=== PATIENT | female | born 1960 | race Caucasian/White ===

== ENCOUNTER 2020-02-27 07:01 | Outpatient (CLI) | payer BC, SELFPAY ==
[2020-02-27 07:13] LABS: Appearance Urine Clear (Clear); Bilirubin Urine Negative (Negative); Color Urine Yellow (Yellow); Glucose Urine UA Negative (Negative); Ketones Urine Negative (Negative); Leukocyte Esterase Ur Negative LEU/UL (Negative); Nitrate Urine Negative (Negative); Protein Urine Negative (Negative); Specific Grav Ur 1.025 (1.010-1.020); Urobilinogen Urine 0.2 mg/dL (0.2-1.0); pH Urine 5.5 (5.0-8.0)
[2020-02-27 07:14] LABS: Hematocrit 45.4 % (35.0-49.0); Hemoglobin 15.4 g/dL (12.0-15.0); Mean Corpuscular HGB Conc 33.9 g/dL (32.0-36.0); Mean Corpuscular Hemoglobin 32.2 pg (27.0-31.0); Platelet Count Result 275 K/mm3 (150-420); Red Blood Count 4.78 M/mm3 (4.20-5.40); Red Cell Distribution Width 12.6 % (11.6-14.4)
[2020-02-27 07:33] LABS: Add Urine Microscopic? YES; Blood Urine Trace-Lysed (Negative)
[2020-02-27 07:34] LABS: Bacteria Urine 2+ /hpf; Squamous Epithelial Cell Urine Few /hpf (Few); WBC Urine 0-3 /hpf (0-3)
[2020-02-27 07:35] LABS: Creatinine Urine 84.48 mg/dL (40-278)
[2020-02-27 07:36] LABS: Microalbumin Urine Random 12.7 mg/L
[2020-02-27 07:37] LABS: Hemoglobin A1C 5.4 % (<5.7)
[2020-02-27 07:51] LABS: Band Neutrophils Percent 0 % (0-6); Basophils Percent Manual 0 % (0-1); Eosinophils Absolute Manual 0.11 K/mm3 (0.02-0.5); Eosinophils Percent Manual 1 % (1-6); Lymphocytes Absolute Manual 4.73 K/mm3 (1.1-4.5); Lymphocytes Percent Manual 43 % (18-44); Monocytes Absolute Manual 0.55 K/mm3 (0.1-0.90); Monocytes Percent Manual 5 % (3-9); Neutrophils Absolute Manual 5.61 K/mm3 (1.7-7.2); Neutrophils Percent Manual 51 % (46-73); Platelet Estimate Adequate (Adequate); Total Cells Counted 100
[2020-02-27 08:47] LABS: Alanine Aminotransferase 55 U/L (14-59); Albumin Level 3.8 g/dL (3.4-5.0); Alkaline Phosphatase 99 U/L (46-116); Anion Gap 16.6 mmol/L (7-16); Aspartate Amino Transferase 34 U/L (15-37); Bilirubin,Total 0.5 mg/dL (0.00-1.00); Blood Urea Nitrogen 18 mg/dL (7-18); Calcium 9.5 mg/dL (8.5-10.1); Carbon Dioxide 26 mmol/L (21-32); Chloride 105 mmol/L (98-108); Cholesterol 195 mg/dL (0-200); Creatine Kinase 120 U/L (26-192); Estimated Glomerular Filt Rate > 60; Glucose 85 mg/dL (70-99); HDL Direct 65 mg/dL (40-60); LDL Cholesterol Calculated 109 mg/dL (<130); Osmolality Calculated 296 mOsm/kg (285-295); Potassium 4.6 mmol/L (3.5-5.1); Sodium 143 mmol/L (136-145); Total Protein 6.5 g/dL (6.4-8.2); Triglycerides 103 mg/dL (0-150)
== END 2020-02-27 07:02 | disposition home or self-care (01) ==
LOC: CHSLAB 07:03
PROVIDERS: PCP Internal Medicine; Visit Provider Internal Medicine
DX: Z00.00 Encounter for general adult medical examination without abnormal findings (principal); R73.01 Impaired fasting glucose
CPT/HCPCS: 36415; 80053; 80061; 81001; 82043; 82550; 83036; 85025

== ENCOUNTER 2020-07-24 01:12 | Outpatient (CLI) | payer BC, SELFPAY ==
[2020-07-24 19:19] LABS: SARS-CoV-2 RNA PCR Negative
== END 2020-07-24 01:13 | disposition home or self-care (01) ==
LOC: ANHCOVIDDT 01:12
PROVIDERS: PCP Internal Medicine; Visit Provider Internal Medicine Gastroenterology
DX: Z01.812 Encounter for preprocedural laboratory examination (principal); Z11.59 Encounter for screening for other viral diseases
CPT/HCPCS: 87635; C9803; U0003

== ENCOUNTER 2020-07-26 01:02 | Day surgery (SDC) | payer BC, SELFPAY ==
[2020-07-18 15:40] VITALS: BMI 32.2
[2020-07-26] MEDS: LACTATED RINGERS 1,000 ML 150 ML IV CONT (07:51)
--- NOTE | 2020-07-26 07:54 | WPDGICN ---
Assessment and Plan Assessment and plan (1) History of colon polyps: Code(s): Z86.010 - Personal history of colonic polyps Status: Acute Assessment and Plan: Patient has a history of colon polyp removed from the colon 2013. Plan is for surveillance colonoscopy at this time. Further recommendations will be given after endoscopy. GI Consult Note Consult date/time: 07/26/20 07:54 HPI: Teresa Espinosa is a 59 year old female seen in evaluation at the request of Dr Riley. Patient presents for for follow-up colonoscopy. Patient has a history of colon polyp removed from the colon in 2013. She states her current weight appetite bowel movements are normal. She denies abdominal pain she has had no bleeding. Her weight has remained stable. Family history is noncontributory. There is no family history of colon or rectal disease. Review of Systems Review of Systems: All systems reviewed & are unremarkable except as noted in HPI and below PMFSH Social History Social History Smoking packs per day: 1 Smoking cigarettes per day: 20.0 Years smoked: 40 Smoking pack-years: 40.00 Smoking status: Heavy tobacco smoker Tobacco type: cigarettes Alcohol intake: current Drinks per week: 2 Substance use: never Substance use type: does not use Living arrangements: with family Spiritual care concerns: No Meds Home Medications and Allergies Home Medications Medication Instructions Recorded Confirmed Type atorvastatin 80 mg PO DAILY 07/18/20 07/18/20 History hydrochlorothiazide 12.5 mg PO DAILY 07/18/20 07/18/20 History losartan 50 mg PO DAILY 07/18/20 07/18/20 History meloxicam 15 mg PO DAILY 07/18/20 07/18/20 History Allergies Allergy/AdvReac Type Severity Reaction Status Date / Time Sulfa (Sulfonamide Allergy Unknown Unknown Verified 07/18/20 15:39 Antibiotics) Penicillins Allergy Itching Verified 07/18/20 15:39 Exam Narrative: Exam Narrative: Physical exam reveals patient to be alert. Vital signs stable. HEENT exam unremarkable. Lungs are clear to auscultation and percussion. Heart is without murmur or extra sounds. Abdominal exam bowel sounds are present soft nontender with no organomegaly. Digital external rectal exam normal.
[2020-07-26 07:55] VITALS: BP 125/90; PULSE 97; RESP 20; TEMP 36.3; O2SAT 97; BMI 30.7
--- NOTE | 2020-07-26 08:06 | WPDANESEPPF ---
Anes - Initial Pre Proc Eval Procedure: Operation Date: 07/26/20 08:30 Proposed Procedures p Screening Colonoscopy - Darwin Mederos MD Date/Time: 07/26/20 08:06 Surgeon: Darwin Mederos MD Pre Op Diagnosis: neoplasm screening, hx colon polyps Patient Data Age: 59 Gender: F Height: 5 ft 2 in Weight: 76.3 kg Last Vital Signs Temp 97.4 F L 07/26/20 07:55 Pulse 97 07/26/20 07:55 Resp 20 07/26/20 07:55 BP 125/90 07/26/20 07:55 Pulse Ox 97 07/26/20 07:55 Allergies Allergy/AdvReac Type Severity Reaction Status Date / Time Sulfa (Sulfonamide Allergy Unknown Unknown Verified 07/18/20 15:39 Antibiotics) Penicillins Allergy Itching Verified 07/18/20 15:39 Home Medications Medication Instructions Recorded Confirmed Type atorvastatin 80 mg PO DAILY 07/18/20 07/18/20 History hydrochlorothiazide 12.5 mg PO DAILY 07/18/20 07/18/20 History losartan 50 mg PO DAILY 07/18/20 07/18/20 History meloxicam 15 mg PO DAILY 07/18/20 07/18/20 History Patient hx anesthesia problems: none Family hx anesthesia problems: none PMFSH Past Medical History Medical History (Updated 07/26/20 @ 08:05 by Keith Chand MD) Hyperlipidemia Social History Social History Smoking packs per day: 1 Smoking cigarettes per day: 20.0 Years smoked: 40 Smoking pack-years: 40.00 Smoking status: Heavy tobacco smoker Tobacco type: cigarettes Alcohol intake: current Drinks per week: 2 Substance use: never Substance use type: does not use Living arrangements: with family Spiritual care concerns: No Anes - Eval Final PreProcedure Day of Procedure 07/26/20 08:06 Patient weight: obese Lungs: clear to auscultation Airway: Mallampati scale class II Neurological: alert and oriented Last oral intake: >/= 8 hours ASA classification: III Emergent: no Anesthetic plan: proceed Anesthesia type and monitoring: general GIVS and standard monitoring Informed Consent: The patient's anesthetic plan and its attendant risks and benefits were discussed with the patient/family/POA. Questions were solicited and answers provided to the satisfaction of the patient/family/POA.
[2020-07-26 08:51] VITALS: BP 127/66; PULSE 92; RESP 16; O2SAT 98
[2020-07-26 09:00] VITALS: BP 133/86; PULSE 81; RESP 16; O2SAT 98
[2020-07-26 09:10] VITALS: BP 134/81; PULSE 81; RESP 16; O2SAT 99
== END 2020-07-26 09:26 | disposition home or self-care (01) ==
PROVIDERS: PCP Internal Medicine; Visit Provider Internal Medicine Gastroenterology
PROC: 0DJD8ZZ Inspection of Lower Intestinal Tract, Via Natural or Artificial Opening Endoscopic (ICD-10-PCS; CPT 45378; principal; 2020-07-26 08:30)
DX: Z12.11 Encounter for screening for malignant neoplasm of colon (principal); K63.5 Polyp of colon; K64.8 Other hemorrhoids; E78.5 Hyperlipidemia, unspecified; F17.210 Nicotine dependence, cigarettes, uncomplicated; E66.9 Obesity, unspecified; Z68.30 Body mass index [BMI] 30.0-30.9, adult
CPT/HCPCS: 45385; 88305; J2001; J2704; J3370; J7120

== ENCOUNTER 2020-09-28 07:14 | Outpatient (CLI) | payer BC, SELFPAY ==
[2020-09-28 07:40] LABS: Appearance Urine Clear (Clear); Bilirubin Urine Negative (Negative); Color Urine Yellow (Yellow); Glucose Urine UA Negative (Negative); Ketones Urine Negative (Negative); Leukocyte Esterase Ur 1+ (Negative); Nitrate Urine Negative (Negative); Protein Urine Negative (Negative); Urobilinogen Urine 0.2 mg/dL (0.2-1.0); pH Urine 5.5 (5.0-8.0)
[2020-09-28 07:53] LABS: Add Urine Microscopic? YES; Blood Urine Trace (Negative); RBC Urine 0-2 /hpf (0-2)
[2020-09-28 07:54] LABS: Bacteria Urine 1+ /hpf; Squamous Epithelial Cell Urine Rare /hpf (Few)
[2020-09-28 08:42] LABS: Alanine Aminotransferase 61 U/L (14-59); Albumin Level 4.2 g/dL (3.4-5.0); Alkaline Phosphatase 96 U/L (46-116); Anion Gap 12 mmol/L (8-16); Aspartate Amino Transferase 40 U/L (15-37); Bilirubin,Total 0.5 mg/dL (0.00-1.00); Blood Urea Nitrogen 16 mg/dL (7-18); Calcium 9.9 mg/dL (8.5-10.1); Carbon Dioxide 25 mmol/L (21-32); Chloride 104 mmol/L (98-108); Cholesterol 195 mg/dL (0-200); Creatine Kinase 309 U/L (26-192); Estimated Glomerular Filt Rate > 60; Glucose 85 mg/dL (70-99); HDL Direct 78 mg/dL (40-60); LDL Cholesterol Calculated 80 mg/dL (<130); Osmolality Calculated 292 mOsm/kg (285-295); Potassium 4.4 mmol/L (3.5-5.1); Sodium 141 mmol/L (136-145); Total Protein 7.2 g/dL (6.4-8.2); Triglycerides 183 mg/dL (0-150)
== END 2020-09-28 07:15 | disposition home or self-care (01) ==
LOC: CHSLAB 07:16
PROVIDERS: PCP Internal Medicine; Visit Provider Internal Medicine
DX: E78.2 Mixed hyperlipidemia (principal); I10 Essential (primary) hypertension; R73.01 Impaired fasting glucose
CPT/HCPCS: 36415; 80053; 80061; 81001; 82550; 83036

== ENCOUNTER 2020-11-21 12:18 | Outpatient (CLI) | payer BC, SELFPAY ==
[2020-11-21 13:16] LABS: Alanine Aminotransferase 62 U/L (14-59); Albumin Level 4.1 g/dL (3.4-5.0); Alkaline Phosphatase 101 U/L (46-116); Anion Gap 10 mmol/L (8-16); Aspartate Amino Transferase 38 U/L (15-37); Bilirubin,Total 0.5 mg/dL (0.00-1.00); Blood Urea Nitrogen 18 mg/dL (7-18); Calcium 10.1 mg/dL (8.5-10.1); Carbon Dioxide 29 mmol/L (21-32); Chloride 102 mmol/L (98-108); Estimated Glomerular Filt Rate > 60; Glucose 87 mg/dL (70-99); Osmolality Calculated 292 mOsm/kg (285-295); Potassium 4.3 mmol/L (3.5-5.1); Sodium 141 mmol/L (136-145); Total Protein 6.9 g/dL (6.4-8.2)
== END 2020-11-21 12:19 | disposition home or self-care (01) ==
LOC: CHSLAB 12:20
PROVIDERS: PCP Internal Medicine; Visit Provider Internal Medicine
DX: R94.5 Abnormal results of liver function studies (principal)
CPT/HCPCS: 36415; 80053

== ENCOUNTER 2021-02-26 15:56 | Outpatient (CLI) | payer BC, SELFPAY ==
[2021-02-26 17:12] LABS: Alanine Aminotransferase 84 U/L (14-59); Alkaline Phosphatase 108 U/L (46-116); Anion Gap 8 mmol/L (8-16); Aspartate Amino Transferase 43 U/L (15-37); Bilirubin,Total 0.4 mg/dL (0.00-1.00); Blood Urea Nitrogen 20 mg/dL (7-18); Calcium 10.2 mg/dL (8.5-10.1); Carbon Dioxide 29 mmol/L (21-32); Chloride 102 mmol/L (98-108); Estimated Glomerular Filt Rate > 60; GGT 202 U/L (5-55); Glucose 88 mg/dL (70-99); Osmolality Calculated 289 mOsm/kg (285-295); Potassium 4.4 mmol/L (3.5-5.1); Sodium 139 mmol/L (136-145); Total Protein 6.9 g/dL (6.4-8.2)
== END 2021-02-26 15:57 | disposition home or self-care (01) ==
LOC: CHSLAB 15:58
PROVIDERS: PCP Internal Medicine; Visit Provider Internal Medicine
DX: R94.5 Abnormal results of liver function studies (principal)
CPT/HCPCS: 36415; 80053; 82977

== ENCOUNTER 2021-03-14 07:47 | Outpatient (CLI) | payer BC, SELFPAY ==
--- NOTE | ~2021-03-14 | US_ITS ---
EXAMINATION: US right upper quadrant DATE: 03/14/2021 08:14 INDICATION: Abnormal liver function tests. TECHNIQUE: Multiple grayscale and Doppler ultrasound images of the abdomen were obtained. COMPARISON: Abdomen ultrasound 11/16/2013 FINDINGS: The visualized portions of the head and body of the pancreas are normal. The liver is jerome l without focal lesion. No liver surface nodularity. There is normal flow in main portal vein. The ga llbladder is normal in size and contains gallstones. No gallbladder wall thickening or sonographic Mu rphy sign. The common duct is normal and measures 4 mm. IMPRESSION: 1. Cholelithiasis. No evidence of acute cholecystitis. Reviewed, dictated and finalized at location A.
[2021-03-14 08:01] LABS: Hematocrit 47.8 % (35.0-49.0); Hemoglobin 16.4 g/dL (12.0-15.0); Mean Corpuscular HGB Conc 34.3 g/dL (32.0-36.0); Mean Corpuscular Hemoglobin 32.2 pg (27.0-31.0); Mean Corpuscular Volume 93.9 fL (78.0-102.0); Mean Platelet Volume 9.2 fl (9.2-11.8); Platelet Count Result 318 K/mm3 (150-420); Red Blood Count 5.09 M/mm3 (4.20-5.40); White Blood Count 11.3 K/mm3 (4.8-10.8)
[2021-03-14 09:10] LABS: Ferritin 253 ng/mL (8-252); GGT 200 U/L (5-55); Iron 93 ug/dL (50-170); Percent Iron Saturation 25 % (12-57)
[2021-03-14 09:11] LABS: CRP < 0.2 mg/dL (0.0-0.9)
[2021-03-14 09:16] LABS: Band Neutrophils Percent 0 % (0-6); Basophils Absolute Manual 0.22 K/mm3 (0-0.1); Basophils Percent Manual 2 % (0-1); Eosinophils Absolute Manual 0.11 K/mm3 (0.02-0.5); Eosinophils Percent Manual 1 % (1-6); Erythrocyte Sedimentation Rate 10 mm/hr (0-20); Lymphocytes Absolute Manual 4.29 K/mm3 (1.1-4.5); Lymphocytes Percent Manual 38 % (18-44); Monocytes Absolute Manual 1.24 K/mm3 (0.1-0.90); Monocytes Percent Manual 11 % (3-9); Neutrophils Absolute Manual 5.42 K/mm3 (1.7-7.2); Neutrophils Percent Manual 48 % (46-73); Total Cells Counted 100
[2021-03-14 09:17] LABS: Atypical Lymphocytes Present; Platelet Estimate Adequate (Adequate)
[2021-03-14 12:16] LABS: Alanine Aminotransferase 66 U/L (14-59); Albumin Level 4.1 g/dL (3.4-5.0); Alkaline Phosphatase 119 U/L (46-116); Anion Gap 11 mmol/L (8-16); Aspartate Amino Transferase 40 U/L (15-37); Bilirubin,Total 0.6 mg/dL (0.00-1.00); Blood Urea Nitrogen 14 mg/dL (7-18); Calcium 9.7 mg/dL (8.5-10.1); Carbon Dioxide 26 mmol/L (21-32); Chloride 101 mmol/L (98-108); Estimated Glomerular Filt Rate > 60; Glucose 93 mg/dL (70-99); Osmolality Calculated 286 mOsm/kg (285-295); Potassium 4.5 mmol/L (3.5-5.1); Sodium 138 mmol/L (136-145); Total Protein 6.9 g/dL (6.4-8.2)
[2021-03-16 20:16] LABS: Mitochondrial (M2) Ab (IgG) <=20.0 U (<=20.0)
[2021-03-18 04:11] LABS: Hepatitis B Surface Antibody Nonreactive (Nonreactive); Hepatitis C Virus Antibody Nonreactive (Nonreactive)
[2021-03-20 09:49] LABS: Actin Antibody (IgG) <20 U (<20)
== END 2021-03-14 07:48 | disposition home or self-care (01) ==
LOC: CHSIMG 07:49
PROVIDERS: PCP Internal Medicine; Visit Provider Internal Medicine
DX: R94.5 Abnormal results of liver function studies (principal)
CPT/HCPCS: 36415; 76705; 80053; 82728; 82977; 83516; 83520; 83540; 83550; 85025; 85652; 86038; 86039; 86140; 86706

== ENCOUNTER 2021-08-01 11:41 | Outpatient (CLI) | payer BC, SELFPAY ==
--- NOTE | ~2021-08-01 | MM_ITS ---
EXAMINATION: MM screening [facility] BI w joanne HISTORY: Screening TECHNIQUE: Craniocaudal and mediolateral oblique 3-D tomosynthesis images were obtained and synthetic 2-D images were generated. CAD analysis was submitted and interpreted. COMPARISON: Comparison to multiple prior studies sequentially, with oldest reviewed study dated 10/2012. BREAST PARENCHYMAL COMPOSITION: There are scattered areas of fibroglandular density. FINDINGS: There is no evidence of suspicious mass, calcification, or architectural distortion to sugg est malignancy in either breast. There has been no suspicious interval change. IMPRESSION: 1. No mammographic evidence of malignancy. 2. Recommend routine screening mammography in one year. BI-RADS Category 1: Negative Reviewed, dictated and finalized at location A.
== END 2021-08-01 11:42 | disposition home or self-care (01) ==
LOC: CHSIMG 11:42
PROVIDERS: PCP Family Medicine; Visit Provider Family Medicine
DX: Z12.31 Encounter for screening mammogram for malignant neoplasm of breast (principal)
CPT/HCPCS: 77063; 77067

== ENCOUNTER 2022-01-19 16:10 | Outpatient (CLI) | payer BC, SELFPAY ==
[2022-01-19 17:32] LABS: Alanine Aminotransferase 45 U/L (14-59); Albumin Level 4.2 g/dL (3.4-5.0); Alkaline Phosphatase 92 U/L (46-116); Anion Gap 9 mmol/L (8-16); Aspartate Amino Transferase 29 U/L (15-37); Bilirubin,Total 0.6 mg/dL (0.00-1.00); Blood Urea Nitrogen 16 mg/dL (7-18); Calcium 9.9 mg/dL (8.5-10.1); Carbon Dioxide 28 mmol/L (21-32); Chloride 100 mmol/L (98-108); Cholesterol 212 mg/dL (0-200); Estimated Glomerular Filt Rate > 60; Glucose 91 mg/dL (70-99); HDL Direct 79 mg/dL (40-60); LDL Cholesterol Calculated 94 mg/dL (<130); Osmolality Calculated 285 mOsm/kg (285-295); Potassium 4.1 mmol/L (3.5-5.1); Sodium 137 mmol/L (136-145); Total Protein 6.8 g/dL (6.4-8.2); Triglycerides 193 mg/dL (0-150)
== END 2022-01-19 16:11 | disposition home or self-care (01) ==
LOC: CHSLAB 16:12
PROVIDERS: PCP Family Medicine; Visit Provider Family Medicine
DX: R74.8 Abnormal levels of other serum enzymes (principal); E78.5 Hyperlipidemia, unspecified
CPT/HCPCS: 36415; 80053; 80061

== ENCOUNTER 2022-10-19 07:25 | Outpatient (CLI) | payer BC, SELFPAY ==
[2022-10-19 07:34] LABS: Add Urine Microscopic? YES; Appearance Urine Slightly Cloudy (Clear); Bilirubin Urine Negative (Negative); Blood Urine 1+ (Negative); Glucose Urine UA Negative (Negative); Ketones Urine Negative (Negative); Leukocyte Esterase Ur 1+ LEU/UL (Negative); Nitrate Urine Positive (Negative); Protein Urine Negative (Negative); Specific Grav Ur >= 1.030 (1.010-1.020); Urobilinogen Urine 0.2 mg/dL (0.2-1.0)
[2022-10-19 07:44] LABS: Color Urine Dark Yellow (Yellow)
[2022-10-19 07:45] LABS: Bacteria Urine 4+ /hpf; Squamous Epithelial Cell Urine Moderate /hpf (Few)
== END 2022-10-19 07:26 | disposition home or self-care (01) ==
LOC: CHSLAB 07:26
PROVIDERS: PCP Family Medicine; Visit Provider Family Medicine
DX: R30.0 Dysuria (principal); R82.90 Unspecified abnormal findings in urine
CPT/HCPCS: 81001; 87077; 87086; 87088; 87186

== ENCOUNTER 2022-10-28 07:20 | Outpatient (CLI) | payer BC, SELFPAY ==
[2022-10-28 08:12] LABS: Add Urine Microscopic? YES; Appearance Urine Clear (Clear); Bilirubin Urine Negative (Negative); Blood Urine Trace-Intact (Negative); Color Urine Light Yellow (Yellow); Glucose Urine UA Negative (Negative); Ketones Urine Negative (Negative); Leukocyte Esterase Ur 1+ LEU/UL (Negative); Nitrate Urine Negative (Negative); Protein Urine Negative (Negative); Specific Grav Ur <= 1.005 (1.010-1.020); Urobilinogen Urine 0.2 mg/dL (0.2-1.0); pH Urine 6.5 (5.0-8.0)
[2022-10-28 08:24] LABS: RBC Urine None seen /hpf (0-2); WBC Urine 0-3 /hpf (0-3)
[2022-10-28 08:25] LABS: Bacteria Urine Trace /hpf; Squamous Epithelial Cell Urine Few /hpf (Few)
== END 2022-10-28 07:21 | disposition home or self-care (01) ==
LOC: CHSLAB 07:21
PROVIDERS: PCP Family Medicine; Visit Provider Nurse Practitioner Family
DX: R82.90 Unspecified abnormal findings in urine (principal); Z87.440 Personal history of urinary (tract) infections
CPT/HCPCS: 81001; 87077; 87086; 87088; 87186

== ENCOUNTER 2023-05-10 07:03 | Outpatient (CLI) | payer BC, SELFPAY ==
[2023-05-10 07:16] LABS: Basophils Absolute Auto 0.06 K/mm3 (0.00-0.10); Basophils Percent Auto 0.7 % (0.0-1.0); Eosinophils Absolute Auto 0.17 K/mm3 (0.02-0.50); Eosinophils Percent Auto 1.9 % (1.0-6.0); Hematocrit 47.9 % (35.0-49.0); Hemoglobin 16.2 g/dL (12.0-15.0); Immature Granulocyte Absolute 0.04 K/mm3 (0.00-0.00); Immature Granulocyte Percent A 0.5 % (0.0-0.0); Lymphocytes Absolute Auto 3.81 K/mm3 (1.10-4.50); Lymphocytes Percent Auto 43.2 % (18.0-42.0); Mean Corpuscular HGB Conc 33.8 g/dL (32.0-36.0); Mean Corpuscular Hemoglobin 33.1 pg (27.0-31.0); Mean Corpuscular Volume 97.8 fL (78.0-102.0); Mean Platelet Volume 9.2 fl (9.2-11.8); Monocytes Absolute Auto 0.55 K/mm3 (0.10-0.90); Monocytes Percent Auto 6.2 % (2.0-11.0); Neutrophils Absolute Auto 4.2 K/mm3 (1.7-7.2); Neutrophils Percent Auto 47.5 % (50.0-70.0); Platelet Count Result 249 K/mm3 (150-420); Red Cell Distribution Width 11.9 % (11.6-14.4); White Blood Count 8.8 K/mm3 (4.8-10.8)
[2023-05-10 08:18] LABS: Alanine Aminotransferase 37 U/L (14-59); Albumin Level 3.8 g/dL (3.4-5.0); Alkaline Phosphatase 87 U/L (46-116); Anion Gap 8 mmol/L (8-16); Aspartate Amino Transferase 22 U/L (15-37); Bilirubin,Total 0.6 mg/dL (0.00-1.00); Blood Urea Nitrogen 17 mg/dL (7-18); Calcium 9.3 mg/dL (8.5-10.1); Carbon Dioxide 31 mmol/L (21-32); Chloride 103 mmol/L (98-108); Cholesterol 216 mg/dL (0-200); Estimated Glomerular Filt Rate > 60; Folic Acid > 20.0 ng/mL (8.6->20); Glucose 89 mg/dL (70-99); HDL Direct 74 mg/dL (40-60); LDL Cholesterol Calculated 110 mg/dL (<130); Osmolality Calculated 294 mOsm/kg (285-295); Potassium 4.2 mmol/L (3.5-5.1); Sodium 142 mmol/L (136-145); Total Protein 6.4 g/dL (6.4-8.2); Triglycerides 158 mg/dL (0-150); Vitamin B12 949 pg/mL (193-986)
[2023-05-10 08:19] LABS: Thyroid Stimulating Hormone Reflex 0.75 u/IU/mL (0.36-3.74)
== END 2023-05-10 07:04 | disposition home or self-care (01) ==
LOC: CHSLAB 07:04
PROVIDERS: PCP Family Medicine; Visit Provider Family Medicine
DX: F10.10 Alcohol abuse, uncomplicated (principal); E53.8 Deficiency of other specified B group vitamins; E11.9 Type 2 diabetes mellitus without complications; I10 Essential (primary) hypertension
CPT/HCPCS: 36415; 80053; 80061; 82607; 82746; 84443; 85025

== ENCOUNTER 2024-06-26 07:01 | Outpatient (CLI) | payer BC, SELFPAY ==
[2024-06-26 07:20] LABS: Basophils Absolute Auto 0.06 K/mm3 (0.00-0.10); Basophils Percent Auto 0.6 % (0.0-1.0); Eosinophils Absolute Auto 0.25 K/mm3 (0.02-0.50); Eosinophils Percent Auto 2.5 % (1.0-6.0); Hematocrit 48.4 % (35.0-49.0); Hemoglobin 16.4 g/dL (12.0-15.0); Immature Granulocyte Absolute 0.04 K/mm3 (0.00-0.00); Immature Granulocyte Percent A 0.4 % (0.0-0.0); Lymphocytes Absolute Auto 4.12 K/mm3 (1.10-4.50); Lymphocytes Percent Auto 41.6 % (18.0-42.0); Mean Corpuscular HGB Conc 33.9 g/dL (32-36); Mean Corpuscular Hemoglobin 32.5 pg (27.0-31.0); Mean Corpuscular Volume 95.8 fL (78.0-102.0); Mean Platelet Volume 9.3 fl (9.2-11.8); Monocytes Percent Auto 7.1 % (2.0-11.0); Neutrophils Absolute Auto 4.74 K/mm3 (1.70-7.20); Neutrophils Percent Auto 47.8 % (50.0-70.0); Platelet Count Result 271 K/mm3 (150-420); Red Blood Count 5.05 M/mm3 (4.20-5.40); Red Cell Distribution Width 12.2 % (11.6-14.4); White Blood Count 9.9 K/mm3 (4.8-10.8)
[2024-06-26 16:27] LABS: Alanine Aminotransferase 40 U/L (14-59); Albumin Level 4.2 g/dL (3.4-5.0); Alkaline Phosphatase 97 U/L (46-116); Anion Gap 9 mmol/L (4-12); Aspartate Amino Transferase 28 U/L (15-37); Bilirubin,Total 0.6 mg/dL (0.00-1.00); Blood Urea Nitrogen 16 mg/dL (7-18); Calcium 9.6 mg/dL (8.5-10.1); Carbon Dioxide 29 mmol/L (21-32); Chloride 104 mmol/L (98-108); Cholesterol 232 mg/dL (0-200); Estimated Glomerular Filt Rate > 60; Glucose 84 mg/dL (70-99); HDL Direct 78 mg/dL (40-60); LDL Cholesterol Calculated 119 mg/dL (<130); Osmolality Calculated 294 mOsm/kg (285-295); Potassium 4.3 mmol/L (3.5-5.1); Sodium 142 mmol/L (136-145); Total Protein 6.9 g/dL (6.4-8.2); Triglycerides 176 mg/dL (0-150)
== END 2024-06-26 07:02 | disposition home or self-care (01) ==
LOC: CHSLAB 07:03
PROVIDERS: PCP Family Medicine; Visit Provider Family Medicine
DX: I10 Essential (primary) hypertension (principal)
CPT/HCPCS: 36415; 80053; 80061; 85025

== ENCOUNTER 2024-07-12 13:36 | Outpatient (CLI) | payer BC, SELFPAY ==
--- NOTE | ~2024-07-12 | MM_ITS ---
EXAMINATION: MM screening [facility] BI w joanne HISTORY: Screening TECHNIQUE: Craniocaudal and mediolateral oblique 3-D tomosynthesis images were obtained and synthetic 2-D images were generated. CAD analysis was submitted and interpreted. COMPARISON: Comparison to multiple prior studies sequentially, with oldest reviewed study dated 04/2015. BREAST PARENCHYMAL COMPOSITION: Not dense: There are scattered areas of fibroglandular density. FINDINGS: There is developing asymmetry of the right breast in the upper outer quadrant, anterior thi rd with possible architectural distortion. The left breast is stable without evidence for malignancy. IMPRESSION: 1. Developing left breast asymmetry with possible architectural distortion. 2. Additional mammographic views and possible breast ultrasound are recommended. BI-RADS Category 0: Incomplete: Needs additional imaging evaluation. Reviewed, dictated and finalized at location B. IMPRESSION: 1. Developing left breast asymmetry with possible architectural distortion. 2. Additional mammographic views and possible breast ultrasound are recommended . BI-RADS Category 0: Incomplete: Needs additional imaging evaluation.
== END 2024-07-12 13:37 | disposition home or self-care (01) ==
LOC: CHSIMG 13:40
PROVIDERS: PCP Family Medicine; Visit Provider Family Medicine
DX: Z12.31 Encounter for screening mammogram for malignant neoplasm of breast (principal); R92.8 Other abnormal and inconclusive findings on diagnostic imaging of breast
CPT/HCPCS: 77063; 77067

== ENCOUNTER 2024-07-27 08:42 | Outpatient (CLI) | payer BC, SELFPAY ==
--- NOTE | ~2024-07-27 | MMUS_ITS ---
EXAMINATION: MM diagnostic [facility] RT w joanne, US breast RT limited HISTORY: Right breast asymmetry TECHNIQUE: Additional 3-D tomosynthesis images of the right breast were performed and synthetic 2-D i mages were generated. CAD analysis was submitted and interpreted. High resolution limited right breas t ultrasound was performed. COMPARISON: 07/12/2024, 08/01/2021 BREAST PARENCHYMAL COMPOSITION:Not Dense. There are scattered areas of fibroglandular density. FINDINGS: MAMMOGRAPHIC FINDINGS: Spot compression views demonstrate persistent distortion at the upper, outer right breast, with possi ble associated 6 mm mass. ULTRASOUND: At the 9:00 position right breast, 5 cm from the nipple, there is a 9 x 6 x 6 mm irregular hypoechoic mass with posterior shadowing. IMPRESSION: 9 x 6 x 6 mm hypoechoic irregular posterior shadowing mass at the 9:00 position right breast, 5 cm t he nipple. This correlates with area of distortion and small mass on mammogram images. This is suspic ious for neoplasm, and ultrasound-guided biopsy is recommended to establish a histologic diagnosis. BI-RADS category 5, highly suggestive of malignancy. Reviewed, dictated and finalized at location . IMPRESSION: 9 x 6 x 6 mm hypoechoic irregular posterior shadowing mass at the 9:00 positio n right breast, 5 cm the nipple. This correlates with area of distortion and sm all mass on mammogram images. This is suspicious for neoplasm, and ultrasound-g uided biopsy is recommended to establish a histologic diagnosis. BI-RADS category 5, highly suggestive of malignancy.
== END 2024-07-27 08:43 | disposition home or self-care (01) ==
LOC: CHSIMG 08:43
PROVIDERS: PCP Family Medicine; Visit Provider Family Medicine
DX: R92.8 Other abnormal and inconclusive findings on diagnostic imaging of breast (principal)
CPT/HCPCS: 76642; 77061; 77065; G0279

== ENCOUNTER 2024-08-09 07:44 | Outpatient (CLI) | payer BC, SELFPAY ==
--- NOTE | ~2024-08-09 | MMUS_ITS ---
MM post biopsy diagnostic RT, US breast biopsy RT w image EXAMINATION: US GUIDED NEEDLE BIOPSY WITH VACUUM ASSISTANCE DATE: 08/09/2024 09:45 CDT INDICATION: Right breast mass seen on prior examination. Ultrasound-guided core biopsy is requested to evaluate for malignancy. BREAST PARENCHYMAL COMPOSITION: Not dense: There are scattered areas of fibroglandular density. TECHNIQUE AND FINDINGS: The risks and potential benefits of the procedure were discussed with the patient, and written inform ed consent was obtained. After sterile preparation of the right breast, 1% lidocaine was utilized fo r local anesthesia. 1% lidocaine with epinephrine was used for deep anesthesia. A 10G vacuum-assisted biopsy gun needle was advanced through to the outer edge of the region of inter est from a superior lateral approach utilizing sonographic guidance. A total of 4 tissue core sample s were obtained through the lesion. An Inrad tissue marker clip was then placed at the biopsy site. Hemostasis was achieved. The patient tolerated procedure well and there was no evidence of immediate complication. The patien t was given verbal instructions partly is from the department. Right breast mammograms to document t issue marker clip placement. The tissue samples were submitted to surgical pathology for histologic a nalysis. IMPRESSION: 1. Successful ultrasound-guided vacuum-assisted biopsy of right breast mass with post procedure mamm ogram for marker placement. Please refer to pathology report for histologic analysis. Reviewed, dictated and finalized at location B. IMPRESSION: 1. Successful ultrasound-guided vacuum-assisted biopsy of right breast mass wi th post procedure mammogram for marker placement. Please refer to pathology rep ort for histologic analysis.
== END 2024-08-09 07:45 | disposition home or self-care (01) ==
PROVIDERS: PCP Family Medicine; Visit Provider Family Medicine
DX: R92.8 Other abnormal and inconclusive findings on diagnostic imaging of breast (principal); N60.12 Diffuse cystic mastopathy of left breast; N62 Hypertrophy of breast; R92.0 Mammographic microcalcification found on diagnostic imaging of breast
CPT/HCPCS: 19083; 77065; 88305; 88342; A4648

== ENCOUNTER 2024-09-13 07:52 | Outpatient (CLI) | payer BC, SELFPAY ==
--- NOTE | ~2024-09-13 | US_ITS ---
Radiology consultation: Findings were discussed with the patient. Given the spiculated appearance of the mass by mammography and irregular shaped by ultrasound with posterior shadowing, this mass is con sidered highly suspicious and follow-up biopsy utilizing a surgical excision with ultrasound-guided m arker placement is recommended. Reviewed, dictated and finalized at location B. ISH DIPPER
== END 2024-09-13 07:53 | disposition home or self-care (01) ==
PROVIDERS: PCP Family Medicine; Visit Provider Family Medicine
DX: N63.10 Unspecified lump in the right breast, unspecified quadrant (principal)
CPT/HCPCS: 99199

== ENCOUNTER 2024-10-16 11:12 | Outpatient (CLI) | payer BC, SELFPAY ==
[2024-10-16 12:13] LABS: Anion Gap 2 mmol/L (4-12); Blood Urea Nitrogen 12 mg/dL (7-17); Carbon Dioxide 29 mmol/L (22-30); Chloride 105 mmol/L (98-107); Estimated Glomerular Filt Rate > 60; Glucose 95 mg/dL (65-110); Potassium 3.9 mmol/L (3.4-5.0); Sodium 136 mmol/L (137-145)
== END 2024-10-16 11:13 | disposition home or self-care (01) ==
LOC: ANHSURGERY 11:17
PROVIDERS: Anesthesiology; PCP Family Medicine; Visit Provider Surgery
DX: Z79.899 Other long term (current) drug therapy (principal)
CPT/HCPCS: 36415; 80048

== ENCOUNTER 2024-10-20 00:10 | Day surgery (SDC) | payer BC, SELFPAY ==
[2024-10-09 12:25] VITALS: BMI 29.7
--- NOTE | 2024-10-09 12:32 | PC.NURSE ---
Report to the Outpatient Waiting Room, entrance under the green pavilion located off [facility], at time _0600_ on date _[id number]_. Needle LOC at 0700 Surgery Time: _0900_.? Time changes happen often and if your time is changed the preop area will call you the afternoon before. - You and your visitor will be asked to self-screen and do not enter if you have any COVID symptoms. Please call surgeon if you need to reschedule. - A mask is optional within the hospital at this time. Patients may have clear liquids (water, carbonated beverages, clear teas, apple juice) until 3 hours prior to surgery with a maximum of 20 ounces. - No food from midnight until time of surgery and no smoking. This includes no chewing gum, candy or mints. Take only the following medications with a SIP of water on the morning of surgery: _Patient is planning to take Oxycodone. DO NOT STOP ANY OF YOUR OTHER PRESCRIPTION MEDICATIONS PRIOR TO SURGERY EXCEPT THE FOLLOWING Medications to discontinue per physician Multivitamin Date to take last xlvc___[id number] Please no make-up, nail lebanese, hairspray, perfume, deodorant, or body powder the day of surgery.? No jewelry (including any body piercings) or valuables the day of surgery, leave them at home.? Please take a shower or bath the night before, or the morning of, surgery with an antibacterial soap.? Wear comfortable, loose fitting clothing.? - Jewelry must be removed prior to entering the operating room.? Rings and piercings that are not removed may be cut off. - The hospital will not accept responsibility for valuables.? - Please leave all valuables, including medications, at home the day of surgery. If you are going home after surgery, a licensed automobile drivers must drive you home.? - NO public transportation without another adult if you receive anesthesia. - We recommend that an adult stay with you for 24 hours following discharge. - We also recommend that you do not drive, make important decision, drink alcoholic beverages, or take any drugs that were not prescribed by your health care provider for at least 24 hours after your discharge time. Follow any additional instructions given to you from your surgeon. Telephone instructions given to __Annita__and asked if any additional questions and then verbalized understanding. Patient advised to call surgeon office or pre surgery nurse liaison [phone] if any additional questions.
--- NOTE | ~2024-10-20 | MMUS_ITS ---
EXAMINATION: 1. US breast needle loc RT 2. MM surgical specimen RT 3. MM post biopsy invasive RT DATE: 10/20/2024 08:01 INDICATION: Right breast mass at 9:00, 5 cm from the nipple. TECHNIQUE: The procedure for an ultrasound-guided needle localization was discussed with the patient. Risks and benefits were detailed, including risk of bleeding and infection. The patient verbalized understanding and agreed to proceed. The time out was performed to verify the patient's name, date of , and site of procedure. The sk in overlying the right breast was prepared and draped in usual fashion. Utilizing ultrasound guidanc e, a needle was advanced into the mass at the 9:00 position, 5 cm from the nipple. Confirmation of po sition of the wire was performed with ultrasound and subsequent two-view mammogram. The patient pauline ated the procedure without immediate complication. A specimen radiograph was performed. FINDINGS: Ultrasound images demonstrate the needle and wire in a mass at the 9:00 position. Breast composition: There are scattered areas of fibroglandular density. Mammogram: The wire and a biopsy marker are in a mass in the right breast at the 9:00 position. Specimen radiograph: The mass, wire, and biopsy marker are contained within the surgical specimen. IMPRESSION: 1. Successful ultrasound-guided right breast needle localization. Reviewed, dictated and finalized at location A. ET ASSEMBLY PRESS SETTER OPERATOR IMPRESSION: 1. Successful ultrasound-guided right breast needle localization. IMPRESSION: 1. Successful ultrasound-guided right breast needle localization.
[2024-10-20 06:05] VITALS: BP 139/86; PULSE 101; RESP 20; TEMP 36.2; O2SAT 96
--- NOTE | 2024-10-20 07:40 | SUR.PREOP ---
0605-Pt states has had cough for 1 week and has progressed to chest and expectorating clear mucus. Denies fever or any other symptoms. tested negative for COVID yesterday. 0645-Radiology states they will call when ready for pt. 0720-Drs. Smallwood/Mannie aware of pt cough-will proceed. 0725-To radiology per w/c.
--- NOTE | 2024-10-20 08:11 | SUR.PREOP ---
0805-Returned from radiology.
[2024-10-20] MEDS: LACTATED RINGERS 1,000 ML 30 ML IV CONT ×2 (08:15→10:23)
--- NOTE | 2024-10-20 08:28 | WPDHPUPDATE1 ---
History and Physical Update Update Date/Time: 10/20/24 08:28 History and Physical has been reviewed, including an updated exam of the patient. There are NO changes in the patient's condition. Risks, benefits, and alternatives have been discussed and questions answered. Patient agrees to proceed with procedure.
--- NOTE | 2024-10-20 08:32 | P.PNAN_ITS ---
Anes - Initial Pre Proc Eval Procedure: Operation Date: 10/20/24 09:00 Proposed Procedures p Excisional Right Breast Biopsy with Ultrasound and/or Mammogram Guided Needle Localization - Isiah Smallwood MD Date/Time: 10/20/24 08:32 Surgeon: Isiah Smallwood MD Pre Op Diagnosis: Right Breast Mass Patient Data Age: 64 Gender: F Height: 1.56 m Weight: 69.6 kg Last Vital Signs Temp 36.2 C L 10/20/24 06:05 Pulse 101 H 10/20/24 06:05 Resp 20 10/20/24 06:05 BP 139/86 10/20/24 06:05 Pulse Ox 96 10/20/24 06:05 O2 Del Method Room Air 10/20/24 06:05 Allergies Allergy/AdvReac Type Severity Reaction Status Date / Time Penicillins Allergy Severe Itching Verified 10/20/24 06:27 Sulfa (Sulfonamide Allergy Severe Itching Verified 10/20/24 06:27 Antibiotics) Home Medications ?Medication ?Instructions ?Recorded ?Confirmed ?Type oxycodone 5 mg tablet 5 mg PO Q8H PRN pain #20 tabs 08/15/24 10/20/24 Rx atorvastatin 20 mg tablet See Rx Instructions .Route 10/09/24 10/20/24 Rx .COMPLEX #90 tabs hydrochlorothiazide 12.5 mg tablet See Rx Instructions .Route 10/09/24 10/20/24 Rx .COMPLEX #30 tabs losartan 50 mg tablet See Rx Instructions .Route 10/09/24 10/20/24 Rx .COMPLEX #90 tabs meloxicam 15 mg tablet See Rx Instructions .Route 10/09/24 10/20/24 Rx .COMPLEX #30 tabs multivitamin 1 tablet PO DAILY 10/09/24 10/20/24 History fluconazole 150 mg tablet 150 mg PO DAILY #7 tabs 10/16/24 10/20/24 Rx Patient hx anesthesia problems: none Family hx anesthesia problems: none Results Review: All pre-operative results and documents have been reviewed as part of the pre- operative evaluation. [facility] Past Medical History Medical History Hypertension Hyperlipidemia Surgical History Surgical History History of colonoscopy History of hysterectomy History of right knee joint replacement Family History Family History Father , age 66 Lung cancer Mother , age 83 Diabetes mellitus Heart disease Social History Social History (System 09/29/24 @ 09:02 by Elvi White) Smoking packs per day: 1 Smoking cigarettes per day: 20.0 Years smoked: 40 Smoking pack-years: 40.00 Smoking status: Current every day smoker Tobacco type: cigarettes Alcohol intake: current Alcohol use details: Has a few drinks daily after work. Substance use: never Substance use type: does not use Do You Feel Safe in your Home?: Yes Lack of Transportation: No Lack of Food: Never True Current Housing: I Have Housing Concerned About Future Housing: No Difficulty Paying Gas/Electric Bills: No Difficulty Paying for Meds: No Currently Unemployed: No Education: High School Diploma/GED Difficulty w/ Childcare or Family Care: No Living arrangements: with family Occupation/Education: occupation Additional occupation/education comments: Retail [employer] Spiritual care concerns: No Anes - Eval Final PreProcedure Day of Procedure 10/20/24 08:32 Patient weight: overweight Heart: regular rate and rhythm Lungs: clear to auscultation Airway: Mallampati scale class II Neurological: alert and oriented Last oral intake: >/= 8 hours ASA classification: III Emergent: no Anesthetic plan: proceed Anesthesia type and monitoring: general GIVS and standard monitoring Results Review: All pre-operative results and documents have been reviewed as part of the pre- operative evaluation. Informed Consent: The patient's anesthetic plan and its attendant risks and benefits were discussed with the patient/family/POA. Questions were solicited and answers provided to the satisfaction of the patient/family/POA.
[2024-10-20] MEDS: KETOROLAC 15 MG/ML VIAL (*BKC) IV PUSH (08:50)
[2024-10-20] MEDS: ceFAZolin 2 GM/D5W 50 ML 2 GM/50 ML BAG IVPB (08:55)
[2024-10-20] MEDS: BUPivacaine HCL 0.5% PF 30 ML VIAL INFILTRATE (09:24)
[2024-10-20] MEDS: LIDO 1%/EPINEPHRINE 1:100,000 50 ML VIAL 30 ML INFILTRATE (09:25)
--- NOTE | 2024-10-20 09:45 | SUR.OPER ---
09:45 Specimen sent with FARHANA Maza to Mammography, received by Bianka
[2024-10-20 10:23] VITALS: BP 108/71; PULSE 84; RESP 12; O2SAT 95
--- NOTE | 2024-10-20 10:28 | P.OP_ITS ---
Procedure Note - Detailed Date of Procedure 10/20/24 Pre-op Diagnosis Right Breast Mass Post-op Diagnosis Same Procedure Performed Image guided wire localized excisional right breast biopsy Surgeon Isiah Smallwood MD Small Boat Engineer TELMA Robertson Anesthesia General Indications Patient is a 64-year-old female who on screening mammography was found to have a mammographic lesion in her lateral right breast at approximately 9 to 10 o'clock position. The mammograms and subsequent ultrasound were categorized as having a classic 5 lesion. She subsequently underwent a image guided core needle biopsy by Radiology and the biopsy showed fibrocystic changes. Due to the class 5 reading she presents now for a image guided wire localized excisional biopsy of the whole area of concern to make sure there is no sampling error of the lesion. Findings The patient did have at the 9 o'clock position the lateral portion of the right breast an area of nodularity which was localized by the image guided guidewire. Medial to this area was dense breast tissue was some fibrocystic changes the breast grossly. The area containing the prior core needle biopsy clips was removed and the radiologist confirmed that the area of interest was contained within the excised tissue. Description of Procedure After informed consent was obtained patient brought to the operating room where she was placed supine position and then general LMA anesthesia was administered. Prior to coming to the operating room the patient had a image guided wire localization of the right breast lesion. The right breast and anterior chest region was then prepped and draped usual sterile fashion. Great care was taken not to disturb the length orientation of the localizing guidewire. Site marking was not needed as the localizing guidewire served as the site marking. She was given perioperative IV antibiotics. I 1st started by making a curved incision in the right lateral breast region parallel in the curvature of the nipple. Dissection was carried down through the skin with a scalpel and then once underneath the dermis into the subcapsular plane I tunneled with Metzenbaum scissors until I encountered the insertion site of the guidewire. The guidewire was then brought into the incision very carefully without disturbing the length orientation of the guidewire. I placed an Allis clamp onto the breast tissue th at the guidewire was with then and then proceeded to dissect down along the shaft of the guidewire to I reached tip. Once at the tip of the guidewire I then performed a wide excision of the breast tissue in this area with sharp dissection utilizing scissors and a #10 blade scalpel. In the medial portion the breast in the area the sub areolar breast tissue there were fibrocystic changes and dense breast tissue. A portion of this tissue was also taken with the specimen but the subareolar complex was not removed. Once the tissue had been removed from the breast and then marked it with orienting sutures. The specimen was then sent to Radiology for specimen radiographed and the radiologist confirmed that the prior breast markers placed for biopsy and biopsy clips were within the tissue that I had removed. The tissue was sent to pathology for evaluation fresh. I then irrigated out the incision sterile saline solution hemostasis was then achieved electrocautery. I then proceeded to close the breast incision by placement of multiple layers of interrupted 3-0 plain gut sutures to approximate the edges of the breast tissue and close the space. The breast capsule was then approximated utilizing interrupted 3-0 plain gut sutures. The skin edges were approximated utilizing a running subcuticular 4-0 Monocryl suture. The incision was then cleaned and then skin glue was applied. Fluff gauze and a surgical bra was then placed for final dressing. The patient tolerated the procedure well no complications. All sponges, needles, and instrument counts were correct at the end procedure. EBL was _25__cc. The patient was awakened and taken to recovery in stable and satisfactory condition. Implants None Estimated Blood Loss 25 Drains No Packing No Pathology Yes (Right breast tissue with localizing wire and orienting sutures sent to pathology fresh.) Complications No immediate complications Condition Stable Disposition PACU [facility] Billing Surgery - Charge Forward: Surgery Billing
[2024-10-20 10:53] VITALS: BP 139/93; PULSE 79
--- OUTSIDE RECORDS SUMMARY | 2024-10-27 00:36 | XMS_ITS | Clinical Summary ---
Author Organization [facility] Address [address] [place] [address] Phone Care Team Providers Care Channel Sales Manager Name Role Phone Anthony Riley MD Primary Care Provider + Allergies Active Allergy Reactions Criticality Noted Date Comments Penicillins Unknown 09/15/2019 Sulfa (Sulfonamide Antibiotics) Unknown 08/19 Medications Medication Sig Dispensed Refills Start Date End Date Status losartan-hydroCHLOROt hiazide (HYZAAR) 100-12.5 mg tablet Take 1 Tablet by mouth daily. Active atorvastatin (LIPITOR) 80 mg tablet Take 80 mg by mouth daily with supper. Active meloxicam (MOBIC) 15 mg tablet Take 15 mg by mouth daily. Active hydrOXYzine HCl (ATARAX) 25 mg tablet Take 1 Tablet by mouth every 8 hours as needed for Anxiety. 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 Family History Medical History Relation Name Comments Cancer Mother Diabetes Mother Relation Name Status Comments Mother Social History Tobacco Use Types Packs/Day Years Used Date Smoking Tobacco: Every Day Cigarettes Alcohol Use Standard Drinks/Week Comments Not Currently 0 (1 standard drink = 0.6 oz pur e alcohol) Sex and Gender Information Value Date Recorded Sex Assigned at Not on file Gender Identity Not on file Sexual Orientation Not on file Last Filed Vital Signs Vital Sign Reading Time Taken Comments Blood Pressure 125/63 09/19/2019 3:57 AM PHARMACEUTICAL ASSISTANT Pulse 88 09/19/2019 3:57 AM PHARMACEUTICAL ASSISTANT Temperature 36.8 ??C (98.3 ??F) 09/19/2019 3:57 AM CS T Respiratory Rate 16 09/19/2019 3:57 AM PHARMACEUTICAL ASSISTANT Oxygen Saturation 96% 09/19/2019 3:57 AM PHARMACEUTICAL ASSISTANT Inhaled Oxygen Concentration - - Weight 77.1 kg (170 lb) 09/17/2019 11:32 AM PHARMACEUTICAL ASSISTANT Height 157.5 cm (5' 2 ) 09/17/2019 11:32 AM PHARMACEUTICAL ASSISTANT Body Mass Index 31.09 09/17/2019 11:32 AM PHARMACEUTICAL ASSISTANT Plan of Treatment Health Maintenance Due Date Last Done Comments PNEUMOCOCCAL VACCINE 0-64 YEARS (1 of 2 - PCV) 967 DTAP/TDAP/TD VACCINES (1 - Tdap) 1980 CERVICAL CANCER SCREENING 1991 BREAST CANCER SCREENING 2001 COLORECTAL SCREENING 2006 Colorectal Cancer Screening 2006 FIT-DNA Q 3 years 2006 FIT/FOBT Q 1 year 2006 Flex Sig/CT Colonography Q 5 years 2006 ZOSTER VACCINE (1 of 2) 2011 INFLUENZA VACCINE (#1) 2024 RSV VACCINE (60+ or ) (1 - 1-dose 75+ series) 2036 Advance Directives For more information, please contact: [phone] * Full Code (Latest Code Status on File) Date Activated Date Inactivated Comments 09/17/2019 11:07 AM 09/19/2019 4:15 PM * Full Code Date Activated Date Inactivated Comments 09/15/2019 10:37 PM 09/17/2019 11:07 AM Care Teams Channel Sales Manager Relationship Specialty Start Date End Date Anthony Riley MD [address] [place] [phone] PCP - General Internal Medicine 09/15/19
--- OUTSIDE RECORDS SUMMARY | 2024-10-27 00:37 | XMS_ITS | Encounter Summary ---
Author Organization [facility] Address [address] [place] [address] Care Team Providers Care Copier Operator Name Role Phone Anthony Riley MD Primary Care Provider + Reason for Visit * Auth/Cert Specialty Diagnoses / Procedures Referred By Aristeo hussein Referred To Contact Neurology Diagnoses mandible abscess [facility] [address] [place] [address] Referral ID Status Reason Start Date Expiration Date Visits Re quested Visits Authorized [id number] 1 1 Encounter Details Date Type Department Care Team (Late st Contact Info) Description 09/17/2019 11:00 AM ELECTRICAL RESEARCH ENGINEER - 09/17/2019 12:26 PM ELECTRICAL RESEARCH ENGINEER Surgery [facility] Operating Room [address] [place] [address] Oli Arnett Jr., DMD NO ADDRESS ON FILE RT MANDIBLE INCISION AND DRAINAGE Surgery Details Date/Time Status Location OR Service Patient Class Case Class Case Type Trauma Case? 09/17/2019 11:[address] OR MAIN OR 22 Oralmaxillofacial Inpatient Urgent No Panel 1 Procedure LRB Anes Op Region Wound Class Comments RT MANDIBLE INCISION AND DRAINAGE N/A General Face Clean Contaminated-II Surgeon Surgeon Role Service Panel Oli Arnett Jr., DMD Primary Oralmaxi llofacial 1 documented in this encounter Social History Tobacco Use Types Packs/Day Years Used Date Smoking Tobacco: Every Day Cigarettes Alcohol Use Standard Drinks/Week Comments Not Currently 0 (1 standard drink = 0.6 oz pur e alcohol) Sex and Gender Information Value Date Recorded Sex Assigned at Not on file Gender Identity Not on file Sexual Orientation Not on file documented as of this encounter Last Filed Vital Signs Vital Sign Reading Time Taken Comments Blood Pressure 121/83 09/17/2019 11:32 AM ELECTRICAL RESEARCH ENGINEER Pulse 89 09/17/2019 11:32 AM ELECTRICAL RESEARCH ENGINEER Temperature 36.6 ??C (97.9 ??F) 09/17/2019 11:[address] Respiratory Rate 18 09/17/2019 11:32 AM ELECTRICAL RESEARCH ENGINEER Oxygen Saturation 96% 09/17/2019 11:32 AM ELECTRICAL RESEARCH ENGINEER Inhaled Oxygen Concentration - - Weight 77.1 kg (170 lb) 09/17/2019 11:32 AM ELECTRICAL RESEARCH ENGINEER Height 157.5 cm (5' 2 ) 09/17/2019 11:32 AM ELECTRICAL RESEARCH ENGINEER Body Mass Index 31.09 09/17/2019 11:32 AM ELECTRICAL RESEARCH ENGINEER documented in this encounter Discharge Summaries * Milagros Casey NP - 09/19/2019 10:51 AM CST [facility] Adult Hospitalist Discharge Summary Teresa Espinosa 59 y.o. female 1960 CSN: [id number] Date of Admission: 09/15/2019 Date of Discharge: 09/19/2019 Discharging Physician: Milagros Casey NP LOS: 4 days PCP: Anthony Riley MD Activity: activity as tolerated. Dispo: home Diet: DIET GENERAL Effective Now Code Status at Discharge: Full Code Wound Care: Keep wound clean and dry Admitting Dx: Mandibular abscess Discharge Diagnoses: R mandibular abscess HTN HLD Osteoarthritis Tobacco abuse Discharge medications and new prescriptions: Medication List START taking these medications clindamycin HCl 300 mg Capsule Commonly known as: CLEOCIN Take 1 Capsule (300 mg) by mouth 4 times daily for 10 days. Signed by: Milagros Casey NP Quantity: 40 Capsule Refills: 0 hydrOXYzine HCl 25 mg tablet Commonly known as: ATARAX Take 1 Tablet (25 mg) by mouth every 8 hours as needed for Anxiety. Signed by: Milagros Casey NP Quantity: 10 Tablet Refills: 0 Saccharomyces boulardii 250 mg Capsule Commonly known as: FLORASTOR Take 1 Capsule (250 mg) by mouth 2 times daily for 10 days. Signed by: Milagros Casey NP Quantity: 20 Capsule Refills: 0 CONTINUE taking these medications atorvastatin 80 mg tablet Commonly known as: LIPITOR Take 80 mg by mouth daily with supper. Refills: 0 losartan-hydroCHLOROthiazide 100-12.5 mg tablet Commonly known as: HYZAAR Take 1 Tablet by mouth daily. Refills: 0 meloxicam 15 mg tablet Commonly known as: MOBIC Take 15 mg by mouth daily. Refills: 0 Where to Get Your Medications [address], [facility] [id number] Hours: Wednesday-Wednesday: 8 a.m. - 8 p.m., Wednesday: 9 a.m. - 5 p.m., Wednesday: 10 a.m. - 4 p.m. ?? clindamycin HCl 300 mg Capsule ?? hydrOXYzine HCl 25 mg tablet ?? Saccharomyces boulardii 250 mg Capsule Consultants: IP CONSULT TO ORAL SURGERY Significant Diagnostic Studies This Admission: panorex - Since prior CT of facial bones obtained at [facility] 09/15/2019, a surgical drain has been placed at the horizontal portion of the right hemimandible. Patient is noted to be status post extractions of the right second and third mandibular molars. No fractures are seen. Mandiblecondylar heads and necks appear normal. Labs from this Hospitalization Needing Follow Up: none Discharge Lab Data: Lab Results Component Value Date/Time WBC 10.7 (H) 09/19/2019 06:58 AM HEMOGLOBIN 9.4 (L) 09/19/2019 06:58 AM HEMATOCRIT 30.2 (L) 09/19/2019 06:58 AM PLATELETS 490 (H) 09/19/2019 06:58 AM SODIUM 138 09/18/2019 06:50 AM CHLORIDE 103 09/18/2019 06:50 AM POTASSIUM 4.1 09/18/2019 06:50 AM CO2 22 09/18/2019 06:50 AM BUN 9 09/18/2019 06:50 AM CREATININE 0.53 09/18/2019 06:50 AM GLUCOSE 117 (H) 09/18/2019 06:50 AM Discharge Exam: BP 125/63 (BP Location: Right arm, Patient Position (BP): Supine) Pulse 88 Temp 98.3 ??F (36.8 ??C) (Oral) Resp 16 Ht 5' 2 (1.575 m) Wt 77.1 kg (170 lb) SpO2 96% BMI 31.09 kg/m?? Physical Exam: General appearance alert, cooperative, no distress, appears stated age R facial swelling noted to lower jaw Lungs clear to auscultation bilaterally Heart regular rate and rhythm, S1, S2 normal, no murmur, click, rub or gallop Abdomen soft, non-tender. Bowel sounds normal. No masses, No organomegaly Extremities extremities normal, atraumatic, no cyanosis or edema Skin Skin color, texture, turgor normal. No rashes or lesions Hospital Course: pt was transferred from H with R mandibular abscess, she had ongoing infection issues after prior tooth pulled. On 09/17 she underwent I&D by [facility] Dr Arnett with drain placement,she was placed on IV clinda, he WBC trended down and her swelling has improved. Dr Arnett pulled her drain today and she will dc home to complete a course of oral clinda and follow up with him in one week. She was noted to have normal BP while inpatient off her medications this will not be resumed at dc, she will monitor her BP at home, keep a log and follow up with her PCP. Discharge Condition: improving. Follow-up: Anthony Riley MD in 1 week(s). More than 30 minutes minutes were spent in this discharge activity. This patient was discussed with Dr Vikas Ozuna and she agrees with the above plan for discharge. Signed: Milagros Casey [facility] Hospitalist [phone] 09/19/2019, 10:51 AM TRICAL RESEARCH ENGINEER Associated attestation - Ekta Ozuna MD - 09/20/2019 9:36 AM ELECTRICAL RESEARCH ENGINEER [facility] I have seen and examined the patient. I have confirmed the echols elements of the history and physicalexam, and have discussed the plan in detail with the HEALTHCARE PROJECT MANAGER. I agree with the HEALTHCARE PROJECT MANAGER's documentation with the following additions and exceptions. S: Patient sitting in bed. Has mandibular swelling. States she is able to swallow and feeling better. Physical exam: Vitals: 09/19/19 0357 BP: 125/63 Pulse: 88 Resp: 16 Temp: 98.3 ??F (36.8 ??C) SpO2: 96% General: NAD CV: RRR Resp: CTAB Abd: soft, non tender, non distended HEENT: jaw swelling with drain in place. Labs reviewed and noted A/P: Right mandibular abscess: Patient underwent I&D by [facility] Dr. Arnett with drain placement on 09/17. Drain was removed prior to discharge. She was initially on IV Clinda and then discharged on p.o. clindamycin along with a probiotic. Borderline hypotension: Patient's antihypertensives were held during this admission. Blood pressurenormalized by time of discharge. Patient's antihypertensives were still held. Advised her to buy a blood pressure cuff and keep a log of her blood pressures and then follow-up with her PCP. Tobacco abuse: I have spent greater than 3 but not more than 10 minutes ([id number]) on counseling on smoking/tobacco cessation independent of the time otherwise related to this visit today HLD: resumed home meds OA: resumed home meds Remaining per HEALTHCARE PROJECT MANAGER 's note. documented in this encounter Discharge Instructions * Discharge Instructions* Milagros Casey NP - 09/19/2019 10:52 AM ELECTRICAL RESEARCH ENGINEER Your discharging physician is Milagros Casey NP and may be reached at for any questions or concerns until you see your doctor. FOLLOW-UP Follow up with Anthony Riley MD in 1 week(s). Follow up with Dr Arnett as he directed. Make sure you take all of your antibiotics as prescribed and take probiotic while take the antibiotics. Use tylenol and ibuprofen as needed for pain. Do not take your losartan HCTZ (blood pressure medication) as you blood pressure has been normal here. Take your blood pressure daily and keep a log, If your systolic blood pressure (top number) is greater than 130 for two readings you can resume your blood pressure medication. Take you blood pressure log with you in follow up to your primary care physician. Prescriptions given? Yes SIGNS AND SYMPTOMS TO REPORT Contact your health care provider if you experience any of the following symptoms: increase in redness, swelling, or warmth of incision site, temperature greater than 100.3 or unable to keep food or fluids down or any other concerning symptoms. Heart Patients: Weigh yourself everyday at the same time, with the same amount of clothing and after you have emptied your bladder. Keep a log of your daily weights and bring them with you to your physician appointments. Call your physician (*) if you have a weight gain of 3 pounds in one day (or 5pounds in 2+ days) or (*) if you have increased shortness of breath or (*) if you have swelling in your feet, belly or legs. <<<Call 911 or go to the nearest emergency room if you have increased shortness of breath or chest pain or discomfort that is not relieved by nitroglycerin. Smoking Exposure: [facility] encourages all patients to decrease risks associated with smoking and second hand smoke exposure. If you smoke you are advised to quit. Ask your health care provider for advice if you need assistance to stop smoking. Avoid second-hand smoke exposure and do not let people smoke in your home. Please call [phone], our pulmonary rehabilitation department, to learn more about options to reduce your risks. ACTIVITY Your activity level is: increase activity as tolerated and no smoking. DIET Your diet is: DIET GENERAL Effective Now WOUND CARE For your wound/incision: as directed by Dr Arnett . TRICAL RESEARCH ENGINEER documented in this encounter Medications at Time of Discharge Medication Sig Dispensed Refills Start Date End Date hydrOXYzine HCl (ATARAX) 25 mg tablet Take 1 Tablet by mouth every 8 hours as needed for Anxiety. 10 Tablet 09/19/2019 losartan-hydroCHLOROthi azide (HYZAAR) 100-12.5 mg tablet Take 1 Tablet by mouth daily. atorvastatin (LIPITOR) 80 mg tablet Take 80 mg by mouth daily with supper. meloxicam (MOBIC) 15 mg tablet Take 15 mg by mouth daily. Saccharomyces boulardii (FLORASTOR) 250 mg Capsule Take 1 Capsule by mouth 2 times daily for 10 days. 20 Capsule 09/19/2019 09/29/2019 clindamycin HCl (CLEOCIN) 300 mg Capsule Take 1 Capsule by mouth 4 times daily for 10 days. 40 Capsule 09/19/2019 09/29/2019 documented as of this encounter Progress Notes * Hope Cisneros, Oli Washington DMD - 09/19/2019 11:20 AM CST DOA: 09/15/2019 Date: 09/19/2019 Post op day: 2 Subjective: New Events/Complaints: No acute events overnight Current vital signs Blood pressure 125/63, pulse 88, temperature 98.3 ??F (36.8 ??C), temperature source Oral, resp. rate 16, height 5' 2 (1.575 m), weight 77.1 kg (170 lb), SpO2 96 %. Current Medications: Current Facility-Administered Medications Ordered in [facility] Medication Dose Route Frequency Provider Last Rate Last Dose ??? Saccharomyces boulardii (FLORASTOR) capsule 250 mg 250 mg Oral BID Wilman Alexandra MD ??? enoxaparin (LOVENOX) injection 40 mg 40 mg subCUT Daily Wilman Alexandra MD ??? nicotine (NICODERM CQ) 21 mg/24 hr transdermal patch 1 Patch 1 Patch Transdermal Daily Sherie Chanel, JACKIE 1 Patch at 09/19/19 0901 ??? acetaminophen (TYLENOL) tablet 1,000 mg 1,000 mg Oral q 8 hour Counts, Kiley Hollins MD 1,000 mg at 09/19/19 0716 ??? oxyCODONE (ROXICODONE) tablet 5 mg 5 mg Oral q 6 hour PRN Counts, Kiley Hollins MD 5 mg at 09/17/19 0527 ??? ondansetron (ZOFRAN ODT) tablet 4 mg 4 mg Oral q 8 hour PRN Counts, Kiley Hollins MD ??? clindamycin (CLEOCIN) 600 mg in dextrose 5% 50 mL IVPB 600 mg IV q 8 hour Counts, Kiley Hollins MD Stopped at 09/19/19 0450 ??? atorvastatin (LIPITOR) tablet 80 mg 80 mg Oral Daily SUPPER Counts, Kiley Hollins MD 80 mg at 09/18/19 1711 ??? naloxone (NARCAN) 0.4 mg/mL injection 0.1 mg 0.1 mg IV See Admin Notes Counts, Kiley Hollins MD ??? ketorolac (TORADOL) injection 15 mg 15 mg IV q 6 hour PRN Counts, Kiley Hollins MD 15 mg at 09/17/19 0843 ??? hydrOXYzine HCl (ATARAX) tablet 25 mg 25 mg Oral q 6 hour PRN Counts, Kiley Hollins MD 25 mg at 09/18/19 7550 Objective: Patient Vitals for the past 8 hrs: BP Temp Temp src Pulse Resp SpO2 09/19/19 0357 125/63 98.3 ??F (36.8 ??C) Oral 88 16 96 % Intake/Output Summary (Last 24 hours) at 09/19/2019 1120 Last data filed at 09/19/2019 0600 Gross per 24 hour Intake 120 ml Output -- Net 120 ml Exam: OMFS: Improved right sided facial swelling. Inferior border of mandible is palpable Jaun drain in place and secured No drainage appreciated GONZALO 15 mm, surgical site hemostatic; tongue freely mobile Notes reviewed Impression: Principal Problem: Mandibular abscess Active Problems: HTN (hypertension) HLD (hyperlipidemia) Osteoarthritis Tobacco use Plan: 1) Jaun drain removed 2) Patient can clean face and neck as tolerated 3) Patient is cleared for discharge and can follow up in 1-2 weeks Oli Arnett JR, DMD Oral Facial Surgery Marks Pager [phone] TRICAL RESEARCH ENGINEER * Wilman Alexandra MD - 09/18/2019 10:22 PM CST [facility] Adult Hospitalist Progress Note Admit Date: 09/15/2019 Date of Note: 09/18/2019, PCP: Anthony Riley MD LOS: 3 days Previous history of present illness, review of systems, medications, labs, studies, notes, orders and consults have been reviewed today. Subjective: Jaw pain much improved after I&D. Objective: BP 121/75 (BP Location: Right arm, Patient Position (BP): Sitting) Pulse 91 Temp 97.8 ??F (36.6??C) (Oral) Resp 18 Ht 5' 2 (1.575 m) Wt 77.1 kg (170 lb) SpO2 98% BMI 31.09 kg/m?? Exam: General appearance alert, cooperative, right facial/jaw swelling -somewhat improved, drain noted over lower jaw Lungs clear to auscultation bilaterally Heart regular rate and rhythm, no murmur Abdomen soft, non-tender. Bowel sounds normal Extremities No pedal edema Neuro Awake, OX3, non focal Data Base: I have reviewed all labs and pertinent ones are noted below. CBC: Recent Labs 09/16/19 0719 09/17/19 0657 09/18/19 0650 WBC 14.6* 11.9* 13.4* HGB 9.9* 9.4* 8.9* HCT 30.4* 29.1* 27.5* PLT 450* 431* 483* MCV 95.3 93.9 94.2 BMP: Recent Labs 09/16/19 0719 09/17/19 0657 09/18/19 0650 NA 134* 134* 138 K 4.5 4.1 4.1 CL 96* 101 103 CO2 25 21* 22 ANIONGAP 13 12 13 CA 9.2 8.7 9.1 GLUCOSE 97 96 117* BUN 15 10 9 CREAT 0.70 0.56 0.53 Assessment/Plan: Mandibular abscess:??Right mandibular swelling and pain, no fevers, continue IV clindamycin, pain control,??s/p I&D by OMFS on 09/17, added probiotic, follow WBC count HTN (hypertension):??Hold ACTIVITY COORDINATOR hydrochlorothiazide/losartan??for now??given infection and normal [id number] range. Continue to monitor trend. ??Restart as appropriate. HLD (hyperlipidemia):??Continue ACTIVITY COORDINATOR statin Osteoarthritis:??Status post right knee arthroplasty approximately??9 days prior to admission. ??Hold meloxicam for now. Tobacco use:??encourage cessation. ?? Nicotine patch ?? DVT Prophlaxis - start sq lovenox Current Diet DIET GENERAL Effective Now Garza catheter:none Lines:piv Current Planned Disposition -home in 1 to 2 days if clinically continues to improve, and when okay with OMFS Current Code Status -Full Code Wilman Alexandra MD [facility] Hospitalist TRICAL RESEARCH ENGINEER * Oli Arnett Jr., DMD - 09/18/2019 11:26 AM CST DOA: 09/15/2019 Date: 09/18/2019 Post op day: 1 Subjective: New Events/Complaints: no acute events overnight Current vital signs Blood pressure 106/58, pulse 83, temperature 98.4 ??F (36.9 ??C), temperature source Oral, resp. rate 16, height 5' 2 (1.575 m), weight 77.1 kg (170 lb), SpO2 100 %. Current Medications: Current Facility-Administered Medications Ordered in Epic Medication Dose Route Frequency Provider Last Rate Last Dose ??? nicotine (NICODERM CQ) 21 mg/24 hr transdermal patch 1 Patch 1 Patch Transdermal Daily Sherie Chanel, JACKIE 1 Patch at 09/18/19 0840 ??? acetaminophen (TYLENOL) tablet 1,000 mg 1,000 mg Oral q 8 hour Counts, Kiley Hollins MD 1,000 mg at 09/18/19 0609 ??? oxyCODONE (ROXICODONE) tablet 5 mg 5 mg Oral q 6 hour PRN Counts, Kiley Hollins MD 5 mg at 09/17/19 0527 ??? ondansetron (ZOFRAN ODT) tablet 4 mg 4 mg Oral q 8 hour PRN Counts, Kiley Hollins MD ??? clindamycin (CLEOCIN) 600 mg in dextrose 5% 50 mL IVPB 600 mg IV q 8 hour Counts, Kiley Hollins MD Stopped at 09/18/19 0551 ??? atorvastatin (LIPITOR) tablet 80 mg 80 mg Oral Daily SUPPER Counts, Kiley Hollins MD 80 mg at 09/17/19 1807 ??? naloxone (NARCAN) 0.4 mg/mL injection 0.1 mg 0.1 mg IV See Admin Notes Counts, Kiley Hollins MD ??? ketorolac (TORADOL) injection 15 mg 15 mg IV q 6 hour PRN Counts, Kiley Hollins MD 15 mg at 09/17/19 0843 ??? hydrOXYzine HCl (ATARAX) tablet 25 mg 25 mg Oral q 6 hour PRN Counts, Kiley Hollins MD 25 mg at 09/17/19 2133 Objective: Patient Vitals for the past 8 hrs: BP Temp Temp src Pulse Resp SpO2 09/18/19 0801 106/58 98.4 ??F (36.9 ??C) Oral 83 16 100 % 09/18/19 0559 122/67 97.6 ??F (36.4 ??C) Oral 92 16 99 % Intake/Output Summary (Last 24 hours) at 09/18/2019 1126 Last data filed at 09/17/2019 2134 Gross per 24 hour Intake 799.75 ml Output -- Net 799.75 ml Exam: OMFS: Inferior border of mandible is palpable bilaterally Right V3 hypoesthesia (unchanged from pre-op) Neck is supple. Trachea is midline. [place] drain is in place and secured. Minimal drainage GONZALO 15 mm Surgical site hemostatic Channel Man notes reviewed Impression: Principal Problem: Mandibular abscess Active Problems: HTN (hypertension) HLD (hyperlipidemia) Osteoarthritis Tobacco use Plan: Patient informed of root fragment < 3 mm in the third molar region. Patient informed we would follow monitor the site during post-op visits. Will continue to trend CBC F/U with wound cultures Will continue to follow Oli Arnett JR, DMD Pager [phone] TRICAL RESEARCH ENGINEER * Oli Arnett Jr., DMD - 09/17/2019 10:59 AM CST Patient seen and evaluated bedside. Patient is currently NPO. No acute events over night BP 127/82 RR 18 SpO2% 97% WBC 11.9 down from 14.6 Right sided facial edema has improved. Inferior border of mandible is palpable GONZALO is [address] of [address] scan results Informed patient an incision and drainage of masticatory space was needed. Risk/ benefits/ alternatives reviewed with patient. Patient agreed to treatment. Plan: Incision and Drainage of right submasseteric and pterygomandibular space abscess with possible removal of retained root Oli Arnett Jr. DMD Oral Facial Surgery Marks Pager [phone] TRICAL RESEARCH ENGINEER * Wilman Alexandra MD - 09/17/2019 10:30 AM CST [facility] Adult Hospitalist Progress Note Admit Date: 09/15/2019 Date of Note: 09/17/2019, PCP: Anthony Riley MD LOS: 2 days Previous history of present illness, review of systems, medications, labs, studies, notes, orders and consults have been reviewed today. Subjective: Complains of right jaw swelling and pain. Likely to go for I&D later today. Objective: BP 111/68 (BP Location: Right arm, Patient Position (BP): Supine) Pulse 98 Temp 98 ??F (36.7 ??C) (Oral) Resp 18 Ht 5' 2 (1.575 m) Wt 77.1 kg (170 lb) SpO2 98% BMI 31.09 kg/m?? Exam: General appearance alert, cooperative, right facial/jaw swelling noted, tender Lungs clear to auscultation bilaterally Heart regular rate and rhythm, no murmur Abdomen soft, non-tender. Bowel sounds normal Extremities No pedal edema Neuro Awake, OX3, non focal Data Base: I have reviewed all labs and pertinent ones are noted below. CBC: Recent Labs 09/16/19 0719 09/17/19 0657 WBC 14.6* 11.9* HGB 9.9* 9.4* HCT 30.4* 29.1* PLT 450* 431* MCV 95.3 93.9 BMP: Recent Labs 09/16/19 0719 09/17/19 0657 NA 134* 134* K 4.5 4.1 CL 96* 101 CO2 25 21* ANIONGAP 13 12 CA 9.2 8.7 GLUCOSE 97 96 BUN 15 10 CREAT 0.70 0.56 Assessment/Plan: Mandibular abscess:??Right mandibular swelling pain, no fevers, continue clindamycin every 8 hour. ??Continue pain control,??n.p.o. this a.m., plans noted to go for I&D by OMFS today HTN (hypertension):??Hold ACTIVITY COORDINATOR hydrochlorothiazide/losartan??for now??given infection .Continue to monitor trend. ??Restart as appropriate. HLD (hyperlipidemia):??Continue ACTIVITY COORDINATOR statin Osteoarthritis:??Status post right knee arthroplasty approximately??9 days??ago. ??Hold meloxicam for now. Tobacco use:??encourage cessation. ?? Nicotine patch ?? DVT Prophlaxis - sequential compression devices Current Diet DIET GENERAL Effective Now Garza catheter:none Lines:piv Current Planned Disposition - Current Code Status -Full Code Wilman Alexandra MD [facility] TRICAL RESEARCH ENGINEER * Wilman Alexandra MD - 09/16/2019 9:45 PM CST [facility] Adult Hospitalist Progress Note Admit Date: 09/15/2019 Date of Note: 09/16/2019, 9:45 PM PCP: Anthony Riley MD LOS: 1 day Previous history of present illness, review of systems, medications, labs, studies, notes, orders and consults have been reviewed today. Subjective: Complains of right jaw and facial swelling Objective: BP 127/74 (BP Location: Right arm, Patient Position (BP): Sitting) Pulse (!) 102 Temp 100 ??F (37.8 ??C) (Oral) Resp 16 Ht 5' 2 (1.575 m) Wt 75.8 kg (167 lb 1.6 oz) SpO2 97% BMI 30.56 kg/m?? Exam: General appearance alert, cooperative, no distress, right facial swelling noted over parotid area, tender, unable to open jaw fully. Lungs clear to auscultation bilaterally Heart regular rate and rhythm, no murmur Abdomen soft, non-tender. Bowel sounds normal Extremities No pedal edema Neuro Awake, OX3, non focal Data Base: I have reviewed all labs and pertinent ones are noted below. CBC: Recent Labs 09/16/19 0719 WBC 14.6* HGB 9.9* HCT 30.4* PLT 450* MCV 95.3 BMP: Recent Labs 09/16/19 0719 NA 134* K 4.5 CL 96* CO2 25 ANIONGAP 13 CA 9.2 GLUCOSE 97 BUN 15 CREAT 0.70 Assessment/Plan: Mandibular abscess: Recurrent infection since tooth extraction. Blood cultures obtained at outside hospital. Having some low-grade fevers. Continue clindamycin every 8 hour. Scheduled Tylenol with PRN Toradol and Roxicodone for breakthrough severe pain. Soft dental diet for now then n.p.o. at midnight. [facility] consult, Dr. Arnett appreciate assistance. HTN (hypertension): Hold ACTIVITY COORDINATOR hydrochlorothiazide/losartan for now given infection and BP normal at sBP-10 -120. Continue to monitor trend. Restart as appropriate. HLD (hyperlipidemia): Continue ACTIVITY COORDINATOR statin Osteoarthritis: Status post right knee arthroplasty approximately 9 days ago. Hold meloxicam for now. Pain management as above. Tobacco use: encourage cessation. Nicotine patch DVT Prophlaxis - sequential compression devices Current Diet DIET SOFT DENTAL DIET NPO Strict Garza catheter:none Lines:piv Current Planned Disposition -home at DC 3 days pending clinical improvement Current Code Status -Full Code . Wilman Alexandra MD [facility] Hospitalist TRICAL RESEARCH ENGINEER * Amirah Tran RN - 09/16/2019 3:44 AM CST Teresa Ariza arrived as a Direct Admit from [facility] at approximately 2130. Undress/assess completed; see below. Oriented to unit. Welcome packet/patient rights provided. Disk with CT scan done at [facility] placed in pt's paper chart. Reports feeling hungry but states it hurts and it's hard to open her mouth. Asking for a straw to eat her jell-o d/t pain when opening her mouth. Pain managed with toradol and scheduled tylenol. Manju available PRN. Ambulating in room with standby assist, using FWW from home. 1-week post R TKA. VSS. Afebrile. Fall precautions initiated. Will continue to monitor. Awaiting OMFS consult. Undress and Assess performed by the following coworker: KHALIDA Macariosenior buyer planner or upon transfer to: Neuro # [id number] ~~~~~~~~~~~~~~~~~~~~~~~~~~~~ Is the patient a paraplegic/quadriplegic? No Does the patient have new purple/nguyen/dark red over bony prominences? No Does the patient have an ostomy? No Is the length of stay >2 weeks? No ~If ANY answer 'yes'- please consult Wound Care~ Patient does have skin breakdown. Location/ Description of breakdown: Annita is 1 week post op from R TKA. Dressing in place to right knee; remains C/D/I. Arrives with nicotine patch placed to left deltoid from [facility]. All other skin appears intact at this time. Wound care consult was not initiated. Is there skin breakdown under any Continuity Manager (splint, ETT pastor, c-collar)? N/A If yes, please describe: Are there currently any skin protective dressings in place? N/A If yes, please describe skin under dressing: Protective Dressings Applied to Sacrum and Heels (Mepilex) as per Pathway? No TRICAL RESEARCH ENGINEER * Sherie Chanel NP - 09/16/2019 12:04 AM CST [facility] patient identifier: Teresa Espinosa 1960 Called for: pt current 1.5 pack/day smoker, requesting nicotine patch during admission . Pt currently has patch in place from OSH, will need order for AM. Last Recorded Vitals: BP 113/61 (BP Location: Right arm, Patient Position (BP): Sitting) Pulse (!) 102 Temp 98.4 ??F (36.9 ??C) (Axillary) Resp 16 Ht 5' 2 (1.575 m) Wt 75.8 kg (167 lb 1.6 oz) SpO2 96% BMI 30.56 kg/m?? Pain Rating: Rest: 6 (09/15/19 2315) Handoff Information (if present): Documentation/Intervention/Outcome: Chart reviewed. Pt admitted with mandibular abscess. - Nicotine 21 mg ordered to start in AM. - I have communicated this to Dr. Maria. Please call back any time if I can be of more assistance. Sherie Chanel NP TRICAL RESEARCH ENGINEER * Dede Carrera MD - 09/15/2019 11:38 PM CST [facility] patient identifier: Teresa Espinosa 1960 Called for: Pt requesting anxiety medication' Last Recorded Vitals: BP 113/61 (BP Location: Right arm, Patient Position (BP): Sitting) Pulse (!) 102 Temp 98.4 ??F (36.9 ??C) (Axillary) Resp 16 Ht 5' 2 (1.575 m) Wt 75.8 kg (167 lb 1.6 oz) SpO2 96% BMI 30.56 kg/m?? Pain Rating: Rest: 6 (09/15/19 0588) Documentation/Intervention/Outcome: Chart reviewed. Ms. Espinosa is being admitted by Dr. Maria. I communicated this request to her. Please call back any time if I can be of more assistance. Dede Carrera MD TRICAL RESEARCH ENGINEER * Merlene Mayer NP - 09/15/2019 8:22 PM CST 09/15/19 8:22 PM Transferring Physician: Lucía Pelayo NP Reason for Transfer: [facility] consultation Current Dept/location: [facility] ED Requested dept/location to be transferred: [facility] Vitals: BP 139/78 HR 76 RR WNL O2 sat 100% Temp 97.8 F Pertinent labs: WBC 17.6, H/H 11.2/34.8, platelets were 174, sodium 133, potassium 4.2, BUN/creatinine 11/0.66, BC x 2 pending Treatments: Medications: Fentanyl IVP x 1 and Clindamycin x 1 dose Studies/Scans: Enhanced CT of the maxillofacial structures, radiologist impression as follows, findings suggestive of abscess formation around the right mandiblar angle likely involving the right masseter muscle with surrounding cellulitis and inflammatory changes. There is no evidence of definitive osseous erosion at this time to do suggest osteomyelitis. Significant Events: 59-year-old female who has had complaints of right lower jaw pain since April post tooth extraction.Since that time patient has followed up with her dentist, oral surgery, ENT and her PCP. Patient has been on antibiotics off and on since this first started back in April. Patient presented to her PCP2 days prior with complaints of increasing right jaw pain and subjective fevers. At that time her PCP placed her on Cipro and Flagyl, however right jaw pain and swelling worsened and patient developed subjective fevers after 2 days of oral antibiotic therapy, prompting her to present to the ED for further evaluation. ED work-up and findings as above. When patient arrives to facility, please have admitting or nursing have patient sign authorization for care everywhere so that we may get her records from outside sources for further information on her health history. Specialists needed at accepting facility: [facility], Dr. Arnett consulted, please add to his list. Additional information: Patient is s/p right knee replacement 9 days prior to presentation to ED. Patient's with allergies to PCN and Sulfa. Transfer Center Quarterback notes: Notified Dr. Lamar at [facility] of the above accepted transfer TRICAL RESEARCH ENGINEER documented in this encounter H&P Notes * Kiley Maria MD - 09/15/2019 10:43 PM CST Images from the original note were not included. [facility] Adult Hospitalist Admission H&P Date of Admission: 09/15/2019 Date of Service: 09/15/2019 Patient Name: Teresa Espinosa Courtesy Copy PCP: No primary care provider on file. Chief Complaint: R facial swelling HPI: Patient is a 59 y.o. female with PMH of hypertension, hyperlipidemia, tobacco use, osteoarthritis who presents from [facility] ED with right facial swelling. Patient reports that started in April when she started to have tooth pain. She had a tooth pulled by her dentist and notes the site has been infected several times and she has completed several rounds of antibiotics since April. She is gottenantibiotics from her dentist, and ENT, her PCP, and ED physician in that time. Cannot remember all of the names of the antibiotics she has been on- remember Cipro, Flagyl, clindamycin. Of note, she does have a penicillin and sulfa allergy. States the swelling and pain gets better with antibiotics but about 1 to 2 weeks after completion it starts again prompting her to revisit medical providers andsubsequent rounds of antibiotics. She has had 2 CTs completed and an ultrasound of the area since that time by her PCP in [place]. She reports mostly swelling and pain but has trouble opening her jaw which is caused poor p.o. intake. She has some nausea but no vomiting. She notes subjective feversat home but no documented fevers. The symptoms started this time around on Wednesday and have gotten progressively worse so she presented to [facility] ED today. She was transferred for [facility] evaluation and a CT was significant for abscess formation on the right mandibular angle likely involving the rightmasseter muscle with surrounding cellulitis and inflammatory changes. There is no evidence of definitive osseous erosion at this time to do suggest osteomyelitis. She was given 1 dose of clindamycinand transferred here for further care. Past Medical History: Past Medical History: Diagnosis Date ??? HLD (hyperlipidemia) ??? HTN (hypertension) ??? Osteoarthritis Past Surgical History: Past Surgical History: Procedure Laterality Date ??? HX HYSTERECTOMY 2005 ??? HX KNEE REPLACEMENT Current Medications: Prior to Admission Medications Prescriptions Last Dose Informant Patient Reported? Taking? atorvastatin (LIPITOR) 80 mg tablet Yes Yes Sig: Take 80 mg by mouth daily with supper. losartan-hydroCHLOROthiazide (HYZAAR) 100-12.5 mg tablet Yes Yes Sig: Take 1 Tablet by mouth daily. meloxicam (MOBIC) 15 mg tablet Yes Yes Sig: Take 15 mg by mouth daily. Facility-Administered Medications: None Medication Allergies: Allergies Allergen Reactions ??? Penicillins Unknown ??? Sulfa (Sulfonamide Antibiotics) Unknown Family History: Family History Problem Relation Name Age of Onset ??? Diabetes Mother ??? Cancer Mother Social History: Social History Tobacco Use ??? Smoking status: Smoker, Current Status Unknown Packs/day: 1.50 Substance Use Topics ??? Alcohol use: Not Currently Review of Systems: Gen: +fever, chills. No unintentional weight loss Eyes: No visual changes Endocrine: No polyuria/polydypsia Pulm: No cough, SOB, sputum production Cardiac: No chest pain, orthopnea, palpitations GI:+ nausea. NO vomiting, abdominal pain. No constipation or diarrhea : No hematuria, urgency or frequency Musculoskeletal:+ R knee pain. Noweakness Neuro: No numbness or tingling Psych: No anxiety or depression Skin: No rashes or eruptions All other ROS reviewed and are negative Physical Exam: Patient Vitals for the past 8 hrs: BP Temp Temp src Pulse Resp SpO2 Height Weight 09/15/19 2130 113/61 98.4 ??F (36.9 ??C) Axillary (!) 102 16 96 % 5' 2 (1.575 m) 75.8 kg (167 lb 1.6 oz) General: Alert, no distress. Head: Swelling and TTP at R mandibular angle, limited ROM of mandible Neck: Supple, symmetrical, trachea midline Heart: Regular rate and rhythm, S1, S2 normal, no murmur, click, rub or gallop. Lungs: Clear to auscultation bilaterally Abdomen: Soft, non-tender. No rebound or guarding. Bowel sounds present. No masses, No organomegaly. Extremities: No clubbing, cyanosis or edema Skin: Skin color, texture, turgor normal. No rashes or lesions. Neuro: CNII-XII grossly intact. Normal strength, sensation throughout. Data Base: Lab: Labs from the outside hospital: Glucose: 103 Sodium: 133 Potassium: 4.2 Chloride: 99 CO2: 24 Calcium: 10.4 Anion gap 10 BUN 11 Creatinine 0.66 ALT: 40 AST 29 WBC 17.6 Hemoglobin 11.2 Hematocrit 34.[address] of the maxillofacial structures, radiologist impression as follows, findings suggestiveof abscess formation around the right mandiblar angle likely involving the right masseter muscle with surrounding cellulitis and inflammatory changes. There is no evidence of definitive osseous erosion at this time to do suggest osteomyelitis. Assessment and Plan: Mandibular abscess: Recurrent infection since tooth extraction. Blood cultures obtained at outside hospital. Continue clindamycin every 8 hour. Scheduled Tylenol with PRN Toradol and Roxicodone for breakthrough severe pain. Soft dental diet for now then n.p.o. at midnight. OMFS consult, Dr. Arnett,appreciate assistance. HTN (hypertension): Hold ACTIVITY COORDINATOR hydrochlorothiazide/losartan for now given infection and BP normal at 113/61. Continue to monitor trend. Restart as appropriate. HLD (hyperlipidemia): Continue ACTIVITY COORDINATOR statin Osteoarthritis: Status post right knee arthroplasty approximately 9 days ago. Hold meloxicam for now. Pain management as above. Tobacco use: encourage cessation. Has patch in place from outside hospital. DVT Prophylaxis sequential compression devices pending surgical eval Code status Full Code Disposition: home once medically stable which I anticipate will be completed in approximately 2-3 days. Plan discussed with patient, questions answered; patient agrees with current plan. I have personally reviewed the ER documentation, admission labs, and admission imaging studies today. Additionally, I have personally reviewed previous hospital documentation, office notes, laboratory data, and imaging studies relevant to this encounter. More than 70 minutes were spent in the care of this patient today; more than 50% was spent in discussion of expected course of disease, discussion of prognosis, discharge planning, coordination of care and discussion of lab and test results. This H&P has been forwarded to this patient's Primary Care Physician if a PCP has been identified. Kiley Maria MD Adult Hospitalist Physician 09/15/2019, 10:43 PM P: [phone] from 9pm to 7 am on date of admission Outside above hours, the attending has changed, locate patient on the hospitalist e-list and send page through that portal to ensure its received by appropriate attending If no answer can always contact the hospitalist salmon gillnet vessel operator pager at TRICAL RESEARCH ENGINEER documented in this encounter Consult Notes * Hope Cisneros, Oli Washington, DMD - 09/16/2019 3:56 PM CSTAssociated Order(s): IP CONSULT TO ORAL SURGERY Teresa Espinosa 1960 09/16/19 [id number] import clerk Consult Teresa Espinosa is a 59 y.o. female status post intermittent right sided facial swelling No chief complaint on file. Patient states she has experienced facial swelling such as this in the past. Patient states she's had her second molar removed, given antibiotics and improvement noticed. Patient stated she noticed swelling again in which she saw an oral surgeon who stated the swelling was on salivary/ parotid origin. NSAID's as well as sialagogue prescribed/ recommended. This resolved the issue but once the swelling recurred she sought help from ENT. Antibiotics given and swelling resolved. Patient recently had right knee replacement followed by recurrent right sided facial swelling. Past Medical History: Diagnosis Date ??? HLD (hyperlipidemia) ??? HTN (hypertension) ??? Osteoarthritis Allergies Allergen Reactions ??? Penicillins Unknown ??? Sulfa (Sulfonamide Antibiotics) Unknown Past Surgical History: Procedure Laterality Date ??? HX HYSTERECTOMY 2005 ??? HX KNEE REPLACEMENT Blood pressure 124/68, pulse 100, temperature 99.1 ??F (37.3 ??C), temperature source Oral, resp. rate 16, height 5' 2 (1.575 m), weight 75.8 kg (167 lb 1.6 oz), SpO2 98 %. Results for orders placed or performed during the hospital encounter of 09/15/19 (from the past 24 hour(s)) CBC WITH DIFFERENTIAL Result Value Ref Range WBC 14.6 (H) 4.0 - 9.8 K/uL RBC 3.19 (L) 3.90 - 4.90 M/uL HEMOGLOBIN 9.9 (L) 11.8 - 14.8 g/dL HEMATOCRIT 30.4 (L) 35.5 - 44.0 % MCV 95.3 82.0 - 99.0 fL MCH 31.0 27.2 - 32.6 pg MCHC 32.6 31.5 - 35.5 g/dL RDW 13.1 11.5 - 14.5 % RDW-STDEV 45.1 37.1 - 48.7 fL PLATELETS 450 (H) 140 - 350 K/uL MPV 9.4 9.3 - 12.4 fL NEUTROPHILS 66 % LYMPHOCYTES 23 % MONOCYTES 10 % EOSINOPHILS 1 % BASOPHILS 0 % IMMATURE GRANULOCYTES 1 % NEUTROPHIL ABSOLUTE 9.64 (H) 1.90 - 7.00 K/uL LYMPHOCYTE ABSOLUTE 3.38 0.70 - 4.50 K/uL MONOCYTE ABSOLUTE 1.39 (H) 0.10 - 1.30 K/uL EOSINOPHIL ABSOLUTE 0.09 0.00 - 0.70 K/uL BASOPHILS ABSOLUTE 0.03 0.00 - 0.20 K/uL IMMATURE GRANULOCYTES ABSOLUTE 0.08 (H) 0.00 - 0.03 K/uL BASIC METABOLIC PANEL Result Value Ref Range SODIUM 134 (L) 136 - 145 mmol/L POTASSIUM 4.5 3.5 - 5.0 mmol/L CHLORIDE 96 (L) 98 - 107 mmol/L CO2 25 22 - 29 mmol/L CALCIUM 9.2 8.6 - 10.2 mg/dL BUN 15 6 - 20 mg/dL CREATININE 0.70 0.51 - 0.95 mg/dL GLUCOSE 97 74 - 99 mg/dL GFR >60 >=60 mL/min/1.73 sq meter GFR, >60 >=60 mL/min/1.73 sq meter ANION GAP 13 8 - 16 mmol/L Exam: Right sided facial edema Soft tissue is slightly erythematous TTP along right preauricular region Inferior border of mandible is palpable bilaterally Intraoral exam limited due to GONZALO of 5-10 mm Vestibules clear in all 4 quadrants No gross caries visible, no gross carious teeth Radiographic Findings: Ring enhancement along the lateral ramus which extends posteriorly around the posterior border of the mandible into the pterygomandibular space OMFS Dx: Trismus Leukocytosis Masticatory abscess Plan and Recommendations: Full liquid/ soft diet NPO at midnight Recommend PAGAN radiograph OMFS will continue to follow patient Oli Arnett JR, DMD Oral Facial Surgery Marks Pager [phone] TRICAL RESEARCH ENGINEER documented in this encounter OR Notes * Operative Report - Oli Arnett Jr., DMD - 09/17/2019 2:30 PM ELECTRICAL RESEARCH ENGINEER Operative Report Teresa Espinosa [id number] Pre-operative Diagnosis: RIGHT SUBMASSETERIC SPACE ABSCESS RIGHT PTERYGOMANDIBULAR SPACE ABSCESS RETAINED ROOT Post-operative Diagnosis: Same Procedure(s) and Anesthesia Type: * INCISION AND DRAINAGE RIGHT MASTICATORY SPACE ABSCESS WITH REMOVAL OF RETAINED ROOT - General Surgeon(s) and Role: * Oli Arnett Jr., DMD - Primary Indications: Patient is a 59 year old female who presents with trismus and leukocytosis. Current stated has been ongoing intermittently for the past three to four months. Patients first line of oral antibiotics was unsuccessful. Procedure Start: 1200 Procedure End: 1228 Description of Procedure: Patient transported to OR by anesthesia service. General anesthesia induced and oral endotracheal tube placed and secured. Patient prepped and draped in standard fashion. Timeout performed. Oropharynx suctioned dry and throat pack placed. 5 mL local anesthetic consisting of 0.25% lidocaine with 1:200,000 epi injected at surgical site. Attention turned to the oral cavity. Self draining fistula noted along the crest distal to tooth #30. Culture taken for sensitivity, gram stain, aero-/ anaerobic, AFB, and fungal. Attention then turned to the right submandibular region. A 2 cm stab incision made through skin and subcutaneous tissue. Burlisher then used to bluntly dissect to the inferior border of the mandible. Dissection then proceeded along the lateral ramal surface, deep to the masseter. Copious amounts of purulent discharge then expressed. Blunt dissection then proceeded to the posterior border of the mandible. Blunt dissection then proceeded along the medial aspect of the mandible, purulent discharge appreciated. Attention then turned to the oral cavity. 15 blade used for crestal incision with distal buccal release. Periosteal elevator then used to reflect full thickness mucoperiosteal flap. Bony defect noted along crest of prior extraction site. Granulation tissue removed. Under copious irrigation, drill used to perform ostectomy, superficial and lingually positioned retained root identified and retained root removed. Double ended curette then used to debride site. Site copious irrigated with normal saline solution. Jaun drain then place into the submandibular incision and traversed through the submandibular and submasseteric spaces. Jaun drain secured with 4-0 Silk suture. Intraoral site tacked with one 3-0 Chromic gut suture. Posterior oropharynx suctioned dry and throat pack removed. Patient turned back over to anesthesia for emergence, extubation and transport to PACU with out complication. Sponge and needle counts correct. Findings: Intraoral drainage from right posterior alveolus/ ascending ramus. Retained root particle. Copious purulent discharge from right submasseteric and pterygomandibular spaces. Specimens: ID Type Source Tests Collected by Time 1 : Right mouth Abscess Mouth FUNGUS CULTURE, OTHER, ANAEROBIC/AEROBIC CULTURE W GRAM STAIN, AFB CULTURE WITH STAIN Oli Arnett Jr., DMD 09/17/2019 1202 Implants: * No implants in log * Estimated Blood Loss: < 50 mL Disposition: PACU Oli Arnett JR, DMD Oral Facial Surgery Marks Pager [phone] TRICAL RESEARCH ENGINEER * Brief Op Note - Oli Arnett Jr., DMD - 09/17/2019 2:02 PM ELECTRICAL RESEARCH ENGINEER Brief Postoperative Note Teresa Espinosa [id number] Pre-operative Diagnosis: RIGHT SUBMASSETERIC SPACE ABSCESS RIGHT PTERYGOMANDIBULAR SPACE ABSCESS RETAINED ROOT Post-Op Diagnosis: SAME ABOVE Procedure(s) and Anesthesia Type: * INCISION AND DRAINAGE RIGHT MASTICATORY SPACE ABSCESS WITH REMOVAL OF RETAINED ROOT PARTICLE - General Surgeon(s) and Role: * Oli Arnett Jr., DMD - Primary Procedure Start: 1200 Procedure End: 1228 Findings: Intraoral drainage from right posterior alveolus/ ascending ramus. Retained root particle. Copious purulent discharge from right submasseteric and pterygomandibular spaces. Specimens: ID Type Source Tests Collected by Time 1 : Right mouth Abscess Mouth FUNGUS CULTURE, OTHER, ANAEROBIC/AEROBIC CULTURE W GRAM STAIN, AFB CULTURE WITH STAIN Oli Arnett Jr., DMD 09/17/2019 1202 Implants: * No implants in log * Estimated Blood Loss: < 50 mL Oli Arnett JR, DMD Oral Facial Surgery Marks Pager [phone] TRICAL RESEARCH ENGINEER documented in this encounter Miscellaneous Notes * Care Plan - Juan Ramon Diez RN - 09/18/2019 4:24 PM CST Pt resting. Few complaints of jaw pain partially relieved with PRN pain meds. No acute events throughout the day. Will continue to monitor. Day 1 - Current ([place] Pathway: Adult and Obstetrics) Patient, family, or healthcare designee is participating in individual care plan process Outcome: Met Patient, family, or healthcare designee understands side effects of medications Outcome: Met Pathway Day 1 - Current (INTERDIS PW: SKIN/PRESSURE INJURY PREVENTION) Skin Integrity/Integumentary: Interventions initiated to maintain intact skin. Patient maintains intact skin with Angel Score maintained or improved. Outcome: Met Nutrition Management: Patient/health care delegate understands importance of adequate protein and fluid intake. Outcome: Met Bladder & Bowel Movement: Moisture management for incontinence initiated and maintained or patient is continent of urine/stool. Outcome: Met Activity/Rehab: Patient/health care delegate understands repositioning/offloading techniques or patient moves independently. Outcome: Met Problem: Pain, Potential/Actual Goal: Verbalizes/displays acceptable comfort level or baseline comfort level Description Outcome: Progressing Problem: Infection Risk/Actual Goal: Infection Risk/Actual: Infection prevention, control, or resolution by discharge Description Outcome: Progressing Problem: Safety/Fall Goal: Safety/Fall: Absence of fall, injury, harm during hospitalization Description Outcome: Progressing Problem: Discharge Planning Goal: Identify discharge needs upon admission and through discharge Description Outcome: Progressing Problem: Mobility Goal: Absence of/Reduce Fall Risk r/t Mobility Deficits Description Patient is a fall risk because of mobility deficits. A patient with mobility deficits is automatically at high risk for falls. Potential Interventions: 1. Schedule patient toileting to avoid emergency trips to the bathroom 2. If available, use floor mats next to bed or in front of chair when up 3. If applicable, remove floor mats when getting patient up and replace when leaving patient 4. Assistive devices as required, educate patient on correct use of device (walkers, shower chairs,lift equipment, etc.) 5. Exit bed on patient's strongest side 6. Gait belt easily accessible 7. Activate bed or chair alarm while in bed or up in chair 8. Get order for PT consult if appropriate 9. Patient requires 2 assist - bedpan and bed bath if 2 staff not available, bedside commode if 2 staff are available entire time 10. Slow progressive position changes if patient experiencing dizziness Outcome: Progressing Problem: Medications Goal: Absence of/Reduce Fall Risk r/t Medications Description Patient is a fall risk because of medications (i.e. - BP meds, CV/BOOTH SUPERVISOR meds, seizure meds, diuretics, pain meds, psych meds, current chemotherapy). Potential Interventions: 1. Orthostatic VS q day; educate to dangle before rising 2. Educate patient and family on how medications increase patient's fall risk (may make dizzy, lower BP, etc) 3. Do first dose education with all med/dosage changes. Document education 4.Reassess fall risk whenever a medication is changed/added (sleeping pill, pain med, BP med dose adjustment, etc) 5. Activate bed or chair alarm while in bed or up in chair 6. Limit combination of PRN meds whenever possible (i.e. - space out narcs and benzos) 7. Schedule frequent toileting for patients on diuretic to help prevent emergencies 8. Consult pharmacy to review meds and make recommendations (determine best timing, possible dosingadjustments, or identify other education that might be appropriate for patient) 9. Use floor mats next to bed and in front of chair when patient left unattended 10.Do not leave patient unattended while toileting or showering 11.Use appropriate assistive equipment (walker, shower chair, etc) 12. Include information on high risk medications, last doses, and patient tolerance in hand-off communication Outcome: Progressing Problem: Volume/Electrolyte Status Goal: Absence of/Reduce Fall Risk r/t Volume/Electrolyte Status Description Patient is a fall risk due to volume/electrolyte status (i.e. - electrolyte imbalances, nausea/vomiting, NPO, IV fluids). Potential Interventions: 1. Ensure blood sugar is checked at appropriate intervals and insulin dosing is given as ordered 2. Provide patient with an emesis basin or vomit bag (may need more than one at bedside) 3. Assess length of IV and/or O2 tubing if applicable 4. Ensure IV fluids are given as ordered for NPO patients to maintain hydration 5. Administer medications for nausea and vomiting as needed Outcome: Progressing Problem: Peripheral Neurovascular Goal: Achieve optimal peripheral neurovascular function by discharge or maintain baseline function Outcome: Progressing Problem: Musculoskeletal Goal: Achieve optimal musculoskeletal function by discharge or maintain baseline function Outcome: Progressing Problem: Skin Goal: Maintain skin integrity and/or promote wound healing by discharge Outcome: Progressing Problem: Communication/Sensory Goal: Absence of/Reduce Fall Risk r/t Communication/Sensory Description Patient is a fall risk due to sensory or communication issues. Potential Interventions: 1.Use alternative communication devices wherever necessary and when available (i.e. - picture board, note pad and pen, etc) 2. MANUFACTURING CLERK referral if applicable 3. Provide education in patient's primary language. Obtain whitewater rafting guide and appropriate written materials. If patient refuses whitewater rafting guide services have refusal waiver signed 4. Patients with visual deficits - place belongings and call light within field of vision, maintainsame setup in surroundings, narrate setup and activities to patient, provide necessary visual aids (i.e. Glasses) 5. Patients with hearing deficits - have patient repeat teaching back to ensure understanding 6. Patients with neuropathy - use appropriate assistive devices to aid mobility, and/or use appropriate footwear 7. Slow progressive position changes if patient experiencing dizziness Outcome: Progressing TRICAL RESEARCH ENGINEER * Care Plan - Morgan Mayes RN - 09/18/2019 1:27 PM CST Problem: Discharge Planning Goal: Identify discharge needs upon admission and through discharge Description Outcome: Progressing Clinical documentation reviewed. Comprehensive Discharge Planning Risk Assessment was completed. Readmission Risk (patient becomes high risk with a score of 8 or greater) 0 Total Score (Last filed: Sep 18, 2019 0600) Total Score of 9 or below does not identify immediate needs for discharge. Age Score: 4 Disability Score: 0 Prior Living Status Score: {0 Mobility Limitation Score: 0 TOTAL SCORE: [address] consult if needs for discharge are identified. Care Management will continue to follow for discharge planning. Morgan Mayes RN, BSN Patent Litigation Associate [id number] TRICAL RESEARCH ENGINEER * Care Plan - Magaly Katz GN - 09/18/2019 6:46 AM CST Assumed care for pt around 2300. Pt Aox4. No complaints of pain. Scheduled Tylenol given. Dressing changed over jaw this AM. Has serosanguinous drainage. Pt tolerated well. On soft dental diet. Continent x2, up by stand-by with gaitbelt and walker. VSS, no acute changes this shift. Pt resting quietly, call light in reach. TRICAL RESEARCH ENGINEER * Care Plan - Oneil Rojas GN - 09/18/2019 12:10 AM CST Pt A&Ox4 with complaints of headache pain once, Tylenol administered per DEC. Pt's jaun drain has a small amount of serosanguinous drainage, dressing changed once this shift. Pt ambulates to the bathroom well with her walker and stand by assist. Pt has been resting quietly between care with fall precautions maintained. Report given to KHALIDA Mckenzie at 0000. TRICAL RESEARCH ENGINEER * Care Plan - Racheal Obregon RN - 09/17/2019 6:53 PM CST Patient is : A&Ox4 Pain Range/Score during the shift: pt remained free of pain after surgery this afternoon, pain was managed with tylenol 1,000mg Q8 and Manju 5mg Q4 Medication that have helped or need to be changed: All meds working at this time Void or Bowel Movement: voiding per bathroom and last bowel movement was 09/15 Dressing: CDI Changed Diet Tolerated : Gen Skin Concerns : No concerns Behaviors: Calm Activity: X1 with walker/gaitbelt Discharge: No plans made at this time Pt has remained free of falls this shift. Pt is stable and resting comfortably. Will continue to monitor PT. Pathway Day 1 - Current (INTERDIS PW: SKIN/PRESSURE INJURY PREVENTION) Bladder & Bowel Movement: Moisture management for incontinence initiated and maintained or patient is continent of urine/stool. Outcome: Not Met Variance NO BOWEL MOVEMENT TODAY TRICAL RESEARCH ENGINEER * Care Plan - Teresa Vincent RN - 09/17/2019 1:08 PM CST Potential for pain related to surgical/procedural intervention Interventions: Assess level of pain/comfort utilizing verbal/nonverbal pain scales; assess culturalor zoroastrian indicators attached to pain; administer pain medications as prescribed; utilize non-pharmacologic pain control and comfort measures Expected Outcome: Patient demonstrates and reports adequate pain control Outcome Met: yes TRICAL RESEARCH ENGINEER documented in this encounter Plan of Treatment Not on file documented as of this encounter Procedures Procedure Name Priority Date/Time Associated Diagnosis Comments CBC WITH DIFFERENTIAL Routine 09/19/2019 6:58 AM ELECTRICAL RESEARCH ENGINEER CBC WITH DIFFERENTIAL Routine 09/18/2019 6:50 AM ELECTRICAL RESEARCH ENGINEER BASIC METABOLIC PANEL Routine 09/18/2019 6:50 AM ELECTRICAL RESEARCH ENGINEER XR PANOREX Routine 09/17/2019 4:13 PM ELECTRICAL RESEARCH ENGINEER AFB CULTURE WITH STAIN Routine 09/17/2019 12:02 PM ELECTRICAL RESEARCH ENGINEER ANAEROBIC/AEROBIC CULTURE W GRAM STAIN Routine 09/17/2019 12:02 PM ELECTRICAL RESEARCH ENGINEER FUNGUS CULTURE, OTHER Routine 09/17/2019 12:02 PM ELECTRICAL RESEARCH ENGINEER FACIAL INCISION AND DRAINAGE 09/17/2019 10:57 AM ELECTRICAL RESEARCH ENGINEER CBC WITH DIFFERENTIAL Routine 09/17/2019 6:57 AM ELECTRICAL RESEARCH ENGINEER BASIC METABOLIC PANEL Routine 09/17/2019 6:57 AM ELECTRICAL RESEARCH ENGINEER CBC WITH DIFFERENTIAL Routine 09/16/2019 7:19 AM ELECTRICAL RESEARCH ENGINEER BASIC METABOLIC PANEL Routine 09/16/2019 7:19 AM ELECTRICAL RESEARCH ENGINEER documented in this encounter Results * (ABNORMAL) CBC WITH DIFFERENTIAL (09/19/2019 6:58 AM ELECTRICAL RESEARCH ENGINEER) WBC 10.7(H) 4.0 - 9.8 K/uL 09/19/2019 7:39 AM ELECTRICAL RESEARCH ENGINEER [employer] [facility] RBC 3.12(L) 3.90 - 4.90 M/uL 09/19/2019 7:39 AM ELECTRICAL RESEARCH ENGINEER [facility] HEMOGLOBIN 9.4(L) 11.8 - 14.8 g/dL 09/19/2019 7:39 AM ELECTRICAL RESEARCH ENGINEER [employer] [facility] HEMATOCRIT 30.2(L) 35.5 - 44.0 % 09/19/2019 7:39 AM [employer] [facility] MCV 96.8 82.0 - 99.0 fL 09/19/2019 7:39 AM [employer] [facility] MCH 30.1 27.2 - 32.6 pg 09/19/2019 7:39 AM ELECTRICAL RESEARCH ENGINEER [employer] [facility] MCHC 31.1(L) 31.5 - 35.5 g/dL 09/19/2019 7:39 AM [employer] [facility] RDW 13.4 11.5 - 14.5 % 09/19/2019 7:39 AM [employer] [facility] RDW-STDEV 47.8 37.1 - 48.7 fL 09/19/2019 7:39 AM [employer] [facility] PLATELETS 490(H) 140 - 350 K/uL 09/19/2019 7:39 AM ELECTRICAL RESEARCH ENGINEER [employer] [facility] MPV 9.0(L) 9.3 - 12.4 fL 09/19/2019 7:39 AM ELECTRICAL RESEARCH ENGINEER [employer] [facility] NEUTROPHILS 53 % 09/19/2019 7:39 AM ELECTRICAL RESEARCH ENGINEER [employer] [facility] LYMPHOCYTES 37 % 09/19/2019 7:39 AM ELECTRICAL RESEARCH ENGINEER [facility] MONOCYTES 8 % 09/19/2019 7:39 AM ELECTRICAL RESEARCH ENGINEER [facility] EOSINOPHILS 1 % 09/19/2019 7:39 AM ELECTRICAL RESEARCH ENGINEER [facility] BASOPHILS 1 % 09/19/2019 7:39 AM [facility] [employer] [facility] IMMATURE GRANULOCYTES 1 % 09/19/2019 7:39 AM [facility] [employer] [facility] Comment:IG (Immature Granulo cyte) count includes Metamyelocytes, Myelocytes, and Promyelocytes NEUTROPHIL ABSOLUTE 5.62 1.90 - 7.00 K/uL 09/19/2019 7:39 AM [facility] [employer] [facility] LYMPHOCYTE ABSOLUTE 3.91 0.70 - 4.50 K/uL 09/19/2019 7:39 AM [facility] [employer] [facility] MONOCYTE ABSOLUTE 0.81 0.10 - 1.30 K/uL 09/19/2019 7:39 AM [facility] [employer] [facility] EOSINOPHIL ABSOLUTE 0.15 0.00 - 0.70 K/uL 09/19/2019 7:39 AM [facility] [employer] [facility] BASOPHILS ABSOLUTE 0.06 0.00 - 0.20 K/uL 09/19/2019 7:39 AM [facility] [employer] [facility] IMMATURE GRANULOCYTES ABSOLUTE 0.13(H) 0.00 - 0.03 K/uL 09/19/2019 7:39 AM [facility] [employer] [facility] Blood Venipuncture / Unknown 09/19/2019 6:58 AM ELECTRICAL RESEARCH ENGINEER 09/19/2019 7:22 AM ELECTRICAL RESEARCH ENGINEER Wilman Alexandra MD HEMATOLOGY ORDERABLE S [facility] [employer] [facility]# [id number] [address] [facility] [place] [address] * (ABNORMAL) BASIC METABOLIC PANEL (09/18/2019 6:50 AM ELECTRICAL RESEARCH ENGINEER) SODIUM 138 136 - 145 mmol/L 09/18/2019 8:27 AM [facility] [employer] [facility] POTASSIUM 4.1 3.5 - 5.0 mmol/L 09/18/2019 8:27 AM [facility] [employer] [facility] CHLORIDE 103 98 - 107 mmol/L 09/18/2019 8:27 AM [facility] [employer] [facility] CO2 22 22 - 29 mmol/L 09/18/2019 8:27 AM ELECTRICAL RESEARCH ENGINEER [facility] [employer] [facility] CALCIUM 9.1 8.6 - 10.2 mg/dL 09/18/2019 8:27 AM [facility] [employer] [facility] BUN 9 6 - 20 mg/dL 09/18/2019 8:27 AM [facility] CREATININE 0.53 0.51 - 0.95 mg/dL 09/18/2019 8:27 AM [facility] [employer] [facility] GLUCOSE 117(H) 74 - 99 mg/dL 09/18/2019 8:27 AM [facility] [employer] [facility] GFR >60 >=60 mL/min/1.7 3 sq meter 09/18/2019 8:27 AM [facility] [employer] [facility] Comment: eGFR has not been validated for use in the elderly (> 70 years of age), women, patients with serious co-morbid conditions, or persons with extremes of body size or muscle mass and should also be interpreted with caution in patients with acute kidney failure, dialysis dependent patients, patients reporting exceptional dietary intake (e.g. vegetarian diet, high protein diets, creatine supplementation), and patients with severe liver disease. Based on National Kidney Disease Education Program If patient is , please refer to the GFR result. GFR, >60 >=60 mL/min/1.7 3 sq meter 09/18/2019 8:27 AM [facility] [employer] [facility] ANION GAP 13 8 - 16 mmol/L 09/18/2019 8:27 AM [facility] [employer] [facility] Blood Venipuncture / Unknown 09/18/2019 6:50 AM ELECTRICAL RESEARCH ENGINEER 09/18/2019 7:55 AM ELECTRICAL RESEARCH ENGINEER Kiley Maria MD CHEMISTRY ORDERABLE S [facility] [employer] [facility]# [id number] [place] [address] * (ABNORMAL) CBC WITH DIFFERENTIAL (09/18/2019 6:50 AM ELECTRICAL RESEARCH ENGINEER) WBC 13.4(H) 4.0 - 9.8 K/uL 09/18/2019 8:06 AM [employer] [facility] RBC 2.92(L) 3.90 - 4.90 M/uL 09/18/2019 8:06 AM ELECTRICAL RESEARCH ENGINEER [employer] [facility] HEMOGLOBIN 8.9(L) 11.8 - 14.8 g/dL 09/18/2019 8:06 AM ELECTRICAL RESEARCH ENGINEER [employer] [facility] HEMATOCRIT 27.5(L) 35.5 - 44.0 % 09/18/2019 8:06 AM [employer] [facility] MCV 94.2 82.0 - 99.0 fL 09/18/2019 8:06 AM [employer] [facility] MCH 30.5 27.2 - 32.6 pg 09/18/2019 8:06 AM [employer] [facility] MCHC 32.4 31.5 - 35.5 g/dL 09/18/2019 8:06 AM [employer] [facility] RDW 13.2 11.5 - 14.5 % 09/18/2019 8:06 AM [employer] [facility] RDW-STDEV 45.6 37.1 - 48.7 fL 09/18/2019 8:06 AM [employer] [facility] PLATELETS 483(H) 140 - 350 K/uL 09/18/2019 8:06 AM [employer] [facility] MPV 9.4 9.3 - 12.4 fL 09/18/2019 8:06 AM [employer] [facility] NEUTROPHILS 67 % 09/18/2019 8:06 AM [employer] [facility] LYMPHOCYTES 24 % 09/18/2019 8:06 AM [employer] [facility] MONOCYTES 8 % 09/18/2019 8:06 AM [employer] [facility] EOSINOPHILS 0 % 09/18/2019 8:06 AM [employer] [facility] BASOPHILS 0 % 09/18/2019 8:06 AM [employer] [facility] IMMATURE GRANULOCYTES 1 % 09/18/2019 8:06 AM [employer] [facility] Comment:IG (Immature Granulo cyte) count includes Metamyelocytes, Myelocytes, and Promyelocytes NEUTROPHIL ABSOLUTE 8.86(H) 1.90 - 7.00 K/uL 09/18/2019 8:06 AM [facility] LYMPHOCYTE ABSOLUTE 3.23 0.70 - 4.50 K/uL 09/18/2019 8:06 AM [facility] MONOCYTE ABSOLUTE 1.10 0.10 - 1.30 K/uL 09/18/2019 8:06 AM [facility] EOSINOPHIL ABSOLUTE 0.02 0.00 - 0.70 K/uL 09/18/2019 8:06 AM [facility] BASOPHILS ABSOLUTE 0.02 0.00 - 0.20 K/uL 09/18/2019 8:06 AM [facility] IMMATURE GRANULOCYTES ABSOLUTE 0.12(H) 0.00 - 0.03 K/uL 09/18/2019 8:06 AM [facility] Blood Venipuncture / Unknown 09/18/2019 6:50 AM ELECTRICAL RESEARCH ENGINEER 09/18/2019 7:54 AM ELECTRICAL RESEARCH ENGINEER Kiley Maria MD H[facility]ATOLOGY [facility]ABL [facility] [id number] [address] [place] [address] * XR PANOREX (09/17/2019 4:13 PM ELECTRICAL RESEARCH ENGINEER) Anatomical Region Laterality Modality Head Computed Radiogr aphy 09/17/2019 4:13 PM ELECTRICAL RESEARCH ENGINEER Impressions 09/17/2019 4:33 PM ELECTRICAL RESEARCH ENGINEER IMPRESSION: Interval placement of drain at site of mandibular tooth extractions and in the vicinity of masseter muscle abscess. No fracture seen. ?? DICTATION LOCATION: Location 1 - [facility] Narrative 09/17/2019 4:33 PM ELECTRICAL RESEARCH ENGINEER PANOREX VIEW OF MANDIBLE 09/17/2019 HISTORY: ??Soft tissue swelling Since prior CT of facial bones obtained at [facility] 09/15/2019, a surgical drain has been placed at the horizontal portion of the right hemimandible. Patient is noted to be status post extractions of the right second and third mandibular molars. No fractures are seen. Mandible condylar heads and necks appear normal. Procedure Note Jaylan Renee MD - 09/17/2019 PANOREX VIEW OF MANDIBLE 09/17/2019 HISTORY: Soft tissue swelling Since prior CT of facial bones obtained at [facility] 09/15/2019, a surgical drain has been placed at the horizontal portion of the right hemimandible. Patient is noted to be status post extractions of the right second and third mandibular molars. No fractures are seen. Mandible condylar heads and necks appear normal. IMPRESSION: Interval placement of drain at site of mandibular tooth extractions and in the vicinity of masseter muscle abscess. No fracture seen. DICTATION LOCATION: Location 1 - [facility] Oli Arnett Jr., DMD DIAGNOST IC IMAGING ORDERABLES * AFB CULTURE WITH STAIN (09/17/2019 12:02 PM ELECTRICAL RESEARCH ENGINEER) CULTURE No acid fast bacilli isolated. 10/31/2019 10:04 AM [facility] [employer] [facility] AFB STAIN No acid fast bacilli observed 10/31/2019 10:04 AM [facility] [employer] [facility] Abscess ENTIRE MOUTH REGION / Unknown Collection / Unknown 09/17/2019 12:02 PM ELECTRICAL RESEARCH ENGINEER 09/17/2019 12:51 PM ELECTRICAL RESEARCH ENGINEER Narrative [facility] [employer] [facility] - 10/31/2019 10:04 AM ELECTRICAL RESEARCH ENGINEER Culture is held for a minimum of 6 weeks. Oli Arnett Jr., DMD MICROBIO LOGY - GENERAL ORDERABLES [facility] [employer] [facility]# [id number] [address] [facility] [place] [address] * ANAEROBIC/AEROBIC CULTURE W GRAM STAIN (09/17/2019 12:02 PM ELECTRICAL RESEARCH ENGINEER) CULTURE 2+ or moderate Normal oral amie 09/22/2019 11:41 AM [facility] [employer] [facility] GRAM STAIN 1+ (Rare or Occasional) Gram positive cocci 09/22/2019 11:41 AM [facility] [employer] [facility] GRAM STAIN 3+ (Moderate) WBC 09/22/2019 11:41 AM ELECTRICAL RESEARCH ENGINEER [employer] LABORATORY SERVICES [facility] Abscess ENTIRE MOUTH REGION / Unknown Collection / Unknown 09/17/2019 12:02 PM ELECTRICAL RESEARCH ENGINEER 09/17/2019 12:51 PM ELECTRICAL RESEARCH ENGINEER Oli Arnett Jr., MANOJ MICROBIO LOGY - GENERAL ORDERABLES [facility] CLIA# [id number] [address] [place] [address] * FUNGUS CULTURE, OTHER (09/17/2019 12:02 PM ELECTRICAL RESEARCH ENGINEER) CULTURE No fungus isolated. 10/16/2019 9:47 AM [facility] [employer] SERVICES [facility] Abscess ENTIRE MOUTH REGION / Unknown Collection / Unknown 09/17/2019 12:02 PM ELECTRICAL RESEARCH ENGINEER 09/17/2019 12:51 PM ELECTRICAL RESEARCH ENGINEER [facility] - 10/16/2019 9:47 AM ELECTRICAL RESEARCH ENGINEER Culture is held for a minimum of 4 weeks. Oli Arnett Jr., MANOJ MICROBIO LOGY - GENERAL ORDERABLES Performing Organization Address City/[facility] Co de Phone Number [facility] [employer] [facility] CLIA# [id number] [address] [place] [address] * (ABNORMAL) BASIC METABOLIC PANEL (09/17/2019 6:57 AM ELECTRICAL RESEARCH ENGINEER) SODIUM 134(L) 136 - 145 mmol/L 09/17/2019 7:50 AM ELECTRICAL RESEARCH ENGINEER [employer] [facility]ORY SERVICES - . [facility] POTASSIUM 4.1 3.5 - 5.0 mmol/L 09/17/2019 7:50 AM ELECTRICAL RESEARCH ENGINEER [employer] LAB[facility]ORY SERVICES - . [facility] CHLORIDE 101 98 - 107 mmol/L 09/17/2019 7:50 AM ELECTRICAL RESEARCH ENGINEER [employer] [facility] - [facility] CO2 21(L) 22 - 29 mmol/L 09/17/2019 7:50 AM ELECTRICAL RESEARCH ENGINEER [employer] [facility]ORY SERVICES - . [facility] CALCIUM 8.7 8.6 - 10.2 mg/dL 09/17/2019 7:50 AM ELECTRICAL RESEARCH ENGINEER [facility] BUN 10 6 - 20 mg/dL 09/17/2019 7:50 AM [facility] LABORATORY [facility] CREATININE 0.56 0.51 - 0.95 mg/dL 09/17/2019 7:50 AM [facility] LABOR[facility]ORY [facility] GLUCOSE 96 74 - 99 mg/dL 09/17/2019 7:50 AM [facility] LABOR[facility]ORY [facility] GFR >60 >=60 mL/min/1.7 3 sq meter 09/17/2019 7:50 AM [facility]OR[facility]ORY [facility] Comment: eGFR has not been validated for use in the elderly (> 70 years of age), women, patients with serious co-morbid conditions, or persons with extremes of body size or muscle mass and should also be interpreted with caution in patients with acute kidney failure, dialysis dependent patients, patients reporting exceptional dietary intake (e.g. vegetarian diet, high protein diets, creatine supplementation), and patients with severe liver disease. Based on National Kidney Disease Education Program If patient is , please refer to the GFR result. GFR, >60 >=60 mL/min/1.7 3 sq meter 09/17/2019 7:50 AM [facility] - [facility] ANION GAP 12 8 - 16 mmol/L 09/17/2019 7:50 AM [facility] [employer] [facility] Blood Venipuncture / Unknown 09/17/2019 6:57 AM ELECTRICAL RESEARCH ENGINEER 09/17/2019 7:11 AM ELECTRICAL RESEARCH ENGINEER Kiley Maria MD CHEMISTRY ORDERABLE S [facility] [employer] [facility] CLIA# [id number] [address] [facility] [place] [id number] * (ABNORMAL) CBC WITH DIFFERENTIAL (09/17/2019 6:57 AM ELECTRICAL RESEARCH ENGINEER) WBC 11.9(H) 4.0 - 9.8 K/uL 09/17/2019 7:38 AM [facility] LABORATORY [facility] RBC 3.10(L) 3.90 - 4.90 M/uL 09/17/2019 7:38 AM [facility] [employer] [facility] [place] HEMOGLOBIN 9.4(L) 11.8 - 14.8 g/dL 09/17/2019 7:38 AM [facility] HEMATOCRIT 29.1(L) 35.5 - 44.0 % 09/17/2019 7:38 AM [facility] MCV 93.9 82.0 - 99.0 fL 09/17/2019 7:38 AM [facility] [employer] [facility] MCH 30.3 27.2 - 32.6 pg 09/17/2019 7:38 AM [facility] [employer] LABORATORY SERVICES - . [facility] MCHC 32.3 31.5 - 35.5 g/dL 09/17/2019 7:38 AM [facility] [employer] [facility] [place] RDW 13.2 11.5 - 14.5 % 09/17/2019 7:38 AM [facility] [employer] [facility]ATORY SERVICES - [facility] RDW-STDEV 45.3 37.1 - 48.7 fL 09/17/2019 7:38 AM [facility] [employer] LABORATORY [facility] PLATELETS 431(H) 140 - 350 K/uL 09/17/2019 7:38 AM [facility] [employer] LABORATORY [facility] MPV 9.1(L) 9.3 - 12.4 fL 09/17/2019 7:38 AM [facility] [employer] [facility] NEUTROPHILS 69 % 09/17/2019 7:38 AM [facility] [employer] LABORATORY [facility] LYMPHOCYTES 22 % 09/17/2019 7:38 AM [facility] [employer] LABORATORY SERVICES - [facility] MONOCYTES 8 % 09/17/2019 7:38 AM [facility] [employer] LABORATORY SERVICES - [facility] EOSINOPHILS 1 % 09/17/2019 7:38 AM [employer] LABORATORY SERVICES [facility] BASOPHILS 0 % 09/17/2019 7:38 AM [facility] [employer] LABORATORY SERVICES [facility] IMMATURE GRANULOCYTES 1 % 09/17/2019 7:38 AM [facility] [employer] LABORATORY SERVICES [facility] Comment:IG (Immature Granulo cyte) count includes Metamyelocytes, Myelocytes, and Promyelocytes NEUTROPHIL ABSOLUTE 8.23(H) 1.90 - 7.00 K/uL 09/17/2019 7:38 AM [facility] [employer] LABORATORY SERVICES [facility] LYMPHOCYTE ABSOLUTE 2.56 0.70 - 4.50 K/uL 09/17/2019 7:38 AM [facility] LABORATORY SERVICES - [facility] MONOCYTE ABSOLUTE 0.95 0.10 - 1.30 K/uL 09/17/2019 7:38 AM [facility] EOSINOPHIL ABSOLUTE 0.06 0.00 - 0.70 K/uL 09/17/2019 7:38 AM [facility] BASOPHILS ABSOLUTE 0.03 0.00 - 0.20 K/uL 09/17/2019 7:38 AM [facility] [employer] LABORATORY SERVICES - [facility] IMMATURE GRANULOCYTES ABSOLUTE 0.06(H) 0.00 - 0.03 K/uL 09/17/2019 7:38 AM [facility] [employer] LABORATORY SERVICES - [facility] Blood Venipuncture / Unknown 09/17/2019 6:57 AM [employer] 09/17/2019 7:11 AM [employer] Kiley Maria MD HEMATOLOGY ORDERABL ES [facility] LABORATORY SERVICES [facility] CLIA# [id number] [address] [facility] [place] [address] * (ABNORMAL) BASIC METABOLIC PANEL (09/16/2019 7:19 AM [employer]) SODIUM 134(L) 136 - 145 mmol/L 09/16/2019 9:33 AM [facility] [employer] LABORATORY SERVICES - [facility] [place] POTASSIUM 4.5 3.5 - 5.0 mmol/L 09/16/2019 9:33 AM [facility] [employer] LABORATORY SERVICES - [facility] [place] CHLORIDE 96(L) 98 - 107 mmol/L 09/16/2019 9:33 AM [facility] [employer] LABORATORY SERVICES - [facility] CO2 25 22 - 29 mmol/L 09/16/2019 9:33 AM [facility] [employer] LABORATORY SERVICES - [facility] CALCIUM 9.2 8.6 - 10.2 mg/dL 09/16/2019 9:33 AM [facility] [employer] LABORATORY [facility] BUN 15 6 - 20 mg/dL 09/16/2019 9:33 AM [facility] [employer] LABORATORY SERVICES - [facility] [place] CREATININE 0.70 0.51 - 0.95 mg/dL 09/16/2019 9:33 AM [facility] GLUCOSE 97 74 - 99 mg/dL 09/16/2019 9:33 AM [facility] GFR >60 >=60 mL/min/1.7 3 sq meter 09/16/2019 9:33 AM [facility] [employer] [facility] Comment: eGFR has not been validated for use in the elderly (> 70 years of age), women, patients with serious co-morbid conditions, or persons with extremes of body size or muscle mass and should also be interpreted with caution in patients with acute kidney failure, dialysis dependent patients, patients reporting exceptional dietary intake (e.g. vegetarian diet, high protein diets, creatine supplementation), and patients with severe liver disease. Based on National Kidney Disease Education Program If patient is , please refer to the GFR result. GFR, >60 >=60 mL/min/1.7 3 sq meter 09/16/2019 9:33 AM [facility] ANION GAP 13 8 - 16 mmol/L 09/16/2019 9:33 AM [facility] [employer] [facility] Blood Venipuncture / Unknown 09/16/2019 7:19 AM [employer] 09/16/2019 8:36 AM [employer] Kiley Maria MD CHEMISTRY ORDERABLE S [facility]# [id number] [address] [place] [id number] * (ABNORMAL) CBC WITH DIFFERENTIAL (09/16/2019 7:19 AM [employer]EARCH ENGINE[employer]) WBC 14.6(H) 4.0 - 9.8 K/uL 09/16/2019 8:58 AM [facility] [employer] [facility] RBC 3.19(L) 3.90 - 4.90 M/uL 09/16/2019 8:58 AM [facility] [employer] [facility] HEMOGLOBIN 9.9(L) 11.8 - 14.8 g/dL 09/16/2019 8:58 AM [facility] [employer] [facility] HEMATOCRIT 30.4(L) 35.5 - 44.0 % 09/16/2019 8:58 AM [facility] [employer] LABORATORY SERVICES - [facility] MCV 95.3 82.0 - 99.0 fL 09/16/2019 8:58 AM [facility] [employer] LABORATORY SERVICES - [facility] MCH 31.0 27.2 - 32.6 pg 09/16/2019 8:58 AM [facility] [employer] LABORATORY SERVICES - [facility] MCHC 32.6 31.5 - 35.5 g/dL 09/16/2019 8:58 AM [facility] [employer] LABORATORY SERVICES - [facility] RDW 13.1 11.5 - 14.5 % 09/16/2019 8:58 AM [facility] [employer] LABORATORY SERVICES - [facility] RDW-STDEV 45.1 37.1 - 48.7 fL 09/16/2019 8:58 AM [facility] [employer] LABORATORY SERVICES - [facility] PLATELETS 450(H) 140 - 350 K/uL 09/16/2019 8:58 AM [facility] [employer] LABORATORY SERVICES - [facility] MPV 9.4 9.3 - 12.4 fL 09/16/2019 8:58 AM [facility] [employer] LABORATORY SERVICES - [facility] NEUTROPHILS 66 % 09/16/2019 8:58 AM [facility] [employer] LABORATORY SERVICES - [facility] LYMPHOCYTES 23 % 09/16/2019 8:58 AM [facility] [employer] LABORATORY SERVICES - [facility] MONOCYTES 10 % 09/16/2019 8:58 AM [facility] [employer] LABORATORY SERVICES - [facility] EOSINOPHILS 1 % 09/16/2019 8:58 AM [facility] [employer] LABORATORY SERVICES - [facility] BASOPHILS 0 % 09/16/2019 8:58 AM [facility] [employer] LABORATORY SERVICES - [facility] IMMATURE GRANULOCYTES 1 % 09/16/2019 8:58 AM [facility] [employer] LABORATORY SERVICES - [facility] Comment:IG (Immature Granulo cyte) count includes Metamyelocytes, Myelocytes, and Promyelocytes NEUTROPHIL ABSOLUTE 9.64(H) 1.90 - 7.00 K/uL 09/16/2019 8:58 AM [facility] [employer] LABORATORY SERVICES - [facility] LYMPHOCYTE ABSOLUTE 3.38 0.70 - 4.50 K/uL 09/16/2019 8:58 AM [facility] [employer] LABORATORY SERVICES - [facility] MONOCYTE ABSOLUTE 1.39(H) 0.10 - 1.30 K/uL 09/16/2019 8:58 AM [facility] [employer] LABORATORY SERVICES - [facility] EOSINOPHIL ABSOLUTE 0.09 0.00 - 0.70 K/uL 09/16/2019 8:58 AM [employer]EARCH [employer] [facility] LABORATORY [facility] BASOPHILS ABSOLUTE 0.03 0.00 - 0.20 K/uL 09/16/2019 8:58 AM [employer] [facility] LABORATORY [facility] IMMATURE GRANULOCYTES ABSOLUTE 0.08(H) 0.00 - 0.03 K/uL 09/16/2019 8:58 AM [employer] [facility] LABORATORY [facility] Blood Venipuncture / Unknown 09/16/2019 7:19 AM [employer]EARCH ENGINEER 09/16/2019 8:37 AM [employer] ENG[employer] Kiley Maria [id number] [address] [place] [address] documented in this encounter Visit Diagnoses Not on filedocumented in this encounter Administered Medications Inactive Administered Medications - up to 3 most recent administrations Medication Order MAR Action Action Date Dose Rate Site acetaminophen (TYLENOL) tablet 1,000 mg 1,000 mg, Oral, EVERY 8 HOURS, First dose on Wed09/15/19 at 2300, Until Discontinued, Routine Given 09/19/2019 7:16 AM [employer] ENG[employer] 1,000 mg Given 09/18/2019 11:13 PM [employer] 1,000 mg Given 09/18/2019 2:29 PM [employer]EARCH ENGINE[employer] 1,000 mg atorvastatin (LIPITOR) tablet 80 mg 80 mg, Oral, DAILY WITH SUPPER, First dose on Wed09/15/19 at 2245, Until Discontinued, Routine Given 09/18/2019 5:11 PM [employer]EARCH ENGINE[employer] 80 mg Given 09/17/2019 6:07 PM [employer]EARCH ENGINE[employer] 80 mg Given 09/16/2019 6:35 PM [employer]EARCH ENGINE[employer] 80 mg bupivacaine-EPINEPHrine (SENSORCAINE-EPINEPHRINE) 0.25 %-1:200,000 injection INTRA-PROCEDURE PRN, Starting on 09/17/19 at 1227, Until 09/17/19 at 1236, Routine, Intra-op Given 09/17/2019 12:27 PM [employer] 5 mL Operative Site clindamycin (CLEOCIN) 600 mg in dextrose 5% 50 mL IVPB 600 mg, IV, EVERY 8 HOURS, First dose on 09/16/19 at 0500, Until Discontinued, Routine, Antibiotic Indication: Upper Respiratory Tract / ENT Infection New Bag 09/19/2019 4:20 AM [employer] 600 mg 100 mL/hr New Bag 09/18/2019 8:15 PM [employer] ENG[employer] 600 mg 100 mL/hr New Bag 09/18/2019 2:12 PM [employer] ENG[employer] 600 mg 100 mL/hr enoxaparin (LOVENOX) injection 40 mg 40 mg, subCUT, DAILY, First dose on Wed09/18/19 at 2230, Until Discontinued, Routine, Indication: Prophylaxis of VTE hydrOXYzine HCl (ATARAX) tablet 25 mg 25 mg, Oral, EVERY 6 HOURS PRN, Starting on Wed09/15/19 at 2339, Until Wed09/19/19 at 1609, Anxiety, Routine Given 09/18/2019 11:13 PM [employer] 25 mg Given 09/17/2019 9:33 PM [employer] 25 mg Given 09/16/2019 8:37 PM [employer] ENG[employer] 25 mg ketorolac (TORADOL) injection 15 mg 15 mg, IV, EVERY 6 HOURS PRN, Starting on Wed09/15/19 at 2238, Until Wed09/19/19 at 1609, Pain, Routine Given 09/17/2019 8:43 AM [employer] 15 mg Given 09/16/2019 8:37 PM [employer] 15 mg Given 09/16/2019 12:57 PM [employer]EARCH ENG[employer] 15 mg naloxone (NARCAN) 0.4 mg/mL injection 0.1 mg 0.1 mg, IV, SEE ADMIN INSTRUCTIONS, Starting on Wed09/15/19 at 2237, Until Wed09/19/19 at 1609, Routine nicotine (NICODERM CQ) 21 mg/24 hr transdermal patch 1 Patch 1 Patch, Transdermal, DAILY, First dose on Wed09/16/19 at 0900, Until Discontinued, Routine Applied 09/19/2019 9:01 AM [employer] 1 Patch Back, Right Applied 09/18/2019 8:40 AM [employer]EARCH ENGINEER 1 Patch Ba ck, Right Applied 09/17/2019 8:44 AM [employer]EARCH ENGINEER 1 Patch Sh oulder, Right ondansetron (ZOFRAN ODT) tablet 4 mg 4 mg, Oral, EVERY 8 HOURS PRN, Starting on Wed09/15/19 at 2222, Until Wed09/19/19 at 1609, Nausea/Emesis, Routine oxyCODONE (ROXICODONE) tablet 5 mg 5 mg, Oral, EVERY 6 HOURS PRN, Starting on Wed09/15/19 at 2221, Until Wed09/19/19 at 1609, Pain (See admin instructions), Routine Given 09/17/2019 5:27 AM [employer] 5 mg Saccharomyces boulardii (FLORASTOR) capsule 250 mg 250 mg, Oral, TWO TIMES DAILY, First dose (after last modification) on Wed09/19/19 at 0900, Until Discontinued, Routine documented in this encounter Active and Recently Administered Medications Times are shown in [employer]. Scheduled Medication Order 09/17/2019 09/18/2019 09/19/2019 acetaminophen (TYLENOL) tablet 1,000 mg 1,000 mg, Oral, EVERY 8 HOURS, First dose on Wed09/15/19 at 2300, Until Discontinued, Routine 0843 (Given - Provider: Racheal Obregon RN)1500 (Refused - Provider: Racheal Obregon RN)2354 (Given - Provider: SARA Pedersen) 0609 (Given - Provider: SARA Lora)1429 (Given - Provider: Juan Ramon Diez RN)2313 (Given - Provider: SARA Lora) 0716 (Given - Provider: SARA Lora) atorvastatin (LIPITOR) tablet 80 mg 80 mg, Oral, DAILY WITH SUPPER, First dose on Wed09/15/19 at 2245, Until Discontinued, Routine 1807 (Given - Provider: Racheal Obregon RN) 1711 (Given - Provider: Juan Ramon Diez RN) clindamycin (CLEOCIN) 600 mg in dextrose 5% 50 mL IVPB 600 mg, IV, EVERY 8 HOURS, First dose on Wed09/16/19 at 0500, Until Discontinued, Routine, Antibiotic Indication: Upper Respiratory Tract / ENT Infection 0525 (New Bag - Provider: Osei Gu RN)0555 (Stopped - Provider: Osei Gu RN)1358 (New Bag - Provider: Racheal Obregon RN)1428 (Stopped - Provider: Racheal Obregon RN)2043 (New Bag - Provider: SARA Pedersen)2113 (Stopped - Provider: SARA Pedersen) 0521 (New Bag - Provider: SARA Lora)0551 (Stopped - Provider: SARA Lora)1412 (New Bag - Provider: Juan Ramon Diez RN)1442 (Stopped - Provider: Juan Ramon Diez RN)2014 (New Bag - Provider: SARA Lora)204 (Stopped - Provider: SARA Lora) 0420 (New Bag - Provider: SARA Lora)0450 (Stopped - Provider: SARA Lora)1300 (Due) enoxaparin (LOVENOX) injection 40 mg 40 mg, subCUT, DAILY, First dose on Wed09/18/19 at 2230, Until Discontinued, Routine, Indication: Prophylaxis of VTE 2313 (Refused - Provider: SARA Lora) 0900 (Refused - Provider: Juan Ramon Diez RN) naloxone (NARCAN) 0.4 mg/mL injection 0.1 mg 0.1 mg, IV, SEE ADMIN INSTRUCTIONS, Starting on Wed09/15/19 at 2237, Until Wed09/19/19 at 1609, Routine nicotine (NICODERM CQ) 21 mg/24 hr transdermal patch 1 Patch 1 Patch, Transdermal, DAILY, First dose on Wed09/16/19 at 0900, Until Discontinued, Routine 0844 (Applied - Provider: Racheal Obregon RN)0859 (Removed - Provider: Racheal Obregon RN) 0838 (Removed - Provider: Juan Ramon Diez RN)0840 (Applied - Provider: Juan Ramon Diez RN) 0840 (Removed - Provider: Juan Ramon Diez RN)0901 (Applied - Provider: Juan Ramon Diez RN)1408 (Due: Removed - Provider: PROVIDER, DISCHARGE PATIENT - Comment: Time automatically adjusted from order being discontinued) Saccharomyces boulardii (FLORASTOR) capsule 250 mg 250 mg, Oral, TWO TIMES DAILY, First dose (after last modification) on Wed09/19/19 at 0900, Until Discontinued, Routine 0900 (Refused - Provider: Juan Ramon Diez RN) PRN Medication Order 09/17/2019 09/18/2019 09/19/2019 bupivacaine-EPINEPHrine (SENSORCAINE-EPINEPHRINE) 0.25 %-1:200,000 injection (CANCELED) INTRA-PROCEDURE PRN, Starting on Wed09/17/19 at 1227, Until Wed09/17/19 at 1236, Routine, Intra-op 1227 (Given - Provider: Oli Arnett Jr., DMD) HYDROmorphone (DILAUDID) 2 mg/mL injection 0.2 mg (CANCELED) 0.2 mg, IV, POST-PROCEDURE Q 5 MINUTES PRN, 5 doses, Starting on Wed09/17/19 at 1258, Until Wed09/17/19 at 1339, Pain, Routine, PACU 1310 (Given - Provider: Teresa Vincent, KHALIDA)1317 (Given - Provider: Teresa Vincent, KHALIDA) hydrOXYzine HCl (ATARAX) tablet 25 mg 25 mg, Oral, EVERY 6 HOURS PRN, Starting on Wed09/15/19 at 2339, Until Wed09/19/19 at 1609, Anxiety, Routine 2133 (Given - Provider: SARA Pedersen) 2313 (Given - Provider: SARA Lora) ketorolac (TORADOL) injection 15 mg 15 mg, IV, EVERY 6 HOURS PRN, Starting on Wed09/15/19 at 2238, Until Wed09/19/19 at 1609, Pain, Routine 0843 (Given - Provider: Racheal Obregon RN) ondansetron (ZOFRAN ODT) tablet 4 mg 4 mg, Oral, EVERY 8 HOURS PRN, Starting on Wed09/15/19 at 2222, Until Wed09/19/19 at 1609, Nausea/Emesis, Routine oxyCODONE (ROXICODONE) tablet 5 mg 5 mg, Oral, EVERY 6 HOURS PRN, Starting on Wed09/15/19 at 2221, Until Wed09/19/19 at 1609, Pain (See admin instructions), Routine 0527 (Given - Provider: Osei Gu RN) documented in this encounter Care Teams Copier Operator Relationship Specialty Start Date End Date Anthony Riley MD [address] [place] [id number] PCP - General Internal Medicine 09/15/19 documented as of this encounter
--- OUTSIDE RECORDS SUMMARY | 2024-10-27 00:37 | XMS_ITS | Encounter Summary ---
Author Organization [facility] Address [address] [place] [address] Care Team Providers Care Tool Mechanic Name Role Phone Anthony Riley MD Primary Care Provider + Reason for Visit * Auth/Cert Specialty Diagnoses / Procedures Referred By Aristeo hussein Referred To Contact Neurology Diagnoses mandible abscess [facility] [address] [place] [address] Referral ID Status Reason Start Date Expiration Date Visits Re quested Visits Authorized [id number] 1 1 Encounter Details Date Type Department Care Team (Late st Contact Info) Description 09/17/2019 11:38 AM RISK MODELER Anesthesia Event [facility] [address] [place] [address] Jerome Meza MD [address] [place] [id number] Fernanda Flores, AA-C [address] [place] [address] Anesthesia Record Procedure Summary Procedure Name Responsible Anesthesiologist Anesthesia Start Time Anesthesia Stop Time RT MANDIBLE INCISION AND DRAINAGE (Face) Jerome Meza MD 09/17/19 1138 09/17/19 1242 Events Date Time Event Comment 09/17/2019 1126 1134 AN Equip Check Anesthesia eq uipment and materials checked in accordance with local policy. 1137 In Room This event disp lays the In Room time documented in the Surgical Log. Deleting this event will not remove it from the log but will remove it from the Grid and Graph timeline. 1138 An Start 1138 An Start Data 1143 Pre-Induction Immediate pre- induction anesthetic assessment performed. Vital signs as noted on graphic. 1145 An Induction 1148 An Intubation 1153 Anesthesia Ready 1200 Procedure Start This event d isplays the Procedure Start time documented in the Surgical Log. Deleting this event will not remove it from the log but will remove it from the Grid and Graph timeline. 1228 Procedure Stop This event di splays the Procedure Stop time documented in the Surgical Log. Deleting this event will not remove it from the log but will remove it from the Grid and Graph timeline. 1234 An Extubation Emergence unev entful Awake, spontaneous respirations. Adequate muscle strength demonstrated Adequate tidal volume. Orapharynx suctioned. Extubated with positive pressure ventilation. 1235 an stop data 1236 Out of Room This event disp lays the Out of Room time documented in the Surgical Log. Deleting this event will not remove it from the log but will remove it from the Grid and Graph timeline. 1242 An Stop 1242 Hand-off to Receiving Clinic leo Post-Anesthetic transfer of care report elements to appropriate post-anesthesia recovery environment completed in accordance with procedure. 09/18/2019 0757 Follow-up Complete Meds Name Total midazolam PF (VERSED) 1 mg/mL injection 2 mg fentaNYL (SUBLIMAZE) PF 50??mcg/mL injec tion 100 mcg lidocaine PF (XYLOCAINE MPF) 20 mg/mL sy ringe 60 mg propofol (DIPRIVAN) 10??mg/mL injection 120 mg succinycholine (ANECTINE) 140 mg/7 mL iv syringe 100 mg rocuronium (ZEMURON) 10 mg/mL 5 mL injec tion 25 mg dexamethasone (DECADRON) 4 mg/mL injecti on 10 mg ondansetron (ZOFRAN) 4??mg/2 mL injectio n 4 mg famotidine PF (PEPCID) 20mg/2 mL injecti on 20 mg ketorolac (TORADOL) 30??mg/mL injection 15 mg glycopyrrolate (ROBINUL) 0.4 mg/2 mL (0. 2 mg/mL) syringe 0.4 mg neostigmine (PROSTIGMINE) 1 mg/mL inject ion 3 mg lactated ringers infusion 600 mL * Agents Name Air Sevoflurane % Sevoflurane O2 N2O Inspired N2O O2 * Blood No blood administrations on file. Lines, Drains, and Airways Type Details Placement Removal OB Wound 09/15/19; 2330; 1; Right, anterior; knee; surgical 09/15/19 2330 by Amirah Tran RN Peripheral IV Pre-Hospital Start: No; Orientation: Left; Location: Arm; Device: Angiocath; Gauge: 20 gauge; Insertion Attempts: 1; Patient Tolerance: tolerated well 09/17/19 1125 by Fernanda Flores AA-C Drain Present on Admission : No; Tube Number: #1; Orientation: Right:; Location: jaw; Type: [place]; Size (Fr): 0.25 Fr 09/17/19 1226 by Mary Castillo RN Endotracheal Airway Type: ETT, Oral (Eas y mask vent); Cuff Pressure: minimal leak technique, minimal occluding volume, cuff inflated; Size: 6; Site: mouth; Attempts: 1; FOV: (Minimal mouth opening which did not improve with anesthesia. Just barely able to pass GS); cm: 21; Device: Video Laryngoscope; Blade: 3; Secured: secured with tape; Verification: Auscultated bilateral breath sounds, Equal chest movement, Continuous waveform capnography 09/17/19 1148 by Fernanda Flores AA-C 09/17/19 1235 by Fernanda Flores AA-C Incision 09/17/19; 1204; surgical incision; Right; gum; 09/20/19; 0209 09/17/19 1204 by Mary Castillo RN 09/20/19 0209 by PROVIDER, DISCHARGE PATIENT documented in this encounter Social History Tobacco Use Types Packs/Day Years Used Date Smoking Tobacco: Every Day Cigarettes Alcohol Use Standard Drinks/Week Comments Not Currently 0 (1 standard drink = 0.6 oz pur e alcohol) Sex and Gender Information Value Date Recorded Sex Assigned at Not on file Gender Identity Not on file Sexual Orientation Not on file documented as of this encounter OR Notes * Anesthesia Post-Op Follow-up Note - Cheri Kaur NP - 09/18/2019 7:57 AM CST 09/18/2019 7:57 AM Teresa Espinosa No apparent Anesthesia related complications Cheri M Kaur, TECHNICAL AID MODELER * Anesthesia Postprocedure Evaluation - Jerome Meza MD - 09/17/2019 1:04 PM CST Phase I Postanesthesia Evaluation Including Modified Anamaria Score Patient seen and evaluated: Modified Anamaria Score: Score: 10 (09/17/19 124) COMMENTS: No apparent Anesthesia related complications RESPIRATORY FUNCTION: Respiration: able to breath and cough freely (09/17/19 124) [2=able to breathe and cough freely, 1=dyspnea, limited breathing or tachypnea, 0=apnea or mechanicventilator] O2 Saturation: able to maintain O2 saturation greater than 92% on room air (09/17/19 124) [2=able to maintain O2 saturation greater than 92% on room air, 1=needs O2 inhalation to maintain O2 saturation greater than 90%, 0=O2 saturation less than 90% even with O2 supplement] Resp: 20 (09/17/19 1300)SpO2: 95 % (09/17/19 1300) CARDIOVASCULAR FUNCTION: Heart Rate: 90 bpm (09/17/19 1300) BP: 120/67 (09/17/19 1245) Circulation: BP within 20% of preanesthetic level (09/17/19 124) [2=BP within 20% of preanesthetic level, 1=BP within 20-49% of preanesthetic level, 0=BP within 50%of preanesthetic level] MENTAL STATUS, NEURO, ACTIVITY: PATIENT PARTICIPATION IN EVALUATION:yes Consciousness: fully awake (09/17/19 124) [2=fully awake, 1=arousable on calling, 0=not responding] Activity: able to move 4 extremities voluntarily or on command (09/17/19 124) [2=able to move 4 extremities voluntarily or on command, 1=able to move 2 extremities voluntarily or on command, 0=unable to move extremities voluntarily or on command] TEMPERATURE: Temp: 36.9 ??C (09/17/19 123) PAIN: Pain Rating: Rest: 2 (09/17/19 124) Presence of Pain: complains of pain/discomfort (09/17/19 124) NAUSEA AND VOMITING: no nausea and no vomiting POSTOPERATIVE HYDRATION: well hydrated Intake/Output Summary (Last 24 hours) at 09/17/2019 1304 Last data filed at 09/17/2019 1230 Gross per 24 hour Intake 600 ml Output -- Net 600 ml Jerome Meza MD 09/17/2019 1:04 PM Post Anesthesia Evaluation Vitals: Vitals Value Taken Time BP 120/78 09/17/2019 1:00 PM Temp 36.9 ??C 09/17/2019 12:36 PM Resp 20 09/17/2019 1:01 PM SpO2 95 % 09/17/2019 1:01 PM Pulse 88 09/17/2019 1:01 PM Heart Rate 88 bpm 09/17/2019 1:01 PM Vitals shown include unvalidated device data. Pain Rating: Pain Rating: Rest: 2 (09/17/19 1240) Pain Rating: Activity: 6 (09/17/19 1132) Anesthesia Post Evaluation Patient location during evaluation: PACU Patient participation: patient was able to participate in the post op evaluation Level of consciousness: 0 = alert, responsive, answers simple questions appropriately, able to perform simple tasks Pain management: adequate Airway patency: patent Nausea or Vomiting: none Anesthetic complications: no Cardiovascular status: regular rate and rhythm Respiratory status: no respiratory symptoms Hydration status: well hydrated Jerome Meza MD MODELER * Anesthesia Handoff - Fernanda Flores AA-[place] - 09/17/2019 12:42 PM RISK MODELER Post-Anesthetic transfer of care report elements to appropriate post-anesthesia recovery environment completed in accordance with procedure. I completed my handoff to the receiving nurse during which we: 1. Identified the patient 2. Identified the responsible provider 3. Reviewed the pertinent medical history 4. Discussed the surgical course 5. Reviewed intra-op anesthesia management and issues during anesthesia 6. Set expectations for post-procedure period 7. Orders as necessary and appropriate for continuation of care are present in Epic. 8. Allowed opportunity for questions and acknowledgement of understanding. Vital Signs: BP: 132/71 (09/17/2019 12:35 PM) Pulse: 96 (09/17/2019 12:40 PM) Heart Rate: 96 bpm (09/17/2019 12:40 PM) Temp: 36.9 ??C (09/17/2019 12:35 PM) Resp: 16 (09/17/2019 12:40 PM) SpO2: 97 % (09/17/2019 12:40 PM) 12:42 PM VALARIE Aldridge MODELER * Anesthesia Preprocedure Evaluation - Jerome Meza MD - 09/17/2019 11:05 AM CST Relevant Problems No relevant active problems Anesthesia Evaluation Airway Mallampati: IV TM distance: <3 FB Neck ROM: full Comment: <1FB MO - Trismus Handles secretion without difficulty Voice normal Dental - normal exam Pulmonary - normal exam breath sounds clear to auscultation Cardiovascular - normal exam (+) hypertension, Rhythm: regular Rate: normal Neuro/Psych GI/Hepatic/Renal Endo/Other Abdominal (+) obese, Anesthesia History Anesthesia Plan ASA Final: 3 - emergent General Intravenous induction Oral ETT airway maintenance NPO status waived due to emergency Anesthetic plan and risks discussed with Patient and Spouse. Plan discussed with Surgeon, Other and Anesthesiologist School Attendance Secretary. Post-op Pain Control Plan to use IV or IM medication for post-op pain control. Smoking Compliance Patient did not smoke on day of surgery MODELER documented in this encounter Miscellaneous Notes * Addendum Note - Cheri Kaur NP - 09/18/2019 7:57 AM CST Addendum created 09/18/19 0757 by Cheri Kaur NP Clinical Note Signed, Intraprocedure Event edited MODELER documented in this encounter Plan of Treatment Not on file documented as of this encounter Visit Diagnoses Not on filedocumented in this encounter Administered Medications Inactive Administered Medications - up to 3 most recent administrations Medication Order MAR Action Action Date Dose Rate Site dexamethasone (DECADRON) injection INTRA-PROCEDURE PRN, Starting on 09/17/19 at 1202, Until 09/17/19 at 1242, Routine, Anesthesia Intra-op Given 09/17/2019 12:02 PM RISK MODELER 10 mg famotidine PF (PEPCID) 20 mg/2 mL injection INTRA-PROCEDURE PRN, Starting on 09/17/19 at 1202, Until 09/17/19 at 1242, Routine, Anesthesia Intra-op Given 09/17/2019 12:02 PM RISK MODELER 20 mg fentaNYL PF (SUBLIMAZE) 50 mcg/mL injection INTRA-PROCEDURE PRN, Starting on 09/17/19 at 1143, Until 09/17/19 at 1242, Routine, Anesthesia Intra-op Given 09/17/2019 12:37 PM RISK MODELER 25 mcg Given 09/17/2019 12:30 PM RISK MODELER 25 mcg Given 09/17/2019 11:43 AM RISK MODELER 50 mcg glycopyrrolate (ROBINUL) injection INTRA-PROCEDURE PRN, Starting on 09/17/19 at 1231, Until 09/17/19 at 1242, Routine, Anesthesia Intra-op Given 09/17/2019 12:31 PM RISK MODELER 0.4 mg ketorolac (TORADOL) injection INTRA-PROCEDURE PRN, Starting on 09/17/19 at 1228, Until 09/17/19 at 1242, Routine, Anesthesia Intra-op Given 09/17/2019 12:28 PM RISK MODELER 15 mg lactated ringers infusion INTRA-PROCEDURE CONTINUOUS PRN, Starting on 09/17/19 at 1130, Until 09/17/19 at 1242, Routine, Anesthesia Intra-op New Bag 09/17/2019 11:30 AM RISK MODELER lidocaine (PF) (XYLOCAINE MPF) 60 mg/3 mL (2 %) injection syringe INTRA-PROCEDURE PRN, Starting on 09/17/19 at 1145, Until 09/17/19 at 1242, Routine, Anesthesia Intra-op Given 09/17/2019 11:45 AM RISK MODELER 60 mg midazolam (PF) (VERSED) injection INTRA-PROCEDURE PRN, Starting on 09/17/19 at 1138, Until 09/17/19 at 1242, Routine, Anesthesia Intra-op Given 09/17/2019 11:38 AM RISK MODELER 2 mg neostigmine (PROSTIGIMINE) 5 mg/5 mL (1 mg/mL) injection INTRA-PROCEDURE PRN, Starting on 09/17/19 at 1231, Until 09/17/19 at 1242, Routine, Anesthesia Intra-op Given 09/17/2019 12:31 PM RISK MODELER 3 mg ondansetron (ZOFRAN) 4 mg/2 mL injection INTRA-PROCEDURE PRN, Starting on 09/17/19 at 1228, Until 09/17/19 at 1242, Routine, Anesthesia Intra-op Given 09/17/2019 12:28 PM RISK MODELER 4 mg propofol (DIPRIVAN) injection INTRA-PROCEDURE PRN, Starting on 09/17/19 at 1145, Until 09/17/19 at 1242, Anesthesia Intra-op Given 09/17/2019 11:45 AM RISK MODELER 120 mg rocuronium injection INTRA-PROCEDURE PRN, Starting on 09/17/19 at 1145, Until 09/17/19 at 1242, Routine, Anesthesia Intra-op Given 09/17/2019 11:46 AM RISK MODELER 20 mg Given 09/17/2019 11:45 AM RISK MODELER 5 mg succinylcholine Chloride (ANECTINE) 140 mg/7 mL (20 mg/mL) injection INTRA-PROCEDURE PRN, Starting on 09/17/19 at 1145, Until 09/17/19 at 1242, Routine, Anesthesia Intra-op Given 09/17/2019 11:45 AM RISK MODELER 100 mg documented in this encounter Care Teams Tool Mechanic Relationship Specialty Start Date End Date Anthony Riley MD [address] [place] [id number] PCP - General Internal Medicine 09/15/19 documented as of this encounter
--- OUTSIDE RECORDS SUMMARY | 2024-10-27 00:37 | XMS_ITS | Encounter Summary ---
Author Organization [facility] Address [address] [place] [address] Care Team Providers Care Marketing Research Analyst Name Role Phone Anthony Riley MD Primary Care Provider + Reason for Visit * Auth/Cert Specialty Diagnoses / Procedures Referred By Aristeo t Referred To Contact Neurology Diagnoses mandible abscess [facility] [address] [place] [address] Referral ID Status Reason Start Date Expiration Date Visits Re quested Visits Authorized [id number] 1 1 Encounter Details Date Type Department Care Team (Latest Contact Info) Description 09/15/2019 9:30 PM CLIENT TECHNICAL SPECIALIST - 09/19/2019 2:08 PM [facility] Hospital Encounter [facility] [address] [place] [address] Kush Lamar MD [address] [facility] [address] [place] [address] Kiley Maria MD [address] [place] [address] Wilman Alexandra MD 6[address] [facility] [address] [address] Ekta Ozuna MD NO ADDRESS ON FILE Mandibular abscess Discharge Disposition: Home or Self Care Social History Tobacco Use Types Packs/Day Years [...] Comments Blood Pressure 125/63 09/19/2019 3:57 AM CLIENT TECHNICAL SPECIALIST Pulse 88 09/19/2019 3:57 AM CLIENT TECHNICAL SPECIALIST Temperature 36.8 ??C (98.3 ??F) 09/19/2019 3:57 AM CS T Respiratory Rate 16 09/19/2019 3:57 AM CLIENT TECHNICAL SPECIALIST Oxygen Saturation 96% 09/19/2019 3:57 AM CLIENT TECHNICAL SPECIALIST Inhaled Oxygen Concentration - - Weight 77.1 kg (170 lb) 09/17/2019 11:32 AM CLIENT TECHNICAL SPECIALIST Height 157.5 cm (5' 2 ) 09/17/2019 11:32 AM CLIENT TECHNICAL SPECIALIST Body Mass Index 31.09 09/17/2019 11:32 AM CLIENT TECHNICAL SPECIALIST documented in this encounter Discharge Summaries * Milagros Casey NP - 09/19/2019 10:51 AM CST [facility] Adult Hospitalist Discharge Summary Teresa Espinosa 59 y.o. female 1960 CSN: [id number] Date of Admission: 09/15/2019 Date of Discharge: [...] Your Medications These medications were sent to [address] [facility] [address] Hours: Wednesday-Wednesday: 8 a.m. - 8 p.m., Wednesday: 9 a.m. - 5 p.m., Wednesday: 10 a.m. - 4 p.m. ?? clindamycin HCl 300 mg Capsule ?? hydrOXYzine HCl 25 mg tablet ?? Saccharomyces boulardii 250 mg Capsule Consultants: IP CONSULT TO ORAL SURGERY Significant Diagnostic Studies This Admission: panorex - Since prior CT of facial bones obtained at [facility] 09/15/2019, a surgical drain has been placed [...] above plan for discharge. Signed: Milagros Casey [facility] Hospitalist [phone] 09/19/2019, 10:51 AM NT TECHNICAL SPECIALIST Associated attestation - Ekta Ozuna MD - 09/20/2019 9:36 AM CLIENT TECHNICAL SPECIALIST [facility] I have seen and examined the patient. I have confirmed the echols elements of the history and physicalexam, and have discussed the plan in detail with the STEAMER TENDER. I agree with the STEAMER TENDER's documentation with the following additions and exceptions. [...] Right mandibular abscess: Patient underwent I&D by [facility] Dr. Arnett with drain placement on 09/17. [...] 3 but not more than 10 minutes ([id number]) on counseling on smoking/tobacco cessation independent of the time otherwise related to this visit today HLD: resumed home meds OA: resumed home meds Remaining per STEAMER TENDER 's note. documented in this encounter Discharge Instructions * Discharge Instructions* Milagros Casey NP - 09/19/2019 10:52 AM CLIENT TECHNICAL SPECIALIST Your discharging physician is Milagros Casey NP [...] is not relieved by nitroglycerin. Smoking Exposure: [facility] encourages all patients to decrease risks associated with smoking and second hand smoke exposure. If you smoke you are advised to quit. Ask your health care provider for advice if you need assistance to stop smoking. Avoid second-hand smoke exposure and do not let people smoke in your home. Please call [phone], our pulmonary rehabilitation department, to learn more about options to reduce your risks. ACTIVITY Your activity level is: increase activity as tolerated and no smoking. DIET Your diet is: DIET GENERAL Effective Now WOUND CARE For your wound/incision: as directed by Dr Arnett . NT TECHNICAL SPECIALIST documented in this encounter Medications at Time [...] encounter Progress Notes * Hope Cisneros, Oli Washington, DMD - 09/19/2019 11:20 AM CST DOA: [...] Kiley Hollins MD 25 mg at 09/18/19 0813 Objective: Patient Vitals for the past 8 [...] swelling. Inferior border of mandible is palpable [place] drain in place and secured No drainage [...] Oli Arnett JR, DMD [facility] [place] Pager [phone] NT TECHNICAL SPECIALIST * Wilman Alexandra MD - 09/18/2019 10:22 PM CST [facility] Adult Hospitalist Progress Note Admit Date: 09/15/2019 [...] added probiotic, follow WBC count HTN (hypertension):??Hold SQL PROGRAMMER ANALYST hydrochlorothiazide/losartan??for now??given infection and normal [id number] range. Continue to monitor trend. ??Restart as appropriate. HLD (hyperlipidemia):??Continue SQL PROGRAMMER ANALYST statin Osteoarthritis:??Status post right knee arthroplasty approximately??9 [...] Code Status -Full Code Wilman Alexandra MD [facility] Hospitalist NT TECHNICAL SPECIALIST * Oli Arnett Jr., MANOJ - 09/18/2019 11:26 AM CST DOA: 09/15/2019 Date: 09/18/2019 Post op day: 1 Subjective: New Events/Complaints: no acute events overnight Current vital signs Blood pressure 106/58, pulse 83, temperature 98.4 ??F (36.9 ??C), temperature source Oral, resp. rate 16, height 5' 2 (1.575 m), weight 77.1 kg (170 lb), SpO2 100 %. Current Medications: Current Facility-Administered Medications Ordered in [facility] Medication Dose Route Frequency Provider Last Rate Last Dose ??? nicotine (NICODERM CQ) 21 mg/24 hr transdermal patch 1 Patch 1 Patch Transdermal Daily Sherie Chanel NP 1 Patch at 09/18/19 0840 ??? acetaminophen [...] pre-op) Neck is supple. Trachea is midline. [place] drain is in place and secured. Minimal drainage GONZALO 15 mm Surgical site hemostatic Tack Welder notes reviewed Impression: Principal Problem: Mandibular abscess Active Problems: HTN (hypertension) HLD (hyperlipidemia) Osteoarthritis Tobacco use Plan: Patient informed of root fragment < 3 mm in the third molar region. Patient informed we would follow monitor the site during post-op visits. Will continue to trend CBC F/U with wound cultures Will continue to follow Oli Arnett JR, DMD Pager [phone] NT TECHNICAL SPECIALIST * Oli Arnett Jr., DMD - 09/17/2019 [...] Oli Arnett Jr. DMD Oral [facility] [place] Pager [phone] NT TECHNICAL SPECIALIST * Wilman Alexandra MD - 09/17/2019 10:30 AM CST [facility] Adult Hospitalist Progress Note Admit Date: 09/15/2019 [...] for I&D by OMFS today HTN (hypertension):??Hold SQL PROGRAMMER ANALYST hydrochlorothiazide/losartan??for now??given infection .Continue to monitor trend. ??Restart as appropriate. HLD (hyperlipidemia):??Continue SQL PROGRAMMER ANALYST statin Osteoarthritis:??Status post right knee arthroplasty approximately??9 days??ago. ??Hold meloxicam for now. Tobacco use:??encourage cessation. ?? Nicotine patch ?? DVT Prophlaxis - sequential compression devices Current Diet DIET GENERAL Effective Now Garza catheter:none Lines:piv Current Planned Disposition - Current Code Status -Full Code Wilman Alexandra MD [facility] Hospitalist NT TECHNICAL SPECIALIST * Wilman Alexandra MD - 09/16/2019 9:45 PM CST [facility] Adult Hospitalist Progress Note Admit Date: 09/15/2019 [...] then n.p.o. at midnight. OMFS consult, Dr. Arnett appreciate assistance. HTN (hypertension): Hold SQL PROGRAMMER ANALYST hydrochlorothiazide/losartan for now given infection and BP normal at sBP-10 -120. Continue to monitor trend. Restart as appropriate. HLD (hyperlipidemia): Continue SQL PROGRAMMER ANALYST statin Osteoarthritis: Status post right knee arthroplasty approximately 9 days ago. Hold meloxicam for now. Pain management as above. Tobacco use: encourage cessation. Nicotine patch DVT Prophlaxis - sequential compression devices Current Diet DIET SOFT DENTAL DIET NPO Strict Garza catheter:none Lines:piv Current Planned Disposition -home at DC 3 days pending clinical improvement Current Code Status -Full Code . Wilman Alexandra MD [facility] Hospitalist NT TECHNICAL SPECIALIST * Amirah Tran RN - 09/16/2019 3:44 AM CST Teresa Ariza arrived as a Direct Admit from [facility] at approximately 2130. Undress/assess completed; see below. Oriented to unit. Welcome packet/patient rights provided. Disk with CT scan done at [facility] placed in pt's paper chart. Reports feeling [...] Assess performed by the following coworker: KHALIDA Macariochainstitch tunnel elastic operator or upon transfer to: Neuro RM# [id number] ~~~~~~~~~~~~~~~~~~~~~~~~~~~~ Is the patient a paraplegic/quadriplegic? No [...] nicotine patch placed to left deltoid from [facility]. All other skin appears intact at this time. Wound care consult was not initiated. Is there skin breakdown under any Financial Institution Vice President (splint, ETT pastor, c-collar)? N/A If yes, please describe: Are there currently any skin protective dressings in place? N/A If yes, please describe skin under dressing: Protective Dressings Applied to Sacrum and Heels (Mepilex) as per Pathway? No NT TECHNICAL SPECIALIST * Sherie Chanel NP - 09/16/2019 12:04 AM CST [facility] Two patient identifier: Teresa [...] be of more assistance. Sherie Chanel NP NT TECHNICAL SPECIALIST * Dede Carrera MD - 09/15/2019 11:38 PM CST [facility] Retention Science ospitalist Cross Cover Call Two patient identifier: Teresa Espinosa 1960 Called for: Pt requesting anxiety medication' Last Recorded Vitals: BP 113/61 (BP Location: Right arm, Patient Position (BP): Sitting) Pulse (!) 102 Temp 98.4 ??F (36.9 ??C) (Axillary) Resp 16 Ht 5' 2 (1.575 m) Wt 75.8 kg (167 lb 1.6 oz) SpO2 96% BMI 30.56 kg/m?? Pain Rating: Rest: 6 (09/15/19 2315) Documentation/Intervention/Outcome: Chart reviewed. Ms. Espinosa is being admitted by Dr. Maria. I communicated this request to her. Please call back any time if I can be of more assistance. Dede Carrera MD NT TECHNICAL SPECIALIST * Merlene Mayer NP - 09/15/2019 8:22 PM CST 09/15/19 8:22 PM Transferring Physician: Lucía Pelayo NP Reason for Transfer: OMF consultation Current Dept/location: [facility] ED Requested dept/location to be transferred: [facility] Vitals: BP 139/78 HR 76 RR WNL [...] health history. Specialists needed at accepting facility: [facility], Dr. Arnett consulted, please add to his list. Additional information: Patient is s/p right knee replacement 9 days prior to presentation to ED. Patient's with allergies to PCN and Sulfa. Transfer Center Quarterback notes: Notified Dr. Lamar at [facility] of the above accepted transfer NT TECHNICAL SPECIALIST documented in this encounter H&P Notes * Kiley Maria MD - 09/15/2019 10:43 PM CST Images from the original note were not included. [facility] Adult Hospitalist Admission H&P Date of Admission: 09/15/2019 Date of Service: 09/15/2019 Patient Name: Teresa Espinosa Courtesy Copy PCP: No primary care provider on file. Chief Complaint: R facial swelling HPI: Patient is a 59 y.o. female with PMH of hypertension, hyperlipidemia, tobacco use, osteoarthritis who presents from [facility] ED with right facial swelling. Patient reports [...] since that time by her PCP in [place]. She reports mostly swelling and pain but has trouble opening her jaw which is caused poor p.o. intake. She has some nausea but no vomiting. She notes subjective feversat home but no documented fevers. The symptoms started this time around on Wednesday and have gotten progressively worse so she presented to [facility] ED today. She was transferred for OMFS evaluation and a CT was significant for [...] History: Procedure Laterality Date ??? HX HYSTERECTOMY 2004 ??? HX KNEE REPLACEMENT Current Medications: Prior [...] consult, Dr. Arnett,appreciate assistance. HTN (hypertension): Hold SQL PROGRAMMER ANALYST hydrochlorothiazide/losartan for now given infection and BP normal at 113/61. Continue to monitor trend. Restart as appropriate. HLD (hyperlipidemia): Continue SQL PROGRAMMER ANALYST statin Osteoarthritis: Status post right knee arthroplasty [...] Adult Hospitalist Physician 09/15/2019, 10:43 PM P: [phone] from 9pm to 7 am on date of admission Outside above hours, the attending has changed, locate patient on the hospitalist e-list and send page through that portal to ensure its received by appropriate attending If no answer can always contact the hospitalist air cargo ground operations supervisor pager at NT TECHNICAL SPECIALIST documented in this encounter Consult Notes * Hope Jr. Oli Washington, DMD - 09/16/2019 3:56 PM CSTAssociated Order(s): IP CONSULT TO ORAL SURGERY Teresa Espinosa 1960 09/16/19 [id number] market reporter Consult Teresa Espinosa is a 59 y.o. [...] History: Procedure Laterality Date ??? HX HYSTERECTOMY 2004 ??? HX KNEE REPLACEMENT Blood pressure 124/68, [...] Oli Arnett JR, DMD [facility] [place] Pager [phone] NT TECHNICAL SPECIALIST documented in this encounter OR Notes * Operative Report - Oli Arnett Jr., DMD - 09/17/2019 2:30 PM CLIENT TECHNICAL SPECIALIST Operative Report Teresa Espinosa [id number] Pre-operative Diagnosis: RIGHT SUBMASSETERIC SPACE ABSCESS RIGHT [...] traversed through the submandibular and submasseteric spaces. [place] drain secured with 4-0 Silk suture. Intraoral [...] Oli Arnett JR, DMD [facility] [place] Pager [phone] NT TECHNICAL SPECIALIST * Brief Op Note - Oli Arnett Jr., DMD - 09/17/2019 2:02 PM CLIENT TECHNICAL SPECIALIST Brief Postoperative Note Teresa Espinosa [id number] Pre-operative Diagnosis: RIGHT SUBMASSETERIC SPACE ABSCESS RIGHT [...] Oli Arnett JR, DMD [facility] [place] Pager [phone] NT TECHNICAL SPECIALIST documented in this encounter Miscellaneous Notes * Care Plan - Juan Ramon Diez RN - 09/18/2019 4:24 PM CST Pt resting. Few complaints of jaw pain partially relieved with PRN pain meds. No acute events throughout the day. Will continue to monitor. Day 1 - Current ([place] [facility]: Adult and Obstetrics) Patient, family, or [...] because of medications (i.e. - BP meds, CV/MAILROOM ASSISTANT meds, seizure meds, diuretics, pain meds, psych [...] board, note pad and pen, etc) 2. LICENSED AIRCRAFT MAINTENANCE ENGINEER referral if applicable 3. Provide education in patient's primary language. Obtain diplomatic interpreter/translator and appropriate written materials. If patient refuses diplomatic interpreter/translator services have refusal waiver signed 4. Patients [...] changes if patient experiencing dizziness Outcome: Progressing NT TECHNICAL SPECIALIST * Care Plan - Morgan Mayes RN [...] for discharge planning. Morgan Mayes RN, BSN Pantry Chef [id number] NT TECHNICAL SPECIALIST * Care Plan - Magaly Katz GN [...] Pt resting quietly, call light in reach. NT TECHNICAL SPECIALIST * Care Plan - Oneil Rojas GN [...] Report given to KHALIDA Mckenzie at 0000. NT TECHNICAL SPECIALIST * Care Plan - Racheal Obregon RN [...] Not Met Variance NO BOWEL MOVEMENT TODAY NT TECHNICAL SPECIALIST * Care Plan - Teresa Vincent RN - 09/17/2019 1:08 PM CST Potential for pain related to surgical/procedural intervention Interventions: Assess level of pain/comfort utilizing verbal/nonverbal pain scales; assess culturalor mu-ism indicators attached to pain; administer pain medications as prescribed; utilize non-pharmacologic pain control and comfort measures Expected Outcome: Patient demonstrates and reports adequate pain control Outcome Met: yes NT TECHNICAL SPECIALIST documented in this encounter Plan of Treatment Not on file documented as of this encounter Procedures Procedure Name Priority Date/Time Associated Diagnosis Comments CBC WITH DIFFERENTIAL Routine 09/19/2019 6:58 AM CLIENT TECHNICAL SPECIALIST CBC WITH DIFFERENTIAL Routine 09/18/2019 6:50 AM CLIENT TECHNICAL SPECIALIST BASIC METABOLIC PANEL Routine 09/18/2019 6:50 AM CLIENT TECHNICAL SPECIALIST XR PANOREX Routine 09/17/2019 4:13 PM CLIENT TECHNICAL SPECIALIST AFB CULTURE WITH STAIN Routine 09/17/2019 12:02 PM CLIENT TECHNICAL SPECIALIST ANAEROBIC/AEROBIC CULTURE W GRAM STAIN Routine 09/17/2019 12:02 PM CLIENT TECHNICAL SPECIALIST FUNGUS CULTURE, OTHER Routine 09/17/2019 12:02 PM CLIENT TECHNICAL SPECIALIST FACIAL INCISION AND DRAINAGE 09/17/2019 10:57 AM CLIENT TECHNICAL SPECIALIST CBC WITH DIFFERENTIAL Routine 09/17/2019 6:57 AM CLIENT TECHNICAL SPECIALIST BASIC METABOLIC PANEL Routine 09/17/2019 6:57 AM CLIENT TECHNICAL SPECIALIST CBC WITH DIFFERENTIAL Routine 09/16/2019 7:19 AM CLIENT TECHNICAL SPECIALIST BASIC METABOLIC PANEL Routine 09/16/2019 7:19 AM CLIENT TECHNICAL SPECIALIST documented in this encounter Results * (ABNORMAL) CBC WITH DIFFERENTIAL (09/19/2019 6:58 AM CLIENT TECHNICAL SPECIALIST) WBC 10.7(H) 4.0 - 9.8 K/uL 09/19/2019 7:39 AM CLIENT TECHNICAL SPECIALIST [facility] RBC 3.12(L) 3.90 - 4.90 M/uL 09/19/2019 7:39 AM CLIENT TECHNICAL SPECIALIST [facility] HEMOGLOBIN 9.4(L) 11.8 - 14.8 g/dL 09/19/2019 7:39 AM CLIENT TECHNICAL SPECIALIST [facility] HEMATOCRIT 30.2(L) 35.5 - 44.0 % 09/19/2019 7:39 AM CLIENT TECHNICAL SPECIALIST [facility] MCV 96.8 82.0 - 99.0 fL 09/19/2019 7:39 AM CLIENT TECHNICAL SPECIALIST [facility] MCH 30.1 27.2 - 32.6 pg 09/19/2019 7:39 AM CLIENT TECHNICAL SPECIALIST [facility] MCHC 31.1(L) 31.5 - 35.5 g/dL 09/19/2019 7:39 AM CLIENT TECHNICAL SPECIALIST [facility] RDW 13.4 11.5 - 14.5 % 09/19/2019 7:39 AM CLIENT TECHNICAL SPECIALIST [facility] RDW-STDEV 47.8 37.1 - 48.7 fL 09/19/2019 7:39 AM CLIENT TECHNICAL SPECIALIST [facility] PLATELETS 490(H) 140 - 350 K/uL 09/19/2019 7:39 AM CLIENT TECHNICAL SPECIALIST [facility] MPV 9.0(L) 9.3 - 12.4 fL 09/19/2019 7:39 AM CLIENT TECHNICAL SPECIALIST [facility] NEUTROPHILS 53 % 09/19/2019 7:39 AM CLIENT TECHNICAL SPECIALIST [facility] LYMPHOCYTES 37 % 09/19/2019 7:39 AM CLIENT TECHNICAL SPECIALIST [facility] MONOCYTES 8 % 09/19/2019 7:39 AM [facility] [employer] [facility] EOSINOPHILS 1 % 09/19/2019 7:39 AM [facility] [employer] [facility] BASOPHILS 1 % 09/19/2019 7:39 AM [facility] [employer] [facility] IMMATURE GRANULOCYTES 1 % 09/19/2019 7:39 AM [facility] Comment:IG (Immature Granulo cyte) count includes Metamyelocytes, Myelocytes, and Promyelocytes NEUTROPHIL ABSOLUTE 5.62 1.90 - 7.00 K/uL 09/19/2019 7:39 AM [facility] [employer] [facility] LYMPHOCYTE ABSOLUTE 3.91 0.70 - 4.50 K/uL 09/19/2019 7:39 AM [facility] [employer] [facility] MONOCYTE ABSOLUTE 0.81 0.10 - 1.30 K/uL 09/19/2019 7:39 AM [facility] [employer] [facility] EOSINOPHIL ABSOLUTE 0.15 0.00 - 0.70 K/uL 09/19/2019 7:39 AM [facility] [employer] [facility] BASOPHILS ABSOLUTE 0.06 0.00 - 0.20 K/uL 09/19/2019 7:39 AM [facility] [employer] [facility] IMMATURE GRANULOCYTES ABSOLUTE 0.13(H) 0.00 - 0.03 K/uL 09/19/2019 7:39 AM [facility] [employer] [facility] Blood Venipuncture / Unknown 09/19/2019 6:58 AM CLIENT TECHNICAL SPECIALIST 09/19/2019 7:22 AM CLIENT TECHNICAL SPECIALIST Wilman Alexandra MD HEMATOLOGY ORDERABLE S [facility] CLIA# [id number] [address] [facility] [place] [address] * (ABNORMAL) BASIC METABOLIC PANEL (09/18/2019 6:50 AM CLIENT TECHNICAL SPECIALIST) SODIUM 138 136 - 145 mmol/L 09/18/2019 8:27 AM [facility] [employer] [facility] POTASSIUM 4.1 3.5 - 5.0 mmol/L 09/18/2019 8:27 AM [facility] [employer] [facility] CHLORIDE 103 98 - 107 mmol/L 09/18/2019 8:27 AM [facility] [employer] [facility] CO2 22 22 - 29 mmol/L 09/18/2019 8:27 AM [facility] [facility] CALCIUM 9.1 8.6 - 10.2 mg/dL 09/18/2019 8:27 AM [facility] [email or web address] [facility] BUN 9 6 - 20 mg/dL 09/18/2019 8:27 AM [facility] CREATININE 0.53 0.51 - 0.95 mg/dL 09/18/2019 8:27 AM [facility] [email or web address] [facility] GLUCOSE 117(H) 74 - 99 mg/dL 09/18/2019 8:27 AM [facility] [email or web address] [facility] GFR >60 >=60 mL/min/1.7 3 sq meter 09/18/2019 8:27 AM [facility] [email or web address] [facility] Comment: eGFR has not been validated [...] mL/min/1.7 3 sq meter 09/18/2019 8:27 AM [facility] [email or web address] [facility] ANION GAP 13 8 - 16 mmol/L 09/18/2019 8:27 AM [facility] [email or web address] [facility] Blood Venipuncture / Unknown 09/18/2019 6:50 AM CLIENT TECHNICAL SPECIALIST 09/18/2019 7:55 AM CLIENT TECHNICAL SPECIALIST Kiley Maria MD CHEMISTRY ORDERABLE S [facility] [employer] [facility] CLIA# [id number] [address] [facility] [place] [address] * (ABNORMAL) CBC WITH DIFFERENTIAL (09/18/2019 6:50 AM CLIENT TECHNICAL SPECIALIST) WBC 13.4(H) 4.0 - 9.8 K/uL 09/18/2019 8:06 AM [facility] RBC 2.92(L) 3.90 - 4.90 M/uL 09/18/2019 8:06 AM [facility] HEMOGLOBIN 8.9(L) 11.8 - 14.8 g/dL 09/18/2019 8:06 AM [facility] HEMATOCRIT 27.5(L) 35.5 - 44.0 % 09/18/2019 8:06 AM CLIENT TECHNICAL SPECIALIST [facility] MCV 94.2 82.0 - 99.0 fL 09/18/2019 8:06 AM [facility] MCH 30.5 27.2 - 32.6 pg 09/18/2019 8:06 AM [facility] MCHC 32.4 31.5 - 35.5 g/dL 09/18/2019 8:06 AM [facility] RDW 13.2 11.5 - 14.5 % 09/18/2019 8:06 AM [facility] RDW-STDEV 45.6 37.1 - 48.7 fL 09/18/2019 8:06 AM [facility] PLATELETS 483(H) 140 - 350 K/uL 09/18/2019 8:06 AM [facility] MPV 9.4 9.3 - 12.4 fL 09/18/2019 8:06 AM [facility] NEUTROPHILS 67 % 09/18/2019 8:06 AM CLIENT TECHNICAL SPECIALIST [facility] LYMPHOCYTES 24 % 09/18/2019 8:06 AM CLIENT TECHNICAL SPECIALIST [facility] MONOCYTES 8 % 09/18/2019 8:06 AM CLIENT TECHNICAL SPECIALIST [facility] EOSINOPHILS 0 % 09/18/2019 8:06 AM [employer] [facility] BASOPHILS 0 % 09/18/2019 8:06 AM [employer] [facility] IMMATURE GRANULOCYTES 1 % 09/18/2019 8:06 AM [facility] Comment:IG (Immature Granulo cyte) count includes Metamyelocytes, Myelocytes, and Promyelocytes NEUTROPHIL ABSOLUTE 8.86(H) 1.90 - 7.00 K/uL 09/18/2019 8:06 AM [facility] LYMPHOCYTE ABSOLUTE 3.23 0.70 - 4.50 K/uL 09/18/2019 8:06 AM [facility] MONOCYTE ABSOLUTE 1.10 0.10 - 1.30 K/uL 09/18/2019 8:06 AM [facility] EOSINOPHIL ABSOLUTE 0.02 0.00 - 0.70 K/uL 09/18/2019 8:06 AM [facility] BASOPHILS ABSOLUTE 0.02 0.00 - 0.20 K/uL 09/18/2019 8:06 AM [facility] IMMATURE GRANULOCYTES ABSOLUTE 0.12(H) 0.00 - 0.03 K/uL 09/18/2019 8:06 AM [facility] Blood Venipuncture / Unknown 09/18/2019 6:50 AM CLIENT TECHNICAL SPECIALIST 09/18/2019 7:54 AM CLIENT TECHNICAL SPECIALIST Kiley Maria MD HEMATOLOGY ORDERABL ES [facility]# [id number] [address] [facility] [place] [address] * XR PANOREX (09/17/2019 4:13 PM CLIENT TECHNICAL SPECIALIST) Anatomical Region Laterality Modality Head Computed Radiogr aphy 09/17/2019 4:13 PM CLIENT TECHNICAL SPECIALIST Impressions 09/17/2019 4:33 PM CLIENT TECHNICAL SPECIALIST IMPRESSION: Interval placement of drain at site of mandibular tooth extractions and in the vicinity of masseter muscle abscess. No fracture seen. ?? DICTATION LOCATION: Location 1 - [facility] Narrative 09/17/2019 4:33 PM CLIENT TECHNICAL SPECIALIST PANOREX VIEW OF MANDIBLE 09/17/2019 HISTORY: ??Soft tissue swelling Since prior CT of facial bones obtained at [facility] 09/15/2019, a surgical drain has been placed [...] prior CT of facial bones obtained at [facility] 09/15/2019, a surgical drain has been placed [...] fracture seen. DICTATION LOCATION: Location 1 - [facility] Oli Arnett Jr., DMD DIAGNOST IC IMAGING ORDERABLES * AFB CULTURE WITH STAIN (09/17/2019 12:02 PM CLIENT TECHNICAL SPECIALIST) CULTURE No acid fast bacilli isolated. 10/31/2019 10:04 AM [facility] [employer] [facility] AFB STAIN No acid fast bacilli observed 10/31/2019 10:04 AM [facility] [employer] [facility] Abscess ENTIRE MOUTH REGION / Unknown Collection / Unknown 09/17/2019 12:02 PM CLIENT TECHNICAL SPECIALIST 09/17/2019 12:51 PM CLIENT TECHNICAL SPECIALIST Narrative [facility] [employer] [facility] - 10/31/2019 10:04 AM CLIENT TECHNICAL SPECIALIST Culture is held for a minimum of 6 weeks. Oli Arnett Jr., DMD MICROBIO LOGY - GENERAL ORDERABLES [facility]# [id number] [address] [place] [address] * ANAEROBIC/AEROBIC CULTURE W GRAM STAIN (09/17/2019 12:02 PM CLIENT TECHNICAL SPECIALIST) CULTURE 2+ or moderate Normal oral amie 09/22/2019 11:41 AM [facility] LABORATORY [facility] GRAM STAIN 1+ (Rare or Occasional) Gram positive cocci 09/22/2019 11:41 AM [facility] LABORATORY [facility] GRAM STAIN 3+ (Moderate) WBC 09/22/2019 11:41 AM [facility] LABORATORY [facility] Abscess ENTIRE MOUTH REGION / Unknown Collection / Unknown 09/17/2019 12:02 PM CLIENT TECHNICAL SPECIALIST 09/17/2019 12:51 PM CLIENT TECHNICAL SPECIALIST Oli Arnett Jr., DMD MICROBIO LOGY - GENERAL ORDERABLES [facility] CLIA# [id number] [address] [place] [address] * FUNGUS CULTURE, OTHER (09/17/2019 12:02 PM CLIENT TECHNICAL SPECIALIST) CULTURE No fungus isolated. 10/16/2019 9:47 AM [facility] LABORATORY [facility] Abscess ENTIRE MOUTH REGION / Unknown Collection / Unknown 09/17/2019 12:02 PM CLIENT TECHNICAL SPECIALIST 09/17/2019 12:51 PM CLIENT TECHNICAL SPECIALIST Narrative [facility] LABORATORY [facility] - 10/16/2019 9:47 AM CLIENT TECHNICAL SPECIALIST Culture is held for a minimum of 4 weeks. Oli Arnett Jr., DMD [employer] - GENERAL ORDERABLES Performing Organization Address [facility]/ZIP Co de Phone Number [facility] CLIA# [id number] [address] [place] [address] * (ABNORMAL) BASIC METABOLIC PANEL (09/17/2019 6:57 AM CLIENT TECHNICAL SPECIALIST) SODIUM 134(L) 136 - 145 mmol/L 09/17/2019 7:50 AM [facility] LABORATORY [facility] POTASSIUM 4.1 3.5 - 5.0 mmol/L 09/17/2019 7:50 AM [facility] LABORATORY SERVICES [facility] CHLORIDE 101 98 - 107 mmol/L 09/17/2019 7:50 AM [facility] CO2 21(L) 22 - 29 mmol/L 09/17/2019 7:50 AM [facility] LABORATORY [facility] CALCIUM 8.7 8.6 - 10.2 mg/dL 09/17/2019 7:50 AM [facility] LABORATORY [facility] - . [facility] BUN 10 6 - 20 mg/dL 09/17/2019 7:50 AM [facility] LABORATORY [facility] CREATININE 0.56 0.51 - 0.95 mg/dL 09/17/2019 7:50 AM [facility] [employer] [facility] GLUCOSE 96 74 - 99 mg/dL 09/17/2019 7:50 AM [facility] LABORATORY [facility] GFR >60 >=60 mL/min/1.7 3 sq meter 09/17/2019 7:50 AM [facility] LABORATORY [facility] Comment: eGFR has not been validated [...] mL/min/1.7 3 sq meter 09/17/2019 7:50 AM [facility] LABORATORY [facility] ANION GAP 12 8 - 16 mmol/L 09/17/2019 7:50 AM [facility] LABORATORY [facility] Blood Venipuncture / Unknown 09/17/2019 6:57 AM CLIENT TECHNICAL SPECIALIST 09/17/2019 7:11 AM CLIENT TECHNICAL SPECIALIST Kiley Maria MD CHEMISTRY ORDERABLE S [facility] [employer] SERVICES [facility]# [id number] 5 S[address] ABI MARIA D [address] [place] [address] * (ABNORMAL) CBC WITH DIFFERENTIAL (09/17/2019 6:57 AM CLIENT TECHNICAL SPECIALIST) WBC 11.9(H) 4.0 - 9.8 K/uL 09/17/2019 7:38 AM [facility] RBC 3.10(L) 3.90 - 4.90 M/uL 09/17/2019 7:38 AM [facility] HEMOGLOBIN 9.4(L) 11.8 - 14.8 g/dL 09/17/2019 7:38 AM [facility] HEMATOCRIT 29.1(L) 35.5 - 44.0 % 09/17/2019 7:38 AM [facility] MCV 93.9 82.0 - 99.0 fL 09/17/2019 7:38 AM [facility] MCH 30.3 27.2 - 32.6 pg 09/17/2019 7:38 AM [facility] MCHC 32.3 31.5 - 35.5 g/dL 09/17/2019 7:38 AM [facility] [place] RDW 13.2 11.5 - 14.5 % 09/17/2019 7:38 AM CLIENT TECHNICAL SPECIALIST [facility] RDW-STDEV 45.3 37.1 - 48.7 fL 09/17/2019 7:38 AM [facility] [place] PLATELETS 431(H) 140 - 350 K/uL 09/17/2019 7:38 AM [facility] [place] MPV 9.1(L) 9.3 - 12.4 fL 09/17/2019 7:38 AM [facility] NEUTROPHILS 69 % 09/17/2019 7:38 AM CLIENT TECHNICAL SPECIALIST [facility] LYMPHOCYTES 22 % 09/17/2019 7:38 AM CLIENT TECHNICAL SPECIALIST [facility] MONOCYTES 8 % 09/17/2019 7:38 AM CLIENT TECHNICAL SPECIALIST [facility] EOSINOPHILS 1 % 09/17/2019 7:38 AM CLIENT TECHNICAL SPECIALIST [facility] BASOPHILS 0 % 09/17/2019 7:38 AM [facility] IMMATURE GRANULOCYTES 1 % 09/17/2019 7:38 AM [facility] Comment:IG (Immature Granulo cyte) count includes Metamyelocytes, Myelocytes, and Promyelocytes NEUTROPHIL ABSOLUTE 8.23(H) 1.90 - 7.00 K/uL 09/17/2019 7:38 AM [facility] LABORATORY SERVICES [facility] LYMPHOCYTE ABSOLUTE 2.56 0.70 - 4.50 K/uL 09/17/2019 7:38 AM [facility] LABORATORY SERVICES - [facility] MONOCYTE ABSOLUTE 0.95 0.10 - 1.30 K/uL 09/17/2019 7:38 AM [facility] LAB[facility]ATORY SERVICES [facility] EOSINOPHIL ABSOLUTE 0.06 0.00 - 0.70 K/uL 09/17/2019 7:38 AM [facility] LABORATORY SERVICES - [facility] BASOPHILS ABSOLUTE 0.03 0.00 - 0.20 K/uL 09/17/2019 7:38 AM [facility] [employer] [facility] - [facility] IMMATURE GRANULOCYTES ABSOLUTE 0.06(H) 0.00 - 0.03 K/uL 09/17/2019 7:38 AM [facility] [employer] [facility] Blood Venipuncture / Unknown 09/17/2019 6:57 AM CLIENT TECHNICAL SPECIALIST 09/17/2019 7:11 AM CLIENT TECHNICAL SPECIALIST Kiley Maria MD HEMATOLOGY ORDERABL ES [facility] [employer] SERVICES [facility]# [id number] 5 [facility] [place] [address] * (ABNORMAL) BASIC METABOLIC PANEL (09/16/2019 7:19 AM CLIENT TECHNICAL SPECIALIST) SODIUM 134(L) 136 - 145 mmol/L 09/16/2019 9:33 AM [facility] [employer] [facility]ATORY SERVICES [facility] POTASSIUM 4.5 3.5 - 5.0 mmol/L 09/16/2019 9:33 AM [facility] CHLORIDE 96(L) 98 - 107 mmol/L 09/16/2019 9:33 AM [facility] CO2 25 22 - 29 mmol/L 09/16/2019 9:33 AM [facility] [employer] SERVICES [facility]. [place] CALCIUM 9.2 8.6 - 10.2 mg/dL 09/16/2019 9:33 AM [facility] BUN 15 6 - 20 mg/dL 09/16/2019 9:33 AM [facility] [employer] [facility] CREATININE 0.70 0.51 - 0.95 mg/dL 09/16/2019 9:33 AM [facility] [employer] [facility]. [facility] GLUCOSE 97 74 - 99 mg/dL 09/16/2019 9:33 AM [facility] LABORATORY [facility] GFR >60 >=60 mL/min/1.7 3 sq meter 09/16/2019 9:33 AM [facility] - [facility] Comment: eGFR has not been validated [...] mL/min/1.7 3 sq meter 09/16/2019 9:33 AM [facility] [employer] LABORATORY SERVICES [facility] ANION GAP 13 8 - 16 mmol/L 09/16/2019 9:33 AM [facility] [employer] [facility] Blood Venipuncture / Unknown 09/16/2019 7:19 AM CLIENT TECHNICAL SPECIALIST 09/16/2019 8:36 AM CLIENT TECHNICAL SPECIALIST Kiley Maria MD CHEMISTRY ORDERABLE S [facility] [id number] 5 [facility] [place] [address] * (ABNORMAL) CBC WITH DIFFERENTIAL (09/16/2019 7:19 AM CLIENT TECHNICAL SPECIALIST) WBC 14.6(H) 4.0 - 9.8 K/uL 09/16/2019 8:58 AM [facility] [email or web address] [facility] RBC 3.19(L) 3.90 - 4.90 M/uL 09/16/2019 8:58 AM [facility] [email or web address] [facility] HEMOGLOBIN 9.9(L) 11.8 - 14.8 g/dL 09/16/2019 8:58 AM [facility] [employer] [facility]ORATORY SERVICES - [facility] HEMATOCRIT 30.4(L) 35.5 - 44.0 % 09/16/2019 8:58 AM [facility] [employer] - [facility] [place] MCV 95.3 82.0 - 99.0 fL 09/16/2019 8:58 AM [facility] [employer] [facility]ORATORY SERVICES - [facility] MCH 31.0 27.2 - 32.6 pg 09/16/2019 8:58 AM [facility] [employer] [facility]ORY SERVICES - [facility] MCHC 32.6 31.5 - 35.5 g/dL 09/16/2019 8:58 AM [facility] [employer] [facility] - [facility] [place] RDW 13.1 11.5 - 14.5 % 09/16/2019 8:58 AM [facility] [employer] [facility]ORATORY SERVICES - [facility] RDW-STDEV 45.1 37.1 - 48.7 fL 09/16/2019 8:58 AM [facility] [employer] LABORATORY [facility] PLATELETS 450(H) 140 - 350 K/uL 09/16/2019 8:58 AM [facility] [employer] LABORATORY [facility]. [place] MPV 9.4 9.3 - 12.4 fL 09/16/2019 8:58 AM [facility] [employer] LABORATORY [facility] - . [place] NEUTROPHILS 66 % 09/16/2019 8:58 AM [facility] [employer] LABORATORY [facility] - . [place] LYMPHOCYTES 23 % 09/16/2019 8:58 AM [facility] [employer] LABORATORY [facility]. [place] MONOCYTES 10 % 09/16/2019 8:58 AM [facility] [employer] LABORATORY [facility] - . [place] EOSINOPHILS 1 % 09/16/2019 8:58 AM [facility] [employer] LABORATORY [facility] BASOPHILS 0 % 09/16/2019 8:58 AM [facility] [employer] LABORATORY [facility] - [facility] [place] IMMATURE GRANULOCYTES 1 % 09/16/2019 8:58 AM [facility] Comment:IG (Immature Granulo cyte) count includes Metamyelocytes, Myelocytes, and Promyelocytes NEUTROPHIL ABSOLUTE 9.64(H) 1.90 - 7.00 K/uL 09/16/2019 8:58 AM [facility] LABORATORY [facility] LYMPHOCYTE ABSOLUTE 3.38 0.70 - 4.50 K/uL 09/16/2019 8:58 AM [facility] [employer] LABORATORY [facility]. [place] MONOCYTE ABSOLUTE 1.39(H) 0.10 - 1.30 K/uL 09/16/2019 8:58 AM CLIENT TECHNICAL SPECIALIST [facility] LABORATORY SERVICES - [facility] EOSINOPHIL ABSOLUTE 0.09 0.00 - 0.70 K/uL 09/16/2019 8:58 AM CLIENT TECHNICAL SPECIALIST [facility] LABORATORY [facility] BASOPHILS ABSOLUTE 0.03 0.00 - 0.20 K/uL 09/16/2019 8:58 AM CLIENT TECHNICAL SPECIALIST [facility] LABORATORY SERVICES - . [facility] IMMATURE GRANULOCYTES ABSOLUTE 0.08(H) 0.00 - 0.03 K/uL 09/16/2019 8:58 AM CLIENT TECHNICAL SPECIALIST [facility] LABORATORY [facility]. 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 HTN (hypertension) Unspecified essential hypertension HLD (hyperlipidemia) Other and unspecified hyperlipidemia Osteoarthritis Osteoarthrosis, unspecified whether generalized or localized, unspecified site Tobacco use Tobacco use disorder documented in this encounter Administered Medications Inactive Administered Medications - up to 3 most recent administrations Medication Order MAR Action Action Date Dose Rate Site acetaminophen (TYLENOL) tablet 1,000 mg 1,000 mg, Oral, EVERY 8 HOURS, First dose on Wed09/15/19 at 2300, Until Discontinued, Routine Given 09/19/2019 7:16 AM CLIENT TECHNICAL SPECIALIST 1,000 mg Given 09/18/2019 11:13 PM CLIENT TECHNICAL SPECIALIST 1,000 mg Given 09/18/2019 2:29 PM CLIENT TECHNICAL SPECIALIST 1,000 mg atorvastatin (LIPITOR) tablet 80 mg 80 mg, Oral, DAILY WITH SUPPER, First dose on Wed09/15/19 at 2245, Until Discontinued, Routine Given 09/18/2019 5:11 PM CLIENT TECHNICAL SPECIALIST 80 mg Given 09/17/2019 6:07 PM CLIENT TECHNICAL SPECIALIST 80 mg Given 09/16/2019 6:35 PM CLIENT TECHNICAL SPECIALIST 80 mg clindamycin (CLEOCIN) 600 mg in dextrose 5% 50 mL IVPB 600 mg, IV, EVERY 8 HOURS, First dose on 09/16/19 at 0500, Until Discontinued, Routine, Antibiotic Indication: Upper Respiratory Tract / ENT Infection New Bag 09/19/2019 4:20 AM CLIENT TECHNICAL SPECIALIST 600 mg 100 mL/hr New Bag 09/18/2019 8:15 PM CLIENT TECHNICAL SPECIALIST 600 mg 100 mL/hr New Bag 09/18/2019 2:12 PM CLIENT TECHNICAL SPECIALIST 600 mg 100 mL/hr enoxaparin (LOVENOX) injection 40 mg 40 mg, subCUT, DAILY, First dose on Wed09/18/19 at 2230, Until Discontinued, Routine, Indication: Prophylaxis of VTE HYDROmorphone (DILAUDID) 2 mg/mL injection 0.2 mg 0.2 mg, IV, POST-PROCEDURE Q 5 MINUTES PRN, 5 doses, Starting on Wed09/17/19 at 1258, Until Wed09/17/19 at 1339, Pain, Routine, PACU Given 09/17/2019 1:17 PM CLIENT TECHNICAL SPECIALIST 0.2 mg Given 09/17/2019 1:10 PM CLIENT TECHNICAL SPECIALIST 0.2 mg hydrOXYzine HCl (ATARAX) tablet 25 mg 25 mg, Oral, EVERY 6 HOURS PRN, Starting on Wed09/15/19 at 2339, Until Wed09/19/19 at 1609, Anxiety, Routine Given 09/18/2019 11:13 PM CLIENT TECHNICAL SPECIALIST 25 mg Given 09/17/2019 9:33 PM CLIENT TECHNICAL SPECIALIST 25 mg Given 09/16/2019 8:37 PM CLIENT TECHNICAL SPECIALIST 25 mg ketorolac (TORADOL) injection 15 mg 15 mg, IV, EVERY 6 HOURS PRN, Starting on Wed09/15/19 at 2238, Until Wed09/19/19 at 1609, Pain, Routine Given 09/17/2019 8:43 AM CLIENT TECHNICAL SPECIALIST 15 mg Given 09/16/2019 8:37 PM CLIENT TECHNICAL SPECIALIST 15 mg Given 09/16/2019 12:57 PM CLIENT TECHNICAL SPECIALIST 15 mg naloxone (NARCAN) 0.4 mg/mL injection 0.1 mg 0.1 mg, IV, SEE ADMIN INSTRUCTIONS, Starting on Wed09/15/19 at 2237, Until Wed09/19/19 at 1609, Routine nicotine (NICODERM CQ) 21 mg/24 hr transdermal patch 1 Patch 1 Patch, Transdermal, DAILY, First dose on 09/16/19 at 0900, Until Discontinued, Routine Applied 09/19/2019 9:01 AM CLIENT TECHNICAL SPECIALIST 1 Patch Back, Right Applied 09/18/2019 8:40 AM CLIENT TECHNICAL SPECIALIST 1 Patch Ba ck, Right Applied 09/17/2019 8:44 AM CLIENT TECHNICAL SPECIALIST 1 Patch Sh oulder, Right ondansetron (ZOFRAN ODT) tablet 4 mg 4 mg, Oral, EVERY 8 HOURS PRN, Starting on Wed09/15/19 at 2222, Until Wed09/19/19 at 1609, Nausea/Emesis, Routine oxyCODONE (ROXICODONE) tablet 5 mg 5 mg, Oral, EVERY 6 HOURS PRN, Starting on Wed09/15/19 at 2221, Until Wed09/19/19 at 1609, Pain (See admin instructions), Routine Given 09/17/2019 5:27 AM CLIENT TECHNICAL SPECIALIST 5 mg Saccharomyces boulardii (FLORASTOR) capsule 250 mg 250 mg, Oral, TWO TIMES DAILY, First dose (after last modification) on Wed09/19/19 at 0900, Until Discontinued, Routine sodium chloride 0.9% infusion IV, at 100 mL/hr, CONTINUOUS, Starting on Wed09/15/19 at 2230, Until Wed09/17/19 at 1716, Routine Rate Verify 09/16/2019 6:26 AM CLIENT TECHNICAL SPECIALIST 100 mL/hr New Bag 09/15/2019 11:35 PM CLIENT TECHNICAL SPECIALIST 100 mL/hr documented in this encounter Active and Recently Administered Medications Times are shown in CLIENT TECHNICAL SPECIALIST. Scheduled Medication Order 09/17/2019 09/18/2019 09/19/2019 acetaminophen [...] Juan Ramon Diez RN)1442 (Stopped - Provider: Jua nRamon Diez RN)2015 (New Bag - Provider: SARA Lora)2045 (Stopped - Provider: SARA Lora) 0420 (New [...] 1 Patch, Transdermal, DAILY, First dose on 09/16/19 at 0900, Until Discontinued, Routine 0844 (Applied [...] Routine, PACU 1310 (Given - Provider: Teresa Vincent RN)1317 (Given - Provider: Teresa Vincent RN) hydrOXYzine HCl (ATARAX) tablet 25 mg 25 [...] RN) documented in this encounter Care Teams Marketing Research Analyst Relationship Specialty Start Date End Date Anthony Riley MD [address] [place] [phone] PCP - General Internal Medicine 09/15/19 documented as of this encounter
--- OUTSIDE RECORDS SUMMARY | 2024-10-27 00:38 | XMS_ITS | Encounter Summary ---
Author Organization [facility] Address [address] [facility] [place] [address] Care Team Providers Care Fruit Or Nut Farmworker Name Role Phone Unavailable Primary Care Provider Unavailabl e Reason for Visit * Reason Onset Date Comments Question 09/22/2019 Encounter Details Date Type Department Care Team (Late st Contact Info) Description 09/22/2019 Telephone [facility] Orthopedics [id number] [phone] [place] [address] [address] Question Social History Tobacco Use Types Packs/Day Years Used Date Smoking Tobacco: Every Day Cigarettes Smokeless Tobacco: Never Alcohol Use Standard Drinks/Week Comments Yes 0 (1 standard drink = 0.6 oz pur e alcohol) AUDIT-C Answer Date Recorded Frequency of Alcohol Consumption 2-3 times a wee k 07/07/2019 Average Number of Drinks Not on file 019 Frequency of Binge Drinking Not on file 06/19 Sex and Gender Information Value Date Recorded Sex Assigned at Not on file Gender Identity Not on file Sexual Orientation Not on file documented as of this encounter Functional Status Functional Status Response Date of Assess ment Is person deaf or have serious hearing difficult y? No 09/06/2019 Is person blind or have serious difficulty seein g? No 09/06/2019 Does person have serious dif ficulty walking/climbing stairs? Yes 09/06/2019 Does person have difficulty dressing/bathing? No 09/06/2019 Does person have difficulty doing errands alone? No 09/06/2019 Cognitive Status Response Date of Assessm ent Does person have difficulty concentrating/remembering/making decisions? No 09/06/2019 documented as of this encounter Miscellaneous Notes * Telephone Encounter - Светлана Real MA - 09/25/2019 10:26 AM CST Noted TS BETTING MANAGER * Telephone Encounter - Kari Raygoza I - 09/22/2019 9:26 AM CST Who is calling? Jennifer- [facility] home health What is the reason for call? 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 Seamus have been removed andwound looks good. Please call to further discuss. Expected Response from the Clinic? Call Back Jennifer @ [phone] TS BETTING MANAGER documented in this encounter Plan of Treatment Not on file documented as of this encounter Visit Diagnoses Not on filedocumented in this encounter
--- OUTSIDE RECORDS SUMMARY | 2024-10-27 00:38 | XMS_ITS | Encounter Summary ---
Author Organization [facility] Address [address] [place] [address] Care Team Providers Care Jumpbasting Collar Baster Name Role Phone Unavailable Primary Care Provider Unavailabl e Reason for Visit * Reason Onset Date Comments Surgery Rescheduled 08/30/2019 Encounter Details Date Type Department Care Team (Late st Contact Info) Description 08/30/2019 Telephone [facility] Orthopedics [id number] [place] [phone] [place] [id number] [address] Surgery Rescheduled Social History Tobacco Use Types Packs/Day Years [...] on file documented as of this encounter Miscellaneous Notes * Telephone Encounter - Светлана Real MA - 09/01/2019 2:53 PM CST Finished antibiotics, symptoms gone. ENT told her he would send over a note, but I spoke to Dr. Haines and he said she should be fine as long as she has finished her antibiotics and is symptom free. RLY SITTER * Telephone Encounter - Светлана Real MA - 08/30/2019 4:10 PM CST Emani spoke to Teresa and reached out to her ENT. We are leaving her scheduled for next week until we hear back from her and/or her doctor. Her symptoms have improved. RLY SITTER * Telephone Encounter - Nelli Patel - 08/30/2019 11:26 AM CST Who is calling? Kiley What is the reason for call? Pt has a really bad infection in her tooth, will need to reschedule her surgery Expected Response from the Clinic? Please call RLY SITTER documented in this encounter Plan of Treatment Not on file documented as of this encounter Visit Diagnoses Not on filedocumented in this encounter
--- OUTSIDE RECORDS SUMMARY | 2024-10-27 00:38 | XMS_ITS | Encounter Summary ---
Author Organization [facility] Address [address] [place] [address] Care Team Providers Care Diesel Trailer Mechanic Name Role Phone Unavailable Primary Care Provider Unavailabl e Reason for Visit * Reason Onset Date Comments Question 07/24/2019 Encounter Details Date Type Department Care Team (Late st Contact Info) Description 07/24/2019 Telephone [facility] Orthopedics [address] [phone] [place] [phone] [address] Question Social History Tobacco Use [...] encounter Miscellaneous Notes * Telephone Encounter - Abigail Coats - 07/24/2019 4:15 PM CDT Called patient back and left voicemail stating her packet will be mailed out by the end of this week. * Telephone Encounter - Nelli Patel - 07/24/2019 11:55 AM CDT Who is calling? self What is the reason for call? Pt wants to know when she soul receive her surgery packet Expected Response from the Clinic? Please call documented in this encounter Plan of Treatment Not on file documented as of this encounter Visit Diagnoses Not on filedocumented in this encounter
--- OUTSIDE RECORDS SUMMARY | 2024-10-27 00:38 | XMS_ITS | Encounter Summary ---
Author Organization [facility] Address [address] [place] [address] Care Team Providers Care Wall Scraper Name Role Phone Unavailable Primary Care Provider Unavailabl e Reason for Visit * Reason Onset Date Comments Question 09/11/2019 Encounter Details Date Type Department Care Team (Late st Contact Info) Description 09/11/2019 Telephone [facility] Orthopedics [address] [phone] [place] [phone] [address] Question Social History Tobacco Use [...] Telephone Encounter - Светлана Real MA - 09/11/2019 6:17 PM CST Called back to see if Teresa was looking to reschedule the appointment on 09/26, but she had called back and wanted to keep that appointment after all. No rescheduling was necessary. FLIGHT REFUELING SYSTEM REPAIRER * Telephone Encounter - Camden Rashid - 09/11/2019 10:23 AM CST Who is calling? Self What is the reason for call? Pt requesting pov appt on 09/28/19 Expected Response from the Clinic? Call back FLIGHT REFUELING SYSTEM REPAIRER documented in this encounter Plan of Treatment Not on file documented as of this encounter Visit Diagnoses Not on filedocumented in this encounter
--- OUTSIDE RECORDS SUMMARY | 2024-10-27 00:38 | XMS_ITS | Clinical Summary ---
Author Organization [facility] Address [address] [place] [address] Care Team Providers Care Employment Services Director Name Role Phone Unavailable Primary Care Provider Unavailabl e Source Comments [facility],non-owned Affiliates and Associated Physician Practices is amultiple site organization consisting of ambulatory clinics and hospital sitesin [place], [place], [place] and [place]. This disclosure is being madepursuant to the Care Everywhere program and may not contain all information available regarding this patient. Last updated 18.[facility] [employer] Allergies Active Allergy Reactions Criticality Noted Date Comments Penicillins Itching Low 07/07/2019 Sulfa Drugs Itching Low 07/07/2019 Medications * Be aware that medications may not be up to date on this document. Alwaysverify current medications with the patient. Medication Sig Dispensed Refills Start Date End Date Status atorvastatin (LIPITOR) 80 MG tablet Take 80 mg by mouth once daily 06/22/2019 Active losartan - hydroCHLOROthiazide (HYZAAR) 50-12.5 MG tablet Take 1 tablet by mouth once daily 06/22/2019 Active meloxicam (MOBIC) 15 MG tablet Take 15 mg by mouth once daily 06/22/2019 Active Multiple Vitamins-Minerals (ONE-A-DAY WOMENS 50+ ADVANTAGE PO) Take by mouth once daily Active hydrOXYzine hcl (ATARAX) 25 MG tablet Take 25 mg by mouth every 8 hours as needed 09/19/2019 Active metroNIDAZOLE (FLAGYL) 500 MG tablet 09/13/2019 Active Active Problems Problem Noted Date Diagnosed Date HTN (hypertension) 09/15/2019 HLD (hyperlipidemia) 09/15/2019 Mandibular abscess 09/15/2019 Tobacco use 09/15/2019 Osteoarthritis of right knee 07/07/2019 Family History Medical History Relation Name Comments CAD (Coronary Artery Disease) Mother Diabetes - Type 2 Mother Relation Name Status Comments Mother Social [...] Sign Reading Time Taken Comments Blood Pressure 139/78 09/15/2019 12:00 PM RENAL TECHNICIAN Pulse 76 09/15/2019 12:00 PM RENAL TECHNICIAN Temperature 36.6 ??C (97.8 ??F) 09/15/2019 12:[address] Respiratory Rate 16 09/15/2019 12:00 PM RENAL TECHNICIAN Oxygen Saturation 100% 09/15/2019 12:00 PM RENAL TECHNICIAN Inhaled Oxygen Concentration - - Weight 74.8 kg (165 lb) 09/15/2019 12:00 PM RENAL TECHNICIAN Height 157.5 cm (5' 2 ) 09/15/2019 12:00 PM RENAL TECHNICIAN Body Mass Index 30.18 09/15/2019 12:00 PM RENAL TECHNICIAN Plan of Treatment Health Maintenance Due Date Last Done Comments COLOGUARD (AGES 45-75) - COL ON CA SCREENING 1961 COLON MONITORING 1961 COLONOSCOPY - COLON CA SCREENING 1961 CT COLONOGRAPHY - COLON CA SCREENING 1961 Colorectal Cancer Screening 1961 FIT - COLON CA SCREENING 1961 FLEX SIG - COLON CA SCREENING 1961 MAMMOGRAM 1961 PAP SMEAR 1961 PNEUMOCOCCAL VACCINE (1 of 2 - PCV) 1967 HIV SCREENING 1976 HEPATITIS C SCREENING 09/03/1979 DTAP/TDAP/TD VACCINES (1 - Tdap) 1980 ZOSTER VACCINE (1 of 2) 2011 SCREENING FOR DIABETES 09/15/2022 9, 08/16/2019 COVID-19 VACCINE (1 - 2023-2 5 season) 2024 INFLUENZA VACCINE (#1) 2024 DEPRESSION SCREENING 10/18/2024 Respiratory Syncytial Virus (RSV) Vaccine Pt: or over 60 yrs (1 - 1-dose 75+ series) 2036 HEPATITIS B VACCINE Aged Out No longe r eligible based on patient's age to complete this topic HIB VACCINE Aged Out No longer eligi ble based on patient's age to complete this topic HPV VACCINE Aged Out No longer eligi ble based on patient's age to complete this topic MENINGOCOCCAL VACCINE Aged Out No markell nitin eligible based on patient's age to complete this topic Medical Devices Implanted Type Area Parts Department Manager Device Identifier Shelf Expiration Date Model / Serial / Lot Cmnt Bone Djo Srg Cblt 40gm Hvisc Strl Implanted:Qty: 1 on 09/06/2019 by Edward Haines MD at [facility] Right: Knee [employer] 12/08/2020 600-15-000 / / [id number] Cmpnt Fem Kn Rt Cr Cmnt Prm Vngrd Intlk Implanted:Qty: 1 on 09/06/2019 by Edward Haines MD at [facility] Right: Knee [employer] 06/22/2029 [id number] / / [id number] Tray Tib 63mm Kn Cocr I Beam Implanted:Qty: 1 on 09/06/2019 by Edward Haines MD at [facility] Right: Knee [employer] 12/16/2028 [id number] / / [id number] Cmpnt Ptlr 28mm 1 Pg Wire Ascnt Arcm Kn Implanted:Qty: 1 on 09/06/2019 by Edward Haines MD at [facility] Right: Knee [employer] 07/24/2024 [id number] / / [id number] Brng [id number] Vngrd Arcm Kn Ant Stab Implanted:Qty: 1 on 09/06/2019 by Edward Haines MD at [facility] Right: Knee [employer] 04/19/2023 [id number] / / [id number] Procedures Procedure Name Priority Date/Time Associated Diagnosis Comments COMPREHENSIVE METABOLIC PANEL STAT 09/15/2019 12:45 PM RENAL TECHNICIAN from Last 3 Months or Most Recently Relevant to Health Maintenance Results * (ABNORMAL) COMPREHENSIVE METABOLIC PANEL (09/15/2019 12:45 PM RENAL TECHNICIAN) Glucose 103 70 - 105 mg/dL 09/15/2019 1:07 PM [facility] Sodium 133(L) 136 - 145 mmol/L 09/15/2019 1:07 PM [facility] Potassium 4.2 3.5 - 4.7 mmol/L 09/15/2019 1:07 PM [facility] Chloride 99 98 - 107 mmol/L 09/15/2019 1:07 PM [facility] CO2 24 23 - 31 mmol/L 09/15/2019 1:07 PM [facility] Calcium 10.4 8.4 - 10.4 mg/dL 09/15/2019 1:07 PM [facility] Anion Gap 10 8 - 16 mmol/L 09/15/2019 1:07 PM [facility] BUN 11 9.8 - 20.1 mg/dL 09/15/2019 1:07 PM [facility] Creatinine 0.66 0.57 - 1.11 mg/dL 09/15/2019 1:07 PM [facility] Alkaline Phosphatase 134 40 - 150 U/L 09/15/2019 1:07 PM [facility] ALT 40 0 - 61 U/L 09/15/2019 1:07 PM [facility] AST 29 5 - 34 U/L 09/15/2019 1:07 PM [facility] Protein Total 7.3 6.4 - 8.3 gm/dL 09/15/2019 1:07 PM [facility] Albumin 3.9 3.5 - 5.2 gm/dL 09/15/2019 1:07 PM [facility] Bilirubin Total 0.7 0.2 - 1.0 mg/dL 09/15/2019 1:07 PM [facility] eGFR by MDRD >60 >60 mL/min/1.7 3m2 09/15/2019 1:07 PM RENAL TECHNICIAN [facility] eGFR by MDRD >60 >60 mL/min/1.7 3m2 09/15/2019 1:07 PM RENAL TECHNICIAN [facility] Blood BLOOD SPECIMEN / Unknown Venipuncture / Unknown 09/15/2019 12:45 PM RENAL TECHNICIAN 09/15/2019 12:49 PM RENAL TECHNICIAN Hunter Lopez COLD WORK OPERATOR-THEATRICAL SCENIC DESIGNER LAB - CHEMISTRY O RDERABLES [facility] [address] [place] [address] from Last 3 Months or Most Recently Relevant to Health Maintenance Advance Directives * Full Code (Latest Code Status on File) Date Activated Date Inactivated Comments 09/06/2019 10:42 AM 09/08/2019 1:31 PM
--- OUTSIDE RECORDS SUMMARY | 2024-10-27 00:38 | XMS_ITS | Encounter Summary ---
Author Organization [facility] Address [address] [place] [address] Care Team Providers Care Crowning Hammer Operator Name Role Phone Unavailable Primary Care Provider Unavailabl e Reason for Visit * Auth/Cert (Routine) Specialty Diagnoses / Procedures Referred By Aristeo hussein Referred To Contact Diagnoses Unilateral primary osteoarthritis, right knee Procedures KS TOTAL KNEE REPLACEMENT Referral ID Status Reason Start Date Expiration Date Visits Re quested Visits Authorized [id number] 09/01/2019 02/28/2020 1 1 Encounter Details Date Type Department Care Team (Late st Contact Info) Description 09/06/2019 7:04 AM ASPHALT TAMPING MACHINE OPERATOR Anesthesia Event [facility] - Perioperative Surgery [address] [place] [address] Merlene Salguero MD [address] [place] [phone] Dominic Chin DO [address] [place] [phone] Anesthesia Record Procedure Summary Procedure Name Responsible Anesthesiologist Anesthesia Start Time Anesthesia Stop Time RIGHT TOTAL KNEE ARTHROPLASTY (Right: Knee) Merlene Salguero MD 09/06/19 0704 09/06/19 0840 Events Date Time Event Comment 09/06/2019 0640 0704 An Start 0704 An Start Data 0712 Spinal In 0729 PT Reassessment 0729 Electnc Sig 0731 Timeout Anesthesia part icipated in timeout at the time documented in the record by nursing. 0732 An Tourn Inflated Pressure: 350mmHg 0800 An Tourn Deflated Total Tour niquet Time ( in minutes): 0801 An Tourn Inflated Pressure: mmHg 0827 An Tourn Deflated Total Tour niquet Time ( in minutes): 0829 an stop data 0829 ANPTO2 0840 An Stop Meds Name Total midazolam 2 mg/2mL injection 4 mg fentaNYL 100 mcg/2mL injection 100 mcg propofol 200 mg/20mL injection 641.35 mg dexamethasone 4 mg/mL injection 4 mg ondansetron 4 mg/2mL injection 4 mg bupivacaine in dextrose 0.75-8.25 % (spi nal tray NO CHARGE) 2 mL lidocaine 1% (epidural/spinal tray NO CH ARGE) 1 mL tranexamic acid 1000 mg/10mL injection 1 ,000 mg phenylephrine 10 mg/100mL infusion (ANES makes in OR) 5 mL ceFAZolin (ANCEF) syringe 2,000 mg 2 g phenylephrine 100 mcg/mL solution 300 mc g lactated ringers infusion 1,100 mL * Agents Name Exp. N2O O2 * Blood No blood administrations on file. Lines, Drains, and Airways Type Details Placement Removal Procedural Site (Incision) 09/06/19; Right; Knee; 09/08/19; 182509/06/19 0000 by Brenda Buckley RN 09/08/191825 by Generic, Auto Release Peripheral IV Date: 09/06/19; Time: 619; Orientation: Left; Placed By: graciela akers; Tolerance: Well 09/06/19 0620 by Evita Medrano RN 09/08/191825 by Generic, Auto Release documented in this encounter Social History Tobacco Use Types Packs/Day Years Used Date Smoking Tobacco: Every Day Cigarettes Smokeless Tobacco: Never Alcohol Use Standard Drinks/Week Comments Yes 0 (1 standard drink = 0.6 oz pur e alcohol) AUDIT-C Answer Date Recorded Frequency of Alcohol Consumption 2-3 times a lydia gregorio 07/07/2019 Average Number of Drinks Not on file 019 Frequency of Binge Drinking Not on file 06/19 Sex and Gender Information Value Date Recorded Sex Assigned at Not on file Gender Identity Not on file Sexual Orientation Not on file documented as of this encounter Progress Notes * Jason Ward, LEAD NEURODIAGNOSTIC TECHNOLOGIST-PATIENT ACCESS COORDINATOR - 09/06/2019 8:41 AM CST ANESTHESIA POSTOP EVALUATION NOTE Procedure: RIGHT TOTAL KNEE ARTHROPLASTY (Right Knee) Teresa Espinosa is a 58 year old female Patient Vitals for the past 6 hrs: BP Temp Pulse Resp SpO2 09/06/19 0618 115/81 97.7 ??F (36.5 ??C) 98 19 94 % Anesthesia Type: spinal * No Diagnosis Codes entered * Mental Status: awake, alert, oriented, sufficiently recovered from acute administration of anesthesia to participate in the evaluation, neurologic status has returned to preoperative level and neurologic status has returned to expected level of consciousness Neuro Status: No numbness, tingling or visual disturbances Respiratory Function: natural and requires O2 Cardiac Function: stable Postop Pain: acceptable to the patient Postop Hydration: adequate Postop Nausea: none Assessment: no apparent anesthetic complications, patient tolerated procedure well and no evidence of recall Patient Disposition: Release from Anesthesia Care Non Reportable Improvement Section (otherwise blank): ALT TAMPING MACHINE OPERATOR * Ivette Pinedo DO - 09/06/2019 6:40 AM CST ANESTHESIA PREOPERATIVE EVALUATION NOTE Procedure: RIGHT TOTAL KNEE ARTHROPLASTY (Right Knee) NPO status: Since Midnight;*Except Oral meds with H2O (09/06/2019 6:21 AM) Vitals: Patient Vitals for the past 6 hrs: BP Temp Pulse Resp SpO2 09/06/19 0618 115/81 97.7 ??F (36.5 ??C) 98 19 94 % ANESTHESIA PRE-EVALUATION NOTE Physical Exam: Orientation X3 Airway/Mallampati Score: II Mouth Opening Distance: 3.5 fingerwidths Neck ROM: full Teeth: normal Heart: regular rate rhythm Lungs: normal ANESTHESIA PLAN ASA Score: 3 NPO Status: No solids since midnight and No liquids within 2 hours Anesthesia Plan: spinal Planned Induction: intravenous Planned Postop Destination: PACU Anesthetic plan was discussed with: patient Anesthetic Plan discussion was: Consented BMI, Height, Weight Tobacco History Estimated body mass index is 30.29 kg/m?? as calculated from the following: Height as of this encounter: 1.575 m (5' 2 ). Weight as of this encounter: 75.1 kg (165 lb 9.6 oz). Social History Tobacco Use Smoking Status Current Every Day Smoker ??? Packs/day: 1.00 ??? Types: Cigarettes Smokeless Tobacco Never Used Alcohol History Drug History Social History Substance and Sexual Activity Alcohol Use Yes ??? Frequency: 2-3 times a week Social History Substance and Sexual Activity Drug Use Never Outpatient Medications: Inpatient Medications: Outpatient Medications Marked as Taking for the 09/06/19 encounter (Hospital Encounter) Medication Sig Last Dose ??? atorvastatin Take 80 mg by mouth once daily 09/05/2019 at Unknown time ??? losartan - hydroCHLOROthiazide Take 1 tablet by mouth once daily 09/05/2019 at Unknown time ??? Multiple Vitamins-Minerals (ONE-A-DAY WOMENS 50+ ADVANTAGE PO) Take by mouth once daily 09/05/2019 at Unknown time Current Facility-Administered Medications Medication Dose Last Dose ??? ceFAZolin 2 g ??? lactated ringers ??? scopolamine 1 patch 1 patch at 09/06/19 0604 And ??? scopolamine patch placement confirmation Allergies: Allergies Allergen Reactions ??? Pcn [Penicillins] Itching ??? Sulfa Drugs Itching Relevant Problems No relevant active problems Problem List: Patient Active Problem List Diagnosis Date Noted ??? Osteoarthritis of right knee 07/07/2019 Priority: Not Prioritized Medical History: Past Medical History: Diagnosis Date ??? Essential hypertension ??? Pure hypercholesterolemia Surgical History: Past Surgical History: Procedure Laterality Date ??? COLONOSCOPY ??? Hysterectomy ??? Knee Arthroscopy Right Lab Results: Recent Labs Component Name 08/16/19 1047 SODIUM 139 POTASSIUM 4.0 CHLORIDE 104 CO2 27 BUN 12 CREATININE 0.68 Recent Labs Component Name 08/16/19 1047 GLUCOSE 97 CALCIUM 9.9 ALT 58 AST 38* ALT TAMPING MACHINE OPERATOR documented in this encounter Miscellaneous Notes * Anesthesia Transfer of Care - Jason Ward, LEAD NEURODIAGNOSTIC TECHNOLOGIST-PATIENT ACCESS COORDINATOR - 09/06/2019 8:40 AM CST ANESTHESIA TRANSFER OF CARE NOTE Today's Date: 09/06/2019 Date of : 1960 Patient: Teresa Espinosa Procedure(s): RIGHT TOTAL KNEE ARTHROPLASTY Surgeon(s): Primary: Edward Haines MD Preop Diagnosis: * No Diagnosis Codes entered * Pre-op Meds (From admission, onward) Start Stop Status Route Frequency Ordered 09/06/19 0600 acetaminophen (TYLENOL) tablet 1,000 mg 09/06 0604 Completed PO PRE-OP ONCE 09/06/19 0556 09/06/19 0556 ceFAZolin (ANCEF) syringe 2,000 mg 09/06 0704 Completed IV PRE-OP MULTIPLE 09/06/19 0556 09/06/19 0600 celecoxib (CeleBREX) capsule 400 mg 09/06 0604 Completed PO PRE-OP ONCE 09/06/19 0556 09/06/19 06 lactated ringers infusion 09/05 0559 Dispensed IV PRE-OP CONTINUOUS 09/06/19 0556 09/06/19 0600 lidocaine buffered 1 % injection 0.5 mL 09/06 06 Completed INFILTRATION PRE-OP ONCE 09/06/19 0556 09/06/19 0600 oxyCODONE CR 12hr (OxyCONTIN) tablet 20 mg 09/06 0604 Completed PO PRE-OP ONCE 09/06/19 0556 09/06/19 0615 povidone-iodine (BETADINE) 5 % solution 09/06 0624 Completed NA PRE-OP ONCE 09/06/19 0607 09/06/19 0600 scopolamine (TRANSDERM-SCOP) 1 patch 09/09 0604 Verified TD PRE-OP ONCE 09/06/19 0556 09/06/19 09 scopolamine patch placement confirmation -- Dispensed TD 2 TIMES DAILY 09/06/19 0556 09/06/19 0820 tranexamic acid (CYKLOKAPRON) 1,000 mg in 0.9% NaCl 110 mL bolus -- Sent IV DIRECTED 09/06/19 08 * No Diagnosis Codes entered * . Allergies Allergen Reactions ??? Pcn [Penicillins] Itching ??? Sulfa Drugs Itching Vitals: Patient Vitals for the past 3 hrs: BP Temp Pulse Resp SpO2 09/06/19 0618 115/81 97.7 ??F (36.5 ??C) 98 19 94 % Lines, Drains, and Airways Type Details Placement Removal Peripheral IV Date: 09/06/19; Time: 619; Orientation: Left; Location: Wrist; Placed By: graciela akers; Gauge: 18 Gauge; Locals: Injectable; Tolerance: Well 09/06/19619 by Evita Medrano RN Intraprocedure I/O Totals Anesthesia Other Output Estimated Blood Loss 30 mL lactated ringers infusion Volume infused 1100 ml Patient Transfer Location: PACU Transport Airway: spontaneous respirations and supplemental O2 Complications: None Handoff Given? Yes Checklist or Protocol - The echols handoff elements that must be included in the transfer of care checklist include: 1. Identification of patient. 2. Identification of responsible practitioner (PACU nurse or advanced practitioner). 3. Discussion of pertinent medical history. 4. Discussion of the surgical/procedure course (procedure, reason for surgery, procedure performed). 5. Intraoperative anesthetic management and issue/concerns. 6. Expectations/Plans for the early post-procedure period. 7. Opportunity for questions and acknowledgement of understanding of report from the receiving PACUteam. SHELIA Gallegos ALT TAMPING MACHINE OPERATOR documented in this encounter Plan of Treatment Not on file documented as of this encounter Visit Diagnoses Not on filedocumented in this encounter Administered Medications Inactive Administered Medications - up to 3 most recent administrations Medication Order MAR Action Action Date Dose Rate Site bupivacaine in dextrose (spinal) (SENSORCAINE) injection PRN, Starting on Wed09/06/19 at 0712, Until Wed09/06/19 at 0840, Anesthesia Intra-op $ Given 09/06/2019 7:12 AM ASPHALT TAMPING MACHINE OPERATOR 2 mL ceFAZolin (ANCEF) syringe 2,000 mg 2,000 mg (2 g), Intravenous, PRE-OP MULTIPLE, 1 dose, Starting on Wed09/06/19 at 0556, Until Wed09/06/19 at 0704, Administer 30 minutes prior to surgical incision. May repeat dose in 3 hours if surgical incision is not yet closed. Administer over 3-5 minutes., Indication for anti-infective therapy: Surgical prophylaxis, Pre-op $ Given 09/06/2019 7:04 AM ASPHALT TAMPING MACHINE OPERATOR 2 g dexamethasone (DECADRON) injection PRN, Starting on Wed09/06/19 at 0726, Until Wed09/06/19 at 0840, Anesthesia Intra-op $ Given 09/06/2019 7:26 AM ASPHALT TAMPING MACHINE OPERATOR 4 mg fentaNYL (PF) (SUBLIMAZE) injection PRN, Starting on Wed09/06/19 at 0704, Until Wed09/06/19 at 0840, Anesthesia Intra-op $ Given 09/06/2019 7:04 AM ASPHALT TAMPING MACHINE OPERATOR 100 mcg lactated ringers infusion at 20 mL/hr, Intravenous, PRE-OP CONTINUOUS, Starting on Wed09/06/19 at 0600, Until Wed09/06/19 at 1037, Pre-op $ New Bag/Syringe 09/06/2019 8:11 AM ASPHALT TAMPING MACHINE OPERATOR $ New Bag/Syringe 09/06/2019 6:05 AM ASPHALT TAMPING MACHINE OPERATOR 20 mL/ hr lidocaine (XYLOCAINE MPF) 1 % injection PRN, Starting on Wed09/06/19 at 0711, Until Wed09/06/19 at 0840, Anesthesia Intra-op $ Given 09/06/2019 7:11 AM ASPHALT TAMPING MACHINE OPERATOR 1 mL midazolam (VERSED) injection PRN, Starting on Wed09/06/19 at 0704, Until Wed09/06/19 at 0840, Anesthesia Intra-op $ Given 09/06/2019 7:26 AM ASPHALT TAMPING MACHINE OPERATOR 2 mg $ Given 09/06/2019 7:04 AM ASPHALT TAMPING MACHINE OPERATOR 2 mg Ondansetron HCl (ZOFRAN) injection PRN, Starting on Wed09/06/19 at 0726, Until Wed09/06/19 at 0840, Anesthesia Intra-op $ Given 09/06/2019 7:26 AM ASPHALT TAMPING MACHINE OPERATOR 4 mg phenylephrine (MEME-SYNEPHRINE) infusion PRN, Starting on Wed09/06/19 at 0741, Until Wed09/06/19 at 0840, Anesthesia Intra-op $ Given 09/06/2019 7:41 AM ASPHALT TAMPING MACHINE OPERATOR 5 mL phenylephrine 100 mcg/mL injection PRN, Starting on Wed09/06/19 at 0734, Until Wed09/06/19 at 0840, Anesthesia Intra-op $ Given 09/06/2019 7:34 AM ASPHALT TAMPING MACHINE OPERATOR 100 mcg $ Given 09/06/2019 7:30 AM ASPHALT TAMPING MACHINE OPERATOR 100 mcg $ Given 09/06/2019 7:20 AM ASPHALT TAMPING MACHINE OPERATOR 100 mcg propofol (DIPRIVAN) injection Intravenous, CONTINUOUS PRN, Starting on Wed09/06/19 at 0714, Until Wed09/06/19 at 0840, Anesthesia Intra-op Rate Change 09/06/2019 8:03 AM ASPHALT TAMPING MACHINE OPERATOR 125 mcg/kg/min 56.33 mL/hr Rate Change 09/06/2019 7:27 AM ASPHALT TAMPING MACHINE OPERATOR 140 mcg/kg/min 63.08 mL /hr Rate Change 09/06/2019 7:21 AM ASPHALT TAMPING MACHINE OPERATOR 100 mcg/kg/min 45.06 mL /hr tranexamic acid (CYKLOKAPRON) injection PRN, Starting on Wed09/06/19 at 0726, Until Wed09/06/19 at 0840, Anesthesia Intra-op $ Given 09/06/2019 7:26 AM ASPHALT TAMPING MACHINE OPERATOR 1,000 mg documented in this encounter
--- OUTSIDE RECORDS SUMMARY | 2024-10-27 00:38 | XMS_ITS | Encounter Summary ---
Author Organization [facility] Address [facility] [place] [address] Care Team Providers Care Sausage Stringer Name Role Phone Unavailable Primary Care Provider Unavailabl e Reason for Visit * Reason Comments Establish Care Right Knee Pain Encounter Details Date Type Department Care Team (Latest Contact Info) Description 07/07/2019 10:10 AM CDT Office Visit [facility] [id number] [place] [phone] [place] [id number] [address] Primary osteoarthritis of right knee (Primary Dx) Social History Tobacco Use Types Packs/Day Years [...] Sign Reading Time Taken Comments Blood Pressure - - Pulse - - Temperature - - Respiratory Rate - - Oxygen Saturation - - Inhaled Oxygen Concentration - - Weight 72.6 kg (160 lb) 07/07/2019 10:27 AM CDT Height 157.5 cm (5' 2 ) 07/07/2019 10:27 AM CDT Body Mass Index 29.26 07/07/2019 10:27 AM CDT documented in this encounter Progress Notes * Edward Haines MD - 07/07/2019 11:08 AM CDT Right knee varus Bone on bone Grossly unstable Failed conservative mgmt Line up TKA * Светлана Real MA - 07/07/2019 10:30 AM CDT New patient here for evaluation of right knee pain. She brought x-ray discs with her. She underwenta knee scope earlier this year. documented in this encounter H&P Notes * Edward Haines MD - 07/08/2019 5:52 AM CDT DATE OF SERVICE: 07/07/2019 HISTORY: Ms. Espinosa presents to the office today. 58-year-old woman with worsening right knee pain. She had previous injections in this knee. She has worsening pain with all activities. She is taking meloxicam with minimal improvement. She has a history of hypertension, for which she is on hydrochlorothiazide as well as a statin agent. PHYSICAL EXAMINATION: She is 5 feet 2 inches, 160 pounds. She has pain- free range of motion of both hips. She has significant varus instability of her right knee. PLAN: We discussed ongoing management. She is failing conservative care. She would like to proceed with a right total knee arthroplasty. We discussed the nature of surgery, the most likely postoperative rehab, the perioperative risks and benefits. We encouraged her to decrease her tobacco use. She is going to attend our total joint orientation class. Surgery will be scheduled for the not too distant future. Edward Haines M.D. DELORES/Teresita #: [id number] cc: Anthony Riley documented in this encounter Plan of Treatment Not on file documented as of this encounter Visit Diagnoses Diagnosis Primary osteoarthritis of right knee- Primary Primary localized osteoarthrosis, lower leg documented in this encounter
--- OUTSIDE RECORDS SUMMARY | 2024-10-27 00:38 | XMS_ITS | Patient Health Summary ---
Author Organization [facility] Address [address] [place] [address] Care Team Providers Care Head Greenskeeper Name Role Phone Unavailable Primary Care Provider Unavailabl e Note from [facility],non-owned Affiliates and Associated Physician Practices is amultiple site organization consisting of ambulatory clinics and hospital sitesin [place], [place], [place] and [place]. This disclosure is being madepursuant to the Care Everywhere program and may not contain all information available regarding this patient. Last updated 18.[facility] Allergies * Penicillins(Itching) -Low Criticality * Sulfa Drugs(Itching) -Low Criticality Medications * Be aware that medications may not be up to date on this document. Alwaysverify current medications with the patient. * atorvastatin (LIPITOR) 80 MG tablet(Started 06/22/2019) Take 80 mg by mouth once daily * losartan - hydroCHLOROthiazide (HYZAAR) 50-12.5 MG tablet(Started 06/22/2019) Take 1 tablet by mouth once daily * meloxicam (MOBIC) 15 MG tablet(Started 06/22/2019) Take 15 mg by mouth once daily * Multiple Vitamins-Minerals (ONE-A-DAY WOMENS 50+ ADVANTAGE PO) Take by mouth once daily * hydrOXYzine hcl (ATARAX) 25 MG tablet(Started 09/19/2019) Take 25 mg by mouth every 8 hours as needed * metroNIDAZOLE (FLAGYL) 500 MG tablet(Started 09/13/2019) Active Problems Problem Noted Date Diagnosed Date HTN (hypertension) 09/15/2019 HLD (hyperlipidemia) 09/15/2019 Mandibular abscess 09/15/2019 Tobacco use 09/15/2019 Osteoarthritis of right knee 07/07/2019 Social History Tobacco Use Types Packs/Day Years [...] Comments Blood Pressure 139/78 09/15/2019 12:00 PM ANY COMMODITY SALES DELIVERER Pulse 76 09/15/2019 12:00 PM ANY COMMODITY SALES DELIVERER Temperature 36.6 ??C (97.8 ??F) 09/15/2019 12:[address] Respiratory Rate 16 09/15/2019 12:00 PM ANY COMMODITY SALES DELIVERER Oxygen Saturation 100% 09/15/2019 12:00 PM ANY COMMODITY SALES DELIVERER Inhaled Oxygen Concentration - - Weight 74.8 kg (165 lb) 09/15/2019 12:00 PM ANY COMMODITY SALES DELIVERER Height 157.5 cm (5' 2 ) 09/15/2019 12:00 PM ANY COMMODITY SALES DELIVERER Body Mass Index 30.18 09/15/2019 12:00 PM ANY COMMODITY SALES DELIVERER Medical Devices Implanted Type Area Screener And Blender Operator Device Identifier Shelf Expiration Date Model / Serial / Lot Cmnt Bone Djo Srg Cblt 40gm Hvisc Strl Implanted:Qty: 1 on 09/06/2019 by Edward Haines MD at [facility] Right: Knee [employer] 12/08/2020 600-15-000 / / [id number] Cmpnt Fem Kn Rt Cr Cmnt Prm Vngrd Intlk Implanted:Qty: 1 on 09/06/2019 by Edward Haines MD at [facility] Right: Knee [employer] 06/22/2029 [id number] / / [id number] Tray Tib 63mm Kn Cocr I Beam Implanted:Qty: 1 on 09/06/2019 by Edward Haines MD at [facility] Right: Knee [employer] 12/16/2028 [id number] / / [id number] Cmpnt Ptlr 28mm 1 Pg Wire Ascnt Arcm Kn Implanted:Qty: 1 on 09/06/2019 by Edward Haines MD at [facility] Right: Knee [employer] 07/24/2024 [id number] / / [id number] Vngrd Arcm Kn Ant Stab Implanted:Qty: 1 on 09/06/2019 by Edward Haines MD at [facility] Right: Knee [employer] 04/19/2023 [id number] / / [id number] Procedures * XR KNEE RIGHT 3VW(Performed 10/26/2019) Performed for Aftercare following right knee joint replacement surgery * CULTURE BLOOD(Performed 09/15/2019) * CULTURE BLOOD(Performed 09/15/2019) * CT FACIAL BONES W CONTRAST(Performed 09/15/2019) Performed for Right facial swelling * COMPREHENSIVE METABOLIC PANEL(Performed 09/15/2019) * CBC W AUTO DIFFERENTIAL(Performed 09/15/2019) * HGB HCT PANEL(Performed 09/08/2019) * HGB HCT PANEL(Performed 2019) * ARTHROPLASTY TOTAL KNEE(Performed 09/06/2019) * EKG 12-LEAD(Performed 08/16/2019) Performed for Preop examination * COMPREHENSIVE METABOLIC PANEL(Performed 08/16/2019) Performed for Preop examination * CULTURE MSSA/MRSA(Performed 08/16/2019) Performed for Preop examination Results * XR KNEE RIGHT 3VW (10/26/2019 11:42 AM ANY COMMODITY SALES DELIVERER) Anatomical Region Laterality Modality Lower Extremity Computed Radiogr aphy Narrative 10/26/2019 11:46 AM ANY COMMODITY SALES DELIVERER Armida Franco ? 11/03/2019 ??4:07 PM Please see progress notes for result. Dank Block PA-C DIAGNOSTIC IMAGING ORDERABLES * CULTURE BLOOD (09/15/2019 7:46 PM ANY COMMODITY SALES DELIVERER) Only the most recent of2 resultswithin the time period is included. Culture No growth day 5 AL 09/21/2019 1:42 AM ANY COMMODITY SALES DELIVERER [facility] Blood BLOOD SPECIMEN / Unknown Venipuncture / Unknown 09/15/2019 7:46 PM ANY COMMODITY SALES DELIVERER 09/15/2019 8:10 PM ANY COMMODITY SALES DELIVERER Edward Jean DO LAB - MICROBIOLOGY O RDERABLES [facility] [address] [place], [place] [address] [phone] * CT FACIAL BONES W CONTRAST (09/15/2019 5:41 PM ANY COMMODITY SALES DELIVERER) Anatomical Region Laterality Modality Head Computed Tomogra phy 09/15/2019 6:04 PM ANY COMMODITY SALES DELIVERER Impressions 09/15/2019 6:11 PM ANY COMMODITY SALES DELIVERER Findings suggestive of abscess formation around the right mandibular angle likely involving the right masseter muscle with surrounding cellulitis and inflammatory changes. There is no evidence of definite osseous erosion at this time to suggest osteomyelitis. Reading Radiologist: Damon Gonzalez MD on 09/15/2019 at 6:11 PM Narrative 09/15/2019 6:11 PM ANY COMMODITY SALES DELIVERER STUDY: CONTRAST-ENHANCED CT OF THE MAXILLOFACIAL STRUCTURES CLINICAL HISTORY: Right-sided facial swelling. History of dental extractions and dental problems. The patient is on antibiotics without improvement. TECHNIQUE: Noncontrast CT of the maxillofacial structures was performed following the uneventful intravenous administration of 80 mL of Isovue-370 contrast material.. Sagittal and coronal images as well as axial reconstructions were provided. Dose reduction techniques were utilized. COMPARISON: None available. FINDINGS: An area of fluid collection is seen surrounding the right mandibular angle with components both superficial and deep to the mandibular angle which appears to abut or involve the right masseter. There is mild surrounding contrast rim enhancement with diffuse inflammatory changes of the right facial soft tissues. There are scattered enlarged cervical lymph nodes which are likely reactive. No evidence of cavitary changes of lymph nodes is seen. These findings are consistent with abscess formation around the right mandibular angle. There is no evidence of definite osseous erosion at this time to suggest osteomyelitis. There is no evidence of facial bone fractures or malalignment. The orbital contents are unremarkable. The paranasal sinuses are clear. The nasal bones and nasal cavity are within normal limits. Maxilla, mandible, zygomas and pterygoid plates are intact. Procedure Note Damon Gonzalez MD - 09/15/2019 STUDY: CONTRAST-ENHANCED CT OF THE MAXILLOFACIAL STRUCTURES CLINICAL HISTORY: Right-sided facial swelling. History of dental extractions and dental problems. The patient is on antibiotics without improvement. TECHNIQUE: Noncontrast CT of the maxillofacial structures was performed following the uneventful intravenous administration of 80 mL of Isovue-370 contrast material.. Sagittal and coronal images as well as axial reconstructions were provided. Dose reduction techniques were utilized. COMPARISON: None available. FINDINGS: An area of fluid collection is seen surrounding the right mandibular angle with components both superficial and deep to the mandibular angle which appears to abut or involve the right masseter. There is mild surrounding contrast rim enhancement with diffuse inflammatory changes of the right facial soft tissues. There are scattered enlarged cervical lymph nodes which are likely reactive. No evidence of cavitary changes of lymph nodes is seen. These findings are consistent with abscess formation around the right mandibular angle. There is no evidence of definite osseous erosion at this time to suggest osteomyelitis. There is no evidence of facial bone fractures or malalignment. The orbital contents are unremarkable. The paranasal sinuses are clear. The nasal bones and nasal cavity are within normal limits. Maxilla, mandible, zygomas and pterygoid plates are intact. IMPRESSION Findings suggestive of abscess formation around the right mandibular angle likely involving the right masseter muscle with surrounding cellulitis and inflammatory changes. There is no evidence of definite osseous erosion at this time to suggest osteomyelitis. Reading Radiologist: Damon Gonzalez MD on 09/15/2019 at 6:11 PM Lucía Granados TITLE EXAMINER-BAD WORK GATHERER CT ORDERABLE S * (ABNORMAL) CBC W AUTO DIFFERENTIAL (09/15/2019 12:45 PM ANY COMMODITY SALES DELIVERER) WBC 17.6(H) 4.4 - 10.7 x10E9/L 09/15/2019 12:52 PM ANY COMMODITY SALES DELIVERER [facility] WBC Corrected 09/15/2019 12:52 PM ANY COMMODITY SALES DELIVERER [facility] RBC 3.63(L) 3.80 - 5.20 x10E12/L 09/15/2019 12:52 PM ANY COMMODITY SALES DELIVERER [facility] Hemoglobin 11.2(L) 12.0 - 15.6 gm/dL 09/15/2019 12:52 PM [facility] Hematocrit 34.8(L) 35.9 - 45.5 % 09/15/2019 12:52 PM [facility] MCV 95.9 80.7 - 98.3 fl 09/15/2019 12:52 PM [facility] MCH 30.9 26.7 - 34.0 pg 09/15/2019 12:52 PM [facility] MCHC 32.2 30.8 - 35.9 gm/dL 09/15/2019 12:52 PM [facility] Platelet Count 487(H) 153 - 416 x10E9/L 09/15/2019 12:52 PM [facility] RDW-CV 12.9 12.1 - 14.9 % 09/15/2019 12:52 PM [facility] MPV 8.6(L) 9.4 - 12.9 fl 09/15/2019 12:52 PM [facility] Neutrophils % 70.5 44.0 - 73.0 % 09/15/2019 12:52 PM [facility] Lymphocytes % 18.9(L) 20.0 - 43.0 % 09/15/2019 12:52 PM [facility] Monocytes % 9.2 5.0 - 13.0 % 09/15/2019 12:52 PM [facility] Eosinophils % 0.3 0.0 - 6.0 % 09/15/2019 12:52 PM [facility] Basophils % 0.3 0.0 - 2.0 % 09/15/2019 12:52 PM [facility] Immature Granulocytes 0.8 0 - 1 % 09/15/2019 12:52 PM [facility] Neutrophil Absolute 12.42(H) 2.01 - 7.14 x10E9/L 09/15/2019 12:52 PM [facility] Lymphocytes Absolute 3.33 1.07 - 3.94 x10E9/L 09/15/2019 12:52 PM [facility] Monocytes Absolute 1.62(H) 0.26 - 1.07 x10E9/L 09/15/2019 12:52 PM [facility] Eosinophils Absolute 0.06 0 - 0.47 x10E9/L 09/15/2019 12:52 PM [facility] Basophils Absolute 0.06 0 - 0.08 x10E9/L 09/15/2019 12:52 PM [facility] Immature Granulocytes Absolute 0.14(H) 0.00 - 0.06 x10E9/L 09/15/2019 12:52 PM [facility] nRBC Auto 0 /100 WBC 09/15/2019 12:52 PM [facility] Blood BLOOD SPECIMEN / Unknown Venipuncture / Unknown 09/15/2019 12:45 PM ANY COMMODITY SALES DELIVERER 09/15/2019 12:49 PM ANY COMMODITY SALES DELIVERER Hunter Lopez TITLE EXAMINER-BAD WORK GATHERER LAB - HEMATOLOGY ORDERABLES [facility] [address] [place] [address] * (ABNORMAL) COMPREHENSIVE METABOLIC PANEL (09/15/2019 12:45 PM ANY COMMODITY SALES DELIVERER) Only the most recent of2 resultswithin the time period is included. Glucose 103 70 - 105 mg/dL 09/15/2019 1:07 PM [facility] Sodium 133(L) 136 - 145 mmol/L 09/15/2019 1:07 PM [facility] Potassium 4.2 3.5 - 4.7 mmol/L 09/15/2019 1:07 PM [facility] Chloride 99 98 - 107 mmol/L 09/15/2019 1:07 PM [facility] CO2 24 23 - 31 mmol/L 09/15/2019 1:07 PM [facility] Calcium 10.4 8.4 - 10.4 mg/dL 09/15/2019 1:07 PM [facility] Anion Gap 10 8 - 16 mmol/L 09/15/2019 1:07 PM [facility] BUN 11 9.8 - 20.1 mg/dL 09/15/2019 1:07 PM [facility] Creatinine 0.66 0.57 - 1.11 mg/dL 09/15/2019 1:07 PM [facility] Alkaline Phosphatase 134 40 - 150 U/L 09/15/2019 1:07 PM [facility] ALT 40 0 - 61 U/L 09/15/2019 1:07 PM [facility] AST 29 5 - 34 U/L 09/15/2019 1:07 PM [facility] Protein Total 7.3 6.4 - 8.3 gm/dL 09/15/2019 1:07 PM ANY COMMODITY SALES DELIVERER [facility] Albumin 3.9 3.5 - 5.2 gm/dL 09/15/2019 1:07 PM [facility] Bilirubin Total 0.7 0.2 - 1.0 mg/dL 09/15/2019 1:07 PM [facility] eGFR by MDRD >60 >60 mL/min/1.7 3m2 09/15/2019 1:07 PM ANY COMMODITY SALES DELIVERER [facility] eGFR by MDRD >60 >60 mL/min/1.7 3m2 09/15/2019 1:07 PM ANY COMMODITY SALES DELIVERER [facility] Blood BLOOD SPECIMEN / Unknown Venipuncture / Unknown 09/15/2019 12:45 PM ANY COMMODITY SALES DELIVERER 09/15/2019 12:49 PM ANY COMMODITY SALES DELIVERER Hunter JOSE LAB - CHEMISTRY O RDERABLES Performing Organization Address [facility] de Phone Number [facility] [address] [place], [place] [id number] * (ABNORMAL) HGB HCT PANEL (09/08/2019 2:41 AM ANY COMMODITY SALES DELIVERER) Only the most recent of2 resultswithin the time period is included. Hemoglobin 10.5(L) 12.0 - 15.6 gm/dL 09/08/2019 3:12 AM ANY COMMODITY SALES DELIVERER [facility] Hematocrit 32.6(L) 35.9 - 45.5 % 09/08/2019 3:12 AM [facility] Blood BLOOD SPECIMEN / Unknown Venipuncture / Unknown 09/08/2019 2:41 AM ANY COMMODITY SALES DELIVERER 09/08/2019 3:02 AM ANY COMMODITY SALES DELIVERER Edward Haines MD LAB - HEMATOLOGY ORD ERABLES Performing Organization Address [facility] Co de Phone Number [facility] [address] [place] [address] * EKG 12-LEAD (08/16/2019 10:58 AM CDT) Ventricular Rate 88 BPM [facility] Atrial Rate 88 BPM [facility] P-R Interval 140 ms [facility] QRS Duration ms 76 ms [facility] Q-T Interval ms 362 ms [facility] QTC Calculation (Bezet) 438 ms [facility] Calculated P [place] 69 degrees [facility] Calculated R [place] 30 degrees [facility] Calculated T [place] 61 degrees [facility] Interpretation EKG Normal sinus rhythm Cannot rule out Anterior infarct , age undetermined Abnormal ECG No previous ECGs available Confirmed by GUZMAN INFANTE MD ([id number]) on 08/16/2019 3:51:29 PM [facility] 08/16/2019 10:5 8 AM CDT 08/16/2019 3:51 PM CDT Ivette Pinedo DO ECG ORDERABLES [facility] * CULTURE MSSA/MRSA (08/16/2019 10:47 AM CDT) Culture Negative for Staphylococcus aureus (MRSA/MSSA) AL 08/17/2019 2:[address] [facility] Microbiology SPECIMEN FROM NASAL FOSSAE / Unknown Collection / Unknown 08/16/2019 10:47 AM CDT 08/16/2019 11:04 AM CDT Emily Nieto APRN-BAD WORK GATHERER LAB - MICROBI OLOGY ORDERABLES [facility] [address] [place], [place] [address], [facility] [phone]
--- OUTSIDE RECORDS SUMMARY | 2024-10-27 00:38 | XMS_ITS | Referral Summary ---
Author Organization [facility] Address [address] [place] [address] Care Team Providers Care Social Worker Palliative Care Name Role Phone Unavailable Primary Care Provider Unavailabl e Source Comments [facility],non-owned Affiliates and Associated Physician Practices is amultiple site organization consisting of ambulatory clinics and hospital sitesin [place], [place], [place] and [place]. This disclosure is being madepursuant to the Care Everywhere program and may not contain all information available regarding this patient. Last updated 18.[facility] Allergies Active Allergy Reactions Criticality Noted Date [...] Comments Blood Pressure 139/78 09/15/2019 12:00 PM RETAIL DEPARTMENT RESET Pulse 76 09/15/2019 12:00 PM RETAIL DEPARTMENT RESET Temperature 36.6 ??C (97.8 ??F) 09/15/2019 12:[address] Respiratory Rate 16 09/15/2019 12:00 PM RETAIL DEPARTMENT RESET Oxygen Saturation 100% 09/15/2019 12:00 PM RETAIL DEPARTMENT RESET Inhaled Oxygen Concentration - - Weight 74.8 kg (165 lb) 09/15/2019 12:00 PM RETAIL DEPARTMENT RESET Height 157.5 cm (5' 2 ) 09/15/2019 12:00 PM RETAIL DEPARTMENT RESET Body Mass Index 30.18 09/15/2019 12:00 PM RETAIL DEPARTMENT RESET Functional Status Functional Status Response Date of [...] person have difficulty concentrating/remembering/making decisions? No 09/06/2019 Plan of Treatment Not on file Medical Devices Implanted Type Area Beamster Device Identifier Shelf Expiration Date Model / Serial / Lot Cmnt Bone Djo Srg Cblt 40gm Hvisc Strl Implanted:Qty: 1 on 09/06/2019 by Edward Haines MD at [facility] Right: Knee [employer] 12/08/2020 600-15-000 / / [id number] Cmpnt Fem Kn Rt Cr Cmnt Prm Vngrd Intlk Implanted:Qty: 1 on 09/06/2019 by Edward Haines MD at [facility] Right: Knee [employer] 06/22/2029 [id number] / / [id number] Tray Tib 63mm Kn Cocr I Beam Implanted:Qty: 1 on 09/06/2019 by Edward Haines MD at [facility] Right: Knee [employer] 12/16/2028 [id number] / / [id number] Cmpnt Ptlr 28mm 1 Pg Wire Ascnt Arcm Kn Implanted:Qty: 1 on 09/06/2019 by Edward Haines MD at [facility] Right: Knee [employer] 07/24/2024 [id number] / / [id number] [id number] 50dod53td Vngrd Arcm Kn Ant Stab Implanted:Qty: 1 on 09/06/2019 by Edward Haines MD at [facility] Right: Knee [employer] 04/19/2023 [id number] / / [id number] Procedures Procedure Name Priority Date/Time Associated Diagnosis Comments COMPREHENSIVE METABOLIC PANEL STAT 09/15/2019 12:45 PM RETAIL DEPARTMENT RESET from Last 3 Months or Most Recently Relevant to Health Maintenance Results * (ABNORMAL) COMPREHENSIVE METABOLIC PANEL (09/15/2019 12:45 PM RETAIL DEPARTMENT RESET) [facility] Glucose 103 70 - 105 mg/dL 09/15/2019 1:07 PM RETAIL DEPARTMENT RESET [facility] Sodium 133(L) 136 - 145 mmol/L 09/15/2019 1:07 PM RETAIL DEPARTMENT RESET [facility] Potassium 4.2 3.5 - 4.7 mmol/L 09/15/2019 1:07 PM RETAIL DEPARTMENT RESET [facility] Chloride 99 98 - 107 mmol/L 09/15/2019 1:07 PM RETAIL DEPARTMENT RESET [facility] CO2 24 23 - 31 mmol/L 09/15/2019 1:07 PM RETAIL DEPARTMENT RESET [facility] Calcium 10.4 8.4 - 10.4 mg/dL 09/15/2019 1:07 PM [facility] Anion Gap 10 8 - 16 mmol/L 09/15/2019 1:07 PM [facility] BUN 11 9.8 - 20.1 mg/dL 09/15/2019 1:07 PM [facility] Creatinine 0.66 0.57 - 1.11 mg/dL 09/15/2019 1:07 PM [facility] Alkaline Phosphatase 134 40 - 150 U/L 09/15/2019 1:07 PM [facility] ALT 40 0 - 61 U/L 09/15/2019 1:07 PM [facility] AST 29 5 - 34 U/L 09/15/2019 1:07 PM [facility] Protein Total 7.3 6.4 - 8.3 gm/dL 09/15/2019 1:07 PM [facility] Albumin 3.9 3.5 - 5.2 gm/dL 09/15/2019 1:07 PM [facility] Bilirubin Total 0.7 0.2 - 1.0 mg/dL 09/15/2019 1:07 PM [facility] eGFR by MDRD >60 >60 mL/min/1.7 3m2 09/15/2019 1:07 PM [facility] eGFR by MDRD >60 >60 mL/min/1.7 3m2 09/15/2019 1:07 PM [facility] Blood BLOOD SPECIMEN / Unknown Venipuncture / Unknown 09/15/2019 12:45 PM RETAIL DEPARTMENT RESET 09/15/2019 12:49 PM RETAIL DEPARTMENT RESET Hunter Lopez CASH APPLICATIONS CLERK-TELESALES REPRESENTATIVE LAB - CHEMISTRY O RDERABLES [facility] [address] [place] [address] from Last 3 Months or Most Recently Relevant to Health Maintenance Advance Directives * Full Code (Latest Code Status on File) Date Activated Date Inactivated Comments 09/06/2019 10:42 AM 09/08/2019 1:31 PM
--- OUTSIDE RECORDS SUMMARY | 2024-10-27 00:38 | XMS_ITS | Encounter Summary ---
Author Organization [facility] Address [address] [place] [address] Care Team Providers Care Grove Superintendent Name Role Phone Unavailable Primary Care Provider Unavailabl e Reason for Visit * Reason Comments Surgical Follow-up Post-op Rt TKA 09/06. 6 weeks out Encounter Details Date Type Department Care Team (Late st Contact Info) Description 10/26/2019 11:20 AM GOLF COURSE MANAGER Office Visit [facility] [address] [facility], [address] [address] Dank Block PA-C [id number] [address] Aftercare following right knee joint replacement surgery (Primary Dx) Social History Tobacco Use Types [...] No 09/06/2019 documented as of this encounter Patient Instructions * Patient Instructions* Abigail Coats - 10/26/2019 11:38 AM GOLF COURSE MANAGER Please call the office with any questions or concerns. COURSE MANAGER documented in this encounter Progress Notes * Dank Block PA-C - 10/26/2019 12:12 PM CST Right tka 6 weeks astka 2-114 F/u in 4-6 weeks work on motion COURSE MANAGER * Abigail Coats - 10/26/2019 11:38 AM CST Post-op Rt TKA 09/06/19. 6 weeks out COURSE MANAGER documented in this encounter H&P Notes * Dank Block PA-C - 10/31/2019 8:00 AM CST DATE OF SERVICE: 10/26/2019 SUBJECTIVE: Teresa is here at the office for the right knee, 6 weeks out, right knee is progressing well. CLINICAL EXAMINATION: Well-healed incision. No evidence of any infection. Motion 2-114. Good strength, good stability. RADIOGRAPHS: Show well implanted and cemented anterior stabilized knee, well fixated, very good alignment. IMPRESSION: Progressing well. TREATMENT: See her back in the office in 6 weeks, still continue with the exercises. TAHMINA Campos/MedWhit #: [id number] cc: Anthony Riley COURSE MANAGER documented in this encounter Procedure Notes * Armida Franco - 10/26/2019 11:46 AM CSTAssociated Order(s): XR KNEE RIGHT 3VW Please see progress notes for result. COURSE MANAGER documented in this encounter Plan of Treatment Not on file documented as of this encounter Procedures Procedure Name Priority Date/Time Associated Diagnosis Comments XR KNEE RIGHT 3VW Routine 10/26/2019 11: 42 AM GOLF COURSE MANAGER Aftercare following right knee joint replacement surgery documented in this encounter Results * XR KNEE RIGHT 3VW (10/26/2019 11:42 AM GOLF COURSE MANAGER) Anatomical Region Laterality Modality Lower Extremity Computed Radiogr aphy Narrative 10/26/2019 11:46 AM GOLF COURSE MANAGER Armida Franco ? 11/03/2019 ??4:07 PM Please see progress notes for result. Dank Block PA-C DIAGNOSTIC IMAGING ORDERABLES documented in this encounter Visit Diagnoses Diagnosis Aftercare following right knee joint replacement surgery- Primary Aftercare following right knee joint replacement surgery documented in this encounter
--- OUTSIDE RECORDS SUMMARY | 2024-10-27 00:38 | XMS_ITS | Encounter Summary ---
Author Organization [facility] Address [address] [place] [address] Care Team Providers Care Account Executive Metalworking Name Role Phone Unavailable Primary Care Provider Unavailabl e Reason for Visit * Auth/Cert (Routine) Specialty Diagnoses / Procedures Referred By Aristeo hussein Referred To Contact Diagnoses Unilateral primary osteoarthritis, right knee Procedures MD TOTAL KNEE REPLACEMENT Referral ID Status Reason Start Date Expiration Date Visits Re quested Visits Authorized [id number] 09/01/2019 02/28/2020 1 1 Encounter Details Date Type Department Care Team (Late st Contact Info) Description 09/06/2019 7:00 AM ENVIRONMENTAL CONSTRUCTION ENGINEER - 09/06/2019 9:07 AM ENVIRONMENTAL CONSTRUCTION ENGINEER Surgery [facility] - Perioperative Surgery [address] [place] [address] [place] [id number] [facility] [address] [place] [address] RIGHT TOTAL KNEE ARTHROPLASTY Surgery Details Date/Time Status Location OR Service Patient Class Case Class Case Type Trauma Case? 09/06/2019 7:00 AM Posted [facility] MAIN OR OR 14 Orthopedics Customer Records Division Supervisor Admit Surgical Elective > 5 days Panel 1 Procedure LRB Anes Op Region Wound Class Comments RIGHT TOTAL KNEE ARTHROPLASTY Right Spinal w/MAC Knee Clean Surgeon Surgeon Role Service Panel Lucy Haines MD Primary Orthopedics 1 Special Needs BIOMET (HUGO) NOTIFIED-NB documented in this encounter Social History Tobacco [...] Sign Reading Time Taken Comments Blood Pressure 94/68 09/06/2019 9:00 AM ENVIRONMENTAL CONSTRUCTION ENGINEER Pulse 81 09/06/2019 9:00 AM ENVIRONMENTAL CONSTRUCTION ENGINEER Temperature 36.2 ??C (97.1 ??F) 09/06/2019 8:35 AM CS T Respiratory Rate 17 09/06/2019 9:00 AM ENVIRONMENTAL CONSTRUCTION ENGINEER Oxygen Saturation 100% 09/06/2019 9:00 AM ENVIRONMENTAL CONSTRUCTION ENGINEER Inhaled Oxygen Concentration - - Weight 75.1 kg (165 lb 9.6 oz) 09/06/2019 6:18 A M ENVIRONMENTAL CONSTRUCTION ENGINEER Height 157.5 cm (5' 2 ) 09/06/2019 6:18 AM ENVIRONMENTAL CONSTRUCTION ENGINEER s tated Body Mass Index 30.29 09/06/2019 6:18 AM ENVIRONMENTAL CONSTRUCTION ENGINEER documented in this encounter Functional Status Functional Status Response [...] No 09/06/2019 documented as of this encounter Discharge Summaries * Xuan Conley RN - 09/08/2019 11:38 AM CST Physician Discharge Summary Patient Name: Teresa Espinosa Date of : 1960 Admit date: 09/06/2019 Discharge date:09/08/2019 Admitting Physician: Lucy Haines MD Attending Physician: Lucy Haines MD Discharge Physician: Lucy Haines MD Admission Diagnosis: Degenerative joint disease, right knee. Past Medical History Past Medical History: Diagnosis Date ??? Essential hypertension ??? Pure hypercholesterolemia Discharge Diagnoses Active Problems: Osteoarthritis of right knee Resolved Problems: * No resolved hospital problems. * Diagnostic Studies See hospital course Treatments See hospital course Procedures See hospital course Consults Dr. Oliveira Hospital Course Good Progress with PT. Pain Controlled w/ oral medications. Incisional area c/d/i Condition at discharge: good Disposition: Home, Home health Code Status At Discharge Full Code Patient Instructions Discharge Procedure Orders Why you were hospitalized Order Specific Question Answer Comments Your discharge diagnosis is: DJD (degenerative joint disease) [] No special diet needed Resume your normal home diet as tolerated. Continue the anti-inflammatory diet, as instructed pre-operative, for 4 weeks after surgery. Assistive device(s) Please use a walker. Weight bearing as tolerated Slowly increase the amount of weight you put on your legs as tolerated. Light activity Avoid any heavy activity until your follow up visit. Do not drive Until your follow up visit. Activity per Physical Therapy Continue to follow the activity instructions given to you by the Physical Therapist. Special activity instructions Important to follow fall precautions at home Dressing changes Leave dressing in place. The dressing can be pulled back to inspect the incision if needed, but this is not necessary unless concerns exist. You may shower with the dressing on, as it is waterproof. Home Health will change the dressing one week from the date of surgery and apply a gauze dressing. The dressing will be discontinued when the les are removed. Showering and bathing -- No tub baths until cleared by Dr. Haines. Staple care Your les will be taken out 12-15 days post op by home health. Special incision care Elevate operative leg above heart level at least 30 min twice daily. Do not leave foot in dependent position (on the floor) for more than 45 min at a time. Prop foot upon stool or chair to allow for some elevation. Apply cold packs at least 20 min every hour when awake When to call your provider Call Dr. Haines if you have questions or concerns, or for any of the following issues: -- temperature higher than 101.5 F -- pain that gets worse or does not get better after taking your pain medication(s) as directed -- bleeding from your incision -- if your incision or IV site looks infected (red, swollen, warm to the touch, or non-clear, foul-smelling drainage) Follow up with provider Order Specific Question Answer Comments Follow Up Instructions: follow up in 3 weeks Follow up with provider Stool softeners Take over the counter stool softener for relief of difficult bowel movements. For relief of constipation Take over the counter laxative for relief of constipation. Contact Information for Follow-Up Providers Lucy Haines MD Specialty: Orthopedic Surgery [id number] [place] [address] [address] [facility] [id number] follow up in 3 weeks Follow Up Instructions: follow up in 3 weeks [facility] Specialty: Home Health Services [address] [facility] [id number] Discharge time: less than 30 minutes. Current Discharge Medication List START taking these medications Instructions Authorizing Provider aspirin 325 MG tablet Commonly known as: ASPIRIN Take 1 tablet by mouth 2 times daily with morning and evening meal for 42 days Take for blood clot prevention. Lucy Haines MD CONTINUE taking these medications which have CHANGED Instructions Authorizing Provider HYDROcodone-acetaminophen 5-325 MG tablet What changed: ?? how much to take ?? how to take this ?? when to take this ?? reasons to take this Commonly known as: NORCO Quantity Dispensed: 28 tablet Take 1 tablet by mouth every 6 hours as needed Lucy Haines MD CONTINUE taking these medications which have NOT CHANGED Instructions Authorizing Provider atorvastatin 80 MG tablet Commonly known as: LIPITOR Take 80 mg by mouth once daily losartan - hydroCHLOROthiazide 50-12.5 MG tablet Commonly known as: HYZAAR Take 1 tablet by mouth once daily meloxicam 15 MG tablet Commonly known as: MOBIC Take 15 mg by mouth once daily ONE-A-DAY WOMENS 50+ ADVANTAGE PO Take by mouth once daily STOP taking these medications clindamycin 300 MG capsule Commonly known as: CLEOCIN CC: none RONMENTAL CONSTRUCTION ENGINEER documented in this encounter Medications at Time of Discharge Medication Sig Dispensed Refills Start Date End Date atorvastatin (LIPITOR) 80 MG tablet Take 80 mg by mouth once daily 06/22/2019 losartan - hydroCHLOROthiazide (HYZAAR) 50-12.5 MG tablet Take 1 tablet by mouth once daily 06/22/2019 meloxicam (MOBIC) 15 MG tablet Take 15 mg by mouth once daily 06/22/2019 Multiple Vitamins-Minerals (ONE-A-DAY WOMENS 50+ ADVANTAGE PO) Take by mouth once daily aspirin (ASPIRIN) 325 MG tablet Take 1 tablet by mouth 2 times daily with morning and evening meal for 42 days Take for blood clot prevention. 0 09/08/2019 10/20/2019 HYDROcodone-acetaminophen (NORCO) 5-325 MG tablet Take 1 tablet by mouth every 6 hours as needed 28 tablet 2019 09/26/2019 documented as of this encounter Progress Notes * Kiersten Espinal, PharmD - 09/08/2019 12:07 PM CST [facility] Pharmacy Services Pharmacy Discharge Review I have reviewed the discharge medication orders in [facility]. Thank you for involving me in the care of Teresa Espinosa Kiersten Espinal, PharmD 09/08/2019 RONMENTAL CONSTRUCTION ENGINEER * Gregory Penny MD - 09/08/2019 11:28 AM CST HOSPITALIST PROGRESS NOTE Admit Date: 09/06/2019 5:24 AM Hospital Day: 2 09/08/2019 Anthony Riley MD Teresa Espinosa is a 59 year old female Admitted for elective right total knee arthroplasty SUBJECTIVE: Anxious to go home Pain controlled Doing well with PT Data Vitals: 09/07/19 1635 09/07/19 1955 09/08/19 0220 09/08/19 0612 BP: 114/65 110/88 113/76 130/76 Pulse: 86 97 96 104 Resp: 18 18 18 Temp: 98.4 ??F (36.9 ??C) 98.1 ??F (36.7 ??C) 98.1 ??F (36.7 ??C) SpO2: 97% 99% 96% Weight: Height: Temp (30hrs) Max:98.4 ??F (36.9 ??C) Recent Labs Component Name 09/08/19 0241 09/07/19 0239 HGB 10.5* 10.9* HCT 32.6* 34.9* No results for input(s): TROPONIN in the last 67228 hours. Recent Labs Component Name 08/16/19 1047 SODIUM 139 POTASSIUM 4.0 CHLORIDE 104 CO2 27 BUN 12 CREATININE 0.68 GLUCOSE 97 CALCIUM 9.9 Recent Labs Component Name 08/16/19 1047 ALBUMIN 4.3 ALKPHOS 110 ALT 58 AST 38* TBIL 0.4 TPROT 6.7 No results for input(s): BNP in the last 02452 hours. No data found. MEDICATIONS FOR CURRENT ENCOUNTER: SCHEDULED MEDICATIONS: 0.9% NaCl injection 3 mL, Intracatheter, q8h aspirin tablet 325 mg, Oral, BID WC atorvastatin (LIPITOR) tablet 80 mg, Oral, QDAY celecoxib (CeleBREX) capsule 400 mg, Oral, QDAY loratadine (CLARITIN) tablet 10 mg, Oral, QDAY losartan - hydroCHLOROthiazide (HYZAAR) 50-12.5 MG tablet 1 tablet, Oral, QDAY nicotine (NICODERM CQ) patch 21 mg, Transdermal, QDAY senna-docusate (SENOKOT-S) tablet 1 tablet, Oral, BID ?? [] oxyCODONE CR 12hr (OxyCONTIN) tablet 10 mg, Oral, q12h ?? CONTINUOUS MEDICATIONS: PRN MEDICATIONS: Or Or Or Or acetaminophen (TYLENOL) tablet 650 mg, Oral, q4h PRN bisacodyl (DULCOLAX) suppository 10 mg, Rectal, QDAY PRN bisacodyl EC (DULCOLAX) tablet 5 mg, Oral, QDAY PRN diphenhydrAMINE (BENADRYL) capsule 25 mg, Oral, q8h PRN diphenhydrAMINE (BENADRYL) capsule 50 mg, Oral, q8h PRN famotidine (PEPCID) tablet 20 mg, Oral, BID PRN HYDROcodone-acetaminophen (NORCO) 10-325 MG tablet 1 tablet, Oral, q4h PRN HYDROcodone-acetaminophen (NORCO) 5-325 MG tablet 1 tablet, Oral, q4h PRN hydrOXYzine hcl (ATARAX) tablet 10 mg, Oral, q6h PRN magnesium hydroxide (MILK OF MAGNESIA) suspension 30 mL, Oral, PRN naloxone (NARCAN) injection 0.2 mg, Intravenous, PRN ondansetron (ZOFRAN) injection 4 mg, Intravenous, q6h PRN pseudoephedrine CR 12hr (SUDAFED) tablet 120 mg, Oral, q12h PRN sodium phosphate rectal (FLEET SALINE) enema 133 mL, Rectal, PRN ?? zolpidem (AMBIEN) tablet 5 mg, Oral, AT BEDTIME PRN ?? Exam General appearance: alert, cooperative, no distress, obese white female EYES: PERRLA ENT/NECK : NAD, no obvious facial puffiness Breasts/lymph nodes NAD Lungs: breath sounds normal and symmetric; no rales or wheezes, no rhonchi Heart: regular rhythm, normal S1 and S2, without murmurs, gallops or rubs Abdomen: soft without mass, non-tender, with normal bowel sounds, no organ enlargement Extremities: no clubbing, cyanosis or edema, no calf tenderness, peripheral pulses palpable Musculoskeletal : no joint swelling or LOM, no redness of joints, no warmth, right knee expected postsurgical swelling Skin: no rashes or other abnormalities are noted Neurologic: mental status normal; alert and oriented X 3; cranial nerves II - XII are grossly intact,no focal neurological deficits. Psychologic: calm and cooperative Labs,meds and notes personally reviewed. Assessment and Plan --essential hypertension -stable. -continue hyzaar -hold for low bp ?? Hypercholesterolemia - continue statin. ?? Tobacco dependence -nicotine patch -counseled to quit ?? S/p right total knee arthroplasty - physical therapy - pain management - Monitor h/h. -Dvt prophylaxis per orthopedic surgery recommendations. - Encourage incentive spirometry. --Acute blood loss anemia expected post op. Patient asymptomatic monitor H&H--stable on repeat check No indication for blood transfusion at this time Possible Home today if ok with ortho. f/u with PMD and orthopedics. Discharge meds reviewed and reconciled. This note was transcribed using a voice recognition system without human family law attorney. This report has not been adjusted for typographical, grammatical, and syntax mistakes by a trained medical office assistant. RONMENTAL CONSTRUCTION ENGINEER * Xuan Conley RN - 09/08/2019 10:55 AM CST Ortho POD # 2 Awake, Alert Afebrile Hgb: 10.5 VTE Prophylaxis: aspirin 325mg BID Nausea/ Vomiting: none Incisional Area- silver dressing intact No calf pain, wiggles toes Pain controlled Con't PT- WBAT OK to D/C home with HHC, F/U in office in 3 weeks RONMENTAL CONSTRUCTION ENGINEER * Mary Coello, CONTROL ROOM AGENT - 09/08/2019 9:01 AM CST Physical Therapy Treatment Summary Chart review completed. Nursing consented for PT. Explained purpose of PT and patient consented to participate in therapy. SUBJECTIVE: It's just so stiff . Patient Arthroplasty Liaison (PAL): SO. Patient's Goal for the Day: PT, go home. Pain Assessment: More pnful/stiff today. Had meds, using ice. OBJECTIVE: Bed Mobility: Supine to Sit: Modified [place](with strap as needed.) Sit to Supine: Modified [place](with strap as needed.) Transfers: Sit to Stand: Modified [place] Stand to Sit: Modified [place] Car Transfer: Modified [place](with strap.) Mobility: Distance Ambulated: 160 FEET(ft x 2.) Ambulation: Assistive Device: Gait Belt;Walker-2 Wheeled Ambulation: Level of Assistance: Modified [place] Ambulation: Gait Deviations: Kimberlny - Decreased;Heel Strike - Decreased;Push Off - Decreased;Step Length - Decreased(very rigid R knee.) Weight Bearing Status-RLE: Weight Bearing as Tolerated Stairs: Number: 4 Stairs: Assistive Device: Gait Belt Stairs: Use of Rails: Left(B MAILER APPRENTICE L rail, practiced 1 step with L rail and MAILER APPRENTICE also.) Stairs: Level of Assistance: Stand-By Assist Curb: Assistive Device: Gait Belt;Walker-2 Wheeled Curb: Level of Assistance: Stand By Assist;Requires Verbal Cues for Safety;Requires Verbal Cues [facility] Balance: Standing - Static: Good;With Both Upper Extremity's Support Standing - Dynamic: Good;With Both Upper Extremity's Support ROM: ROM Terminal Knee Extension: 3 ROM Knee Flexion: 65 Exercise: 12 reps. Activity Tolerance: Activity Tolerance: Requires rest breaks ASSESSMENT: Pt more sore and stiff. Slow but steady when amb. Fair ROM. Progressing towards goals. Ed in rest breaks as needed, ice/elevation, cont AP/QS/hydration at home, HEP x 1 more time today. Pt feels ready to go home. Pt up in chair after RX with tray table, phone and call light in reach.Pt Ok to be up ad-adri with ww and proper footwear. Ed not to amb with cryo on. Nsg notified. Sign posted on door. Ice therapy applied after treatment. Call light and phone in reach. All lines, monitors, IV's, equipment in place and intact pre and post visit. RNShawna, notified of patient's performance/location end of session. Pt was educated in PT plan of care, fall precautions, and benefits of OOB activity/PT. Please refer to the Filed Flowsheet PT Treatment for further details. RECOMMENDATIONS/PLAN: Rec cont'd PT for gt, strength, AD and ROM progression.Anticipate discharge home today, team to be updated. Pt will benefit from PT to maximize independent, functional mobility post TKA surgery. PT Discharge Recommendations: Home;Home Health PT Recommended Transportation Method: Private Car Mary Coello PTA x [phone] RONMENTAL CONSTRUCTION ENGINEER * Rose Gil RN - 09/08/2019 4:08 AM CST Pt alert and oriented x 4. Denies chest pain and SOB. Silver dressing c/d/i. SBA with walker. Voiding fine. MOM given last night. [place] 5 for pain. Continue to monitor. RONMENTAL CONSTRUCTION ENGINEER * Rose Gil RN - 2019 10:59 PM CST Problem: Incision Care Goal: Incision remains intact with edges well approximated Outcome: Ongoing Note: Pt's incision will be clean, dry, and intact. Goal: Incision is free of infection. Outcome: Ongoing Note: Pt's incision will remain free of infection. Problem: Pain/Discomfort Goal: Patient's functional goal is met Outcome: Ongoing Note: Pt's pain will be minimized with ice, rest, elevation, and medications. Problem: Moderate Fall Risk (Score 11-14) Goal: Patient will remain safe from falls and injury. 2019 2257 by Rose Gil RN Outcome: Ongoing Note: Pt will follow fall risk precautions and remain free of falls and injury. 09/07/[id number] by Rose Gil RN Reactivated Problem: Medication Assessment Greater than/Equal 2 Goal: Patient/family will verbalize understanding of medication regimen and its effects on risk forfalling. Outcome: Ongoing Note: Pt will verbalize understanding the side effects of medications and follow precautions. Problem: Toileting Score Greater than/Equal to 2 Goal: Patient/family will verbalize understanding of toileting program. 09/07/[id number] by Rose Gil RN Outcome: Ongoing Note: Pt will call out for help before using the bathroom. 09/07/20192257 by Rose Gil RN Reactivated Problem: Mobility Score Greater than/Equal to 2 Goal: Patient/family will verbalize understanding of activity schedule. Outcome: Ongoing Note: Pt will call out for help before getting out of bed. RONMENTAL CONSTRUCTION ENGINEER * Briana Franco RN - 2019 6:23 PM CST Sitting up on edge of bed Alert, oriented Pain controlled with norco. Up with standby assist. Silver dressing intact to right knee, no drainage. RONMENTAL CONSTRUCTION ENGINEER * Kristy Randall RN - 2019 1:36 PM CST Case Management Initial Assessment Case Management screen completed & Welcome Letter given. Anticipated level of care at discharge: Home Health Care Discharge Plans: Home with [facility] Basic Needs Assessment (BNA) Score: 5 Complex Needs Assessment (STAINED GLASS ARTIST) Score: 5 Social Support Domain Score: 0 Medical Status and Health Trajectory Domain Score: 5 Medical Home and Access to Services Domain Score: 0 Recommended Interventions for Patient:: Home Health, Physical Therapy and Occupational Therapy Comment: Met with patient and spouse Lives with: Spouse Family Support (name and phone): Extended Emergency Contact Information Primary Emergency Contact: lucy espinosa Mobile Relation: Spouse Potato Picker needed? No Anticipated Discharge Date: 09/08/19 Prior Level of Functioning: Independent Anticipated level of care at discharge: Home Health Care Transportation at Discharge: Family Transportation to MD appointments:Family Equipment at Home: Equipment At Home: Cane-Straight Additional equipment needed at home but does not have: If no PCP, action taken: Pharmacy benefit: Yes Belt Measurer Referral: No If patient requires HHC at discharge, he/she requests: S/P Right Total Knee arthroplasty. Plan is to discharge home with hh. Patient lives with spouse in a 1 story home with 5 steps to enter. Spouse will provide transportation at discharge. Pt needs a 2WW for home use. [facility]able to [facility] Will continue to follow. For any questions or needs please contact: Data Clerk Name/Phone number: Kristy Randall RN RONMENTAL CONSTRUCTION ENGINEER * Mary Coello, CONTROL ROOM AGENT - 2019 1:30 PM CST Physical Therapy Treatment Summary Patient was seen BID this date for physical therapy. Pt consented to treatment. Pt recently had pn meds. Subjective: It's more sore . Noted pt took Narco recently vs Tylenol. Pain: a little worse than this morning. Objective: Transfers: Supine to/from sit with no assistance Sit to/from stand with SB assistance Car transfer with SB and vc. Ambulation: Patient ambulated 80 feet and 70 ft with ww and SB assistance and cues, emphasis to promote fluid gt with step-through pattern. Pt still a bit antalgic. Steps/Curb: Instructed patient to ascend/descend 4 steps with B MAILER APPRENTICE L rail with min assistance and cues. Exercise: Patient performed 10 reps of TKA HEP. Patient educated in use of call light for assist, AP/QS/IS every hr, up to chair a couple more times yet today, car transfer and stairs. Pt sup after RX with tray table, phone and call light in reach. Bed alarm and SCD's on. Patient remained in reach of call light. Applied ice pack post-treatment. Assessment/Plan: Good progress to car transfer and stairs. A little more pnful this p.m., took a Narco. Pt had knee booklet brought in. Pt was reviewed and ed in knee booklet pg. 4 fall prevention, therapy section for all its contents, and discharge section for edema control. Cont. Mary Coello PTA Ext [phone] RONMENTAL CONSTRUCTION ENGINEER * Gregory Penny MD - 2019 1:10 PM CST HOSPITALIST PROGRESS NOTE Admit Date: 09/06/2019 5:24 AM Hospital Day: 1 2019 Anthony Riley MD Teresa Espinosa is a 59 year old female Admitted for elective right total knee arthroplasty SUBJECTIVE: Awake and alert Had feeling of right facial puffiness without any numbness or weakness earlier today Feels better now No chest pain or shortness of breath No dental pain, no rash or itching Data Vitals: 09/07/19 0227 09/07/19 0425 09/07/19 0719 09/07/19 1122 BP: 119/75 121/77 130/74 125/53 Pulse: 93 86 82 88 Resp: 18 17 17 Temp: 98.2 ??F (36.8 ??C) 97.9 ??F (36.6 ??C) 97.3 ??F (36.3 ??C) SpO2: 97% 100% 100% Weight: Height: Temp (30hrs) Max:98.9 ??F (37.2 ??C) Recent Labs Component Name 09/07/19 0239 HGB 10.9* HCT 34.9* No results for input(s): TROPONIN in the last 89546 hours. Recent Labs Component Name 08/16/19 1047 SODIUM 139 POTASSIUM 4.0 CHLORIDE 104 CO2 27 BUN 12 CREATININE 0.68 GLUCOSE 97 CALCIUM 9.9 Recent Labs Component Name 08/16/19 1047 ALBUMIN 4.3 ALKPHOS 110 ALT 58 AST 38* TBIL 0.4 TPROT 6.7 No results for input(s): BNP in the last 10661 hours. No data found. MEDICATIONS FOR CURRENT ENCOUNTER: ?? SCHEDULED MEDICATIONS: ?? 0.9% NaCl injection 3 mL, Intracatheter, q8h ?? aspirin tablet 325 mg, Oral, BID WC ?? atorvastatin (LIPITOR) tablet 80 mg, Oral, QDAY ?? celecoxib (CeleBREX) capsule 400 mg, Oral, QDAY ?? loratadine (CLARITIN) tablet 10 mg, Oral, QDAY ?? losartan - hydroCHLOROthiazide (HYZAAR) 50-12.5 MG tablet 1 tablet, Oral, QDAY ?? nicotine (NICODERM CQ) patch 21 mg, Transdermal, QDAY ?? oxyCODONE CR 12hr (OxyCONTIN) tablet 10 mg, Oral, q12h ?? senna-docusate (SENOKOT-S) tablet 1 tablet, Oral, BID ?? [COMPLETED] ceFAZolin (ANCEF) 1,000 mg in 50 ml IVPB, Intravenous, q8h ?? [COMPLETED] ondansetron (ZOFRAN) injection 4 mg, Intravenous, q6h ?? CONTINUOUS MEDICATIONS: ?? PRN MEDICATIONS: ?? Or ?? Or ?? Or ?? Or ?? acetaminophen (TYLENOL) tablet 650 mg, Oral, q4h PRN ?? bisacodyl (DULCOLAX) suppository 10 mg, Rectal, QDAY PRN ?? bisacodyl EC (DULCOLAX) tablet 5 mg, Oral, QDAY PRN ?? diphenhydrAMINE (BENADRYL) capsule 25 mg, Oral, q8h PRN ?? diphenhydrAMINE (BENADRYL) capsule 50 mg, Oral, q8h PRN ?? famotidine (PEPCID) tablet 20 mg, Oral, BID PRN ?? HYDROcodone-acetaminophen (NORCO) 10-325 MG tablet 1 tablet, Oral, q4h PRN ?? HYDROcodone-acetaminophen (NORCO) 5-325 MG tablet 1 tablet, Oral, q4h PRN ?? hydrOXYzine hcl (ATARAX) tablet 10 mg, Oral, q6h PRN ?? magnesium hydroxide (MILK OF MAGNESIA) suspension 30 mL, Oral, PRN ?? naloxone (NARCAN) injection 0.2 mg, Intravenous, PRN ?? ondansetron (ZOFRAN) injection 4 mg, Intravenous, q6h PRN ?? pseudoephedrine CR 12hr (SUDAFED) tablet 120 mg, Oral, q12h PRN ?? sodium phosphate rectal (FLEET SALINE) enema 133 mL, Rectal, PRN ?? zolpidem (AMBIEN) tablet 5 mg, Oral, AT BEDTIME PRN ?? Exam General appearance: alert, cooperative, no distress, obese white female EYES: PERRLA ENT/NECK : NAD, no obvious facial puffiness Breasts/lymph nodes NAD Lungs: breath sounds normal and symmetric; no rales or wheezes, no rhonchi Heart: regular rhythm, normal S1 and S2, without murmurs, gallops or rubs Abdomen: soft without mass, non-tender, with normal bowel sounds, no organ enlargement Extremities: no clubbing, cyanosis or edema, no calf tenderness, peripheral pulses palpable Musculoskeletal : no joint swelling or LOM, no redness of joints, no warmth, right knee expected postsurgical swelling Skin: no rashes or other abnormalities are noted Neurologic: mental status normal; alert and oriented X 3; cranial nerves II - XII are grossly intact,no focal neurological deficits. Psychologic: calm and cooperative Labs,meds and notes personally reviewed. Assessment and Plan --essential hypertension -stable. -continue hyzaar -hold for low bp Monitor closely ?? Hypercholesterolemia - continue statin. ?? Tobacco dependence -nicotine patch -counseled to quit ?? S/p right total knee arthroplasty - physical therapy - pain management - Monitor h/h. -Dvt prophylaxis per orthopedic surgery recommendations. - Encourage incentive spirometry. --Acute blood loss anemia expected post op. Patient asymptomatic monitor H&H No indication for blood transfusion at this time Continue physical therapy This note was transcribed using a voice recognition system without human family law attorney. This report has not been adjusted for typographical, grammatical, and syntax mistakes by a trained medical office assistant. RONMENTAL CONSTRUCTION ENGINEER * Xuan Conley RN - 2019 11:51 AM CST Ortho POD # 1 Awake, Alert Up in chair Afebrile Hgb: 10.9 VTE Prophylaxis: aspirin 325mg BID Nausea/ Vomiting: none Incisional Area- silver dressing intact No calf pain, wiggles toes Pain controlled Con't PT- WBAT Plan D/C home in AM RONMENTAL CONSTRUCTION ENGINEER * Mary Coello, CONTROL ROOM AGENT - 2019 10:50 AM CST Physical Therapy Treatment Summary Chart review completed. Nursing consented for PT. Explained purpose of PT and patient consented to participate in therapy. Pt was issued discharge ticket and ortho strap and ed. She left her knee booklet at home but should be here later. Pt ed not to amb with cryo-cuff on.Pt ed in use of call light and not to get up without staff assist.Pt was reviewed and ed in knee bookletl for therapy section for all its contents, and discharge section for edema control.Pt ed in performing frequent AP, QS, IS frequently and drinking plenty of fluids.Pt ed in WBAT, safe gt and transfers with ww, HEP, ice/elevation, sit up 3-60 min intervals. SUBJECTIVE: I'm just scared of it, it feels different when I walk . Patient Arthroplasty Liaison (PAL): not stated. Patient's Goal for the Day: Do PT. Pain Assessment: Managed. Had meds, using ice. OBJECTIVE: Precautions: Fall. Bed Mobility: Supine to Sit: Stand By Assist Transfers: Sit to Stand: Stand By Assist;Requires Verbal Cues for Safety;Requires Verbal Cues for Technique Stand to Sit: Stand By Assist;Requires Verbal Cues for Safety;Requires Verbal Cues for Technique Mobility: Distance Ambulated: 100 FEET Ambulation: Assistive Device: Gait Belt;Walker-2 Wheeled Ambulation: Level of Assistance: Minimum Assistance;Requires Verbal Cues for Safety;Requires VerbalCues for Technique Ambulation: Gait Deviations: Kimberlyn - Decreased;Heel Strike - Decreased;Push Off - Decreased;Step Length - Decreased Weight Bearing Status-RLE: Weight Bearing as Tolerated Balance: Standing - Static: Good;With Both Upper Extremity's Support Standing - Dynamic: Good;With Both Upper Extremity's Support ROM: ROM Terminal Knee Extension: 3 ROM Knee Flexion: 82 Exercise: 10 reps. Activity Tolerance: Activity Tolerance: Tolerates ADLs without rest breaks ASSESSMENT: Pt is a little anxious but motivated. Demo fairly good strength and ROM. Good gt endurance and min deviations. Pt up in chair after RX with tray table, phone and call light in reach. Ice therapy applied after treatment. Call light and phone in reach. All lines, monitors, IV's, equipment in place and intact pre and post visit. Briana GAXIOLA, notified of patient's performance/location end of session. Pt was educated in PT plan of care, fall precautions, and benefits of OOB activity//PT. Please refer to the Filed Flowsheet PT Treatment for further details. RECOMMENDATIONS/PLAN: Cont PT. Anticipate discharge home tomorrow, team to be updated at rounds this afternoon. Pt will benefit from HH PT to maximize independent, functional mobility post TKA surgery. PT Discharge Recommendations: Home;Home Health PT Recommended Transportation Method: Private Car Mary Coello, [employer] x [phone] RONMENTAL CONSTRUCTION ENGINEER * Briana Franco RN - 2019 8:42 AM CST Problem: Incision Care Goal: Incision remains intact with edges well approximated 09/07/2019835 by Briana Franco RN Outcome: Ongoing Note: Unable to view incision Silver dressing intact without drainage Continue monitoring 09/06/20192101 by Briana Franco RN Outcome: Ongoing Note: monitoring Goal: Incision is free of infection. 09/07/2019835 by Briana Franco RN Outcome: Ongoing Note: Monitoring surrounding skin and vital signs 09/06/20192101 by Briana Franco RN Outcome: Ongoing Note: monitoring Problem: Activity Intolerance/Impaired Mobility Goal: Mobility/activity is maintained at optimum level for patient 09/07/2019835 by Briana Franco RN Outcome: Ongoing Note: Currently resting in bed. Standby assist using wheeled walker 09/06/20192101 by Briana Franco RN Outcome: Ongoing Note: Pt able to ambulate and transfer using wheeled walker and gait belt with minimal assist Problem: Pain/Discomfort Goal: Patient's functional goal is met 09/07/2019835 by Briana Franco RN Outcome: Ongoing Note: Pain controlled with norco When asked pain level with morning assessment pt stated its pretty low level 3 Stated pain score 3 tolerable 09/06/20192101 by Briana Franco RN Outcome: Ongoing Note: Continue to work with pt on pain controll pt wants to be able to go without using morphine cub reporter Problem: Moderate Fall Risk (Score 11-14) Goal: Patient will remain as independent as possible. Outcome: Ongoing Note: Worked with PT today Goal: Patient will have lower fall risk. Outcome: Ongoing Note: Fall precautions in place Goal: Patient will remain safe from falls and injury. Outcome: Ongoing Goal: Patient will have lower injury risk. Outcome: Ongoing Goal: Patient/family will understand fall prevention measures. Outcome: Ongoing Note: Instructed pt on calling for assist for getting out of bed Pt verbalized understanding Goal: Patient/family will understand injury reduction measures. Outcome: Ongoing Goal: Patient/family will comply with fall program. Outcome: Ongoing Note: Has called for assist Goal: Patient/family verbalize fall prevention strategies to implement after discharge. Outcome: Ongoing Problem: Medication Assessment Greater than/Equal 2 Goal: Patient/family will verbalize understanding of medication regimen and its effects on risk forfalling. Outcome: Ongoing Note: Spoke with pt concerning diuretics and pain medication leading to possible falls Problem: Low Fall Risk (Score 7-10) Goal: Patient will remain safe from falls and injury. Outcome: Ongoing Note: Idalmis samuels score [address] RONMENTAL CONSTRUCTION ENGINEER * Rose Gil RN - 2019 5:45 AM CST Pt alert and oriented x 4. Denies chest pain and SOB. Silver dressing on right knee c/d/i. SBA withwalker. Voiding fine. Toradol/norco 5 for pain so far. Had some anxiety. Atarax ordered and given. Continue to monitor. RONMENTAL CONSTRUCTION ENGINEER * Rose Gil RN - 2019 5:31 AM CST Problem: Incision Care Goal: Incision remains intact with edges well approximated 09/07/2019529 by Rose Gil, RN Outcome: Ongoing 2019 020 by Rose Gil, RN Outcome: Ongoing Note: Pt's incision will be clean, dry, and intact. Goal: Incision is free of infection. 09/07/2019529 by Rose Gil RN Outcome: Ongoing 09/07/2019200 by Rose Gil RN Outcome: Ongoing Note: Pt's incision will remain free of infection. Problem: Pain/Discomfort Goal: Patient's functional goal is met 09/07/2019529 by Rose Gil RN Outcome: Ongoing 09/07/2019200 by Rose Gil RN Outcome: Ongoing Note: Pt's pain will be minimized with ice, rest, elevation, and medications. Problem: Mobility Score Greater than/Equal to 2 Goal: Patient/family will verbalize understanding of activity schedule. 09/07/2019529 by Rose Gil RN Outcome: Ongoing 09/07/2019200 by Rose Gil RN Outcome: Ongoing Note: Pt will call out for help before getting out of bed. Problem: Medication Assessment Greater than/Equal 2 Goal: Patient/family will verbalize understanding of medication regimen and its effects on risk forfalling. 09/07/2019529 by Rose Gil RN Outcome: Ongoing 09/07/2019200 by Rose Gil RN Outcome: Ongoing Note: Pt will verbalize understanding the side effects of medications and follow precautions. Problem: Toileting Score Greater than/Equal to 2 Goal: Patient/family will verbalize understanding of toileting program. 09/07/2019529 by Rose Gil RN Outcome: Ongoing 09/07/2019200 by Rose Gil RN Outcome: Ongoing Note: Pt will call out for help before using the bathroom. Problem: Low Fall Risk (Score 7-10) Goal: Patient will remain safe from falls and injury. Outcome: Ongoing RONMENTAL CONSTRUCTION ENGINEER * Rose Gil RN - 2019 2:03 AM CST Problem: Incision Care Goal: Incision remains intact with edges well approximated Outcome: Ongoing Note: Pt's incision will be clean, dry, and intact. Goal: Incision is free of infection. Outcome: Ongoing Note: Pt's incision will remain free of infection. Problem: Pain/Discomfort Goal: Patient's functional goal is met Outcome: Ongoing Note: Pt's pain will be minimized with ice, rest, elevation, and medications. Problem: Moderate Fall Risk (Score 11-14) Goal: Patient will remain safe from falls and injury. Outcome: Ongoing Note: Pt will follow fall risk precautions and remain free of falls and injury. Problem: Mobility Score Greater than/Equal to 2 Goal: Patient/family will verbalize understanding of activity schedule. Outcome: Ongoing Note: Pt will call out for help before getting out of bed. Problem: Medication Assessment Greater than/Equal 2 Goal: Patient/family will verbalize understanding of medication regimen and its effects on risk forfalling. Outcome: Ongoing Note: Pt will verbalize understanding the side effects of medications and follow precautions. Problem: Toileting Score Greater than/Equal to 2 Goal: Patient/family will verbalize understanding of toileting program. Outcome: Ongoing Note: Pt will call out for help before using the bathroom. Problem: Volume/Electrolyte Status Score Greater than/Equal to 2 Goal: Patient/family will verbalize understanding of maintaining proper hydration. Outcome: Ongoing Note: Pt will ambulate safely with IV pole. RONMENTAL CONSTRUCTION ENGINEER * Briana Franco RN - 09/06/2019 9:05 PM CST Problem: Incision Care Goal: Incision remains intact with edges well approximated Outcome: Ongoing Note: monitoring Goal: Incision is free of infection. Outcome: Ongoing Note: monitoring Problem: Activity Intolerance/Impaired Mobility Goal: Mobility/activity is maintained at optimum level for patient Outcome: Ongoing Note: Pt able to ambulate and transfer using wheeled walker and gait belt with minimal assist Problem: Pain/Discomfort Goal: Patient's functional goal is met Outcome: Ongoing Note: Continue to work with pt on pain controll pt wants to be able to go without using morphine cub reporter Problem: Moderate Fall Risk (Score 11-14) Goal: Patient will remain as independent as possible. Outcome: Ongoing Note: Worked with PT today Goal: Patient will have lower fall risk. Outcome: Ongoing Note: Fall precautions in place Goal: Patient will remain safe from falls and injury. Outcome: Ongoing Goal: Patient will have lower injury risk. Outcome: Ongoing Goal: Patient/family will understand fall prevention measures. Outcome: Ongoing Note: Instructed pt on calling for assist for getting out of bed Pt verbalized understanding Goal: Patient/family will understand injury reduction measures. Outcome: Ongoing Goal: Patient/family will comply with fall program. Outcome: Ongoing Note: Has called for assist Goal: Patient/family verbalize fall prevention strategies to implement after discharge. Outcome: Ongoing RONMENTAL CONSTRUCTION ENGINEER * Briana Franco RN - 09/06/2019 6:55 PM CST Arrived to room at 1030. Currently resting in bed Daniel wrap and ice intact to right knee, no drainage. Morphine cub reporter, norco and toradol for pain control. No nausea. Fair appetite. Has urinated and sat up in chair. Worked with PT RONMENTAL CONSTRUCTION ENGINEER * Vanessa Cee, PT - 09/06/2019 3:11 PM CST Physical Therapy Evaluation R TKA 09/06/19, WBAT, Spinal with MAC Anesthesia PT orders received. Chart reviewed for diagnosis and medical systems review. Nursing consented for PT. Triston Warren Explained purpose of PT and patient consented to participate in therapy. SUBJECTIVE: I was in so much pain earlier. The nurse has helped me manage it. Feeling better now . CONTROL ROOM AGENT independent with gait(intermittent cane use), independent ADLS, driving, working. Patient Arthroplasty Liaison (PAL): Spouse Home Situation: Type of Residence: Private Residence Lives with:: Spouse Steps to Enter: 4 Handrails: Outdoor Home Structure: One Story Equipment At Home: Cane-Straight Prior Level of Functioning: Mobility: Ambulate-In Community;Ambulate-In Home ;With Assistive Device;Driving Fallen Within 6 Mos: 1 Have Help at Home?: Yes, there is help at home now Activity at Home: Active;Driving Pain Assessment: Pain Rating Score #: 6 Pain Location : Knee Pain Orientation: Right Pain Quality: Aching;Sharp;Tight Patient/family stated goal: Just want to do my daily activities without pain. OBJECTIVE: Cognition: Orientation Level: Oriented X4 Cognition: Follows Commands-Consistent Level of Consciousness-Adult: Alert ROM and Strength: AROM - Right Lower Extremity: Exceptions AROM - Left Lower Extremity: Within Functional Limits Sensation: Denies numbness, tingling. Balance: Sitting - Static: Good;With Both Upper Extremity's Support Sitting - Dynamic: Good -;With Both Upper Extremity's Support Standing - Static: Fair +;With Both Upper Extremity's Support Standing - Dynamic: Fair +;With Both Upper Extremity's Support Bed Mobility: Supine to Sit: Minimal Assistance;Requires Verbal Cues for Technique;Requires Physical Cues for Technique Sit to Supine: Stand By Assist;Requires Verbal Cues for Technique;Requires Physical Cues for Technique Transfers: Sit to Stand: Stand By Assist;Requires Verbal Cues for Technique;Requires Physical Cues for Technique Stand to Sit: Stand By Assist;Requires Verbal Cues for Technique;Requires Physical Cues for Technique Mobility: Distance Ambulated: 22 FEET Ambulation: Assistive Device: Gait Belt;Walker-2 Wheeled Ambulation: Level of Assistance: Stand By Assist Ambulation: Gait Deviations: Antalgic;Kimberlyn - Decreased;Heel Strike - Decreased Weight Bearing Status-RLE: Weight Bearing as Tolerated Exercise: Educated significance of ankle pumps, QS, use of IS every hour. Educated ice/elevation guidelines, proper leg positioning supine, seated. Activity Tolerance: See flow sheet for vitals ASSESSMENT: Good tolerance functional activity. Patient just returning to bed with assist of nursing (had been up to chair) when therapist arrived. Agreeable to proceed with therapy eval. See gait, transfers, ex, education above. Patient returned to bed with SBA. Ice and sequentials applied. Resting comfortably at end of visit. Call light and phone in reach with bed alarm activated. All lines, monitors, IV's, equipment in place and intact pre and post visit. RN Briana notified of patient's performance/location end of session. Pt educated in PT plan of care, fall precautions, and benefits of OOB activity. Problem list: decreased strength, decreased balance, decreased endurance, decreased ROM, decreased coordination Functional limitations: Decreased independence with ambulation/transfers, decreased safety with functional mobility. Rationale for therapy: Patient will benefit from PT to address the above issues. Please refer to Filed Flowsheet PT Evaluation for further details. Refer to Plan of Care for PT goals. RECOMMENDATIONS/PLAN: AM-PAC Basic mobility score for this patient is CMS 0-100% Score (Calculated): 46.58 % degree of impairment with higher scores indicating patient may benefit from further inpatient services. Patient will benefit from Home Health at discharge to maximize independence and functional mobility. Vanessa Cee, MICHAEL [phone] RONMENTAL CONSTRUCTION ENGINEER documented in this encounter H&P Notes * Erma Hernandez PA-C - 08/29/2019 2:45 PM CST [facility] PRE-OPERATIVE HISTORY AND PHYSICAL PATIENT NAME: Teresa Espinosa : 1960 CSN: [id number] HISTORY OF PRESENT ILLNESS: This is a 58 year old year-old female seen at the office regarding her right knee. The right knee has been symptomatic for over 3 years. Her pain is shooting and constant along medial joint line. The pain is relieved with rest for a short period of time. Patient is failing conservative treatment for over the last 3 years of rest, ice, anti-inflammatories, corticosteroid injections, and home exercise program. Formal physical therapy is contraindicatedto the patients significant arthritis. Radiograph of the right knee reveals grade 3 DJD along the medial joint line and grade 3 DJD along the patella-femoral joint. The right knee shows a varus angle of 2 degrees. Osteophytes are noticed on the medial/lateral femoral condyles and tibial plateau; with osteophytes off the superior and inferior pole of patella. Due to her pain and end stage arthritis has led to a decline in the patients home exercise program and daily activities (cleaning house, getting in and out of a chair, going up and down steps). The patients instability has put them at greater risk of falling, going up and down steps and walking on uneven surfaces. We are going to proceed ahead with a right knee replacement. We have discussed surgical procedure, risks, complications, and postoperative expectations associated with this procedure. PAST MEDICAL HISTORY: Past Medical History: Diagnosis Date ??? Essential hypertension ??? Pure hypercholesterolemia PAST SURGICAL HISTORY: Past Surgical History: Procedure Laterality Date ??? Hysterectomy HOME MEDICATIONS: Prior to Admission medications Medication Sig Start Date End Date Taking? Authorizing Provider atorvastatin (LIPITOR) 80 MG tablet Take 80 mg by mouth once daily 06/22/19 Provider, MD Francisco losartan - hydroCHLOROthiazide (HYZAAR) 50-12.5 MG tablet Take 1 tablet by mouth once daily 06/22/19Francisco Millan MD meloxicam (MOBIC) 15 MG tablet Take 15 mg by mouth once daily 06/22/19 ProviderFrancisco MD Multiple Vitamins-Minerals (ONE-A-DAY WOMENS 50+ ADVANTAGE PO) Take by mouth once daily ProviderFrancisco MD No current facility-administered medications for this encounter. Current Outpatient Medications Medication Sig Dispense Refill ??? atorvastatin (LIPITOR) 80 MG tablet Take 80 mg by mouth once daily ??? losartan - hydroCHLOROthiazide (HYZAAR) 50-12.5 MG tablet Take 1 tablet by mouth once daily ??? meloxicam (MOBIC) 15 MG tablet Take 15 mg by mouth once daily ??? Multiple Vitamins-Minerals (ONE-A-DAY WOMENS 50+ ADVANTAGE PO) Take by mouth once daily ALLERGIES: Allergies Allergen Reactions ??? Pcn [Penicillins] Unknown ??? Sulfa Drugs Unknown PHYSICAL EXAMINATION: HEENT: Head normocephalic and atraumatic. Eyes, PERRLA. EOMs normal. NECK: Supple. Negative adenopathy. No bruits. LUNGS: Clear. HEART: Normal S1 and S2. ABDOMEN: Soft and nondistended. Positive bowel sounds in all quadrants. EXTREMITIES: Neurovascularly intact distally. Equal bilaterally in upper and lower extremities. MUSCULOSKELETAL: Good range of motion of the hips. Right knee, shows varus knee mild effusion, no evidence of infection with point tenderness and crepitation along the medial-lateral joint line. Passive range of motion 5 to 108, with mid flexion instability. NEUROLOGICAL: Within normal limits. MENTAL: Within normal limits. DIAGNOSTIC DATA: Please refer to HPI. IMPRESSION: End stage degenerative joint disease of the right knee, failing conservative treatment of corticosteroid injections, anti-inflammatories, decline in overall activity as well as failing home exercise program. PLAN: We are going to proceed ahead with a right total knee replacement. We have discussed with thepatient surgical procedure, risks, complications, and postoperative expectations associated with this. Erma Hernandez PA-C RONMENTAL CONSTRUCTION ENGINEER documented in this encounter Consult Notes * Radha Gross, CONTROL ROOM AGENT - 09/08/2019 12:26 PM CSTAssociated Order(s): IP CONSULT TO HOME HEALTH CARE Home Care Consult noted. [facility] to follow at discharge. Thank you for this referral Nereida Gross PTA [facility] Ortho Knotting Machine Operator [facility] [phone] office [phone] (option 1) after hours and weekends RONMENTAL CONSTRUCTION ENGINEER * Tee Joshua Mahamed, DO - 09/06/2019 1:54 PM CST Initial Hospitalist Consult Note Date of Consult: 09/06/2019 Patient's Primary Care Physician: Anthony Riley MD Physician Requesting Consult: Lucy Haines MD Reason for Consultation: Evaluation of patient's medical problems, which include hypertension Name: Teresa Espinosa Age: [age] year old Race: Sex: female Chief Complaint/History of Present Illness This is a 58 year old female admitted to the hosptial to undergo right tka. The procedure was done under Spinal w/MAC anesthetic and there was minimal blood loss noted. The patient tolerated the procedure well and is seen on the floor for further evaluation. Patient denies complaints of: Headache ,Chest Pain, Cough, Dyspnea, Abdominal Pain, nausea, Vomiting, Diarrhea, Constipation, Dysuria, or dizziness. The patients right knee is symptomatic for over several years, aggravated with activity. Radiographs show severe DJD of the right knee. Patient is failing conservative management. Past Medical History: Diagnosis Date ??? Essential hypertension ??? Pure hypercholesterolemia Past Surgical History: Procedure Laterality Date ??? COLONOSCOPY ??? Hysterectomy ??? Knee Arthroscopy Right ??? Knee Replacement 09/06/2019 RT Medications Prior to Admission Medication Sig Dispense Refill ??? atorvastatin (LIPITOR) 80 MG tablet Take 80 mg by mouth once daily ??? clindamycin (CLEOCIN) 300 MG capsule ??? HYDROcodone-acetaminophen (NORCO) 5-325 MG tablet ??? losartan - hydroCHLOROthiazide (HYZAAR) 50-12.5 MG tablet Take 1 tablet by mouth once daily ??? meloxicam (MOBIC) 15 MG tablet Take 15 mg by mouth once daily ??? Multiple Vitamins-Minerals (ONE-A-DAY WOMENS 50+ ADVANTAGE PO) Take by mouth once daily Allergies Allergen Reactions ??? Pcn [Penicillins] Itching ??? Sulfa Drugs Itching Social History Socioeconomic History ??? Marital status: Spouse name: Not on file ??? Number of children: Not on file ??? Years of education: Not on file ??? Highest education level: Not on file Occupational History ??? Not on file Social Needs ??? Financial resource strain: Not on file ??? Food insecurity: Worry: Not on file Inability: Not on file ??? Transportation needs: Medical: Not on file Non-medical: Not on file Tobacco Use ??? Smoking status: Current Every Day Smoker Packs/day: 1.00 Types: Cigarettes ??? Smokeless tobacco: Never Used Substance and Sexual Activity ??? Alcohol use: Yes Frequency: 2-3 times a week ??? Drug use: Never ??? Sexual activity: Not on file Lifestyle ??? Physical activity: Days per week: Not on file Minutes per session: Not on file ??? Stress: Not on file Relationships ??? Social connections: Talks on phone: Not on file Gets together: Not on file Attends episcopalian service: Not on file Active member of club or organization: Not on file Attends meetings of clubs or organizations: Not on file Relationship status: Not on file ??? Intimate partner violence: Fear of current or ex partner: Not on file Emotionally abused: Not on file Physically abused: Not on file Forced sexual activity: Not on file Other Topics Concern ??? Not on file Social History Narrative ??? Not on file Family History Problem Relation Age of Onset ??? Diabetes - Type 2 Mother ??? Coronary Artery Disease Mother Review of Systems Constitutional: No unexplained fever, sweats. Eyes: Vision stable, no discomfort. Ears, nose, mouth, and throat: No mouth dryness, sores, hearing stable , no nasal discharge. Respiratory: No dyspnea, wheezing, pleuritic pain. +cough Cardiovascular: No exertional chest pain, palpitations, edema, claudication. Gastrointestinal: No bleeding, frequent reflux, dysphagia, change in bowels, pain. Genitourinary: No dysuria,frequency, bleeding. Skin: No recent rashes, or pruritus Hematologic/lymphatic: No history of anemia. No abnormal bleeding or bruising. Musculoskeletal: Knee pain Neurological: Stable gait, no numbness, tingling, syncope, dizziness. Behavioral/Psych: No sleep disturbance, memory changes, depression. Endocrine: No fatigue or weight change. Exam Vitals: 09/06/19 1010 09/06/19 1015 09/06/19 1035 09/06/19 1117 BP: 101/76 114/72 106/68 Pulse: 95 100 98 81 Resp: Temp: 97.7 ??F (36.5 ??C) 97.5 ??F (36.4 ??C) SpO2: 98% 96% Weight: Height: General appearance: alert, cooperative, no distress Head: Normocephalic, without trauma Eyes: sclera and conjunctiva clear, EOMI and PERRLA, lids normal Throat: no mucous membrane abnormalities Neck: range of motion is intact, no masses, thyroid not enlarged, no adenopathy. No bruit. Lungs: breath sounds normal and symmetric; no rales or wheezes Heart: regular rhythm, normal S1 and S2, without murmurs, gallops or rubs Abdomen: soft without mass, non-tender, with normal bowel sounds Extremities: no clubbing, cyanosis or edema. Right knee bandaged Skin: no rashes or other abnormalities are noted Neurologic: mental status normal; alert and oriented X 3; cranial nerves II - XII are grossly intact Data No results for input(s): WBC, HGB, HCT, PLTCOUNT in the last 93476 hours. Recent Labs Component Name 08/16/19 1047 SODIUM 139 POTASSIUM 4.0 CHLORIDE 104 CO2 27 BUN 12 CREATININE 0.68 GLUCOSE 97 CALCIUM 9.9 ALBUMIN 4.3 ALKPHOS 110 ALT 58 AST 38* TBIL 0.4 TPROT 6.7 EGFR >60 No results for input(s): TROPONIN in the last 87253 hours. No results for input(s): TSH in the last 93913 hours. Assessment and Plan htn -stable. -continue hyzaar -hold for low bp Hypercholesterolemia - continue statin. Tobacco dependence -nicotine patch -counseled to quit S/p right total knee arthroplasty - physical therapy - pain management - Monitor h/h. -Dvt prophylaxis per orthopedic surgery recommendations. - Encourage incentive spirometry. CC: Lucy Haines MD , Anthony Riley MD RONMENTAL CONSTRUCTION ENGINEER documented in this encounter OR Notes * Operative - Lucy Haines MD - 09/06/2019 7:32 AM CST Operative Report Right Total Knee [facility]: [facility] 1960 [id number] ADMIT DATE: 09/06/2019 DATE OF SURGERY: 09/06/2019 PHYSICIAN: Lucy Haines MD SURGEON: Lucy Haines MD WATER POLLUTION SPECIALIST: Donte Hernandez PREOPERATIVE DIAGNOSIS: Degenerative joint disease, right knee. POSTOPERATIVE DIAGNOSIS: Degenerative joint disease, right knee. PROCEDURE: Right Total Knee Arthroplasty with the Mini-Subvastus Approach. TYPE OF ANESTHESIA: Spinal DESCRIPTION OF PROCEDURE: The patient was brought into the operating room and placed under spinal anesthetic. The right lower extremity was placed under tourniquet control, prepped and draped in a standard fashion. An anterior incision was created from the superior pole of the patella down to the tibial tubercle.This was taken down to the extensor mechanism. A mini- subvastus approach was used. The patella was slid laterally and a 9 mm drill was used to obtain access into the distal femur and proximal tibia. A 5 degree valgus cut was created off the distal femur and this was sized to 62.5. The anterior, posterior chamfer cuts were created. The intercondylar box cut was created. Attention was placed on the proximal tibia. An intermedullary alignment elinor was used to make a 90-90 cut off the superior aspect of the tibia. This was sized to a 67 component. A trial reduction showed excellent stability with a 12 poly trial. The patella reamed down for a XS patellar component. The tibia was finished off for an I-beam component. The bony cut surfaces were pulsatile evacuated. The cement was mixed and digitally pressurizedinto the tibia, femur and patella. As each component was placed, excess bone cement was removed. The knee was brought into full extension with a 12 poly trial to allow the cement to cure under compression. The knee was copiously irrigated. Electrocautery was used for hemostasis. A combination of Marcaine, epinephrine and morphine was injected outside the capsule. The final 12 poly was selected, placed and locked into position. The knee was taken through a stable range of motion. The extensor mec hanism was closed over a reinfusion drain with #1 Vicryl. The skin was reapproximated with 2-0 Vicryl and closed with les. A bulky dressing and Cryo-Cuff were applied. The patient was awakened and taken to recovery in stable condition. Drains: none EBL: Minimal Specimens Removed: None Disposition: PACU Complications: None Lucy Haines MD RONMENTAL CONSTRUCTION ENGINEER documented in this encounter Plan of Treatment Not on file documented as of this encounter Procedures Procedure Name Priority Date/Time Associated Diagnosis Comments HGB HCT PANEL AM Draw 09/08/2019 2:41 AM ENVIRONMENTAL CONSTRUCTION ENGINEER HGB HCT PANEL AM Draw 2019 2:39 AM ENVIRONMENTAL CONSTRUCTION ENGINEER ARTHROPLASTY TOTAL KNEE 09/06/2019 6:39 AM ENVIRONMENTAL CONSTRUCTION ENGINEER Special Needs BIOMET (HUGO) NOTIFIED-NB documented in this encounter Results * (ABNORMAL) HGB HCT PANEL (09/08/2019 2:41 AM ENVIRONMENTAL CONSTRUCTION ENGINEER) Hemoglobin 10.5(L) 12.0 - 15.6 gm/dL 09/08/2019 3:12 AM ENVIRONMENTAL CONSTRUCTION ENGINEER [facility] Hematocrit 32.6(L) 35.9 - 45.5 % 09/08/2019 3:12 AM ENVIRONMENTAL CONSTRUCTION ENGINEER [facility] Blood BLOOD SPECIMEN / Unknown Venipuncture / Unknown 09/08/2019 2:41 AM ENVIRONMENTAL CONSTRUCTION ENGINEER 09/08/2019 3:02 AM ENVIRONMENTAL CONSTRUCTION ENGINEER Lucy Haines MD LAB - HEMATOLOGY ORD ERABLES [facility] [address] [place] [address] * (ABNORMAL) HGB HCT PANEL (2019 2:39 AM ENVIRONMENTAL CONSTRUCTION ENGINEER) Hemoglobin 10.9(L) 12.0 - 15.6 gm/dL 2019 3:28 AM ENVIRONMENTAL CONSTRUCTION ENGINEER [facility] Hematocrit 34.9(L) 35.9 - 45.5 % 2019 3:28 AM ENVIRONMENTAL CONSTRUCTION ENGINEER [facility] Blood BLOOD SPECIMEN / Unknown Venipuncture / Unknown 2019 2:39 AM ENVIRONMENTAL CONSTRUCTION ENGINEER 2019 3:11 AM ENVIRONMENTAL CONSTRUCTION ENGINEER Lucy Haines MD LAB - HEMATOLOGY ORD ERABLES [facility] [address] [place] [address] documented in this encounter Visit Diagnoses Not on filedocumented in this encounter Administered Medications Inactive Administered Medications - up to 3 most recent administrations Medication Order MAR Action Action Date Dose Rate Site 0.9% NaCl injection 3 mL 3 mL, Intracatheter, EVERY 8 HOURS, First dose on Wed09/07/19 at 0600, Until Discontinued, Post-op $ Given 09/08/2019 6:11 AM ENVIRONMENTAL CONSTRUCTION ENGINEER 3 mL $ Given 2019 9:40 PM ENVIRONMENTAL CONSTRUCTION ENGINEER 3 mL $ Given 2019 3:54 PM ENVIRONMENTAL CONSTRUCTION ENGINEER 3 mL acetaminophen (TYLENOL) tablet 650 mg 650 mg, Oral, EVERY 4 HOURS PRN, Fever, Mild Pain, Starting on Wed09/06/19 at 1041, Until Wed09/08/19 at 1326, For temperature greater [id number] degress F or for mild pain., Post-op $ Given 2019 10:34 AM ENVIRONMENTAL CONSTRUCTION ENGINEER 650 mg $ Given 2019 6:56 AM ENVIRONMENTAL CONSTRUCTION ENGINEER 650 mg aspirin tablet 325 mg 325 mg, Oral, 2 TIMES DAILY WITH MEALS, 730 doses, First dose on Wed09/07/19 at 0800, Last dose on Wed09/05/20 at 1800, VTE prophlyaixs, post-op Knee, Post-op $ Given 09/08/2019 8:07 AM ENVIRONMENTAL CONSTRUCTION ENGINEER 325 mg $ Given 2019 6:22 PM ENVIRONMENTAL CONSTRUCTION ENGINEER 325 mg $ Given 2019 8:11 AM ENVIRONMENTAL CONSTRUCTION ENGINEER 325 mg atorvastatin (LIPITOR) tablet 80 mg 80 mg, Oral, DAILY, First dose on Wed09/06/19 at 2100, Until Discontinued $ Given 2019 9:37 PM ENVIRONMENTAL CONSTRUCTION ENGINEER 80 mg $ Given 09/06/2019 9:01 PM ENVIRONMENTAL CONSTRUCTION ENGINEER 80 mg bisacodyl (DULCOLAX) suppository 10 mg 10 mg, Rectal, DAILY PRN, Constipation, Starting on Wed09/07/19 at 0600, Until Wed09/08/19 at 1326, Not to be given night of surgery. Use MOM first. If MOM ineffective then use bisacodyl. If bisacodyl ineffective use Fleets enema. Use rectal if oral is ineffective, or patient is unable to take oral medications., Post-op bisacodyl EC (DULCOLAX) tablet 5 mg 5 mg, Oral, DAILY PRN, Constipation, Starting on Jolynn 09/07/19 at 0600, Until Wed09/08/19 at 1326, Not to be given night of surgery. Use MOM first. If MOM ineffective then use bisacodyl. If bisacodyl ineffective use Fleets enema., Post-op bupivacaine PF (MARCAINE PF) 0.25 % injection PRN, Starting on Wed09/06/19 at 0743, Until Wed09/06/19 at 0836, Intra-op $ Given 09/06/2019 7:43 AM ENVIRONMENTAL CONSTRUCTION ENGINEER 30 mL Ope rative Site celecoxib (CeleBREX) capsule 400 mg 400 mg, Oral, DAILY, First dose on Jolynn 09/07/19 at 0900, Until Discontinued, Post-op $ Given 09/08/2019 8:06 AM ENVIRONMENTAL CONSTRUCTION ENGINEER 400 mg $ Given 2019 8:11 AM ENVIRONMENTAL CONSTRUCTION ENGINEER 400 mg diphenhydrAMINE (BENADRYL) capsule 25 mg 25 mg, Oral, EVERY 8 HOURS PRN, Itching, Starting on Wed09/06/19 at 1041, Until Wed09/08/19 at 1326, Post-op diphenhydrAMINE (BENADRYL) capsule 50 mg 50 mg, Oral, EVERY 8 HOURS PRN, Itching, Starting on Wed09/06/19 at 1041, Until Wed09/08/19 at 1326, May give 50 mg if 25 mg is ineffective., Post-op famotidine (PEPCID) tablet 20 mg 20 mg, Oral, 2 TIMES DAILY PRN, Heartburn, Starting on Wed09/06/19 at 1041, Until Wed09/08/19 at 1326, Post-op HYDROcodone-acetaminophen (NORCO) 10-325 MG tablet 1 tablet 1 tablet, Oral, EVERY 4 HOURS PRN, Severe Pain, Starting on Wed09/06/19 at 1041, Until Wed09/08/19 at 1326, Post-op $ Given 09/08/2019 10:20 AM ENVIRONMENTAL CONSTRUCTION ENGINEER 1 tablet $ Given 09/06/2019 6:30 PM ENVIRONMENTAL CONSTRUCTION ENGINEER 1 tablet HYDROcodone-acetaminophen (NORCO) 5-325 MG tablet 1 tablet 1 tablet, Oral, EVERY 4 HOURS PRN, Moderate Pain, or for pain prior to painful procedures/therapy, Starting on Wed09/06/19 at 1041, Until Wed09/08/19 at 1326, Post-op $ Given 09/08/2019 6:11 AM ENVIRONMENTAL CONSTRUCTION ENGINEER 1 tablet $ Given 09/08/2019 2:20 AM ENVIRONMENTAL CONSTRUCTION ENGINEER 1 tablet $ Given 2019 10:29 PM ENVIRONMENTAL CONSTRUCTION ENGINEER 1 tablet hydrOXYzine hcl (ATARAX) tablet 10 mg 10 mg, Oral, EVERY 6 HOURS PRN, Anxiety, Starting on Wed09/07/19 at 0344, Until Wed09/08/19 at 1326 $ Given 2019 4:25 AM ENVIRONMENTAL CONSTRUCTION ENGINEER 10 mg loratadine (CLARITIN) tablet 10 mg 10 mg, Oral, DAILY, First dose on Wed09/06/19 at 1445, Until Discontinued $ Given 09/08/2019 8:07 AM ENVIRONMENTAL CONSTRUCTION ENGINEER 10 mg $ Given 2019 8:11 AM ENVIRONMENTAL CONSTRUCTION ENGINEER 10 mg losartan - hydroCHLOROthiazide (HYZAAR) 50-12.5 MG tablet 1 tablet 1 tablet, Oral, DAILY, First dose on Wed09/06/19 at 1345, Until Discontinued, Hold for sbp < 120 $ Given 09/08/2019 8:07 AM ENVIRONMENTAL CONSTRUCTION ENGINEER 1 tablet $ Given 2019 8:11 AM ENVIRONMENTAL CONSTRUCTION ENGINEER 1 tablet magnesium hydroxide (MILK OF MAGNESIA) suspension 30 mL 30 mL, Oral, PRN, Constipation, Starting on Wed09/07/19 at 0600, Until Wed09/08/19 at 1326, Use MOM first. If MOM ineffective then use bisacodyl. If bisacodyl ineffective use Fleets enema. Shake well before using., Post-op $ Given 2019 9:39 PM ENVIRONMENTAL CONSTRUCTION ENGINEER 30 mL morphine (PF) injection PRN, Starting on Wed09/06/19 at 0744, Until Wed09/06/19 at 0836, Intra-op $ Given 09/06/2019 7:44 AM ENVIRONMENTAL CONSTRUCTION ENGINEER 10 mg Ope rative Site naloxone (NARCAN) injection 0.2 mg 0.2 mg, Intravenous, PRN, Other, If unable to arouse patient or if respiratory depression is present., 4 doses, Starting on Wed09/06/19 at 0914, Until Wed09/08/19 at 1326, Mix 0.4 mg Naloxone in 9 mL Normal Saline for slow IV push. Administer dilute Naloxone solution IV very slowly (5 mL over 2 minutes) while observing the patient response and titrating to effect. If no response, call Rapid Response, continue IV Naloxone at the same rate up to a total of 0.8 mg or 20 mL of diluted Naloxone, and notify physician immediately. nicotine (NICODERM CQ) patch 21 mg 21 mg, Administer over 24 Hours, DAILY, First dose on Wed09/06/19 at 1345, Until Discontinued, Remove old patch before applying new patch. This patch may contain metal and is not compatible with MRI. Notify radiology of patch location upon arrival to MRI. . WASTE DISPOSAL INSTRUCTIONS: P-Listed item. Special Disposal Required. . $ Applied 09/08/2019 8:08 AM ENVIRONMENTAL CONSTRUCTION ENGINEER 21 mg Left Arm $ Applied 2019 8:13 AM ENVIRONMENTAL CONSTRUCTION ENGINEER 21 mg Ri ght Arm $ Applied 09/06/2019 1:29 PM ENVIRONMENTAL CONSTRUCTION ENGINEER 21 mg Le ft Arm ondansetron (ZOFRAN) injection 4 mg 4 mg, Intravenous, EVERY 6 HOURS PRN, Nausea/Vomiting, Starting on Jolynn 09/07/19 at 0830, Until Wed09/08/19 at 1326, May repeat x1 if no relief for total of 8 mg., Post-op polymyxin B 500,000 Units, bacitracin 50,000 Units in NaCl 0.9 % 1,000 mL irrigation PRN, Starting on Wed09/06/19 at 0744, Until Wed09/06/19 at 0836, Intra-op $ Given 09/06/2019 7:44 AM ENVIRONMENTAL CONSTRUCTION ENGINEER Operative Site pseudoephedrine CR 12hr (SUDAFED) tablet 120 mg 120 mg, Oral, EVERY 12 HOURS PRN, Nasal Congestion, Starting on Wed09/06/19 at 1402, Until Wed09/08/19 at 1326, Do not crush, chew, or cut in half. senna-docusate (SENOKOT-S) tablet 1 tablet 1 tablet, Oral, 2 TIMES DAILY, First dose on Wed09/06/19 at 2100, Until Discontinued, Post-op $ Given 09/08/2019 8:07 AM ENVIRONMENTAL CONSTRUCTION ENGINEER 1 tablet $ Given 2019 9:38 PM ENVIRONMENTAL CONSTRUCTION ENGINEER 1 tablet $ Given 2019 8:11 AM ENVIRONMENTAL CONSTRUCTION ENGINEER 1 tablet sodium phosphate rectal (FLEET SALINE) enema 133 mL 133 mL (1 enema), Rectal, PRN, Constipation, Starting on Wed09/07/19 at 0600, Until Wed09/08/19 at 1326, Use MOM first. If MOM ineffective then use bisacodyl. If bisacodyl ineffective use Fleets enema., Post-op vancomycin (VANCOCIN) injection PRN, Starting on Wed09/06/19 at 0744, Until Wed09/06/19 at 0836, Intra-op $ Given 09/06/2019 7:44 AM ENVIRONMENTAL CONSTRUCTION ENGINEER 500 mg Right Knee zolpidem (AMBIEN) tablet 5 mg 5 mg, Oral, AT BEDTIME PRN, Insomnia, Starting on Wed09/07/19 at 2000, Until Wed09/08/19 at 1326, Not to be given the night of surgery, Post-op documented in this encounter Active and Recently Administered Medications Times are shown in ENVIRONMENTAL CONSTRUCTION ENGINEER. Scheduled Medication Order 09/06/2019 2019 09/08/2019 0.9% NaCl injection 3 mL 3 mL, Intracatheter, EVERY 8 HOURS, First dose on Wed09/07/19 at 0600, Until Discontinued, Post-op 0436 ($ Given - Provider: Rose Gil RN)1554 ($ Given - Provider: Briana Franco RN)2140 ($ Given - Provider: Rose Gil RN) 0611 ($ Given - Provider: Rose Gil RN) acetaminophen (TYLENOL) tablet 1,000 mg (COMPLETED) 1,000 mg, Oral, PRE-OP ONCE, 1 dose, On Wed09/06/19 at 0600, For patients >50 Kg. Not for bariatric or cardiac patients., Pre-op 0604 ($ Given - Provider: Evita Medrano RN) aspirin tablet 325 mg 325 mg, Oral, 2 TIMES DAILY WITH MEALS, 730 doses, First dose on Wed09/07/19 at 0800, Last dose on Wed09/05/20 at 1800, VTE prophlyaixs, post-op Knee, Post-op 0811 ($ Given - Provider: Briana Franco RN)1822 ($ Given - Provider: Briana Franco RN) 0807 ($ Given - Provider: Shawna Mcmahon, KHALIDA) atorvastatin (LIPITOR) tablet 80 mg 80 mg, Oral, DAILY, First dose on Wed09/06/19 at 2100, Until Discontinued 2100 ($ Given - Provider: Rose Gil RN) 2136 ($ Given - Provider: Rose Gil RN) ceFAZolin (ANCEF) 1,000 mg in 50 ml IVPB (COMPLETED) 1,000 mg (1 g), at 100 mL/hr, Intravenous, EVERY 8 HOURS, 2 doses, First dose on Wed09/06/19 at 1300, Last dose on Wed09/06/19 at 2100, Give first dose 6 hours after last dose in surgery. Last dose to be completed within 24 hours of close of incision., Indication for anti-infective therapy: Surgical prophylaxis, Post-op 1229 ($ New Bag/Syringe - Provider: Briana Franco RN)1322 (Stopped - Provider: Briana Franco RN)2111 ($ New Bag/Syringe - Provider: Rose Gil RN)2210 (Stopped - Provider: Rose Gil RN) ceFAZolin (ANCEF) syringe 2,000 mg (COMPLETED) 2,000 mg (2 g), Intravenous, PRE-OP MULTIPLE, 1 dose, Starting on Wed09/06/19 at 0556, Until Wed09/06/19 at 0704, Administer 30 minutes prior to surgical incision. May repeat dose in 3 hours if surgical incision is not yet closed. Administer over 3-5 minutes., Indication for anti-infective therapy: Surgical prophylaxis, Pre-op 0704 ($ Given - Provider: Jason Ward APRN-ROPEMAN) celecoxib (CeleBREX) capsule 400 mg (COMPLETED) 400 mg, Oral, PRE-OP ONCE, 1 dose, On Wed09/06/19 at 0600, Pre-op 0604 ($ Given - Provider: Evita Medrano RN) celecoxib (CeleBREX) capsule 400 mg 400 mg, Oral, DAILY, First dose on Wed09/07/19 at 0900, Until Discontinued, Post-op 0811 ($ Given - Provider: Briana Franco RN) 0806 ($ Given - Provider: Shawna Mcmahon RN) ePHEDrine injection 50 mg (COMPLETED) 50 mg, Intramuscular, ONCE, 1 dose, On Wed09/06/19 at 1000 0936 ($ Given - Provider: Viri Holland RN) lidocaine buffered 1 % injection 0.5 mL (COMPLETED) 0.5 mL, Infiltration, PRE-OP ONCE, 1 dose, On Wed09/06/19 at 0600, May be used (0.5 ml locally to anesthetize prior to insertion). For patients not allergic to local anesthetics., Pre-op 0605 ($ Given - Provider: Evita Medrano RN) loratadine (CLARITIN) tablet 10 mg 10 mg, Oral, DAILY, First dose on Wed09/06/19 at 1445, Until Discontinued 1431 (Not Administered - Provider: Briana Franco RN - Reason: Refused-Patient) 0811 ($ Given - Provider: Briana Franco RN) 0807 ($ Given - Provider: Shawna Mcmahon RN) losartan - hydroCHLOROthiazide (HYZAAR) 50-12.5 MG tablet 1 tablet 1 tablet, Oral, DAILY, First dose on Wed09/06/19 at 1345, Until Discontinued, Hold for sbp < 120 2101 (Not Administered - Provider: Briana Franco RN - Reason: Refused-Patient) 0811 ($ Given - Provider: Briana Franco RN) 0807 ($ Given - Provider: Shawna Mcmahon RN) nicotine (NICODERM CQ) patch 21 mg 21 mg, Administer over 24 Hours, DAILY, First dose on Wed09/06/19 at 1345, Until Discontinued, Remove old patch before applying new patch. This patch may contain metal and is not compatible with MRI. Notify radiology of patch location upon arrival to MRI. . WASTE DISPOSAL INSTRUCTIONS: P-Listed item. Special Disposal Required. . 1329 ($ Applied - Provider: Briana Franco RN) 0812 (Removed - Provider: Briana Franco RN)0813 ($ Applied - Provider: Briana Franco RN) 0807 (Removed - Provider: Shawna Mcmahon RN)0808 ($ Applied - Provider: Shawna Mcmahon RN) ondansetron (ZOFRAN) injection 4 mg (COMPLETED)(Linked Group 1) 4 mg, Intravenous, EVERY 6 HOURS, 3 doses, First dose on Wed09/06/19 at 1430, Last dose on Wed09/07/19 at 0230, Administer over 2 to 5 minutes., Post-op 1431 ($ Given - Provider: Briana Franco RN)2102 ($ Given - Provider: Rose Gil RN) 0334 ($ Given - Provider: Rose Gil RN) oxyCODONE CR 12hr (OxyCONTIN) tablet 10 mg () 10 mg, Oral, EVERY 12 HOURS, 2 doses, First dose on Wed09/06/19 at 2100, Last dose on Wed09/07/19 at 0900, Administer 10 hours post-op and morning of POD# Do not crush, chew, or cut in half., Post-op 033 (Not Administered - Provider: Rose Gil RN - Reason: Refused-Patient)0811 ($ Given - Provider: Briana Franco RN) oxyCODONE CR 12hr (OxyCONTIN) tablet 20 mg (COMPLETED) 20 mg, Oral, PRE-OP ONCE, 1 dose, On Wed09/06/19 at 0600, Do not crush, chew, or cut in half., Pre-op 0604 ($ Given - Provider: Evita Medrano RN) povidone-iodine (BETADINE) 5 % solution (COMPLETED) Nasal, PRE-OP ONCE, 1 dose, On Wed09/06/19 at 0615, Pre-op 0624 ($ Given - Provider: Evita Medrano RN) scopolamine (TRANSDERM-SCOP) 1 patch(Linked Group 2) 1 patch, Administer over 72 Hours, PRE-OP ONCE, 1 dose, On Wed09/06/19 at 0600, Apply patch behind the ear, do not cut patch, only 1 patch should be worn at a time and remove old patch before applying new patch.This patch may contain metal and is not compatible with MRI. Notify radiology of patch location upon arrival to MRI. Each patch contains 1.5 mg scopolamine base and is formulated to deliver 1 mg of scopolamine over 72 hours. 0604 ($ Applied - Provider: Evita Medrano RN) senna-docusate (SENOKOT-S) tablet 1 tablet 1 tablet, Oral, 2 TIMES DAILY, First dose on Wed09/06/19 at 2100, Until Discontinued, Post-op 2101 ($ Given - Provider: Rose Gil RN) 0811 ($ Given - Provider: Briana Franco RN)2138 ($ Given - Provider: Rose Gil RN) 0807 ($ Given - Provider: Shawna Mcmahon RN) Continuous Medication Order 09/06/2019 2019 09/08/2019 lactated ringers infusion (CANCELED) at 20 mL/hr, Intravenous, PRE-OP CONTINUOUS, Starting on Wed09/06/19 at 0600, Until Wed09/06/19 at 1037, Pre-op 0605 ($ New Bag/Syringe - Provider: Evita Medrano RN)0811 ($ New Bag/Syringe - Provider: Jason Ward APRN-ROPEMAN)0827 (Anesthesia Volume Adjustment - Provider: Jason Ward APRN-ROPEMAN) lactated ringers infusion (CANCELED) at 100 mL/hr, Intravenous, CONTINUOUS, Starting on Wed09/06/19 at 1045, Until Jolynn 09/07/19 at 1036, Post-op 1116 ($ New Bag/Syringe - Provider: Briana Franco RN)2354 ($ New Bag/Syringe - Provider: Rose Gil RN) morphine 1 mg/ml FINISHER WALLBOARD AND PLASTERBOARD (CANCELED) FINISHER WALLBOARD AND PLASTERBOARD Dose: 1 mg, FINISHER WALLBOARD AND PLASTERBOARD Lockout Interval: 12 Minutes, One Hour Limit\Max Limit: 5 mg, Clinician Bolus (Load): Not Ordered, Intravenous, FINISHER WALLBOARD AND PLASTERBOARD, Starting on Wed09/06/19 at 0945, Until Jolynn 09/07/19 at 1036, FINISHER WALLBOARD AND PLASTERBOARD Pump Therapy: Normal Risk (FINISHER WALLBOARD AND PLASTERBOARD only) 0925 ($ New Bag/Syringe - Provider: Viri Holland, KHALIDA) PRN Medication Order 09/06/2019 2019 09/08/2019 acetaminophen (TYLENOL) tablet 650 mg 650 mg, Oral, EVERY 4 HOURS PRN, Fever, Mild Pain, Starting on Wed09/06/19 at 1041, Until Wed09/08/19 at 1326, For temperature greater [id number] degress F or for mild pain., Post-op 0656 ($ Given - Provider: Rose Gil RN)1034 ($ Given - Provider: Briana Franco RN) bisacodyl (DULCOLAX) suppository 10 mg(Linked Group 3) 10 mg, Rectal, DAILY PRN, Constipation, Starting on Jolynn 09/07/19 at 0600, Until Wed09/08/19 at 1326, Not to be given night of surgery. Use MOM first. If MOM ineffective then use bisacodyl. If bisacodyl ineffective use Fleets enema. Use rectal if oral is ineffective, or patient is unable to take oral medications., Post-op 2138 (See Alternative - Provider: Rose Gil RN) bisacodyl EC (DULCOLAX) tablet 5 mg(Linked Group 3) 5 mg, Oral, DAILY PRN, Constipation, Starting on Jolynn 09/07/19 at 0600, Until Wed09/08/19 at 1326, Not to be given night of surgery. Use MOM first. If MOM ineffective then use bisacodyl. If bisacodyl ineffective use Fleets enema., Post-op 2138 (See Alternative - Provider: Rose Gil RN) bupivacaine PF (MARCAINE PF) 0.25 % injection (CANCELED) PRN, Starting on Wed09/06/19 at 0743, Until Wed09/06/19 at 0836, Intra-op 0743 ($ Given - Provider: Lucy Haines MD - Comment: mixed with 10 mg of Morphine Sulfate) diphenhydrAMINE (BENADRYL) capsule 25 mg(Linked Group 4) 25 mg, Oral, EVERY 8 HOURS PRN, Itching, Starting on Wed09/06/19 at 1041, Until Wed09/08/19 at 1326, Post-op diphenhydrAMINE (BENADRYL) capsule 50 mg(Linked Group 4) 50 mg, Oral, EVERY 8 HOURS PRN, Itching, Starting on Wed09/06/19 at 1041, Until Wed09/08/19 at 1326, May give 50 mg if 25 mg is ineffective., Post-op famotidine (PEPCID) tablet 20 mg 20 mg, Oral, 2 TIMES DAILY PRN, Heartburn, Starting on Wed09/06/19 at 1041, Until Wed09/08/19 at 1326, Post-op HYDROcodone-acetaminop hen (NORCO) 10-325 MG tablet 1 tablet 1 tablet, Oral, EVERY 4 HOURS PRN, Severe Pain, Starting on Wed09/06/19 at 1041, Until Wed09/08/19 at 1326, Post-op 1830 ($ Given - Provider: Briana Franco RN) 1020 ($ Given - Provider: Shawna Mcmahon RN) HYDROcodone-acetaminop hen (NORCO) 5-325 MG tablet 1 tablet 1 tablet, Oral, EVERY 4 HOURS PRN, Moderate Pain, or for pain prior to painful procedures/therapy, Starting on Wed09/06/19 at 1041, Until Wed09/08/19 at 1326, Post-op 1238 (Not Administered - Provider: Briana Franco RN - Reason: See Comments - Comment: gave toradol)1326 ($ Given - Provider: Briana Franco RN)2351 ($ Given - Provider: Rose Gil RN) 1244 ($ Given - Provider: Briana Franco RN)1822 ($ Given - Provider: Briana Franco RN)2229 ($ Given - Provider: Rose Gil RN) 0220 ($ Given - Provider: Rose Gil RN)0611 ($ Given - Provider: Rose Gil RN) hydrOXYzine hcl (ATARAX) tablet 10 mg 10 mg, Oral, EVERY 6 HOURS PRN, Anxiety, Starting on Wed09/07/19 at 0344, Until Wed09/08/19 at 1326 0425 ($ Given - Provider: Rose Gil RN) ketorolac (TORADOL) injection 15 mg () 15 mg, Intravenous, EVERY 6 HOURS PRN, Moderate Pain, Starting on Wed09/06/19 at 1041, Until Wed09/07/19 at 1040, For breakthrough pain in between narcotic doses, , Post-op 1237 ($ Given - Provider: Briana Franco RN)2103 ($ Given - Provider: Rose Gil RN) 0334 ($ Given - Provider: Rose Gil RN) magnesium hydroxide (MILK OF MAGNESIA) suspension 30 mL(Linked Group 3) 30 mL, Oral, PRN, Constipation, Starting on Wed09/07/19 at 0600, Until Wed09/08/19 at 1326, Use MOM first. If MOM ineffective then use bisacodyl. If bisacodyl ineffective use Fleets enema. Shake well before using., Post-op 2138 ($ Given - Provider: Rose Gil RN) morphine (PF) injection (CANCELED) PRN, Starting on Wed09/06/19 at 0744, Until Wed09/06/19 at 0836, Intra-op 0744 ($ Given - Provider: Lucy Haines MD) naloxone (NARCAN) injection 0.2 mg 0.2 mg, Intravenous, PRN, Other, If unable to arouse patient or if respiratory depression is present., 4 doses, Starting on Wed09/06/19 at 0914, Until Wed09/08/19 at 1326, Mix 0.4 mg Naloxone in 9 mL Normal Saline for slow IV push. Administer dilute Naloxone solution IV very slowly (5 mL over 2 minutes) while observing the patient response and titrating to effect. If no response, call Rapid Response, continue IV Naloxone at the same rate up to a total of 0.8 mg or 20 mL of diluted Naloxone, and notify physician immediately. ondansetron (ZOFRAN) injection 4 mg(Linked Group 1) 4 mg, Intravenous, EVERY 6 HOURS PRN, Nausea/Vomiting, Starting on Jolynn 09/07/19 at 0830, Until Wed09/08/19 at 1326, May repeat x1 if no relief for total of 8 mg., Post-op polymyxin B 500,000 Units, bacitracin 50,000 Units in NaCl 0.9 % 1,000 mL irrigation (CANCELED) PRN, Starting on Wed09/06/19 at 0744, Until Wed09/06/19 at 0836, Intra-op 0744 ($ Given - Provider: Lucy Haines MD) pseudoephedrine CR 12hr (SUDAFED) tablet 120 mg 120 mg, Oral, EVERY 12 HOURS PRN, Nasal Congestion, Starting on Wed09/06/19 at 1402, Until Wed09/08/19 at 1326, Do not crush, chew, or cut in half. sodium phosphate rectal (FLEET SALINE) enema 133 mL(Linked Group 3) 133 mL (1 enema), Rectal, PRN, Constipation, Starting on Jolynn 19 at 0600, Until Wed09/08/19 at 1326, Use MOM first. If MOM ineffective then use bisacodyl. If bisacodyl ineffective use Fleets enema., Post-op 2138 (See Alternative - Provider: Rose Gil RN) vancomycin (VANCOCIN) injection (CANCELED) PRN, Starting on Wed09/06/19 at 0744, Until Wed09/06/19 at 0836, Intra-op 0744 ($ Given - Provider: Lucy Haines MD - Comment: sprinkled into wound prior to closure) zolpidem (AMBIEN) tablet 5 mg 5 mg, Oral, AT BEDTIME PRN, Insomnia, Starting on Wed09/07/19 at 2000, Until Wed09/08/19 at 1326, Not to be given the night of surgery, Post-op Linked Groups Order Group 1: ondansetron (ZOFRAN) injection 4 mg (COMPLETED)Jump to med 4 mg, Intravenous, EVERY 6 HOURS, 3 doses, First dose on Wed09/06/19 at 1430, Last dose on Wed09/07/19 at 0230, Administer over 2 to 5 minutes., Post-op Followed by ondansetron (ZOFRAN) injection 4 mgJump to med 4 mg, Intravenous, EVERY 6 HOURS PRN, Nausea/Vomiting, Starting on Wed09/07/19 at 0830, Until Wed09/08/19 at 1326, May repeat x1 if no relief for total of 8 mg., Post-op Group 2: scopolamine (TRANSDERM-SCOP) 1 patchJump to med 1 patch, Administer over 72 Hours, PRE-OP ONCE, 1 dose, On Wed09/06/19 at 0600, Apply patch behind the ear, do not cut patch, only 1 patch should be worn at a time and remove old patch before applying new patch.This patch may contain metal and is not compatible with MRI. Notify radiology of patch location upon arrival to MRI. Each patch contains 1.5 mg scopolamine base and is formulated to deliver 1 mg of scopolamine over 72 hours. And scopolamine patch placement confirmation (CANCELED) Transdermal, 2 TIMES DAILY, First dose on Wed09/06/19 at 0900, Until Discontinued, Patient has a patch to be confirmed on transition to inpatient and 2 times daily., Pre-op Group 3: magnesium hydroxide (MILK OF MAGNESIA) suspension 30 mLJump to med 30 mL, Oral, PRN, Constipation, Starting on Jolynn 09/07/19 at 0600, Until Wed09/08/19 at 1326, Use MOM first. If MOM ineffective then use bisacodyl. If bisacodyl ineffective use Fleets enema. Shake well before using., Post-op Or bisacodyl EC (DULCOLAX) tablet 5 mgJump to med 5 mg, Oral, DAILY PRN, Constipation, Starting on Jolynn 09/07/19 at 0600, Until Wed09/08/19 at 1326, Not to be given night of surgery. Use MOM first. If MOM ineffective then use bisacodyl. If bisacodyl ineffective use Fleets enema., Post-op Or bisacodyl (DULCOLAX) suppository 10 mgJump to med 10 mg, Rectal, DAILY PRN, Constipation, Starting on Jolynn 09/07/19 at 0600, Until Wed09/08/19 at 1326, Not to be given night of surgery. Use MOM first. If MOM ineffective then use bisacodyl. If bisacodyl ineffective use Fleets enema. Use rectal if oral is ineffective, or patient is unable to take oral medications., Post-op Or sodium phosphate rectal (FLEET SALINE) enema 133 mLJump to med 133 mL (1 enema), Rectal, PRN, Constipation, Starting on Jolynn 09/07/19 at 0600, Until Wed09/08/19 at 1326, Use MOM first. If MOM ineffective then use bisacodyl. If bisacodyl ineffective use Fleets enema., Post-op Group 4: diphenhydrAMINE (BENADRYL) capsule 25 mgJump to med 25 mg, Oral, EVERY 8 HOURS PRN, Itching, Starting on Wed09/06/19 at 1041, Until Wed09/08/19 at 1326, Post-op Or diphenhydrAMINE (BENADRYL) capsule 50 mgJump to med 50 mg, Oral, EVERY 8 HOURS PRN, Itching, Starting on Wed09/06/19 at 1041, Until Wed09/08/19 at 1326, May give 50 mg if 25 mg is ineffective., Post-op documented in this encounter
--- OUTSIDE RECORDS SUMMARY | 2024-10-27 00:38 | XMS_ITS | Encounter Summary ---
Author Organization [facility] Address [address] [place] [address] Care Team Providers Care Orchid Worker Name Role Phone Unavailable Primary Care Provider Unavailabl e Reason for Visit * Reason Comments Post-Op 3 week follow up / R ight TKA 09/06/19 Encounter Details Date Type Department Care Team (Late st Contact Info) Description 09/26/2019 2:30 PM CAREER DEVELOPMENT ASSOCIATE Office Visit [facility] [id number] [id number] [place] [id number] [address] Aftercare following right knee joint replacement surgery [...] this encounter Patient Instructions * Patient Instructions* Xuan Valerio - 09/26/2019 2:22 PM CAREER DEVELOPMENT ASSOCIATE Please call the office with any questions or concerns. ER DEVELOPMENT ASSOCIATE documented in this encounter Progress Notes * Erma Hernandez PA-C - 09/27/2019 12:28 PM CST Total Knee Post -op Followup Three Weeks History: Teresa Espinosa is three weeks status post right total knee arthroplasty. She is doing well. She was hospitalized for 4 days due to an oral abscess. She is on clindamycin currently for this. Patient is currently taking 1-325 mg aspirin twice per day for DVT prophylaxis. Pain is being managed by tylenol. Home physical therapy is complete. Current Outpatient Medications Medication Sig Dispense Refill ??? aspirin (ASPIRIN) 325 MG tablet Take 1 tablet by mouth 2 times daily with morning and evening meal for 42 days Take for blood clot prevention. 0 ??? atorvastatin (LIPITOR) 80 MG tablet Take 80 mg by mouth once daily ??? clindamycin (CLEOCIN) 300 MG capsule Take 300 mg by mouth ??? hydrOXYzine hcl (ATARAX) 25 MG tablet Take 25 mg by mouth every 8 hours as needed ??? losartan - hydroCHLOROthiazide (HYZAAR) 50-12.5 MG tablet Take 1 tablet by mouth once daily ??? meloxicam (MOBIC) 15 MG tablet Take 15 mg by mouth once daily ??? metroNIDAZOLE (FLAGYL) 500 MG tablet ??? Multiple Vitamins-Minerals (ONE-A-DAY WOMENS 50+ ADVANTAGE PO) Take by mouth once daily ??? saccharomyces (FLORASTOR) 250 MG capsule Take 250 mg by mouth 2 times daily No current facility-administered medications for this visit. Physical Examination: On examination today, she is able to ambulate using a cane. Her right knee incision is well healed, with no erythema, drainage, or evidence of infection with a small effusion. Active range of motion today is 0 degrees to 105. No varus or valgus instability is present. Impression: S/P right total knee arthroplasty. Plan: We will see her back in the office in three weeks for routine follow up x- rays. Patient should continue with home physical therapy exercises. Patient will continue to take 1-325 mg aspirin twice per day until 6 weeks from the date of surgery. Patient is to call with any concerns or issues prior to the next visit. Patient educated and given handout on additional exercises to obtain better fle xion/extension and demonstrated understanding of the current plan. No orders of the defined types were placed in this encounter. Erma Hernandez PA-C ER DEVELOPMENT ASSOCIATE * Xuan Valerio - 09/26/2019 2:21 PM CST 3 week follow up / Right TKA 09/06/19 ER DEVELOPMENT ASSOCIATE documented in this encounter Plan of Treatment Not on file documented as of this encounter Visit Diagnoses Diagnosis Aftercare following right knee joint replacement surgery- Primary documented in this encounter
--- OUTSIDE RECORDS SUMMARY | 2024-10-27 00:38 | XMS_ITS | Encounter Summary ---
Author Organization [facility] Address [address] [place] [address] Care Team Providers Care Television Newscast Director Name Role Phone Unavailable Primary Care Provider Unavailabl e Encounter Details Date Type Department Care Team (Latest Contact Info) Description 10/26/2019 11:45 AM ANNOUNCER Ancillary Procedure [facility] Orthopedics - Radiology [address] [place] [address] Dank Block PA-C [id number] [facility] [address] [place] [address] Aftercare following right knee joint replacement surgery Social History Tobacco Use Types Packs/Day Years [...] No 09/06/2019 documented as of this encounter Plan of Treatment Not on file documented as of this encounter Procedures Procedure Name Priority Date/Time Associated Diagnosis Comments XR KNEE RIGHT 3VW Routine 10/26/2019 11: 42 AM ANNOUNCER Aftercare following right knee joint replacement surgery documented in this encounter Results * XR KNEE RIGHT 3VW (10/26/2019 11:42 AM ANNOUNCER) Anatomical Region Laterality Modality Lower Extremity Computed Radiogr aphy Narrative 10/26/2019 11:46 AM ANNOUNCER Armida Frnaco ? 11/03/2019 ??4:07 PM Please see progress notes for result. Dank Block PA-C DIAGNOSTIC IMAGING ORDERABLES documented in this encounter Visit Diagnoses Diagnosis Aftercare following right knee joint replacement surgery documented in this encounter
--- OUTSIDE RECORDS SUMMARY | 2024-10-27 00:38 | XMS_ITS | Encounter Summary ---
Author Organization [facility] Health Address [facility] [place] [address] Care Team Providers Care Crinkling Machine Operator Name Role Phone Unavailable Primary Care Provider Unavailabl e Encounter Details Date Type Department Care Team (Latest Contact Info) Description 08/16/2019 9:40 AM CDT - 08/16/2019 11:59 PM CDT Hospital Encounter [facility] Pret[facility] Center [address] [place] [address] [place] [address] [place] [address] Discharge Disposition: Home or Self Care Social [...] Sign Reading Time Taken Comments Blood Pressure 122/85 08/16/2019 10:51 AM CDT Pulse 92 08/16/2019 11:13 AM CDT Temperature - - Respiratory Rate - - Oxygen Saturation 94% 08/16/2019 10:51 AM CDT Inhaled Oxygen Concentration - - Weight 73.7 kg (162 lb 6.4 oz) 08/16/2019 10:43 AM CDT Height 158.1 cm (5' 2.25 ) 08/16/2019 10:43 AM C DT Body Mass Index 29.47 08/16/2019 10:43 AM CDT documented in this encounter Discharge Instructions * Patient Instructions* Emily Pop, AQUATIC CENTRE MANAGER-LEAD PRESS OPERATOR - 08/16/2019 10:38 AM CDT Quitting smoking is the single best thing that you can do to improve your health. If you would like to schedule an appointment in our Smoking Cessation Clinic with our Tobacco Machine Riveter RN, please give us a call anytime at [phone]. As we discussed, please follow-up with your dentist tomorrow to evaluate for a dental infection. Ifyou have any signs of dental infection as your surgery approaches and/or are put on antibiotics by your dental provider, please be sure to notify Dr. Haines's office. It was nice meeting you today! Pre-Surgery Nasal Screening [facility] is dedicated to providing you with excellent care. Patient safety is our top priority and we are committed to delivering best practices to ensure your protection during the pre and post-surgical timeframe. Bacteria both inside and outside the hospital can cause infection. Two germs of particular concern are Multidrug-Resistant Staphylococcus Aureus (MRSA) and Methicillin-Sensitive Staphylococcus Aureus(MSSA). These germs can cause infection, but it also can live in or on the body without causing anysymptoms. MSSA also is very common, and is found on the skin or in the nose. To identify and properly manage MRSA or MSSA, we obtain a nasal swab for culture from all patients before surgery. The culture will identify if any MRSA or MSSA is present in your nose so that it can be treated before yoursurgery. If MRSA or MSSA is identified, you will be notified by our office. You will be called ONLY if the test is positive, and instructed to do the following treatment: 1. A topical antibiotic nasal ointment will be prescribed for you. This ointment is commonly referred to as Mupirocin or Bactroban. Apply this ointment to the inside of both your nares (nostrils) with a cotton swab (Q-tip) TWICE daily for 5 days. The office staff will go over the specific instructions with you. 2. You were provided a bottle of Chlorhexidine (Hibiclens) at the time of your preadmission testingvisit. To effectively treat the MRSA/MSSA you need to shower daily for 5 days using the Chlorhexidine from the neck down. The bottle provided will last 5 days, so you will want to pick one up from your local pharmacy. If you are allergic to, you may use liquid antibacterial soap such as Dial. These measures can reduce the potential for infection in your incision following your surgery. If you have any questions, you may call us or your surgeons office. Thank you for trusting [facility] with your care as we strive to achieve exceptional patient outcomes. [facility] Incentive Spirometer OVERIVEW The following provides an overview of how you will use the spirometer after your surgery. Our goal is for you to become familiar with usage prior to your surgery date, as this improves the ability touse properly. Please attempt to use 2-3 times daily in the week leading up to your surgery date. DO NOT bring this spirometer with you the day of surgery, as you will be provided a new one after your surgery. Using your incentive spirometer after surgery will help your lungs clear and will help keep your lungs active throughout the recovery process, as if you were performing your daily activities. How to use the incentive spirometer: 1. Sit on the edge of your bed if possible, or sit up as far as you can in bed. 2. Hold the incentive spirometer in an upright position. 3. Place the mouthpiece in your mouth and seal your lips tightly around it. 4. Breathe in slowly and as deeply as possible. Notice the yellow piston rising toward the top of the column. The yellow indicator should reach the blue outlined area. 5. Hold your breath as long as possible. Then exhale slowly and allow the piston to fall to fall tothe bottom of the column. 6. Rest for a few seconds and repeat steps one to 5 at least 10 times every hour. 7. Position the yellow indicatior on the left side of the spirometer to show your best effort. Use the indicator as a goal to work toward during each slow deep breath. 8. After each set of 10 deep breaths. Cough to be sure your lungs are clear. If you have an incision, support your incision when coughing by placing a pillow firmly against it. 9. Once you are able to get out of bed safely, take frequent walks and practice the cough. documented in this encounter Medications at Time [...] for blood clot prevention. 0 09/08/2019 10/20/2019 clindamycin (CLEOCIN) 300 MG capsule 08/24/2019 09/08/2019 HYDROcodone-acetaminophen (NORCO) 5-325 MG tablet Take 1 tablet by mouth every 6 hours as needed 28 tablet 2019 09/26/2019 HYDROcodone-acetaminophen (NORCO) 5-325 MG tablet 02/07/201908/19 documented as of this encounter Progress Notes * Nereida Nieto RN - 08/16/2019 12:25 PM CDT Pre-operative labs faxed to PCP office via [facility] for presurgical review and continuity/coordination of care. * Emily Pop APRN-CNP - 08/16/2019 10:38 AM CDT PRESURGICAL OPTIMIZATION EVALUATION Patient Name: Teresa Espinosa : 1960 SUBJECTIVE: Teresa Espinosa is a 58 year old y.o. female presenting to the Presurgical Optimization Clinic. She is scheduled for the followin09/06/19 RIGHT TOTAL KNEE ARTHROPLASTY Edward Haines MD Denies any problems with anesthesia in the past. Denies any family history of anesthetic complications. HTN/HLD -compliant with losartan-hctz and atorvastatin daily -BP 122/85 here today -managed by PCP Current Smoker 1 ppd (40 pack years) -patient endorses daily cough, sometimes productive of clear sputum. Denies change in color or amount of sputum currently Patient completes the following Willingness to Quit smoking tool as outlined below: Question Strongly Disagree Disagree Neutral Agree Strongly Agree If I could quit smoking, I would. X I want to quit smoking because I worry about how smoking affects my health. X I would be willing to make a plan to quit smoking. X I would be willing to cut down my number of cigarettes before quitting. X -ADVISED TO QUIT SMOKING -Offered/encouraged patient to make an appointment in our Smoking Cessation Clinic with our TobaccoTreatment Specialist RN; patient declines. -Contact information, including telephone number, for the Smoking Cessation Clinic was provided to patient. Discussed with patient that he/she may call at anytime in order to schedule an appointment either pre- and/or post- surgery as desired. Patient endorses recent URI approximately 4 weeks ago. Had symptoms of nasal congestion, worsening cough with sputum, and felt feverish one day. She states these symptoms are 100% resolved at presentand she denies current fever/chills. Patient also endorses recent dental infection. She reports having a tooth pulled in April 2019 and has had issues with recurrent infection since that time. She was treated with 7 days of clindamycin approximately 2 weeks ago. She states symptoms resolved but she awoke this morning with a toothache. She sees her dentist tomorrow for follow-up and routine cleaning. I advised patient to have dentist evaluate and treat dental infection if present and advised her to notify Dr. Haines of any persistent symptoms of dental infection prior to upcoming surgery. Patient denies history of asthma, COPD, PE, AURA, CAD, CHF, heart murmur, heart arrhythmia, cardiac devices, stroke, seizure, neuromuscular disease, bleeding/clotting disorder, diabetes, thyroid disease, kidney disease, liver disease. PCP is Dr.Rajneesh Riley Review of Systems: Denies chest pain, palpitations, irregular heart beat, syncope, BECKETT, orthopnea, PND, or swelling ofthe feet or ankles. No cough, wheezing or shortness of breath Denies rash, open or unhealed sores and lesions Infrequent reflux, uses Tums prn Functional Status Assessment: METS (Metabolic Equivalents of Task) Score: > or equal to 4 METs Patient does her own shopping with no chest pain or shortness of breath limiting her activity. PMH: Past Medical History: Diagnosis Date ??? Essential hypertension ??? Pure hypercholesterolemia PSH: Past Surgical History: Procedure Laterality Date ??? Hysterectomy Allergies: Allergies Allergen Reactions ??? Pcn [Penicillins] Unknown ??? Sulfa Drugs Unknown Current Medications: Outpatient Medications Marked as Taking for the 08/16/19 encounter (Hospital Encounter) with [facility] OPTIMIZATION Medication Sig ??? atorvastatin (LIPITOR) 80 MG tablet Take 80 mg by mouth once daily ??? losartan - hydroCHLOROthiazide (HYZAAR) 50-12.5 MG tablet Take 1 tablet by mouth once daily ??? meloxicam (MOBIC) 15 MG tablet Take 15 mg by mouth once daily ??? Multiple Vitamins-Minerals (ONE-A-DAY WOMENS 50+ ADVANTAGE PO) Take by mouth once daily OBJECTIVE: BP 122/85 Pulse 92 Ht 1.581 m (5' 2.25 ) Wt 73.7 kg (162 lb 6.4 oz) SpO2 94% BMI 29.47 kg/m2 Physical Exam: Airway/Mallamapati Score: Grade 2: Soft palate, base of uvula, tonsillar pillars, and portion of posterior pharyngeal wall visible Mouth Opening Distance: 3 fingerwidths Neck ROM: normal range of motion and supple TM Distance: > 3 FB Teeth: poor dentition General appearance - alert, well appearing, and in no distress Mental status - alert, oriented to person, place, and time Chest - clear to auscultation, no wheezes, rales or rhonchi, symmetric air entry Heart - normal rate, regular rhythm, normal S1, S2, no murmurs, rubs, clicks or gallops Pertinent Diagnostic Tests: Recent Labs Component Name 08/16/19 1047 SODIUM 139 POTASSIUM 4.0 CHLORIDE 104 CO2 27 BUN 12 CREATININE 0.68 GLUCOSE 97 CALCIUM 9.9 ALT 58 ALKPHOS 110 AST 38* TBIL 0.4 TPROT 6.7 EGFR >60 Labs 06/19/19 (outside facility, in paper chart) WBC 10.2 Hgb 14.8 Hct 43.8 Plt 387 Glucose 93 Sodium 138 Potassium 4.4 Chloride 102 CO2 25 BUN 14 Creatinine 0.68 eGFR 95 Albumin 3.7 A/P 1. Encounter for other pre-procedural examination All labs completed today were discussed with patient during clinic visit. Thoroughly discussed withpatient that all labs done today were obtained for preoperative screening purposes, and further management/recommendations and additional work-up (if necessary) will be deferred to the patient's primary care provider. All labwork done today will be sent to patient's primary care provider for continuity/coordination of care. Advised patient to continue to monitor symptoms of recurrent dental infection. As noted above, she endorses recent dental infection 2 weeks ago which was treated with clindamycin. Her symptoms resolved but she awoke this morning with a toothache. She sees her dentist tomorrow for follow-up and routine cleaning. I advised patient to have dentist evaluate and treat dental infection if present. I also recommended that she notify Dr. Haines of any persistent symptoms of dental infection or any treatment prescribed by DDS prior to upcoming surgery. Preoperative Domain Results Recommendations BMI BMI (Calculated): 29.47 Initiate anti-inflammatory ( Mediterranean ) style diet in the perioperative period, unless otherwise contraindicated. Nutrition Recent Labs Component Name 08/16/19 1047 ALBUMIN 4.3 Anti-inflammatory ( Mediterranean ) style diet discussed/encouraged perioperatively. Educational resource provided. Diabetes No results for input(s): HGBA1C, A1C, [id number], EAG in the last 72503 hours. N/A Non-diabetic Cardiac Records reviewed EKG obtained today 08/16/2019 per anesthesia team. Cardiology to complete final confirmatory read of EKG. Will defer to both PCP and anesthesia team to determine if any additional cardiac testing/work-up is necessary prior to upcoming scheduled surgery. Pulmonary /AURA STOPBANG Score - Sleep Apnea Total: Total AURA Risk Score: 3-- intermediate risk STOPBANG screening tool results discussed with patient. Advised/recommended that patient f/u with PCP for Intermediate Risk & High Risk AURA screening tool results, as may consider sleep study testing in future; will defer further recommendations and/or referral to PCP. Incentive Spirometer (IS) provided and patient was instructed regarding use. Encouraged daily use of IS prior to surgery. Smoking Social History Tobacco Use Smoking Status Current Every Day Smoker ??? Packs/day: 1.00 ??? Types: Cigarettes Smokeless Tobacco Never Used Advised to quit smoking preoperatively. Education provided regarding the risks of smoking and related postoperative complications. See notes in HPI section for additional details. Infection Prevention Nasal Culture MRSA/MSSA: Obtained and pending Final culture result expected inapproximately 72 hr. If positive, will initiate treatment per guidelines. Encouraged good hygiene and handwashing preoperatively. Chronic narcotic use No chronic narcotic use. N/A VTE prophylaxis N/A Education provided re: Post-op VTE prevention. Follow specific recommendations from surgeon's office re: VTE prophylaxis. Preoperative testing CBC CMP results reviewed See notes above NPO instructions given to patient by RN per protocol. Preoperative/Day of Surgery medication instructions given to patient by RN per surgeon/anesthesia standing orders. AVS printed and given to patient. REBECA Kellogg documented in this encounter Plan of Treatment Not on file documented as of this encounter Procedures Procedure Name Priority Date/Time Associated Diagnosis Comments EKG 12-LEAD Routine 08/16/2019 10:58 AM CDT Preop examination CULTURE MSSA/MRSA Routine 08/16/2019 10: 47 AM CDT Preop examination COMPREHENSIVE METABOLIC PANEL Routine 08/16/2019 10:47 AM CDT Preop examination documented in this encounter Results * EKG 12-LEAD (08/16/2019 10:58 AM CDT) Ventricular Rate 88 BPM [facility] Atrial Rate 88 BPM [facility] P-R Interval 140 ms [facility] QRS Duration ms 76 ms [facility] Q-T Interval ms 362 ms [facility] QTC Calculation (Bezet) 438 ms [facility] Calculated P [place] 69 degrees [facility]USE Calculated R [place] 30 degrees [facility]USE Calculated T [place] 61 degrees [facility] Interpretation EKG Normal sinus rhythm Cannot rule out Anterior infarct , age undetermined Abnormal ECG No previous ECGs available Confirmed by GUZMAN INFANTE MD ([id number]) on 08/16/2019 3:51:29 PM [facility] MUSE 08/16/2019 10:5 8 AM CDT 08/16/2019 3:51 PM CDT Ivette Pinedo DO ECG ORDERABLES [facility] MUSE * CULTURE MSSA/MRSA (08/16/2019 10:47 AM CDT) Culture Negative for Staphylococcus aureus (MRSA/MSSA) AL 08/17/2019 2:27 PM CDT [facility] MICROBIOLOGY Microbiology SPECIMEN FROM NASAL FOSSAE / Unknown Collection / Unknown 08/16/2019 10:47 AM CDT 08/16/2019 11:04 AM CDT Emily Nieto APRN-LEAD PRESS OPERATOR LAB - MICROBI OLOGY ORDERABLES Performing Organization Address City/[facility]/ZIP Co de Phone Number [facility] MICROBIOLOGY [address] [place], [place] [address], [facility] [phone] * (ABNORMAL) COMPREHENSIVE METABOLIC PANEL (08/16/2019 10:47 AM CDT) Glucose 97 70 - 105 mg/dL 08/16/2019 11:24 AM CDT [facility] Sodium 139 136 - 145 mmol/L 08/16/2019 11:24 AM CDT [facility] Potassium 4.0 3.5 - 4.7 mmol/L 08/16/2019 11:24 AM CDT [facility] Chloride 104 98 - 107 mmol/L 08/16/2019 11:24 AM CDT [facility] CO2 27 23 - 31 mmol/L 08/16/2019 11:24 AM CDT [facility] Calcium 9.9 8.4 - 10.4 mg/dL 08/16/2019 11:24 AM CDT [facility] Anion Gap 8 8 - 16 mmol/L 08/16/2019 11:24 AM CDT [facility] BUN 12 9.8 - 20.1 mg/dL 08/16/2019 11:24 AM CDT [facility] Creatinine 0.68 0.57 - 1.11 mg/dL 08/16/2019 11:24 AM CDT [facility] Alkaline Phosphatase 110 40 - 150 U/L 08/16/2019 11:24 AM CDT [facility] ALT 58 0 - 61 U/L 08/16/2019 11:24 AM CDT [facility] AST 38(H) 5 - 34 U/L 08/16/2019 11:24 AM CDT [facility] Protein Total 6.7 6.4 - 8.3 gm/dL 08/16/2019 11:24 AM CDT [facility] Albumin 4.3 3.5 - 5.2 gm/dL 08/16/2019 11:24 AM CDT [facility] Bilirubin Total 0.4 0.2 - 1.0 mg/dL 08/16/2019 11:24 AM CDT [facility] eGFR by MDRD >60 >60 mL/min/1.7 3m2 08/16/2019 11:24 AM CDT [facility] eGFR by MDRD >60 >60 mL/min/1.7 3m2 08/16/2019 11:24 AM CDT [facility] Blood BLOOD SPECIMEN / Unknown Venipuncture / Unknown 08/16/2019 10:47 AM CDT 08/16/2019 10:57 AM CDT Emily Nieto APRN-GAMALIEL LAB - BI CONSULTANT RY ORDERABLES Performing Organization Address City/State/[facility] Co de Phone Number [facility] [address] [place] [address] documented in this encounter Visit Diagnoses Diagnosis Preop examination- Primary Preoperative examination, unspecified Primary osteoarthritis of right knee Primary localized osteoarthrosis, lower leg Essential hypertension Pure hypercholesterolemia documented in this encounter
--- OUTSIDE RECORDS SUMMARY | 2024-10-27 00:38 | XMS_ITS | Encounter Summary ---
Author Organization [facility] Health Address [address] [facility] [place] [address] Care Team Providers Care Line Haul Driver Name Role Phone Unavailable Primary Care Provider Unavailabl e Encounter Details Date Type Department Care Team (Late st Contact Info) Description 09/12/2019 Orders Only [facility] HOME CARE ADMISSIONS [address] [place] [address] [place] [address] [address] Social History Tobacco Use Types Packs/Day Years [...]
--- OUTSIDE RECORDS SUMMARY | 2024-10-27 00:38 | XMS_ITS | Encounter Summary ---
Author Organization [facility] Address [address] [place] [address] Care Team Providers Care Placement Interviewer Name Role Phone Unavailable Primary Care Provider Unavailabl e Reason for Visit * Reason Onset Date Comments General 09/15/2019 Encounter Details Date Type Department Care Team (Late st Contact Info) Description 09/15/2019 Telephone [facility] Orthopedics [address] [phone] [place] [address] [address] General Social History Tobacco Use Types Packs/Day Years [...] encounter Miscellaneous Notes * Telephone Encounter - Kristen Howard, RN - 09/18/2019 4:55 PM CST Sherie, from [facility] home care, updated today stating pt was transferred to [facility] for further care of abscess in jaw. ER GRINDER * Telephone Encounter - Nelli Patel - 09/15/2019 10:23 AM CST Who is calling? self What is the reason for call? Pt wanted Dr. Haines to be aware of the fact that she has an infection in her Parotid and is going to ER for it. Expected Response from the Clinic? None ER GRINDER documented in this encounter Plan of Treatment Not on file documented as of this encounter Visit Diagnoses Not on filedocumented in this encounter
--- OUTSIDE RECORDS SUMMARY | 2024-10-27 00:38 | XMS_ITS | Encounter Summary ---
Author Organization [facility] Health Address [address] [facility] [place] [address] Care Team Providers Care Vice Admiral Name Role Phone Unavailable Primary Care Provider Unavailabl e Encounter Details Date Type Department Care Team (Late st Contact Info) Description 09/22/2019 Orders Only [facility] HOME CARE ADMISSIONS [address] [place] [address] [place] [address] [address] [address] Social History Tobacco Use Types [...]
--- OUTSIDE RECORDS SUMMARY | 2024-10-27 00:38 | XMS_ITS | Encounter Summary ---
Author Organization [facility] Address [address] [place] [address] Care Team Providers Care Label Folder Name Role Phone Unavailable Primary Care Provider Unavailabl e Reason for Visit * Reason Onset Date Comments Update 09/13/2019 Encounter Details Date Type Department Care Team (Late st Contact Info) Description 09/13/2019 Telephone [facility] Orthopedics [address] [phone] [place] [address] [address] Update Social History Tobacco Use Types Packs/Day Years [...] encounter Miscellaneous Notes * Telephone Encounter - Xuan Conley RN - 09/14/2019 10:[address] Haines made aware [employer] * Telephone Encounter - Margaret Galindo - 09/13/2019 2:55 PM CST Who is calling? Self What is the reason for call? Patient called to let you know that her jaw infection is back. Her PCPput her on antibiotics Metronidazole & ciprofloxacin. She just wanted the Dr to know Expected Response from the Clinic? DELANO [employer] documented in this encounter Plan of Treatment Not on file documented as of this encounter Visit Diagnoses Not on filedocumented in this encounter
--- OUTSIDE RECORDS SUMMARY | 2024-10-27 00:38 | XMS_ITS | Encounter Summary ---
Author Organization [facility] Address [address] [place] [address] Care Team Providers Care Formstone Fitter Name Role Phone Unavailable Primary Care Provider Unavailabl e Reason for Visit * Reason Onset Date Comments Question 08/30/2019 Encounter Details Date Type Department Care Team (Late st Contact Info) Description 08/30/2019 Telephone [facility] Orthopedics [address] [phone] [place] [address] [address] Question Social History Tobacco Use [...] encounter Miscellaneous Notes * Telephone Encounter - Emani Hong MA - 08/30/2019 1:53 PM CST Returned call, discussed an infection she is being treated for in parotid gland, told her she does not need Dr. Riley's clearance, but may need ENT doc to clear her after viewing her CT scan from today ARD PRUNER * Telephone Encounter - Margaret Galindo - 08/30/2019 12:50 PM CST Who is calling? Self What is the reason for call? Patient called and was told that she didn't need a primary care clearance for her surgery on 09/06/2019. She said she received a phone call today from her PCP Kassie Riley that she will need the primary clearance form filled out. The patient said the form was not in her packet. Can she get one to give to them? Expected Response from the Clinic? Call back @ [phone]. She said to leave voice mail if no answer ARD PRUNER documented in this encounter Plan of Treatment Not on file documented as of this encounter Visit Diagnoses Not on filedocumented in this encounter
--- OUTSIDE RECORDS SUMMARY | 2024-10-27 00:38 | XMS_ITS | Encounter Summary ---
Author Organization [facility] Address [address] [place] [address] Care Team Providers Care Human Service Specialist Name Role Phone Unavailable Primary Care Provider Unavailabl e Reason for Visit * Reason Comments Swelling Facial co rt side jaw swell ing started on antibiotics states the oral antibiotics aren't working Encounter Details Date Type Department Care Team (Late st Contact Info) Description 09/15/2019 4:23 PM CLUB WAITER/WAITRESS - 09/15/2019 8:48 PM CLUB WAITER/WAITRESS Emergency ER at [address] [address] Edward Jean, DO [address] [place] [id number] Facial abscess (Primary Dx); Right facial swelling; Trismus Discharge Disposition: Inpatient Hospital Social History Tobacco Use Types Packs/Day Years [...] Comments Blood Pressure 139/78 09/15/2019 12:00 PM CLUB WAITER/WAITRESS Pulse 76 09/15/2019 12:00 PM CLUB WAITER/WAITRESS Temperature 36.6 ??C (97.8 ??F) 09/15/2019 12:[address] Respiratory Rate 16 09/15/2019 12:00 PM CLUB WAITER/WAITRESS Oxygen Saturation 100% 09/15/2019 12:00 PM CLUB WAITER/WAITRESS Inhaled Oxygen Concentration - - Weight 74.8 kg (165 lb) 09/15/2019 12:00 PM CLUB WAITER/WAITRESS Height 157.5 cm (5' 2 ) 09/15/2019 12:00 PM CLUB WAITER/WAITRESS Body Mass Index 30.18 09/15/2019 12:00 PM CLUB WAITER/WAITRESS documented in this encounter Functional Status Functional [...] No 09/06/2019 documented as of this encounter Medications at Time of Discharge Medication Sig Dispensed Refills Start Date End Date atorvastatin (LIPITOR) 80 MG tablet Take 80 mg by mouth once daily 06/22/2019 losartan - hydroCHLOROthiazide (HYZAAR) 50-12.5 MG tablet Take 1 tablet by mouth once daily 06/22/2019 meloxicam (MOBIC) 15 MG tablet Take 15 mg by mouth once daily 06/22/2019 metroNIDAZOLE (FLAGYL) 500 MG tablet 09/13/2019 Multiple Vitamins-Minerals (ONE-A-DAY WOMENS 50+ ADVANTAGE PO) [...] 2019 09/26/2019 documented as of this encounter ED Notes * Edward Jean DO - 09/15/2019 6:52 PM CST 09/15/2019 6:52 PM For this patient encounter, I reviewed the [employer] / PA documentation, treatment plan, and medical decision making; and I had [id number] time with this patient. I have conducted an independent evaluation of this patient including a focused history and a physical exam- which are in concordance with the [employer]/PA documentation except as otherwise noted. HPI: Teresa Espinosa is a 59 year old female with a history of--HTN and Pure Hypercholesterolemia--presents to the ER c/o a worsening Right sided jaw pain and swelling for the past 4 days. The pt's last molar was pulled on April 2019 and has had intermittent pain and swelling since. The pt was given oral abx by her PCP 2 days ago which has been minimally effective. The pt has seen her dentist, oral surgeon, PCP and ENT for these issues. She is barely unable to open her mouth Experience chills, nausea, jaw pain and swelling. Denies fever, cough, LOC, SOB, CP, CASTANO, V/D, abdominal pain, back pain, falls and other modifying factors. Tx symptoms with Clindamycin, Flagyl and Cipro, minimally effective. The pt is a smoker. Vital Signs: BP 139/78 Pulse 76 Temp 97.8 ??F (36.6 ??C) Resp 16 Ht 1.575 m (5' 2 ) Wt 74.8 kg (165 lb) SpO2 100% BMI 30.18 kg/m?? Physical exam: Performed a physical exam revealing: Constitutional: Well developed, well nourished. No acute distress. HENT: R mandibular swelling and tenderness. Neck: ROM nl, supple. Heart: RRR, no murmur. Pulmonary/Chest: Effort normal, no respiratory distress. Abdomen: soft, non tender. Musculoskeletal: SHARMA, no edema or tenderness. Neurological: A&O x 3, no focal neuro deficits. Skin: warm, dry. Psych: mood and affect normal. CT FACIAL BONES W CONTRAST Final Result STUDY: CONTRAST-ENHANCED CT OF THE MAXILLOFACIAL STRUCTURES [...] Gonzalez MD on 09/15/2019 at 6:11 PM Hospital Encounter on 09/15/19 CBC W AUTO DIFFERENTIAL Result Value Ref Range WBC 17.6 (H) 4.4 - 10.7 x10E9/L WBC Corrected RBC 3.63 (L) 3.80 - 5.20 x10E12/L Hemoglobin 11.2 (L) 12.0 - 15.6 gm/dL Hematocrit 34.8 (L) 35.9 - 45.5 % MCV 95.9 80.7 - 98.3 fl MCH 30.9 26.7 - 34.0 pg MCHC 32.2 30.8 - 35.9 gm/dL Platelet Count 487 (H) 153 - 416 x10E9/L RDW-CV 12.9 12.1 - 14.9 % MPV 8.6 (L) 9.4 - 12.9 fl Neutrophils % 70.5 44.0 - 73.0 % Lymphocytes % 18.9 (L) 20.0 - 43.0 % Monocytes % 9.2 5.0 - 13.0 % Eosinophils % 0.3 0.0 - 6.0 % Basophils % 0.3 0.0 - 2.0 % Immature Granulocytes 0.8 0 - 1 % Neutrophil Absolute 12.42 (H) 2.01 - 7.14 x10E9/L Lymphocytes Absolute 3.33 1.07 - 3.94 x10E9/L Monocytes Absolute 1.62 (H) 0.26 - 1.07 x10E9/L Eosinophils Absolute 0.06 0 - 0.47 x10E9/L Basophils Absolute 0.06 0 - 0.08 x10E9/L Immature Granulocytes Absolute 0.14 (H) 0.00 - 0.06 x10E9/L nRBC Auto 0 /100 WBC COMPREHENSIVE METABOLIC PANEL Result Value Ref Range Glucose 103 70 - 105 mg/dL Sodium 133 (L) 136 - 145 mmol/L Potassium 4.2 3.5 - 4.7 mmol/L Chloride 99 98 - 107 mmol/L CO2 24 23 - 31 mmol/L Calcium 10.4 8.4 - 10.4 mg/dL Anion Gap 10 8 - 16 mmol/L BUN 11 9.8 - 20.1 mg/dL Creatinine 0.66 0.57 - 1.11 mg/dL Alkaline Phosphatase 134 40 - 150 U/L ALT 40 0 - 61 U/L AST 29 5 - 34 U/L Protein Total 7.3 6.4 - 8.3 gm/dL Albumin 3.9 3.5 - 5.2 gm/dL Bilirubin Total 0.7 0.2 - 1.0 mg/dL eGFR by MDRD >60 >60 mL/min/1.73m2 eGFR by MDRD >60 >60 mL/min/1.73m2 Progress Notes: Encounter Diagnoses Name Primary? Right facial swelling ??? Facial abscess Yes ??? Trismus Disposition: Transfer Scribe Signature and Attestation By signing my name below, I, Jasmyn Destiny, attest that this documentation has been preparedunder the direction and in the presence of Dr. Jean. Provider Signature and Attestation I, Dr. Jean, personally performed the services described in this documentation. All medical record entries made by the scribe were at my direction and in my presence. I have reviewed the chart and agree that the record reflects my personal performance and is accurate and complete. 09/15/2019 10:25 PM WAITER/WAITRESS * Felisha Broussard RN - 09/15/2019 5:[address] WAITER/WAITRESS * Lucía Granados, HELP DESK REPRESENTATIVE-CMS EXPERT - 09/15/2019 4:35 PM CST Teresa Espinosa [id number] [facility] History Chief Complaint Patient presents with ??? Swelling Facial co rt side jaw swelling started on antibiotics states the oral antibiotics aren't working HPI Patient is a pleasant 51-year-old female With a past medical history significant for hypertension and hypercholesterolemia who arrives ambulatory to the ER with complaints of right-sided jaw pain andswelling for the past 4 days. Course is worsening Despite to oral antibiotics given by her primary care physician 2 days ago. She has taken 2-1/2 doses of each medication. Her current antibiotics are Flagyl and Cipro. Patient reports chills, nausea, and trismus. Patient denies emesis, documented fever, rash, difficulty swallowing. Patient states she had her last lower molar pulled in April, and has had issues with intermittent dental pain and facial swelling In this area since. She has seen her regular dentist, an oral surgeon, her primary care doctor, and ENT for these issues. She has been on several rounds of clindamycin Note patient had a total right knee arthroplasty completed 9 days ago. Denies complications with this procedure. Past Medical History: Diagnosis Date ??? Essential hypertension ??? Pure hypercholesterolemia Past Surgical History: Procedure Laterality Date ??? COLONOSCOPY ??? Hysterectomy ??? KNEE ARTHROPLASTY Right 09/06/2019 Right; RIGHT TOTAL KNEE ARTHROPLASTY ??? Knee Arthroscopy Right ??? Knee Replacement 09/06/2019 RT Family History Problem Relation Age of Onset ??? Diabetes - Type 2 Mother ??? Coronary Artery Disease Mother Social History Socioeconomic History ??? Marital status: [...] file Gets together: Not on file Attends jew service: Not on file Active member of [...] Social History Narrative ??? Not on file Review of Systems Review of Systems Constitutional: Positive for chills. Negative for diaphoresis, fever and malaise/fatigue. HENT: Negative for congestion, ear discharge, ear pain, nosebleeds, sinus pain and sore throat. +Trismus +R side facial swelling +R side jaw pain +Dental problem Eyes: Negative for pain, discharge and redness. Respiratory: Negative for cough, sputum production, shortness of breath and stridor. Cardiovascular: Negative for chest pain, palpitations and leg swelling. Gastrointestinal: Positive for nausea. Negative for abdominal pain and vomiting. Musculoskeletal: Negative for myalgias. Skin: Negative for rash. Neurological: Negative for dizziness, sensory change, speech change, focal weakness and headaches. Psychiatric/Behavioral: The patient is not nervous/anxious and does not have insomnia. Physical Exam BP 139/78 Pulse 76 Temp 97.8 ??F (36.6 ??C) Resp 16 Ht 1.575 m (5' 2 ) Wt 74.8 kg (165 lb) SpO2 100% BMI 30.18 kg/m?? Physical Exam Constitutional: She appears well-developed and well-nourished. Non-toxic appearance. She does not appear ill. No distress. HENT: Head: Normocephalic and atraumatic. Right Ear: Tympanic membrane and ear canal normal. No drainage. Left Ear: Tympanic membrane and ear canal normal. No drainage. Nose: Nose normal. Mouth/Throat: Uvula is midline, oropharynx is clear and moist and mucous membranes are normal. There is trismus in the jaw. No dental abscesses or uvula swelling. Tenderness and swelling at the temporal/manibular junction. No erythema or warmth No gingiva or dental tenderness Eyes: Pupils are equal, round, and reactive to light. EOM are normal. Neck: Normal range of motion. Neck supple. Cardiovascular: Normal rate, regular rhythm and normal heart sounds. Pulmonary/Chest: Effort normal and breath sounds normal. Abdominal: Soft. Bowel sounds are normal. She exhibits no distension. There is no tenderness. Lymphadenopathy: She has no cervical adenopathy. Neurological: She has normal strength. No sensory deficit. GCS eye subscore is 4. GCS verbal subscore is 5. GCS motor subscore is 6. Skin: Skin is warm and dry. Capillary refill takes less than 2 seconds. No rash noted. She is not diaphoretic. No erythema. Psychiatric: She has a normal mood and affect. Her behavior is normal. Nursing note and vitals reviewed. Medications Current Outpatient Medications Medication Sig Dispense Refill ??? aspirin (ASPIRIN) 325 MG tablet Take 1 tablet by mouth 2 times daily with morning and evening meal for 42 days Take for blood clot prevention. 0 ??? atorvastatin (LIPITOR) 80 MG tablet Take 80 mg by mouth once daily ??? HYDROcodone-acetaminophen (NORCO) 5-325 MG tablet Take 1 tablet by mouth every 6 hours as needed 28 tablet 0 ??? losartan - hydroCHLOROthiazide (HYZAAR) 50-12.5 MG tablet Take 1 tablet by mouth once daily ??? meloxicam (MOBIC) 15 MG tablet Take 15 mg by mouth once daily ??? Multiple Vitamins-Minerals (ONE-A-DAY WOMENS 50+ ADVANTAGE PO) Take by mouth once daily Procedures Procedures Lab Interpretation Oxygen Saturation Interpretation The oxygen saturation level is: 100%. The patient was on Room Air for the saturation measurement. Measurement frequency: Spot Check. Oxygen saturation interpretation is Normal. Intervention(s) used: None. Hospital Encounter on 09/15/19 CBC W AUTO DIFFERENTIAL Result Value Ref Range WBC 17.6 (H) 4.4 - 10.7 x10E9/L WBC Corrected RBC 3.63 (L) 3.80 - 5.20 x10E12/L Hemoglobin 11.2 (L) 12.0 - 15.6 gm/dL Hematocrit 34.8 (L) 35.9 - 45.5 % MCV 95.9 80.7 - 98.3 fl MCH 30.9 26.7 - 34.0 pg MCHC 32.2 30.8 - 35.9 gm/dL Platelet Count 487 (H) 153 - 416 x10E9/L RDW-CV 12.9 12.1 - 14.9 % MPV 8.6 (L) 9.4 - 12.9 fl Neutrophils % 70.5 44.0 - 73.0 % Lymphocytes % 18.9 (L) 20.0 - 43.0 % Monocytes % 9.2 5.0 - 13.0 % Eosinophils % 0.3 0.0 - 6.0 % Basophils % 0.3 0.0 - 2.0 % Immature Granulocytes 0.8 0 - 1 % Neutrophil Absolute 12.42 (H) 2.01 - 7.14 x10E9/L Lymphocytes Absolute 3.33 1.07 - 3.94 x10E9/L Monocytes Absolute 1.62 (H) 0.26 - 1.07 x10E9/L Eosinophils Absolute 0.06 0 - 0.47 x10E9/L Basophils Absolute 0.06 0 - 0.08 x10E9/L Immature Granulocytes Absolute 0.14 (H) 0.00 - 0.06 x10E9/L nRBC Auto 0 /100 WBC COMPREHENSIVE METABOLIC PANEL Result Value Ref Range Glucose 103 70 - 105 mg/dL Sodium 133 (L) 136 - 145 mmol/L Potassium 4.2 3.5 - 4.7 mmol/L Chloride 99 98 - 107 mmol/L CO2 24 23 - 31 mmol/L Calcium 10.4 8.4 - 10.4 mg/dL Anion Gap 10 8 - 16 mmol/L BUN 11 9.8 - 20.1 mg/dL Creatinine 0.66 0.57 - 1.11 mg/dL Alkaline Phosphatase 134 40 - 150 U/L ALT 40 0 - 61 U/L AST 29 5 - 34 U/L Protein Total 7.3 6.4 - 8.3 gm/dL Albumin 3.9 3.5 - 5.2 gm/dL Bilirubin Total 0.7 0.2 - 1.0 mg/dL eGFR by MDRD >60 >60 mL/min/1.73m2 eGFR by MDRD >60 >60 mL/min/1.73m2 CT FACIAL BONES W CONTRAST Final Result STUDY: CONTRAST-ENHANCED CT OF THE MAXILLOFACIAL STRUCTURES [...] Gonzalez MD on 09/15/2019 at 6:11 PM Progress Notes 4:37 PM Patient to [facility], my initial assessment complete. [facility] plans were labs. Patient updated on all pertinent results at this time. My additional plans include: CT facial w/ contrast and pain control. 6:00PM I have rechecked the patient at this time. The patient is resting and in no apparent distress. I have updated the patientt on all available testing results. I have re-evaluated the patient???s medical condition, comfort level, and have provided a care update. She declines pain medication at this time. 6:30PM Care discussed with Dr. Jean, he will attest. Patient to be transferred out to [facility] for higher level of care with [facility] specialty. I have also updated the patient/caregiver with all pertinentinformation and results regarding the plan of care and admission. The patient is agreeable with said plan at this time and verbalizes understanding. All questions and concerns were addressed at this time. 7:00PM Consult placed to [facility] Access line. Fentanyl/zofran ordered for pain control. 7:09PM Omero with [facility] Access line phoned back, consult placed to [facility] Hospitalist 7:18 PM I discussed with Merlene ([facility]) for Dr. Lamar ([facility] Hospitalist Group) all pertinent aspects of the case including HPI details, the patient's current condition, physical exam findings, diagnostic studies completed, the my clinical impression, and the need for transfer for further evaluation and treatment. Merlene ([facility]) for Dr. Lamar ([facility]ist [facility])agrees to accept the patient at this time. We have agreed on an initial plan. Interim orders written by undersigned. Consult placed to [facility] specialty. 8:00PM I have rechecked the patient at this time. The patient is resting and in no apparent distress. I have updated the patientt on all available testing results. I have re-evaluated the patient???smedical condition, comfort level, and have provided a care update. Feeling much better with Fentanyl. Clindamycin complete. Disposition: Transfer to [facility] 09/15/2019 7:18 PM BP 139/78 Pulse 76 Temp 97.8 ??F (36.6 ??C) Resp 16 Ht 1.575 m (5' 2 ) Wt 74.8 kg (165 lb) SpO2 100% BMI 30.18 kg/m2 Patient transferred from [facility] ER to [facility] direct admit via EMS at 8:48PM. The patient has remained hemodynamically stable throughout entire ED course, and is medically stablefor transfer at this time. Diagnosis: Final diagnoses: Right facial swelling Facial abscess (Primary) Trismus ED Course Clinical Impressions as of Sep 15 2020 Right facial swelling Facial abscess Trismus Medical Decision Making I have reviewed the: Previous Chart, Nursing Notes, Vitals. I have interpreted the following results: Labs, CT Scans and Oxygen Saturation. Orders Placed This Encounter ??? CULTURE BLOOD ??? CT FACIAL BONES W CONTRAST ??? CBC W AUTO DIFFERENTIAL ??? COMPREHENSIVE METABOLIC PANEL ??? AND Linked Order Group ??? 0.9% NaCl injection 3 mL ??? 0.9% NaCl injection 1-10 mL ??? iopamidol (ISOVUE 370) 76 % contrast ??? 0.9% NaCl injection 0-10 mL ??? 0.9% NaCl IV Flush Bag ??? fentaNYL (PF) (SUBLIMAZE) injection 50 mcg ??? ondansetron (ZOFRAN) injection 4 mg ??? clindamycin (CLEOCIN) 600 mg in 50 mL D5W IVPB WAITER/WAITRESS Associated attestation - Edward Jean DO - 09/19/2019 9:33 PM CLUB WAITER/WAITRESS 09/19/2019 21:33 For this patient encounter, I reviewed the [employer] /PA documentation, treatment plan, and medical decision making; and I had [id number] time with this patient. * Hunter Lopez APRN-CMS EXPERT - 09/15/2019 12:39 PM CST Provider contact with the patient 12:39 PM 09/15/2019 Patient presents with a chief complaint of right-sided facial swelling Chief Complaint Patient presents with ??? Swelling Facial co rt side jaw swelling started on antibiotics states the oral antibiotics aren't working . History of present illness: Teresa Espinosa is a 59-year-old female patient with past medical history of hypertension and hyperlipidemia presents to emergency department with complaint of right facial swelling. patient states she is currently on antibiotics without any improvement. She denies anyother symptoms or complaints. Denies blood thinners/clot hx, cough, urinary s/s, FC, CP, abdominal pain, SOB, N/V/D, rash, headache, dizziness. Tx symptoms with oral antibiotics, minimally effective Physical Exam: skin warm and dry, right facial swelling noted, LCTA, Abdomen soft, non tender, no extremity swelling/pain Complete vital signs reviewed. Blood pressure 139/78, pulse 76, temperature 97.8 ??F (36.6 ??C), resp. rate 16, height 1.575 m (5' 2 ), weight 74.8 kg (165 lb), SpO2 100 %, not currently . Diagnostic tests ordered: Orders Placed This Encounter Procedures ??? CBC W AUTO DIFFERENTIAL ??? COMPREHENSIVE METABOLIC PANEL Based on the Medical Screening Exam performed and diagnostic tests at this time, further evaluationis indicated and will be performed. Care will be transferred to ER provider. WAITER/WAITRESS documented in this encounter Plan of Treatment Not on file documented as of this encounter Procedures Procedure Name Priority Date/Time Associated Diagnosis Comments CULTURE BLOOD Timed 09/15/2019 7:46 PM CLUB WAITER/WAITRESS CULTURE BLOOD Timed 09/15/2019 7:46 PM CLUB WAITER/WAITRESS CT FACIAL BONES W CONTRAST STAT 09/15/2019 5:41 PM CLUB WAITER/WAITRESS Right facial swelling CBC W AUTO DIFFERENTIAL STAT 09/15/2019 12:45 PM CLUB WAITER/WAITRESS COMPREHENSIVE METABOLIC PANEL STAT 09/15/2019 12:45 PM CLUB WAITER/WAITRESS documented in this encounter Results * CULTURE BLOOD (09/15/2019 7:46 PM CLUB WAITER/WAITRESS) Culture No growth day 5 AL 09/21/2019 1:42 AM CLUB WAITER/WAITRESS [facility]CRO[facility] Blood BLOOD SPECIMEN / Unknown Venipuncture / Unknown 09/15/2019 7:46 PM CLUB WAITER/WAITRESS 09/15/2019 8:10 PM CLUB WAITER/WAITRESS Edward Jean DO LAB - MICROBIOLOGY O RDERABLES [facility]CRO[facility] [address] [place] [address], [facility] [phone] * CULTURE BLOOD (09/15/2019 7:46 PM CLUB WAITER/WAITRESS) Culture No growth day 5 AL 09/21/2019 1:42 AM CLUB WAITER/WAITRESS [facility] Blood PERIPHERAL BLOOD / Unknown Venipuncture / Unknown 09/15/2019 7:46 PM CLUB WAITER/WAITRESS 09/15/2019 8:10 PM CLUB WAITER/WAITRESS Edward Jean DO LAB - MICROBIOLOGY O RDERABLES [facility] [address] [place], [place] [address] [phone] * CT FACIAL BONES W CONTRAST (09/15/2019 5:41 PM CLUB WAITER/WAITRESS) Anatomical Region Laterality Modality Head Computed Tomogra phy 09/15/2019 6:04 PM CLUB WAITER/WAITRESS Impressions 09/15/2019 6:11 PM CLUB WAITER/WAITRESS Findings suggestive of abscess formation around the right mandibular angle likely involving the right masseter muscle with surrounding cellulitis and inflammatory changes. There is no evidence of definite osseous erosion at this time to suggest osteomyelitis. Reading Radiologist: Damon Gonzalez MD on 09/15/2019 at 6:11 PM Narrative 09/15/2019 6:11 PM CLUB WAITER/WAITRESS STUDY: CONTRAST-ENHANCED CT OF THE MAXILLOFACIAL STRUCTURES [...] on 09/15/2019 at 6:11 PM Lucía Granados HELP DESK REPRESENTATIVE-CMS EXPERT CT ORDERABLE S * (ABNORMAL) COMPREHENSIVE METABOLIC PANEL (09/15/2019 12:45 PM CLUB WAITER/WAITRESS) Glucose 103 70 - 105 mg/dL 09/15/2019 1:07 PM CLUB WAITER/WAITRESS [facility] Sodium 133(L) 136 - 145 mmol/L 09/15/2019 1:07 PM CLUB WAITER/WAITRESS [facility] Potassium 4.2 3.5 - 4.7 mmol/L 09/15/2019 1:07 PM CLUB WAITER/WAITRESS [facility] Chloride 99 98 - 107 mmol/L 09/15/2019 1:07 PM CLUB WAITER/WAITRESS [facility] CO2 24 23 - 31 mmol/L 09/15/2019 1:[address] [facility] Calcium 10.4 8.4 - 10.4 mg/dL 09/15/2019 1:[address] [facility] Anion Gap 10 8 - 16 mmol/L 09/15/2019 1:[address] [facility] BUN 11 9.8 - 20.1 mg/dL 09/15/2019 1:[address] [facility] Creatinine 0.66 0.57 - 1.11 mg/dL 09/15/2019 1:[address] [facility] Alkaline Phosphatase 134 40 - 150 U/L 09/15/2019 1:[address] [facility] ALT 40 0 - 61 U/L 09/15/2019 1:[address] [facility] AST 29 5 - 34 U/L 09/15/2019 1:[address] [facility] Protein Total 7.3 6.4 - 8.3 gm/dL 09/15/2019 1:[address] [facility] Albumin 3.9 3.5 - 5.2 gm/dL 09/15/2019 1:[address] [facility] Bilirubin Total 0.7 0.2 - 1.0 mg/dL 09/15/2019 1:[address] [facility] eGFR by MDRD >60 >60 mL/min/1.7 3m2 09/15/2019 1:[address] [facility] eGFR by MDRD >60 >60 mL/min/1.7 3m2 09/15/2019 1:[address] [facility] Blood BLOOD SPECIMEN / Unknown Venipuncture / Unknown 09/15/2019 12:45 PM CLUB WAITER/WAITRESS 09/15/2019 12:49 PM [facility] Hunter Lopez HELP DESK REPRESENTATIVE-CMS EXPERT LAB - CHEMISTRY O RDERABLES [facility] [address] [place] [address] * (ABNORMAL) CBC W AUTO DIFFERENTIAL (09/15/2019 12:45 PM CLUB WAITER/WAITRESS) WBC 17.6(H) 4.4 - 10.7 x10E9/L 09/15/2019 12:[address] [facility] WBC Corrected 09/15/2019 12:52 PM CLUB WAITER/WAITRESS [facility] RBC 3.63(L) 3.80 - 5.20 x10E12/L 09/15/2019 12:[address] [facility] Hemoglobin 11.2(L) 12.0 - 15.6 gm/dL 09/15/2019 12:[address] [facility] Hematocrit 34.8(L) 35.9 - 45.5 % 09/15/2019 12:[address] [facility] MCV 95.9 80.7 - 98.3 fl 09/15/2019 12:[address] [facility] MCH 30.9 26.7 - 34.0 pg 09/15/2019 12:[address] [facility] MCHC 32.2 30.8 - 35.9 gm/dL 09/15/2019 12:[address] [facility] Platelet Count 487(H) 153 - 416 x10E9/L 09/15/2019 12:[address] [facility] RDW-CV 12.9 12.1 - 14.9 % 09/15/2019 12:[address] [facility] MPV 8.6(L) 9.4 - 12.9 fl 09/15/2019 12:[address] [facility] Neutrophils % 70.5 44.0 - 73.0 % 09/15/2019 12:[address] [facility] Lymphocytes % 18.9(L) 20.0 - 43.0 % 09/15/2019 12:[address] [facility] Monocytes % 9.2 5.0 - 13.0 % 09/15/2019 12:[address] [facility] Eosinophils % 0.3 0.0 - 6.0 % 09/15/2019 12:[address] [facility] Basophils % 0.3 0.0 - 2.0 % 09/15/2019 12:[address] [facility] Immature Granulocytes 0.8 0 - 1 % 09/15/2019 12:[address] [facility] Neutrophil Absolute 12.42(H) 2.01 - 7.14 x10E9/L 09/15/2019 12:[address] [facility] Lymphocytes Absolute 3.33 1.07 - 3.94 x10E9/L 09/15/2019 12:[address] [facility] Monocytes Absolute 1.62(H) 0.26 - 1.07 x10E9/L 09/15/2019 12:52 PM CLUB WAITER/WAITRESS [facility] Eosinophils Absolute 0.06 0 - 0.47 x10E9/L 09/15/2019 12:52 PM CLUB WAITER/WAITRESS [facility] Basophils Absolute 0.06 0 - 0.08 x10E9/L 09/15/2019 12:52 PM CLUB WAITER/WAITRESS [facility] Immature Granulocytes Absolute 0.14(H) 0.00 - 0.06 [id number]/L 09/15/2019 12:52 PM CLUB WAITER/WAITRESS [facility] nRBC Auto 0 /100 WBC 09/15/2019 12:52 PM CLUB WAITER/WAITRESS [facility] Blood BLOOD SPECIMEN / Unknown Venipuncture / Unknown 09/15/2019 12:45 PM CLUB WAITER/WAITRESS 09/15/2019 12:49 PM CLUB WAITER/WAITRESS Hunter Lopez HELP DESK REPRESENTATIVE-CMS EXPERT LAB - HEMATOLOGY ORDERABLES Performing Organization Address City/State/[facility] Co de Phone Number [facility] [id number] [place] [phone] documented in this encounter Visit Diagnoses Diagnosis Facial abscess- Primary Cellulitis and abscess of face Right facial swelling Swelling, mass, or lump in head and neck Trismus Abnormal involuntary movements documented in this encounter Administered Medications Inactive Administered Medications - up to 3 most recent administrations Medication Order MAR Action Action Date Dose Rate Site 0.9% NaCl injection 0-10 mL 0-10 mL, Intracatheter, ONCE PRN, Other, Contrast flush, 1 dose, Starting on Wed09/15/19 at 1737, Until Wed09/15/19 at 1738, For administration with contrast. $ Given 09/15/2019 5:38 PM CLUB WAITER/WAITRESS 10 mL 0.9% NaCl injection 1-10 mL 1-10 mL, Intracatheter, PRN, Other, peripheral line flush, Starting on Wed09/15/19 at 1239, Until Wed09/15/19 at 2149, Flush peripheral IV catheter with 1-10 mL of normal saline before and after medications and prn to clear blood from the line or to verify patency. 0.9% NaCl injection 3 mL 3 mL, Intracatheter, EVERY 8 HOURS, First dose on Wed09/15/19 at 1400, Until Discontinued, Flush peripheral IV catheter with 3 mL of normal saline every 8 hours. 0.9% NaCl IV Flush Bag 0-100 mL, Intracatheter, ONCE PRN, Contrast flush, 1 dose, Starting on Wed09/15/19 at 1737, Until Wed09/15/19 at 1738, For administration with contrast $ Given 09/15/2019 5:38 PM CLUB WAITER/WAITRESS 100 mL clindamycin (CLEOCIN) 600 mg in 50 mL D5W IVPB 600 mg, at 100 mL/hr, Intravenous, EVERY 8 HOURS, First dose on Wed09/15/19 at 1930, Until Discontinued, Indication for anti-infective therapy: Documented infection, Site of anti-infective therapy: Skin/soft tissue $ New Bag/Syringe 09/15/2019 7:48 PM CLUB WAITER/WAITRESS 600 mg 100 mL/hr fentaNYL (PF) (SUBLIMAZE) injection 50 mcg 50 mcg, Intravenous, NOW, 1 dose, On Wed09/15/19 at 1915 $ Given 09/15/2019 7:47 PM CLUB WAITER/WAITRESS 50 mcg iopamidol (ISOVUE 370) 76 % contrast Intravenous, CONTRAST ONCE, Starting on Wed09/15/19 at 1737, Until Wed09/15/19 at 2149 $ Given - Contrast 09/15/2019 5:38 PM CLUB WAITER/WAITRESS 80 mL nicotine (NICODERM CQ) patch 21 mg 21 mg, Administer over 24 Hours, NOW, 1 dose, On Wed09/15/19 at 2045, Remove old patch before applying new patch. This patch may contain metal and is not compatible with MRI. Notify radiology of patch location upon arrival to MRI. . WASTE DISPOSAL INSTRUCTIONS: P-Listed item. Special Disposal Required. . $ Applied 09/15/2019 8:34 PM CLUB WAITER/WAITRESS 21 mg Right Arm ondansetron (ZOFRAN) injection 4 mg 4 mg, Intravenous, NOW, 1 dose, On Wed09/15/19 at 1915, Administer over 2 to 5 minutes. $ Given 09/15/2019 7:47 PM CLUB WAITER/WAITRESS 4 mg documented in this encounter Active and Recently Administered Medications Times are shown in CLUB WAITER/WAITRESS. Scheduled Medication Order 09/13/2019 09/14/2019 09/15/2019 0.9% NaCl injection 3 mL(Linked Group 1) 3 mL, Intracatheter, EVERY 8 HOURS, First dose on Wed09/15/19 at 1400, Until Discontinued, Flush peripheral IV catheter with 3 mL of normal saline every 8 hours. 1400 (Due) clindamycin (CLEOCIN) 600 mg in 50 mL D5W IVPB 600 mg, at 100 mL/hr, Intravenous, EVERY 8 HOURS, First dose on Wed09/15/19 at 1930, Until Discontinued, Indication for anti-infective therapy: Documented infection, Site of anti-infective therapy: Skin/soft tissue 1947 ($ New Bag/Syri nge - Provider: Cheri Oliveira RN)2020 (Stopped - Provider: Cheri Oliveira RN) fentaNYL (PF) (SUBLIMAZE) injection 50 mcg (COMPLETED) 50 mcg, Intravenous, NOW, 1 dose, On Wed09/15/19 at 1915 1946 ($ Given - Prov ider: Cheri Oliveira RN) iopamidol (ISOVUE 370) 76 % contrast Intravenous, CONTRAST ONCE, Starting on Wed09/15/19 at 1737, Until Wed09/15/19 at 2148 1737 ($ Given - Cont rast - Provider: Beth Contreras, RT(R)) nicotine (NICODERM CQ) patch 21 mg 21 mg, Administer over 24 Hours, NOW, 1 dose, On Wed09/15/19 at 2044, Remove old patch before applying new patch. This patch may contain metal and is not compatible with MRI. Notify radiology of patch location upon arrival to MRI. . WASTE DISPOSAL INSTRUCTIONS: P-Listed item. Special Disposal Required. . 2033 ($ Applied - Pr ovider: Cheri Oliveira RN) ondansetron (ZOFRAN) injection 4 mg (COMPLETED) 4 mg, Intravenous, NOW, 1 dose, On Wed09/15/19 at 1915, Administer over 2 to 5 minutes. 1946 ($ Given - Prov ider: Cheri Oliveira RN) PRN Medication Order 09/13/2019 09/14/2019 09/15/2019 0.9% NaCl injection 0-10 mL (COMPLETED) 0-10 mL, Intracatheter, ONCE PRN, Other, Contrast flush, 1 dose, Starting on Wed09/15/19 at 1737, Until Wed09/15/19 at 173, For administration with contrast. 1737 ($ Given - Prov ider: Beth Contreras, RT(R)) 0.9% NaCl injection 1-10 mL(Linked Group 1) 1-10 mL, Intracatheter, PRN, Other, peripheral line flush, Starting on Wed09/15/19 at 1239, Until Wed09/15/19 at 2149, Flush peripheral IV catheter with 1-10 mL of normal saline before and after medications and prn to clear blood from the line or to verify patency. 0.9% NaCl IV Flush Bag (COMPLETED) 0-100 mL, Intracatheter, ONCE PRN, Contrast flush, 1 dose, Starting on Wed09/15/19 at 1737, Until Wed09/15/19 at 1738, For administration with contrast 1738 ($ Given - Prov ider: Beth Contreras, RT(R)) Linked Groups Order Group 1: SALINE LOCK, INSERT AND MAINTAIN (CANCELED) Routine, CONTINUOUS, Starting on Wed09/15/19 at 1245, Until Specified, New collection And 0.9% NaCl injection 3 mLJump to med 3 mL, Intracatheter, EVERY 8 HOURS, First dose on Wed09/15/19 at 1400, Until Discontinued, Flush peripheral IV catheter with 3 mL of normal saline every 8 hours. And 0.9% NaCl injection 1-10 mLJump to med 1-10 mL, Intracatheter, PRN, Other, peripheral line flush, Starting on Wed09/15/19 at 1239, Until Wed09/15/19 at 2149, Flush peripheral IV catheter with 1-10 mL of normal saline before and after medications and prn to clear blood from the line or to verify patency. documented in this encounter
--- OUTSIDE RECORDS SUMMARY | 2024-10-27 00:38 | XMS_ITS | Encounter Summary ---
Author Organization [facility] Address [facility] [place] [address] Care Team Providers Care Sample Finisher Name Role Phone Unavailable Primary Care Provider Unavailabl e Reason for Visit * Auth/Cert (Routine) Specialty Diagnoses / Procedures Referred By Aristeo hussein Referred To Contact Diagnoses Unilateral primary osteoarthritis, right knee Procedures [place] TOTAL KNEE REPLACEMENT Referral ID Status Reason Start Date Expiration Date Visits Re quested Visits Authorized [id number] 09/01/2019 02/28/2020 1 1 Encounter Details Date Type Department Care Team (Latest Contact Info) Description 09/06/2019 5:24 AM IT SYSTEMS ANALYST - 09/08/2019 12:07 PM IT SYSTEMS ANALYST Hospital Encounter [address] [id number] Lucy Haines MD [address] [place] [address] [address] [place] [address] Surgery Orthopedics Discharge Disposition: Home Health Care Svc Social History Tobacco Use Types Packs/Day Years [...] Sign Reading Time Taken Comments Blood Pressure 130/76 09/08/2019 6:12 AM IT SYSTEMS ANALYST Pulse 104 09/08/2019 6:12 AM IT SYSTEMS ANALYST Temperature 36.7 ??C (98.1 ??F) 09/08/2019 2:20 AM CS T Respiratory Rate 18 09/08/2019 2:20 AM IT SYSTEMS ANALYST Oxygen Saturation 96% 09/08/2019 2:20 AM IT SYSTEMS ANALYST Inhaled Oxygen Concentration - - Weight 75.1 kg (165 lb 9.6 oz) 09/06/2019 6:18 A M IT SYSTEMS ANALYST Height 157.5 cm (5' 2 ) 09/06/2019 6:18 AM IT SYSTEMS ANALYST s tated Body Mass Index 30.29 09/06/2019 6:18 AM IT SYSTEMS ANALYST documented in this encounter Functional Status Functional [...] Providers Lucy Haines MD Specialty: Orthopedic Surgery [id number] [address] follow up in 3 weeks Follow Up Instructions: follow up in [address] [facility] Specialty: Home Health Services [address] [place] [id number] Discharge time: less than 30 minutes. Current [...] capsule Commonly known as: CLEOCIN CC: none SYSTEMS ANALYST documented in this encounter Medications at Time [...] Espinal, PharmD - 09/08/2019 12:07 PM CST [facility] Pharmacy Services Pharmacy Discharge Review I have reviewed the discharge medication orders in [facility]. Thank you for involving me in the care of Teresa Espinosa Kiersten Espinal, PharmBlaze 09/08/2019 SYSTEMS ANALYST * Gregory Penny MD - 09/08/2019 11:28 [...] results for input(s): TROPONIN in the last 14501 hours. Recent Labs Component Name 08/16/19 1047 SODIUM 139 POTASSIUM 4.0 CHLORIDE 104 CO2 27 BUN 12 CREATININE 0.68 GLUCOSE 97 CALCIUM 9.9 Recent Labs Component Name 08/16/19 1047 ALBUMIN 4.3 ALKPHOS 110 ALT 58 AST 38* TBIL 0.4 TPROT 6.7 No results for input(s): BNP in the last 54004 hours. No data found. MEDICATIONS FOR CURRENT [...] using a voice recognition system without human office automation technician. This report has not been adjusted for typographical, grammatical, and syntax mistakes by a trained medical information officer. SYSTEMS ANALYST * Xuan Conley RN - 09/08/2019 10:55 AM CST Ortho POD # 2 Awake, Alert Afebrile Hgb: 10.5 VTE Prophylaxis: aspirin 325mg BID Nausea/ Vomiting: none Incisional Area- silver dressing intact No calf pain, wiggles toes Pain controlled Con't PT- WBAT OK to D/C home with HHC, F/U in office in 3 weeks SYSTEMS ANALYST * Mary Coello PTA - 09/08/2019 9:01 AM CST Physical Therapy Treatment Summary Chart review completed. Nursing consented for PT. Explained purpose of PT and patient consented to participate in therapy. SUBJECTIVE: It's just so stiff . Patient Arthroplasty Liaison (PAL): SO. Patient's Goal for the Day: PT, go home. Pain Assessment: More pnful/stiff today. Had meds, using ice. OBJECTIVE: Bed Mobility: Supine to Sit: Modified [place](with strap as needed.) Sit to Supine: Modified [place](with strap as needed.) Transfers: Sit to Stand: Modified [place] Stand to Sit: Modified [place] Car Transfer: Modified [place](with strap.) Mobility: Distance Ambulated: 160 FEET(ft x 2.) Ambulation: Assistive Device: Gait Belt;Walker-2 Wheeled Ambulation: Level of Assistance: Modified [place] Ambulation: Gait Deviations: Kimberlyn - Decreased;Heel Strike - Decreased;Push Off - Decreased;Step Length - Decreased(very rigid R knee.) Weight Bearing Status-RLE: Weight Bearing as Tolerated Stairs: Number: 4 Stairs: Assistive Device: Gait Belt Stairs: Use of Rails: Left(B WEB PRODUCTION ARTIST L rail, practiced 1 step with L rail and WEB PRODUCTION ARTIST also.) Stairs: Level of Assistance: Stand-By Assist Curb: Assistive Device: Gait Belt;Walker-2 Wheeled Curb: Level of Assistance: Stand By Assist;Requires Verbal Cues for Safety;Requires Verbal Cues [facility] Balance: Standing - Static: Good;With Both Upper [...] place and intact pre and post visit. RN, Shawna, notified of patient's performance/location end of session. Pt was educated in PT plan of care, fall precautions, and benefits of OOB activity/PT. Please refer to the Filed Flowsheet PT Treatment for further details. RECOMMENDATIONS/PLAN: Rec cont'd PT for gt, strength, AD and ROM progression.Anticipate discharge home today, team to be updated. Pt will benefit from HH PT to maximize independent, functional mobility post TKA surgery. PT Discharge Recommendations: Home;Home Health PT Recommended Transportation Method: Private Car Mary Coello, OPHTHALMIC TECHNOLOGIST x [phone] SYSTEMS ANALYST * Rose Gil RN - 09/08/2019 4:08 AM CST Pt alert and oriented x 4. Denies chest pain and SOB. Silver dressing c/d/i. SBA with walker. Voiding fine. MOM given last night. [place] 5 for pain. Continue to monitor. SYSTEMS ANALYST * Rose Gil RN - 2019 10:59 [...] will remain safe from falls and injury. 09/07/[id number] by Rose Gil RN Outcome: Ongoing [...] for help before getting out of bed. SYSTEMS ANALYST * Briana Franco RN - 2019 6:23 PM CST Sitting up on edge of bed Alert, oriented Pain controlled with norco. Up with standby assist. Silver dressing intact to right knee, no drainage. SYSTEMS ANALYST * Kristy Randall RN - 2019 1:36 PM CST Case Management Initial Assessment Case Management screen completed & Welcome Letter given. Anticipated level of care at discharge: Home Health Care Discharge Plans: Home with hhc Basic Needs Assessment (BNA) Score: 5 Complex Needs Assessment (PARTITION ASSEMBLY MACHINE OPERATOR) Score: 5 Social Support Domain Score: 0 Medical Status and Health Trajectory Domain Score: 5 Medical Home and Access to Services Domain Score: 0 Recommended Interventions for Patient:: Home Health, Physical Therapy and Occupational Therapy Comment: Met with patient and spouse Lives with: Spouse Family Support (name and phone): Extended Emergency Contact Information Primary Emergency Contact: lucy espinosa Mobile Relation: Spouse Strategic Consultant needed? No Anticipated Discharge Date: 09/08/19 Prior Level of Functioning: Independent Anticipated level of care at discharge: Home Health Care Transportation at Discharge: Family Transportation to MD appointments:Family Equipment at Home: Equipment At Home: Cane-Straight Additional equipment needed at home but does not have: If no PCP, action taken: Pharmacy benefit: Yes Station Engineer Chief Referral: No If patient requires HHC at discharge, he/she requests: S/P Right Total Knee arthroplasty. Plan is to discharge home with hh. Patient lives with spouse in a 1 story home with 5 steps to enter. Spouse will provide transportation at discharge. Pt needs a 2WW for home use. Agreeable to [facility] Will continue to follow. For any questions or needs please contact: Medic Technician Name/Phone number: Kristy Randall RN SYSTEMS ANALYST * Mary Coello PTA - 2019 1:30 PM CST Physical Therapy [...] patient to ascend/descend 4 steps with B WEB PRODUCTION ARTIST L rail with min assistance and cues. [...] Cont. Mary Coello PTA Ext [phone] SYSTEMS ANALYST * Gregory Penny MD - 2019 1:10 [...] 125/53 Pulse: 93 86 82 88 Resp: Temp: 98.2 ??F (36.8 ??C) 97.9 ??F (36.6 ??C) 97.3 ??F (36.3 ??C) SpO2: 97% 100% 100% Weight: Height: Temp (30hrs) Max:98.9 ??F (37.2 ??C) Recent Labs Component Name 09/07/19 0239 HGB 10.9* HCT 34.9* No results for input(s): TROPONIN in the last 06222 hours. Recent Labs Component Name 08/16/19 1047 SODIUM 139 POTASSIUM 4.0 CHLORIDE 104 CO2 27 BUN 12 CREATININE 0.68 GLUCOSE 97 CALCIUM 9.9 Recent Labs Component Name 08/16/19 1047 ALBUMIN 4.3 ALKPHOS 110 ALT 58 AST 38* TBIL 0.4 TPROT 6.7 No results for input(s): BNP in the last 35598 hours. No data found. MEDICATIONS FOR CURRENT [...] using a voice recognition system without human office automation technician. This report has not been adjusted for typographical, grammatical, and syntax mistakes by a trained medical information officer. SYSTEMS ANALYST * Xuan Conley RN - 2019 11:51 AM CST Ortho POD # 1 Awake, Alert Up in chair Afebrile Hgb: 10.9 VTE Prophylaxis: aspirin 325mg BID Nausea/ Vomiting: none Incisional Area- silver dressing intact No calf pain, wiggles toes Pain controlled Con't PT- WBAT Plan D/C home in AM SYSTEMS ANALYST * Mary Coello PTA - 2019 10:50 AM CST Physical Therapy [...] place and intact pre and post visit. RNBriana, notified of patient's performance/location end of session. Pt was educated in PT plan of care, fall precautions, and benefits of OOB activity//PT. Please refer to the Filed Flowsheet PT Treatment for further details. RECOMMENDATIONS/PLAN: Cont PT. Anticipate discharge home tomorrow, team to be updated at rounds this afternoon. Pt will benefit from PT to maximize independent, functional mobility post TKA surgery. PT Discharge Recommendations: Home;Home Health PT Recommended Transportation Method: Private Car Mary Coello PTA x [phone] SYSTEMS ANALYST * Briana Franco RN - 2019 8:42 [...] be able to go without using morphine atomic welder Problem: Moderate Fall Risk (Score 11-14) Goal: [...] samuels score [address] SYSTEMS ANALYST * Rose Gil RN - 2019 5:45 AM CST Pt alert and oriented x 4. Denies chest pain and SOB. Silver dressing on right knee c/d/i. SBA withwalker. Voiding fine. Toradol/norco 5 for pain so far. Had some anxiety. Atarax ordered and given. Continue to monitor. SYSTEMS ANALYST * Rose Gil RN - 2019 5:31 AM CST Problem: Incision Care Goal: Incision remains intact with edges well approximated 09/07/2019529 by Rose Gil RN Outcome: Ongoing 2019 020 by Rose Gil RN Outcome: Ongoing Note: [...] safe from falls and injury. Outcome: Ongoing SYSTEMS ANALYST * Rose Gil RN - 2019 2:03 [...] Pt will ambulate safely with IV pole. SYSTEMS ANALYST * Briana Franco RN - 09/06/2019 9:05 [...] be able to go without using morphine atomic welder Problem: Moderate Fall Risk (Score 11-14) Goal: [...] strategies to implement after discharge. Outcome: Ongoing SYSTEMS ANALYST * Briana Franco RN - 09/06/2019 6:55 PM CST Arrived to room at 1030. Currently resting in bed Daniel wrap and ice intact to right knee, no drainage. Morphine atomic welder, norco and toradol for pain control. No nausea. Fair appetite. Has urinated and sat up in chair. Worked with PT SYSTEMS ANALYST * Vanessa Cee, PT - 09/06/2019 3:11 [...] me manage it. Feeling better now . OPHTHALMIC TECHNOLOGIST independent with gait(intermittent cane use), independent ADLS, [...] to maximize independence and functional mobility. Vanessa Cee PT [phone] SYSTEMS ANALYST documented in this encounter H&P Notes * Erma Hernandez PA-C - 08/29/2019 2:45 PM CST [facility] PRE-OPERATIVE HISTORY AND PHYSICAL PATIENT NAME: Teresa Espinosa : 1960 CSN: [id number] HISTORY OF PRESENT ILLNESS: This is a [...] 80 mg by mouth once daily 06/22/19 Farncisco Millan MD losartan - hydroCHLOROthiazide (HYZAAR) 50-12.5 MG tablet Take 1 tablet by mouth once daily 06/22/19 Francisco Millan MD meloxicam (MOBIC) 15 MG tablet Take 15 mg by mouth once daily 06/22/19 Francisco Millan MD Multiple Vitamins-Minerals (ONE-A-DAY WOMENS 50+ ADVANTAGE PO) Take by mouth once daily Francisco Millan MD No current facility-administered medications for this [...] expectations associated with this. Erma Hernandez PA-C SYSTEMS ANALYST documented in this encounter Consult Notes * Radha Gross PTA - 09/08/2019 12:26 PM CSTAssociated Order(s): IP CONSULT TO HOME HEALTH CARE Home Care Consult noted. [facility] Health at Home to follow at discharge. Thank you for this referral Nereida Gross PTA [facility] Ortho Plate Setter [facility] [place] [phone] office [phone] (option 1) after hours and weekends SYSTEMS ANALYST * Joshua Oliveira DO - 09/06/2019 1:54 PM CST Initial [...] file Gets together: Not on file Attends orthodoxy service: Not on file Active member of [...] 106/68 Pulse: 95 100 98 81 Resp: 13 16 16 Temp: 97.7 ??F (36.5 ??C) 97.5 ??F [...] WBC, HGB, HCT, PLTCOUNT in the last 98850 hours. Recent Labs Component Name 08/16/19 1047 SODIUM 139 POTASSIUM 4.0 CHLORIDE 104 CO2 27 BUN 12 CREATININE 0.68 GLUCOSE 97 CALCIUM 9.9 ALBUMIN 4.3 ALKPHOS 110 ALT 58 AST 38* TBIL 0.4 TPROT 6.7 EGFR >60 No results for input(s): TROPONIN in the last 30325 hours. No results for input(s): TSH in the last 27932 hours. Assessment and Plan htn -stable. -continue hyzaar -hold for low bp Hypercholesterolemia - continue statin. Tobacco dependence -nicotine patch -counseled to quit S/p right total knee arthroplasty - physical therapy - pain management - Monitor h/h. -Dvt prophylaxis per orthopedic surgery recommendations. - Encourage incentive spirometry. CC: Lucy Haines MD , Anthony Riley MD SYSTEMS ANALYST documented in this encounter OR Notes * Operative - Lucy Haines MD - 09/06/2019 7:32 AM CST Operative Report Right Total Knee PATIENT: Teresa Espinosa : 1960 ADMIT DATE: 09/06/2019 DATE OF SURGERY: 09/06/2019 PHYSICIAN: Lucy Haines MD SURGEON: Lucy Haines MD SUPERINTENDENT CIRCUS: Donte Hernandez PREOPERATIVE DIAGNOSIS: Degenerative joint disease, [...] Disposition: PACU Complications: None Lucy Haines MD SYSTEMS ANALYST documented in this encounter Plan of Treatment Not on file documented as of this encounter Procedures Procedure Name Priority Date/Time Associated Diagnosis Comments HGB HCT PANEL AM Draw 09/08/2019 2:41 AM IT SYSTEMS ANALYST HGB HCT PANEL AM Draw 2019 2:39 AM IT SYSTEMS ANALYST ARTHROPLASTY TOTAL KNEE 09/06/2019 6:39 AM IT SYSTEMS ANALYST Special Needs BIOMET (HUGO) NOTIFIED-NB documented in this encounter Results * (ABNORMAL) HGB HCT PANEL (09/08/2019 2:41 AM IT SYSTEMS ANALYST) Hemoglobin 10.5(L) 12.0 - 15.6 gm/dL 09/08/2019 3:12 AM IT SYSTEMS ANALYST [facility] Hematocrit 32.6(L) 35.9 - 45.5 % 09/08/2019 3:12 AM IT SYSTEMS ANALYST [facility] Blood BLOOD SPECIMEN / Unknown Venipuncture / Unknown 09/08/2019 2:41 AM IT SYSTEMS ANALYST 09/08/2019 3:02 AM IT SYSTEMS ANALYST Lucy Haines MD LAB - HEMATOLOGY ORD ERABLES Performing Organization Address [facility] de Phone Number [facility] [address] [place] [address] * (ABNORMAL) HGB HCT PANEL (2019 2:39 AM IT SYSTEMS ANALYST) Hemoglobin 10.9(L) 12.0 - 15.6 gm/dL 2019 3:28 AM IT SYSTEMS ANALYST [facility] Hematocrit 34.9(L) 35.9 - 45.5 % 2019 3:28 AM IT SYSTEMS ANALYST [facility] Blood BLOOD SPECIMEN / Unknown Venipuncture / Unknown 2019 2:39 AM IT SYSTEMS ANALYST 2019 3:11 AM IT SYSTEMS ANALYST Lucy Haines MD LAB - HEMATOLOGY ORD ERABLES Performing Organization Address City/[facility]/ZIP Co de Phone Number [facility] [address] [place] [address] documented in this encounter Visit Diagnoses Diagnosis Primary osteoarthritis of right knee- Primary Primary localized osteoarthrosis, lower leg Osteoarthritis of right knee Osteoarthrosis, unspecified whether generalized or localized, lower leg documented in this encounter Administered Medications Inactive Administered Medications - up to 3 most recent administrations Medication Order MAR Action Action Date Dose Rate Site 0.9% NaCl injection 3 mL 3 mL, Intracatheter, EVERY 8 HOURS, First dose on Wed09/07/19 at 0600, Until Discontinued, Post-op $ Given 09/08/2019 6:11 AM IT SYSTEMS ANALYST 3 mL $ Given 2019 9:40 PM IT SYSTEMS ANALYST 3 mL $ Given 2019 3:54 PM IT SYSTEMS ANALYST 3 mL acetaminophen (TYLENOL) tablet 1,000 mg 1,000 mg, Oral, PRE-OP ONCE, 1 dose, On Wed09/06/19 at 0600, For patients >50 Kg. Not for bariatric or cardiac patients., Pre-op $ Given 09/06/2019 6:04 AM IT SYSTEMS ANALYST 1,000 mg acetaminophen (TYLENOL) tablet 650 mg 650 mg, Oral, EVERY 4 HOURS PRN, Fever, Mild Pain, Starting on Wed09/06/19 at 1041, Until Wed09/08/19 at 1326, For temperature greater [id number] degress F or for mild pain., Post-op $ Given 2019 10:34 AM IT SYSTEMS ANALYST 650 mg $ Given 2019 6:56 AM IT SYSTEMS ANALYST 650 mg aspirin tablet 325 mg 325 mg, Oral, 2 TIMES DAILY WITH MEALS, 730 doses, First dose on Wed09/07/19 at 0800, Last dose on Wed09/05/20 at 1800, VTE prophlyaixs, post-op Knee, Post-op $ Given 09/08/2019 8:07 AM IT SYSTEMS ANALYST 325 mg $ Given 2019 6:22 PM IT SYSTEMS ANALYST 325 mg $ Given 2019 8:11 AM IT SYSTEMS ANALYST 325 mg atorvastatin (LIPITOR) tablet 80 mg 80 mg, Oral, DAILY, First dose on Wed09/06/19 at 2100, Until Discontinued $ Given 2019 9:37 PM IT SYSTEMS ANALYST 80 mg $ Given 09/06/2019 9:01 PM IT SYSTEMS ANALYST 80 mg bisacodyl (DULCOLAX) suppository 10 mg [...] If bisacodyl ineffective use Fleets enema., Post-op ceFAZolin (ANCEF) 1,000 mg in 50 ml IVPB 1,000 mg (1 g), at 100 mL/hr, Intravenous, EVERY 8 HOURS, 2 doses, First dose on Wed09/06/19 at 1300, Last dose on Wed09/06/19 at 2100, Give first dose 6 hours after last dose in surgery. Last dose to be completed within 24 hours of close of incision., Indication for anti-infective therapy: Surgical prophylaxis, Post-op $ New Bag/Syringe 09/06/2019 9:12 PM IT SYSTEMS ANALYST 1,000 mg 100 mL/hr $ New Bag/Syringe 09/06/2019 12:29 PM IT SYSTEMS ANALYST 1,000 mg 100 m L/hr celecoxib (CeleBREX) capsule 400 mg 400 mg, Oral, PRE-OP ONCE, 1 dose, On Wed09/06/19 at 0600, Pre-op $ Given 09/06/2019 6:04 AM IT SYSTEMS ANALYST 400 mg celecoxib (CeleBREX) capsule 400 mg 400 mg, Oral, DAILY, First dose on Wed09/07/19 at 0900, Until Discontinued, Post-op $ Given 09/08/2019 8:06 AM IT SYSTEMS ANALYST 400 mg $ Given 2019 8:11 AM IT SYSTEMS ANALYST 400 mg diphenhydrAMINE (BENADRYL) capsule 25 mg 25 mg, Oral, EVERY 8 HOURS PRN, Itching, Starting on Wed09/06/19 at 1041, Until Wed09/08/19 at 1326, Post-op diphenhydrAMINE (BENADRYL) capsule 50 mg 50 mg, Oral, EVERY 8 HOURS PRN, Itching, Starting on Wed09/06/19 at 1041, Until Wed09/08/19 at 1326, May give 50 mg if 25 mg is ineffective., Post-op ePHEDrine injection 50 mg 50 mg, Intramuscular, ONCE, 1 dose, On Wed09/06/19 at 1000 $ Given 09/06/2019 9:36 AM IT SYSTEMS ANALYST 50 mg Left leg famotidine (PEPCID) tablet 20 mg 20 mg, Oral, 2 TIMES DAILY PRN, Heartburn, Starting on Wed09/06/19 at 1041, Until Wed09/08/19 at 1326, Post-op HYDROcodone-acetaminophen (NORCO) 10-325 MG tablet 1 tablet 1 tablet, Oral, EVERY 4 HOURS PRN, Severe Pain, Starting on Wed09/06/19 at 1041, Until Wed09/08/19 at 1326, Post-op $ Given 09/08/2019 10:20 AM IT SYSTEMS ANALYST 1 tablet $ Given 09/06/2019 6:30 PM IT SYSTEMS ANALYST 1 tablet HYDROcodone-acetaminophen (NORCO) 5-325 MG tablet 1 tablet 1 tablet, Oral, EVERY 4 HOURS PRN, Moderate Pain, or for pain prior to painful procedures/therapy, Starting on Wed09/06/19 at 1041, Until Wed09/08/19 at 1326, Post-op $ Given 09/08/2019 6:11 AM IT SYSTEMS ANALYST 1 tablet $ Given 09/08/2019 2:20 AM IT SYSTEMS ANALYST 1 tablet $ Given 2019 10:29 PM IT SYSTEMS ANALYST 1 tablet hydrOXYzine hcl (ATARAX) tablet 10 mg 10 mg, Oral, EVERY 6 HOURS PRN, Anxiety, Starting on Wed09/07/19 at 0344, Until Wed09/08/19 at 1326 $ Given 2019 4:25 AM IT SYSTEMS ANALYST 10 mg ketorolac (TORADOL) injection 15 mg 15 mg, Intravenous, EVERY 6 HOURS PRN, Moderate Pain, Starting on Wed09/06/19 at 1041, Until Jolynn 09/07/19 at 1040, For breakthrough pain in between narcotic doses, , Post-op $ Given 2019 3:34 AM IT SYSTEMS ANALYST 15 mg $ Given 09/06/2019 9:03 PM IT SYSTEMS ANALYST 15 mg $ Given 09/06/2019 12:37 PM IT SYSTEMS ANALYST 15 mg lactated ringers infusion at 20 mL/hr, Intravenous, PRE-OP CONTINUOUS, Starting on Wed09/06/19 at 0600, Until Wed09/06/19 at 1037, Pre-op $ New Bag/Syringe 09/06/2019 8:11 AM IT SYSTEMS ANALYST $ New Bag/Syringe 09/06/2019 6:05 AM IT SYSTEMS ANALYST 20 mL/ hr lactated ringers infusion at 100 mL/hr, Intravenous, CONTINUOUS, Starting on Wed09/06/19 at 1045, Until Wed09/07/19 at 1036, Post-op $ New Bag/Syringe 09/06/2019 11:54 PM IT SYSTEMS ANALYST 100 mL/hr $ New Bag/Syringe 09/06/2019 11:16 AM IT SYSTEMS ANALYST 100 m L/hr lidocaine buffered 1 % injection 0.5 mL 0.5 mL, Infiltration, PRE-OP ONCE, 1 dose, On Wed09/06/19 at 0600, May be used (0.5 ml locally to anesthetize prior to insertion). For patients not allergic to local anesthetics., Pre-op $ Given 09/06/2019 6:05 AM IT SYSTEMS ANALYST 0.5 mL loratadine (CLARITIN) tablet 10 mg 10 mg, Oral, DAILY, First dose on Wed09/06/19 at 1445, Until Discontinued $ Given 09/08/2019 8:07 AM IT SYSTEMS ANALYST 10 mg $ Given 2019 8:11 AM IT SYSTEMS ANALYST 10 mg losartan - hydroCHLOROthiazide (HYZAAR) 50-12.5 MG tablet 1 tablet 1 tablet, Oral, DAILY, First dose on Wed09/06/19 at 1345, Until Discontinued, Hold for sbp < 120 $ Given 09/08/2019 8:07 AM IT SYSTEMS ANALYST 1 tablet $ Given 2019 8:11 AM IT SYSTEMS ANALYST 1 tablet magnesium hydroxide (MILK OF MAGNESIA) suspension 30 mL 30 mL, Oral, PRN, Constipation, Starting on Wed09/07/19 at 0600, Until Wed09/08/19 at 1326, Use MOM first. If MOM ineffective then use bisacodyl. If bisacodyl ineffective use Fleets enema. Shake well before using., Post-op $ Given 2019 9:39 PM IT SYSTEMS ANALYST 30 mL morphine 1 mg/ml LOBBY PORTER LOBBY PORTER Dose: 1 mg, LOBBY PORTER Lockout Interval: 12 Minutes, One Hour Limit\Max Limit: 5 mg, Clinician Bolus (Load): Not Ordered, Intravenous, LOBBY PORTER, Starting on Wed09/06/19 at 0945, Until Wed09/07/19 at 1036, LOBBY PORTER Pump Therapy: Normal Risk (LOBBY PORTER only) $ New Bag/Syringe 09/06/2019 9:25 AM IT SYSTEMS ANALYST naloxone (NARCAN) injection 0.2 mg 0.2 mg, [...] Required. . $ Applied 09/08/2019 8:08 AM IT SYSTEMS ANALYST 21 mg Left Arm $ Applied 2019 8:13 AM IT SYSTEMS ANALYST 21 mg Ri ght Arm $ Applied 09/06/2019 1:29 PM IT SYSTEMS ANALYST 21 mg Le ft Arm ondansetron (ZOFRAN) injection 4 mg 4 mg, Intravenous, EVERY 6 HOURS, 3 doses, First dose on Wed09/06/19 at 1430, Last dose on Wed09/07/19 at 0230, Administer over 2 to 5 minutes., Post-op $ Given 2019 3:34 AM IT SYSTEMS ANALYST 4 mg $ Given 09/06/2019 9:02 PM IT SYSTEMS ANALYST 4 mg $ Given 09/06/2019 2:31 PM IT SYSTEMS ANALYST 4 mg ondansetron (ZOFRAN) injection 4 mg 4 mg, Intravenous, EVERY 6 HOURS PRN, Nausea/Vomiting, Starting on Wed09/07/19 at 0830, Until Wed09/08/19 at 1326, May repeat x1 if no relief for total of 8 mg., Post-op oxyCODONE CR 12hr (OxyCONTIN) tablet 10 mg 10 mg, Oral, EVERY 12 HOURS, 2 doses, First dose on Wed09/06/19 at 2100, Last dose on Wed09/07/19 at 0900, Administer 10 hours post-op and morning of POD# Do not crush, chew, or cut in half., Post-op $ Given 2019 8:11 AM IT SYSTEMS ANALYST 10 mg oxyCODONE CR 12hr (OxyCONTIN) tablet 20 mg 20 mg, Oral, PRE-OP ONCE, 1 dose, On Wed09/06/19 at 0600, Do not crush, chew, or cut in half., Pre-op $ Given 09/06/2019 6:04 AM IT SYSTEMS ANALYST 20 mg povidone-iodine (BETADINE) 5 % solution Nasal, PRE-OP ONCE, 1 dose, On Wed09/06/19 at 0615, Pre-op $ Given 09/06/2019 6:24 AM IT SYSTEMS ANALYST pseudoephedrine CR 12hr (SUDAFED) tablet 120 mg 120 mg, Oral, EVERY 12 HOURS PRN, Nasal Congestion, Starting on Wed09/06/19 at 1402, Until Wed09/08/19 at 1326, Do not crush, chew, or cut in half. scopolamine (TRANSDERM-SCOP) 1 patch 1 patch, Administer over 72 Hours, PRE-OP [...] 1 mg of scopolamine over 72 hours. $ Applied 09/06/2019 6:04 AM IT SYSTEMS ANALYST 1 patch Behind Right Ear senna-docusate (SENOKOT-S) tablet 1 tablet 1 tablet, Oral, 2 TIMES DAILY, First dose on Wed09/06/19 at 2100, Until Discontinued, Post-op $ Given 09/08/2019 8:07 AM IT SYSTEMS ANALYST 1 tablet $ Given 2019 9:38 PM IT SYSTEMS ANALYST 1 tablet $ Given 2019 8:11 AM IT SYSTEMS ANALYST 1 tablet sodium phosphate rectal (FLEET SALINE) enema 133 mL 133 mL (1 enema), Rectal, PRN, Constipation, Starting on Wed09/07/19 at 0600, Until Wed09/08/19 at 1326, Use MOM first. If MOM ineffective then use bisacodyl. If bisacodyl ineffective use Fleets enema., Post-op zolpidem (AMBIEN) tablet 5 mg 5 mg, Oral, AT BEDTIME PRN, Insomnia, Starting on Wed09/07/19 at 2000, Until Wed09/08/19 at 1326, Not to be given the night of surgery, Post-op documented in this encounter Active and Recently Administered Medications Times are shown in IT SYSTEMS ANALYST. Scheduled Medication Order 09/06/2019 2019 09/08/2019 0.9% NaCl injection 3 mL 3 mL, Intracatheter, EVERY 8 HOURS, First dose on Wed09/07/19 at 0600, Until Discontinued, Post-op 0436 ($ Given - Provider: Rose Gil RN)1554 ($ Given - Provider: Briana Franco RN)2140 ($ Given - Provider: Rose Gil, KHALIDA) 0611 ($ Given - Provider: Rose Gil RN) acetaminophen (TYLENOL) tablet 1,000 mg (COMPLETED) 1,000 mg, Oral, PRE-OP ONCE, 1 dose, On Wed09/06/19 at 0600, For patients >50 Kg. Not for bariatric or cardiac patients., Pre-op 0604 ($ Given - Provider: Evita Medrano, KHALIDA) aspirin tablet 325 mg 325 mg, Oral, 2 TIMES DAILY WITH MEALS, 730 doses, First dose on Wed09/07/19 at 0800, Last dose on Wed09/05/20 at 1800, VTE prophlyaixs, post-op Knee, Post-op 0811 ($ Given - Provider: Briana Franco, KHALIDA)1822 ($ Given - Provider: Briana Franco, KHALIDA) 0807 ($ Given - Provider: Shawna Mcmahon RN) atorvastatin (LIPITOR) tablet 80 mg 80 mg, Oral, DAILY, First dose on Wed09/06/19 at 2100, Until Discontinued 2100 ($ Given - Provider: Rose Gil, KHALIDA) 2136 ($ Given - Provider: Rose Gil, KHALIDA) ceFAZolin (ANCEF) 1,000 mg in 50 ml [...] Franco RN)1322 (Stopped - Provider: Briana Franco RN)2112 ($ New Bag/Syringe - Provider: Rose Gil, KHALIDA)2211 (Stopped - Provider: Rose Gil, KHALIDA) ceFAZolin (ANCEF) syringe 2,000 mg (COMPLETED) 2,000 mg (2 g), Intravenous, PRE-OP MULTIPLE, 1 dose, Starting on Wed09/06/19 at 0556, Until Wed09/06/19 at 0704, Administer 30 minutes prior to surgical incision. May repeat dose in 3 hours if surgical incision is not yet closed. Administer over 3-5 minutes., Indication for anti-infective therapy: Surgical prophylaxis, Pre-op 0704 ($ Given - Provider: Jason Ward APRN-LINE INSTALLER REPAIRER) celecoxib (CeleBREX) capsule 400 mg (COMPLETED) 400 mg, Oral, PRE-OP ONCE, 1 dose, On Wed09/06/19 at 0600, Pre-op 0604 ($ Given - Provider: Evita Medrano, KHALIDA) celecoxib (CeleBREX) capsule 400 mg 400 mg, Oral, DAILY, First dose on Jolynn 09/07/19 at 0900, Until Discontinued, Post-op 0811 ($ [...] 0807 ($ Given - Provider: Shawna Mcmahon, RN) losartan - hydroCHLOROthiazide (HYZAAR) 50-12.5 MG tablet 1 tablet 1 tablet, Oral, DAILY, First dose on Wed09/06/19 at 1345, Until Discontinued, Hold for sbp < 120 2101 (Not Administered - Provider: Briana Franco RN - Reason: Refused-Patient) 0811 ($ Given - Provider: Briana Franco RN) 0807 ($ Given - Provider: Shawna Mcmahon, KHALIDA) nicotine (NICODERM CQ) patch 21 mg 21 [...] Franco RN) 0807 (Removed - Provider: Shawna Mcmahon, KHALIDA)0808 ($ Applied - Provider: Shawna Mcmahon RN) ondansetron (ZOFRAN) injection 4 mg (COMPLETED)(Linked Group 1) 4 mg, Intravenous, EVERY 6 HOURS, 3 doses, First dose on Wed09/06/19 at 1430, Last dose on Wed09/07/19 at 0230, Administer over 2 to 5 minutes., Post-op 1431 ($ Given - Provider: Briana Franco RN)2102 ($ Given - Provider: Rose Gil, KHALIDA) 0334 ($ Given - Provider: Rose Gil, KHALIDA) oxyCODONE CR 12hr (OxyCONTIN) tablet 10 mg () 10 mg, Oral, EVERY 12 HOURS, 2 doses, First dose on Wed09/06/19 at 2100, Last dose on Jolynn 09/07/19 at 0900, Administer 10 hours post-op and morning of POD# Do not crush, chew, or cut in half., Post-op 0334 (Not Administered - Provider: Rose Gil RN [...] on Wed09/06/19 at 2100, Until Discontinued, Post-op 2100 ($ Given - Provider: Rose Gil [...] ($ New Bag/Syringe - Provider: Jason Ward APRN-LINE INSTALLER REPAIRER)0827 (Anesthesia Volume Adjustment - Provider: Jason Ward APRN-LINE INSTALLER REPAIRER) lactated ringers infusion (CANCELED) at 100 mL/hr, Intravenous, CONTINUOUS, Starting on Wed09/06/19 at 1045, Until Wed09/07/19 at 1036, Post-op 1116 ($ New Bag/Syringe - Provider: Briana Franco RN)2354 ($ New Bag/Syringe - Provider: Rose Gil RN) morphine 1 mg/ml LOBBY PORTER (CANCELED) LOBBY PORTER Dose: 1 mg, LOBBY PORTER Lockout Interval: 12 Minutes, One Hour Limit\Max Limit: 5 mg, Clinician Bolus (Load): Not Ordered, Intravenous, LOBBY PORTER, Starting on Wed09/06/19 at 0945, Until Wed09/07/19 at 1036, LOBBY PORTER Pump Therapy: Normal Risk (LOBBY PORTER only) 0925 ($ New Bag/Syringe - Provider: Viri Holland RN) PRN Medication Order 09/06/2019 2019 09/08/2019 acetaminophen (TYLENOL) tablet 650 mg 650 mg, Oral, EVERY 4 HOURS PRN, Fever, Mild Pain, Starting on Wed09/06/19 at 1041, Until Wed09/08/19 at 1326, For temperature greater [id number] degress F or for mild pain., Post-op 0656 ($ Given - Provider: Rose Gil, KHALIDA)1034 ($ Given - Provider: Briana Franco, KHALIDA) bisacodyl (DULCOLAX) suppository 10 mg(Linked Group 3) [...] Fleets enema. Shake well before using., Post-op 213 ($ Given - Provider: Rose Gil RN) [...] EVERY 8 HOURS PRN, Itching, Starting on 09/06/19 at 1041, Until Wed09/08/19 at 1326, Post-op Or diphenhydrAMINE (BENADRYL) capsule 50 mgJump to med 50 mg, Oral, EVERY 8 HOURS PRN, Itching, Starting on Wed09/06/19 at 1041, Until Wed09/08/19 at 1326, May give 50 mg if 25 mg is ineffective., Post-op documented in this encounter
--- OUTSIDE RECORDS SUMMARY | 2024-10-27 00:39 | XMS_ITS | Clinical Summary ---
Author Organization [facility] Address [address] [place] [address] Care Team Providers Care Pitch Flaker Name Role Phone Unavailable Primary Care Provider Unavailabl e Immunizations Immunization Administration Dates Next Due Covid-19, Mrna, Lnp-s, Pf, 30 Mcg/0.3 Ml Dose (P fizer) 08/22/2021 Social History Tobacco Use Types Packs/Day Years Used Date Smoking Tobacco: Never Assessed Comments Unknown Sex and Gender Information Value Date Recorded Sex Assigned at Not on file Legal Sex Female 12:04 PM CDT Gender Identity Not on file Sexual Orientation Not on file Plan of Treatment Health Maintenance Due Date Last Done Comments Hepatitis C Virus (HCV) Screening 1961 Pap Smear 1982 Cervical Cancer Screening (CCS) 1991 HPV/Cotest 1991 Colonoscopy 2006 Colorectal Cancer Screening 2006 Cologuard 2011 Immunochemical Fecal Occult Blood 2011 Mammogram 2011 Zoster Immunization (1 of 2) 2011 Influenza Immunization (#1) 2024 SARS-COV-2 Immunization ( season) 2024 08/22/2021, 11/11/2020, 10/15/2020 Pneumococcal Immunization (5 0+ years) (3 of 3 - PCV20 or PCV21) 08/24/2024 08/24/2019, 03/30/2012 Respiratory Syncytial Virus (RSV) Immunization (Adult) (1 - 1-dose 75+ series) 2036 DTaP/Tdap/Td Immunization Discontinued 03/30/2012 TdaP Immunization Completed 03/30/2012 Pneumococcal Immunization Combined Discontinued 08/24/2019, 03/30/2012 Hepatitis B Immunization Aged Out No longer eligible based on patient's age to complete this topic Meningococcal Immunization (ACWY) Aged Out No longer eligible based on patient's age to complete this topic Rotavirus Immunization Aged Out No lo nger eligible based on patient's age to complete this topic
--- OUTSIDE RECORDS SUMMARY | 2024-10-27 00:39 | XMS_ITS | Encounter Summary ---
Author Organization [facility] Address [address] [place] [address] Care Team Providers Care Animal Cruelty Investigator Name Role Phone Unavailable Primary Care Provider Unavailabl e Encounter Details Date Type Department Care Team (Late st Contact Info) Description 08/22/2021 12:45 PM CDT Immunization [facility] Immunization [address] [place] [id number] Need for vaccination (Primary Dx) Social History Tobacco Use Types Packs/Day Years Used Date Smoking Tobacco: Never Assessed Comments Unknown Sex and Gender Information Value Date Recorded Sex Assigned at Not on file Legal Sex Female 12:04 PM CDT Gender Identity Not on file Sexual Orientation Not on file documented as of this encounter Plan of Treatment Not on file documented as of this encounter Visit Diagnoses Diagnosis Need for vaccination- Primary Need for prophylactic vaccination and inoculation against unspecified single disease documented in this encounter
== END 2024-10-20 11:04 | disposition home or self-care (01) ==
PROVIDERS: PCP Family Medicine; Visit Provider Surgery
PROC: (CPT 19125; principal; 2024-10-20 09:00)
DX: C50.411 Malignant neoplasm of upper-outer quadrant of right female breast (principal); E78.5 Hyperlipidemia, unspecified; I10 Essential (primary) hypertension; F17.210 Nicotine dependence, cigarettes, uncomplicated; B36.9 Superficial mycosis, unspecified; Z79.899 Other long term (current) drug therapy; Z79.891 Long term (current) use of opiate analgesic; Z98.890 Other specified postprocedural states; Z80.1 Family history of malignant neoplasm of trachea, bronchus and lung; Z82.49 Family history of ischemic heart disease and other diseases of the circulatory system
CPT/HCPCS: 19125; 19285; 76098; 88307; 88342; 88360; C1769; J0690; J1100; J1885; J2003; J2004; J2250; J2405; J2704; J3010; J7120

== ENCOUNTER 2024-11-03 00:14 | Day surgery (SDC) | payer BC, SELFPAY ==
[2024-10-27 10:53] VITALS: BMI 32.5
--- NOTE | 2024-10-27 10:59 | PC.NURSE ---
Report to the Outpatient Waiting Room, entrance under the green pavilion located off [facility], at time _0845_ on date _[id number]_. Planned Procedure Time: _1100_.? Nuc med injection 0945. Time changes happen often and if your time is changed the preop area will call you the afternoon before. - You and your visitor will be asked to self-screen and do not enter if you have any COVID symptoms. Please call surgeon if you need to reschedule. - A mask is optional within the hospital at this time. Patients may have clear liquids (water, carbonated beverages, clear teas, apple juice) until 3 hours prior to surgery with a maximum of 20 ounces. - No food from midnight until time of surgery and no smoking. This includes no chewing gum, candy or mints. Take only the following medications with a SIP of water on the morning of surgery: ___Oxycodone if needed. DO NOT STOP ANY OF YOUR OTHER PRESCRIPTION MEDICATIONS PRIOR TO SURGERY EXCEPT THE FOLLOWING Medications to discontinue per physician ___Multivitamin and Meloxicam(per Dr Smallwood)____ Date to take last cpyz__[phone] Please no make-up, nail czech, hairspray, perfume, deodorant, or body powder the day of surgery.? No jewelry (including any body piercings) or valuables the day of surgery, leave them at home.? Please take a shower or bath the night before, or the morning of, surgery with an antibacterial soap.? Wear comfortable, loose fitting clothing.? - Jewelry must be removed prior to entering the operating room.? Rings and piercings that are not removed may be cut off. - The hospital will not accept responsibility for valuables.? - Please leave all valuables, including medications, at home the day of surgery. If you are going home after surgery, a licensed shuttle truck driver must drive you home.? - NO public transportation without another adult if you receive anesthesia. - We recommend that an adult stay with you for 24 hours following discharge. - We also recommend that you do not drive, make important decision, drink alcoholic beverages, or take any drugs that were not prescribed by your health care provider for at least 24 hours after your discharge time. Follow any additional instructions given to you from your surgeon. Telephone instructions given to _Annita__and asked if any additional questions and then verbalized understanding. Patient advised to call surgeon office or pre surgery nurse liaison [phone] if any additional questions.
[2024-11-03] VITALS (7 sets, daily range): BP systolic 104–125; BP diastolic 66–80; PULSE 88–99; RESP 12–20; TEMP 36.1–36.4; O2SAT 94–99
--- NOTE | ~2024-11-03 | NM_ITS ---
EXAMINATION: NM sentinel node inject only DATE: 11/03/2024 10:42 INDICATION: Right breast cancer TECHNIQUE: 1.112 mCi Tc-99m filtered sulfur colloid was injected in four aliquots in the anterior abby ast near the areola. No images were obtained. IMPRESSION: 1. Right breast sentinel lymph node radiopharmaceutical injection. Reviewed, dictated and finalized at location A. BASE ADMINISTRATION PROJECT MANAGER
[2024-11-03] MEDS: ACETAMINOPHEN 500 MG TABLET 1000 MG PO (09:10)
--- NOTE | 2024-11-03 10:06 | SUR.PREOP ---
7410 PT TO NUC. MED PER WHEELCHAIR
[2024-11-03] MEDS: KETOROLAC 15 MG/ML VIAL (*BKC) IV PUSH ×2 (10:30→12:45)
[2024-11-03] MEDS: LACTATED RINGERS 1,000 ML 30 ML IV CONT ×2 (10:30→13:10)
--- NOTE | 2024-11-03 11:01 | WPDANESEPPF ---
Anes - Initial Pre Proc Eval Procedure: Operation Date: 11/03/24 11:00 Proposed Procedures p Right Axillary [place] Lymph Node Biopsy, with Possible Dissection - Isiah Smallwood MD Date/Time: 11/03/24 11:01 Surgeon: Isiah Smallwood MD Pre Op Diagnosis: right breast cancer Patient Data Age: 64 Gender: F Height: 1.55 m Weight: 69.2 kg Last Vital Signs Temp 97.0 F L 11/03/24 08:50 Pulse 99 11/03/24 08:50 Resp 16 11/03/24 08:50 BP 114/78 11/03/24 08:50 Pulse Ox 97 11/03/24 08:50 O2 Del Method Room Air 11/03/24 08:50 Allergies Allergy/AdvReac Type Severity Reaction Status Date / Time Penicillins Allergy Severe Itching Verified 11/03/24 09:25 Sulfa (Sulfonamide Allergy Severe Itching Verified 11/03/24 09:25 Antibiotics) Home Medications ?Medication ?Instructions ?Recorded ?Confirmed ?Type atorvastatin 20 mg tablet See Rx Instructions .Route 10/09/24 11/03/24 Rx .COMPLEX #90 tabs hydrochlorothiazide 12.5 mg tablet See Rx Instructions .Route 10/09/24 11/03/24 Rx .COMPLEX #30 tabs losartan 50 mg tablet See Rx Instructions .Route 10/09/24 11/03/24 Rx .COMPLEX #90 tabs meloxicam 15 mg tablet See Rx Instructions .Route 10/09/24 11/03/24 Rx .COMPLEX #30 tabs multivitamin 1 tablet PO DAILY 10/09/24 11/03/24 History oxycodone 5 mg tablet 5 mg PO Q8H PRN pain 11/03/24 11/03/24 History Patient hx anesthesia problems: none Family hx anesthesia problems: none Results Review: All pre-operative results and documents have been reviewed as part of the pre-operative evaluation. [facility] Past Medical History Medical History Hypertension Hyperlipidemia Surgical History Surgical History H/O breast biopsy 10/20/24 Image guided wire localized excisional right breast biopsy Dr. Smallwood History of colonoscopy History of hysterectomy History of right knee joint replacement Family History Family History Father , age 66 Lung cancer Mother , age 83 Diabetes mellitus Heart disease Social History Social History Smoking packs per day: 1 Smoking cigarettes per day: 20.0 Years smoked: 40 Smoking pack-years: 40.00 Smoking status: Current every day smoker Tobacco type: cigarettes Alcohol intake: current Alcohol use details: Has a few drinks daily after work. 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 ) Neurological: alert and oriented Last oral intake: >/= 8 hours ASA classification: III Emergent: no Anesthetic plan: proceed Anesthesia type and monitoring: general LMA and standard monitoring Results Review: All pre-operative results and documents have been reviewed as part of the pre-operative evaluation. HTN, hyperlipidemia, smoker 1 ppd, breast ca. Informed Consent: The patient's anesthetic plan and its attendant risks and benefits were discussed with the patient/family/POA. Questions were solicited and answers provided to the satisfaction of the patient/family/POA.
--- NOTE | 2024-11-03 11:11 | SUR.PREOP ---
1103 PT INFORMED OF SURGERY TIME DELAY
--- NOTE | 2024-11-03 11:15 | WPDHPUPDATE1 ---
History and Physical Update Update Date/Time: 11/03/24 11:15 History and Physical has been reviewed, including an updated exam of the patient. There are NO changes in the patient's condition. Risks, benefits, and alternatives have been discussed and questions answered. Patient agrees to proceed with procedure. Plan: Right axillary sentinel lymph node biopsy, possible completion right axillary node dissection.
[2024-11-03] MEDS: ceFAZolin 2 GM/D5W 50 ML 2 GM/50 ML BAG IVPB (11:36)
[2024-11-03] MEDS: LIDO 1%/EPINEPHRINE 1:100,000 50 ML VIAL 30 ML INFILTRATE (12:01)
[2024-11-03] MEDS: BUPivacaine HCL 0.5% 10 ML AMP 30 ML INFILTRATE (12:02)
[2024-11-03] MEDS: ISOSULFAN BLUE 1% INJ 5 ML VIAL SUB-Q (12:04)
--- NOTE | 2024-11-03 13:08 | W.PM.PROC2 ---
Procedure Note - Detailed Date of Procedure 11/03/24 Pre-op Diagnosis Invasive right breast lobular carcinoma Post-op Diagnosis Same Procedure Performed Excision of right axillary sentinel lymph node biopsy with intraoperative lymphoscintigraphy with Lymphazurin blue dye Surgeon Isiah Smallwood MD Domestic Housekeeper Marybeth Velasco BUSINESS SERVICES SPECIALIST SALES Anesthesia General Indications Patient is 64-year-old female who was recently diagnosed with invasive lobular carcinoma of the right breast and has already undergone a lumpectomy of the tumor with adequate negative margins. She now presents for a incisional right axillary sentinel lymph node biopsy with intraoperative lymphoscintigraphy and blue dye injection. Findings Patient had a single right axillary sentinel lymph node identified which was approximately 5 to 6 mm in diameter. Clinically it appeared to be normal in size and consistency. It did contain both the Lymphazurin blue dye and high radioactive counts. A 2nd lymph node measuring about 8 to 9 mm in diameter right next to the sentinel lymph node was removed as well but this lymph node did not have any significant radioactive counts or blue dye staining. Both lymph nodes were sent to pathology fresh. Description of Procedure After informed consent was obtained patient brought to the operating room she was placed supine position and general LMA anesthesia was administered. The right breast, anterior chest, and right axillary region was then prepped and draped usual sterile fashion. A time-out was then performed correctly identifying the patient as well as site marking in the procedure to be performed. She was given perioperative IV antibiotics. Prior to coming to the operating room the patient had injection of radioactive sulfur colloid in the periareolar region of the right nipple. I utilized the Neoprobe identified accounts of radio activity in the right periareolar region and this trailed off into the right axilla. One particular area the right axilla had high radioactive counts in this area was marked the skin with a skin marker. I then proceeded to perform intraoperative lymphoscintigraphy with injection of Lymphazurin blue dye. I injected [id number] of the dye in the subdermal layer in the periareolar region of the right breast from approximately the 7 o'clock to the 10 o'clock position. Another 2cc of the Lymphazurin dye was injected around the scar of the lumpectomy site and the upper outer quadrant of the right breast. The tissue at the injection sites was then vigorously rub to promote uptake of the dye into the lymphatics. I then proceeded to make a oblique incision in the right axilla over the area that was marked previously with a right high rate of counts. Dissection was then carried down through the dermis of the skin with a scalpel and then I dissected down into the subcutaneous tissue electrocautery. I then encountered the deltopectoral fascia and incised this with electrocautery and placed Weitlander self retraining retractors in place to improve exposure. I then interrogated the area with the Neoprobe once more and continue to find high rate up to counts in the right axilla and I did find some lymphatic channels containing the blue dye in the axilla. I then continued dissecting down along these blue dye lymphatic channels with blunt spreading with a tonsil clamp until identified a level 1 lymph node containing the Lymphazurin blue dye as well as having significant rate after counts upon interrogation. I then very carefully dissected the lymph node out in an excisional fashion clamping off the feeding lymphatic channels utilizing medium-sized titanium clips. Once the lymph node was completely excised out I interrogated with the Neoprobe and once again had high radioactive counts outside of the body. The lymph node did not feel particularly hard and was not enlarged. A 2nd lymph node right next to the sentinel lymph node which was excised did not have any significant radioactive counts within it and did not have any blue dye in it. However since was right next to the son the left note I did excise this lymph node out as well in similar fashion ligating off feeding lymphatic vessels with titanium clips. This lymph node measured approximately 8 to 9 mm in diameter and was sent to pathology labeled as nonsentinel lymph node. Both lymph nodes were sent to pathology fresh. Then irrigated out the right axilla with sterile saline solution. Hemostasis was good. One last interrogation of the axilla with the Neoprobe revealed no significant residual radioactive counts. I then proceeded to close the incision utilizing interrupted 3-0 chromic sutures in the subcutaneous tissues and to close the deltopectoral fascia. A more superficial layer interrupted 3-0 chromic sutures then placed as well. The skin edges were then approximated utilizing a running subcuticular 4-0 Monocryl suture. The incision was then cleaned and then skin glue was applied. The patient tolerated the procedure well no complications. All sponges, needles, and instrument counts were correct at the end procedure. EBL was _10__cc. The patient was awakened and taken to recovery in stable and satisfactory condition. Implants None Estimated Blood Loss 10 Drains No Packing No Pathology Yes (1 sentinel lymph node and 1 nonsentinel lymph node sent to pathology fresh.) Complications No immediate complications Condition Stable Disposition PACU [facility] Billing Surgery - Charge Forward: Surgery Billing
[2024-11-03] MEDS: fentaNYL CITRATE INJ (*CRX) 100 MCG/2 ML VIAL 25 MCG IV PUSH (13:32)
--- OUTSIDE RECORDS SUMMARY | 2024-11-09 04:36 | XMS_ITS | Clinical Summary ---
Author Organization [facility] Address [address] [place] [place] [address] Care Team Providers Care School Child Care Attendant Name Role Phone Unavailable Primary Care Provider Unavailabl e Source Comments [facility],non-owned Affiliates and Associated Physician Practices is amultiple site organization consisting of ambulatory clinics and hospital sitesin [place], [place], [place] and [place]. This disclosure is being madepursuant to the Care Everywhere program and may not contain all information available regarding this patient. Last updated 18.[facility] Allergies Active Allergy Reactions Criticality Noted Date [...] Comments Blood Pressure 139/78 09/15/2019 12:00 PM FOREPART LASTER Pulse 76 09/15/2019 12:00 PM FOREPART LASTER Temperature 36.6 ??C (97.8 ??F) 09/15/2019 12:[address] Respiratory Rate 16 09/15/2019 12:00 PM FOREPART LASTER Oxygen Saturation 100% 09/15/2019 12:00 PM FOREPART LASTER Inhaled Oxygen Concentration - - Weight 74.8 kg (165 lb) 09/15/2019 12:00 PM FOREPART LASTER Height 157.5 cm (5' 2 ) 09/15/2019 12:00 PM FOREPART LASTER Body Mass Index 30.18 09/15/2019 12:00 PM FOREPART LASTER Plan of Treatment Health Maintenance Due Date Last Done Comments COLOGUARD (AGES 45-75) - COL ON CA SCREENING 1961 COLON MONITORING 1961 COLONOSCOPY - COLON CA SCREENING 1961 CT COLONOGRAPHY - COLON CA SCREENING 1961 Colorectal Cancer Screening 1961 FIT - COLON CA SCREENING 1961 FLEX SIG - COLON CA SCREENING 1961 MAMMOGRAM 1961 PAP SMEAR 1961 HIV SCREENING 1976 HEPATITIS C SCREENING 09/03/1979 DTAP/TDAP/TD VACCINES (1 - Tdap) 1980 PNEUMOCOCCAL VACCINE 50+ (1 of 2 - PCV) 1980 ZOSTER VACCINE (1 of 2) 2011 [...] patient's age to complete this topic MENINGOCOCCAL (Group B) VACCINE Aged Out No longer eligible b ased on patient's age to complete this topic MENINGOCOCCAL VACCINE Aged Out No markell nitin eligible based on patient's age to complete this topic Medical Devices Implanted Type Area Kindergarten Classroom Teacher Device Identifier Shelf Expiration Date Model / Serial / Lot Cmnt Bone Djo Srg Cblt 40gm Hvisc Strl Implanted:Qty: 1 on 09/06/2019 by Edward Haines MD at [facility] Right: Knee [employer] 12/08/2020 600-15-000 / / [id number] Cmpnt Fem Kn Rt Cr Cmnt Prm Vngrd Intlk Implanted:Qty: 1 on 09/06/2019 by Edward Haines MD at [facility] Right: Knee [employer] 06/22/2029 [id number] / / [id number] Tray Tib 63mm Kn Cocr I Beam Implanted:Qty: 1 on 09/06/2019 by Edward Haines MD at [facility] Right: Knee [employer] 12/16/2028 [id number] / / [id number] Cmpnt Ptlr 28mm 1 Pg Wire Ascnt Arcm Kn Implanted:Qty: 1 on 09/06/2019 by Edward Haines MD at [facility] Right: Knee [employer] 07/24/2024 [id number] / / [id number] Brng [id number] Vngrd Arcm Kn Ant Stab Implanted:Qty: 1 on 09/06/2019 by Edward Haines MD at [facility] Right: Knee [employer] 04/19/2023 [id number] / / [id number] Procedures Procedure Name Priority Date/Time Associated Diagnosis Comments COMPREHENSIVE METABOLIC PANEL STAT 09/15/2019 12:45 PM FOREPART LASTER from Last 3 Months or Most Recently Relevant to Health Maintenance Results * (ABNORMAL) COMPREHENSIVE METABOLIC PANEL (09/15/2019 12:45 PM FOREPART LASTER) Glucose 103 70 - 105 mg/dL 09/15/2019 1:07 PM FOREPART LASTER [facility] Sodium 133(L) 136 - 145 mmol/L 09/15/2019 1:07 PM FOREPART LASTER [facility] Potassium 4.2 3.5 - 4.7 mmol/L 09/15/2019 1:07 PM [facility] Chloride 99 98 - 107 mmol/L 09/15/2019 1:07 PM FOREPART LASTER [facility] CO2 24 23 - 31 mmol/L 09/15/2019 1:07 PM FOREPART LASTER [facility] Calcium 10.4 8.4 - 10.4 mg/dL 09/15/2019 1:07 PM [facility] Anion Gap 10 8 - 16 mmol/L 09/15/2019 1:07 PM FOREPART LASTER [facility] BUN 11 9.8 - 20.1 mg/dL 09/15/2019 1:07 PM [facility] Creatinine 0.66 0.57 - 1.11 mg/dL 09/15/2019 1:07 PM [facility] Alkaline Phosphatase 134 40 - 150 U/L 09/15/2019 1:07 PM FOREPART LASTER [facility] ALT 40 0 - 61 U/L 09/15/2019 1:07 PM FOREPART LASTER [facility] AST 29 5 - 34 U/L 09/15/2019 1:07 PM [facility] Protein Total 7.3 6.4 - 8.3 gm/dL 09/15/2019 1:07 PM [facility] Albumin 3.9 3.5 - 5.2 gm/dL 09/15/2019 1:07 PM [facility] Bilirubin Total 0.7 0.2 - 1.0 mg/dL 09/15/2019 1:07 PM FOREPART LASTER [facility] eGFR by MDRD >60 >60 mL/min/1.7 3m2 09/15/2019 1:07 PM FOREPART LASTER [facility] eGFR by MDRD >60 >60 mL/min/1.7 3m2 09/15/2019 1:07 PM FOREPART LASTER [facility] Blood BLOOD SPECIMEN / Unknown Venipuncture / Unknown 09/15/2019 12:45 PM FOREPART LASTER 09/15/2019 12:49 PM FOREPART LASTER Hunter [employer] STUDENT ACCOUNTS COORDINATOR-HOTEL FRONT OFFICE MANAGER LAB - CHEMISTRY O RDERABLES [facility] [address] [place] [address] from Last 3 Months or Most Recently Relevant to Health Maintenance Advance Directives * Full Code (Latest Code Status on File) Date Activated Date Inactivated Comments 09/06/2019 10:42 AM 09/08/2019 1:31 PM
--- OUTSIDE RECORDS SUMMARY | 2024-11-09 04:36 | XMS_ITS | Referral Summary ---
Author Organization [facility] Address [address] [place] [address] Care Team Providers Care Transmission Systems Operator Name Role Phone Unavailable Primary Care Provider Unavailabl e Source Comments [facility],non-owned Affiliates and Associated Physician Practices is amultiple site organization consisting of ambulatory clinics and hospital sitesin [place], [place], [place] and [place]. This disclosure is being madepursuant to the Care Everywhere program and may not contain all information available regarding this patient. Last updated 18.[facility] Allergies Active Allergy Reactions Criticality Noted [...] Comments Blood Pressure 139/78 09/15/2019 12:00 PM DIGITAL ASSET MANAGER Pulse 76 09/15/2019 12:00 PM DIGITAL ASSET MANAGER Temperature 36.6 ??C (97.8 ??F) 09/15/2019 12:[address] Respiratory Rate 16 09/15/2019 12:00 PM DIGITAL ASSET MANAGER Oxygen Saturation 100% 09/15/2019 12:00 PM DIGITAL ASSET MANAGER Inhaled Oxygen Concentration - - Weight 74.8 kg (165 lb) 09/15/2019 12:00 PM DIGITAL ASSET MANAGER Height 157.5 cm (5' 2 ) 09/15/2019 12:00 PM DIGITAL ASSET MANAGER Body Mass Index 30.18 09/15/2019 12:00 PM DIGITAL ASSET MANAGER Functional Status Functional Status Response Date of [...] on file Medical Devices Implanted Type Area Software Validation Technician Device Identifier Shelf Expiration Date Model / Serial / Lot Cmnt Bone Djo Srg Cblt 40gm Hvisc Strl Implanted:Qty: 1 on 09/06/2019 by Edward Haines MD at [facility] Right: Knee [employer] 12/08/2020 600-15-000 / / [id number] Cmpnt Fem Kn Rt Cr Cmnt Prm Vngrd Intlk Implanted:Qty: 1 on 09/06/2019 by Edward Haines MD at [facility] Right: Knee [employer] 06/22/2029 [id number] / / [id number] Tray Tib 63mm Kn Cocr I Beam Implanted:Qty: 1 on 09/06/2019 by Edward Haines MD at [facility] Right: Knee [employer] 12/16/2028 [id number] / / [id number] Cmpnt Ptlr 28mm 1 Pg Wire Ascnt Arcm Kn Implanted:Qty: 1 on 09/06/2019 by Edward Haines MD at [facility] Right: Knee [employer] 07/24/2024 [id number] / / [id number] Brng [id number] Vngrd Arcm Kn Ant Stab Implanted:Qty: 1 on 09/06/2019 by Edward Haines MD at [facility] Right: Knee [employer] 04/19/2023 [id number] / / [id number] Procedures Procedure Name Priority Date/Time Associated Diagnosis Comments COMPREHENSIVE METABOLIC PANEL STAT 09/15/2019 12:45 PM DIGITAL ASSET MANAGER from Last 3 Months or Most Recently Relevant to Health Maintenance Results * (ABNORMAL) COMPREHENSIVE METABOLIC PANEL (09/15/2019 12:45 PM DIGITAL ASSET MANAGER) Pathologist [facility] Glucose 103 70 - 105 mg/dL 09/15/2019 1:07 PM DIGITAL ASSET MANAGER [facility] Sodium 133(L) 136 - 145 mmol/L 09/15/2019 1:07 PM DIGITAL ASSET MANAGER [facility] Potassium 4.2 3.5 - 4.7 mmol/L 09/15/2019 1:07 PM DIGITAL ASSET MANAGER [facility] Chloride 99 98 - 107 mmol/L 09/15/2019 1:07 PM DIGITAL ASSET MANAGER [facility] CO2 24 23 - 31 mmol/L 09/15/2019 1:07 PM DIGITAL ASSET MANAGER [facility] Calcium 10.4 8.4 - 10.4 mg/dL 09/15/2019 1:07 PM [facility] Anion Gap 10 8 - 16 mmol/L 09/15/2019 1:07 PM [facility] BUN 11 9.8 - 20.1 mg/dL 09/15/2019 1:07 PM [facility] Creatinine 0.66 0.57 - 1.11 mg/dL 09/15/2019 1:07 PM [facility] Alkaline Phosphatase 134 40 - 150 U/L 09/15/2019 1:07 PM [facility] ALT 40 0 - 61 U/L 09/15/2019 1:07 PM [facility] AST 29 5 - 34 U/L 09/15/2019 1:07 PM [facility] Protein Total 7.3 6.4 - 8.3 gm/dL 09/15/2019 1:07 PM [facility] Albumin 3.9 3.5 - 5.2 gm/dL 09/15/2019 1:07 PM [facility] Bilirubin Total 0.7 0.2 - 1.0 mg/dL 09/15/2019 1:07 PM [facility] eGFR by MDRD >60 >60 mL/min/1.7 3m2 09/15/2019 1:07 PM [facility] eGFR by MDRD >60 >60 mL/min/1.7 3m2 09/15/2019 1:07 PM [facility] Blood BLOOD SPECIMEN / Unknown Venipuncture / Unknown 09/15/2019 12:45 PM DIGITAL ASSET MANAGER 09/15/2019 12:49 PM DIGITAL ASSET MANAGER Hunter Lopez MUMPS DEVELOPER-WEAVER WIRE LOOM LAB - CHEMISTRY O RDERABLES [facility] [address] [place] [address] from Last 3 Months or Most Recently Relevant to Health Maintenance Advance Directives * Full Code (Latest Code Status on File) Date Activated Date Inactivated Comments 09/06/2019 10:42 AM 09/08/2019 1:31 PM
--- OUTSIDE RECORDS SUMMARY | 2024-11-09 04:36 | XMS_ITS | Clinical Summary ---
Author Organization [facility] Address [address] [place] [address] Phone Care Team Providers Care Edi Programmer Analyst Name Role Phone Pasotr Pelaez Primary Care Provider [phone] Allergies Active Allergy Reactions Criticality Noted Date Comments Penicillins Unknown 09/15/2019 Sulfa (Sulfonamide Antibiotics) Unknown 08/19 Medications losartan-hydroCH LOROthiazide (HYZAAR) 100-12.5 mg tablet Take 1 Tablet by mouth daily. Active atorvastatin (LIPITOR) 80 mg tablet Take 80 mg by mouth daily with supper. Active meloxicam (MOBIC) 15 mg tablet Take 15 mg by mouth daily. Active hydrOXYzine HCl (ATARAX) 25 mg tablet Take 1 Tablet by mouth every 8 hours as needed for Anxiety. 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 Encounters Date Type Department Care Team Description 11/07/2024 3:00 PM CONSTRUCTION JOB COST ESTIMATOR Office Visit [facility] - [place] [address] [address] Luis Enrique Walker MD Osteopenia of multiple sites (Primary Dx) 11/07/2024 Chart Note [facility] Emergency Department - [address] [address] Gary Thapa MD from Last 3 Months Family History Medical History Relation Name Comments No Known Problems Brother 1 No Known Problems Brother 2 No Known Problems Brother 3 Lung Cancer Father Diabetes Mother Heart Disease Mother Heart Disease Sister 1 72 No Known Problems Sister 2 55 No Known Problems Sister 3 64 Relation Name Status Comments Brother 1 Alive Brother 2 Alive Brother 3 Alive Father Mother Sister 1 72 Sister 2 55 Alive Sister 3 64 Alive Social History Tobacco Use Types Packs/Day Years Used Date Smoking Tobacco: Every Day Cigarettes 1.5 45 Started: 11/07/1979 Tobacco Cessation:Ready to Q uit: Not Asked; Counseling Given: Not Answered Alcohol Use Standard Drinks/Week Comments Not Currently 0 (1 standard drink = 0.6 oz pur e alcohol) Comments Unknown Sex and Gender Information Value Date Recorded Sex Assigned at Not on file Legal Sex Female 7:11 PM CONSTRUCTION JOB COST ESTIMATOR Gender Identity Not on file Sexual Orientation Not on file Last Filed Vital Signs Vital Sign Reading Time Taken Comments Blood Pressure 114/73 11/07/2024 2:27 PM CONSTRUCTION JOB COST ESTIMATOR Pulse 110 11/07/2024 2:27 PM CONSTRUCTION JOB COST ESTIMATOR Temperature 36.5 ??C (97.7 ??F) 11/07/2024 2:27 PM CS T Respiratory Rate 16 11/07/2024 2:27 PM CONSTRUCTION JOB COST ESTIMATOR Oxygen Saturation 96% 11/07/2024 2:27 PM CONSTRUCTION JOB COST ESTIMATOR Inhaled Oxygen Concentration - - Weight 70.3 kg (155 lb) 11/07/2024 2:27 PM CONSTRUCTION JOB COST ESTIMATOR Height 154.9 cm (5' 1 ) 11/07/2024 2:27 PM CONSTRUCTION JOB COST ESTIMATOR Body Mass Index 29.29 11/07/2024 2:27 PM CONSTRUCTION JOB COST ESTIMATOR Plan of Treatment Upcoming Encounters Date Type Department Care Team (Late st Contact Info) Description 11/22/2024 4:30 PM CONSTRUCTION JOB COST ESTIMATOR Telephone Check Up [facility] [place] [address] [facility] [address] [place] [address] Luis Enrique Walker MD [address] [facility] [address] [place] [address] Health Maintenance Due Date Last Done Comments Pre-Diabetes and Diabetes Screening 1961 DTAP/TDAP/TD VACCINES (1 - Tdap) 1980 CERVICAL CANCER SCREENING 1991 BREAST CANCER SCREENING 2001 COLORECTAL SCREENING 2006 Colorectal Cancer Screening 2006 FIT-DNA Q 3 years 2006 FIT/FOBT Q 1 year 2006 Flex Sig/CT Colonography Q 5 years 2006 Lung Cancer Screening 2011 ZOSTER VACCINE (1 of 2) 2011 INFLUENZA VACCINE (#1) 2024 COVID-19 Vaccine (2 2023- season) 06/18/202402/2021 Preventative Visit- Commercial 10/18/2024 RSV VACCINE (60+ or ) (1 - 1-dose 75+ series) 2036 Insurance BCBS BLUE ACCESS/TRUE BLUE PPO [employer] BLUE ACCESS/TRUE BLUE PPO Advance Directives For more information, please contact: [phone] * Full Code (Latest Code Status on File) Date Activated Date Inactivated Comments 09/17/2019 11:07 AM 09/19/2019 4:15 PM * Full Code Date Activated Date Inactivated Comments 09/15/2019 10:37 PM 09/17/2019 11:07 AM Care Teams Edi Programmer Analyst Relationship Specialty Start Date End Date Pastor Pelaez DO [address] [place] [id number] PCP - General Family Practice 11/07/24
--- OUTSIDE RECORDS SUMMARY | 2024-11-09 04:36 | XMS_ITS | Patient Health Summary ---
Author Organization [facility] Address [address] [place] [address] Care Team Providers Care Tube Worker Name Role Phone Unavailable Primary Care Provider Unavailabl e Note from [facility],non-owned Affiliates and Associated Physician Practices is amultiple site organization consisting of ambulatory clinics and hospital sitesin [place], [place], [place] and [place]. This disclosure is being madepursuant to the Care Everywhere program and may not contain all information available regarding this patient. Last updated 18.[facility] Allergies * Penicillins(Itching) -Low Criticality * Sulfa [...] Comments Blood Pressure 139/78 09/15/2019 12:00 PM ENGINE GENERATOR ASSEMBLER Pulse 76 09/15/2019 12:00 PM ENGINE GENERATOR ASSEMBLER Temperature 36.6 ??C (97.8 ??F) 09/15/2019 12:[address] Respiratory Rate 16 09/15/2019 12:00 PM ENGINE GENERATOR ASSEMBLER Oxygen Saturation 100% 09/15/2019 12:00 PM ENGINE GENERATOR ASSEMBLER Inhaled Oxygen Concentration - - Weight 74.8 kg (165 lb) 09/15/2019 12:00 PM ENGINE GENERATOR ASSEMBLER Height 157.5 cm (5' 2 ) 09/15/2019 12:00 PM ENGINE GENERATOR ASSEMBLER Body Mass Index 30.18 09/15/2019 12:00 PM ENGINE GENERATOR ASSEMBLER Medical Devices Implanted Type Area Relay Motorman Device Identifier Shelf Expiration Date Model / Serial / Lot Cmnt Bone Djo Srg Cblt 40gm Hvisc Strl Implanted:Qty: 1 on 09/06/2019 by Edward Haines MD at [facility] Right: Knee [employer] 12/08/2020 600-15-000 / / [id number] Cmpnt Fem Kn Rt Cr Cmnt Prm Vngrd Intlk Implanted:Qty: 1 on 09/06/2019 by Edward Haines MD at [facility] Right: Knee [employer] 06/22/2029 [id number] / / [id number] Tray Tib 63mm Kn Cocr I Beam Implanted:Qty: 1 on 09/06/2019 by Edward Haines MD at [facility] Right: Knee [employer] 12/16/2028 [id number] / / [id number] Cmpnt Ptlr 28mm 1 Pg Wire Ascnt Arcm Kn Implanted:Qty: 1 on 09/06/2019 by Edward Haines MD at [facility] Right: Knee [employer] 07/24/2024 [id number] / / [id number] Vngrd Arcm Kn Ant Stab Implanted:Qty: 1 on 09/06/2019 by Edward Haines MD at [facility] Right: Knee [employer] 04/19/2023 [id number] / / [id number] Procedures * XR KNEE RIGHT 3VW(Performed 10/26/2019) [...] XR KNEE RIGHT 3VW (10/26/2019 11:42 AM ENGINE GENERATOR ASSEMBLER) Anatomical Region Laterality Modality Lower Extremity Computed Radiogr aphy Narrative 10/26/2019 11:46 AM ENGINE GENERATOR ASSEMBLER Armida Franco ? 11/03/2019 ??4:07 PM Please see progress notes for result. Dank Block PA-C DIAGNOSTIC IMAGING ORDERABLES * CULTURE BLOOD (09/15/2019 7:46 PM ENGINE GENERATOR ASSEMBLER) Only the most recent of2 resultswithin the time period is included. Culture No growth day 5 AL 09/21/2019 1:42 AM ENGINE GENERATOR ASSEMBLER [facility] Blood BLOOD SPECIMEN / Unknown Venipuncture / Unknown 09/15/2019 7:46 PM ENGINE GENERATOR ASSEMBLER 09/15/2019 8:10 PM ENGINE GENERATOR ASSEMBLER Edward Jean DO LAB - MICROBIOLOGY O RDROCÍO [facility] [address] [place] [address], [facility] [phone] * CT FACIAL BONES W CONTRAST (09/15/2019 5:41 PM ENGINE GENERATOR ASSEMBLER) Anatomical Region Laterality Modality Head Computed Tomogra phy 09/15/2019 6:04 PM ENGINE GENERATOR ASSEMBLER Impressions 09/15/2019 6:11 PM ENGINE GENERATOR ASSEMBLER Findings suggestive of abscess formation around the right mandibular angle likely involving the right masseter muscle with surrounding cellulitis and inflammatory changes. There is no evidence of definite osseous erosion at this time to suggest osteomyelitis. Reading Radiologist: Damon Gonzalez MD on 09/15/2019 at 6:11 PM Narrative 09/15/2019 6:11 PM ENGINE GENERATOR ASSEMBLER STUDY: CONTRAST-ENHANCED CT OF THE MAXILLOFACIAL STRUCTURES [...] on 09/15/2019 at 6:11 PM Lucía Granados RIGHT OF WAY [employer] STITCHER CT ORDERABLE S * (ABNORMAL) CBC W AUTO DIFFERENTIAL (09/15/2019 12:45 PM ENGINE GENERATOR ASSEMBLER) WBC 17.6(H) 4.4 - 10.7 x10E9/L 09/15/2019 12:52 PM ENGINE GENERATOR ASSEMBLER [facility] WBC Corrected 09/15/2019 12:52 PM ENGINE GENERATOR ASSEMBLER [facility] RBC 3.63(L) 3.80 - 5.20 x10E12/L 09/15/2019 12:52 PM ENGINE GENERATOR ASSEMBLER [facility] Hemoglobin 11.2(L) 12.0 - 15.6 gm/dL 09/15/2019 12:52 PM [facility] Hematocrit 34.8(L) 35.9 - 45.5 % 09/15/2019 12:52 PM [facility] MCV 95.9 80.7 - 98.3 fl 09/15/2019 12:52 PM [facility] MCH 30.9 26.7 - 34.0 pg 09/15/2019 12:52 PM [facility] MCHC 32.2 30.8 - 35.9 gm/dL 09/15/2019 12:52 PM [facility] Platelet Count 487(H) 153 - 416 x10E9/L 09/15/2019 12:52 PM [facility] RDW-CV 12.9 12.1 - 14.9 % 09/15/2019 12:52 PM [facility] MPV 8.6(L) 9.4 - 12.9 fl 09/15/2019 12:52 PM [facility] Neutrophils % 70.5 44.0 - 73.0 % 09/15/2019 12:52 PM [facility] Lymphocytes % 18.9(L) 20.0 - 43.0 % 09/15/2019 12:52 PM [facility] Monocytes % 9.2 5.0 - 13.0 % 09/15/2019 12:52 PM [facility] Eosinophils % 0.3 0.0 - 6.0 % 09/15/2019 12:52 PM [facility] Basophils % 0.3 0.0 - 2.0 % 09/15/2019 12:52 PM [facility] Immature Granulocytes 0.8 0 - 1 % 09/15/2019 12:52 PM [facility] Neutrophil Absolute 12.42(H) 2.01 - 7.14 x10E9/L 09/15/2019 12:52 PM [facility] Lymphocytes Absolute 3.33 1.07 - 3.94 x10E9/L 09/15/2019 12:52 PM [facility] Monocytes Absolute 1.62(H) 0.26 - 1.07 x10E9/L 09/15/2019 12:52 PM [facility] Eosinophils Absolute 0.06 0 - 0.47 x10E9/L 09/15/2019 12:52 PM [facility] Basophils Absolute 0.06 0 - 0.08 x10E9/L 09/15/2019 12:52 PM [facility] Immature Granulocytes Absolute 0.14(H) 0.00 - 0.06 x10E9/L 09/15/2019 12:52 PM [facility] nRBC Auto 0 /100 WBC 09/15/2019 12:52 PM [facility] Blood BLOOD SPECIMEN / Unknown Venipuncture / Unknown 09/15/2019 12:45 PM ENGINE GENERATOR ASSEMBLER 09/15/2019 12:49 PM ENGINE GENERATOR ASSEMBLER Hunter Lopez RIGHT OF WAY [employer] K[employer] STITCHER LAB - HEMATOLOGY ORDERABLES [facility] [address] [place] [address] * (ABNORMAL) COMPREHENSIVE METABOLIC PANEL (09/15/2019 12:45 PM ENGINE GENERATOR ASSEMBLER) Only the most recent of2 resultswithin the time period is included. Glucose 103 70 - 105 mg/dL 09/15/2019 1:07 PM [facility] Sodium 133(L) 136 - 145 mmol/L 09/15/2019 1:07 PM [facility] Potassium 4.2 3.5 - 4.7 mmol/L 09/15/2019 1:07 PM [facility] Chloride 99 98 - 107 mmol/L 09/15/2019 1:07 PM [facility] CO2 24 23 - 31 mmol/L 09/15/2019 1:07 PM [facility] Calcium 10.4 8.4 - 10.4 mg/dL 09/15/2019 1:07 PM [facility] Anion Gap 10 8 - 16 mmol/L 09/15/2019 1:07 PM [facility] BUN 11 9.8 - 20.1 mg/dL 09/15/2019 1:07 PM [facility] Creatinine 0.66 0.57 - 1.11 mg/dL 09/15/2019 1:07 PM [facility] Alkaline Phosphatase 134 40 - 150 U/L 09/15/2019 1:07 PM [facility] ALT 40 0 - 61 U/L 09/15/2019 1:07 PM [facility] AST 29 5 - 34 U/L 09/15/2019 1:07 PM [facility] Protein Total 7.3 6.4 - 8.3 gm/dL 09/15/2019 1:07 PM [facility] Albumin 3.9 3.5 - 5.2 gm/dL 09/15/2019 1:07 PM [facility] Bilirubin Total 0.7 0.2 - 1.0 mg/dL 09/15/2019 1:07 PM ENGINE GENERATOR ASSEMBLER [facility] eGFR by MDRD >60 >60 mL/min/1.7 3m2 09/15/2019 1:07 PM ENGINE GENERATOR ASSEMBLER [facility] eGFR by MDRD >60 >60 mL/min/1.7 3m2 09/15/2019 1:07 PM ENGINE GENERATOR ASSEMBLER [facility] Blood BLOOD SPECIMEN / Unknown Venipuncture / Unknown 09/15/2019 12:45 PM ENGINE GENERATOR ASSEMBLER 09/15/2019 12:49 PM ENGINE GENERATOR ASSEMBLER Hunter JOSE LAB - CHEMISTRY O RDERABLES Performing Organization Address [facility] Co de Phone Number [facility] [address] [place], [place] [id number] * (ABNORMAL) HGB HCT PANEL (09/08/2019 2:41 AM ENGINE GENERATOR ASSEMBLER) Only the most recent of2 resultswithin the time period is included. Hemoglobin 10.5(L) 12.0 - 15.6 gm/dL 09/08/2019 3:12 AM ENGINE GENERATOR ASSEMBLER [facility] Hematocrit 32.6(L) 35.9 - 45.5 % 09/08/2019 3:12 AM [facility] Blood BLOOD SPECIMEN / Unknown Venipuncture / Unknown 09/08/2019 2:41 AM ENGINE GENERATOR ASSEMBLER 09/08/2019 3:02 AM ENGINE GENERATOR ASSEMBLER Edward Haines MD LAB - HEMATOLOGY ORD ERABLES Performing Organization Address [facility] Co de Phone Number [facility] [address] [place] [address] * EKG 12-LEAD (08/16/2019 10:58 AM CDT) Ventricular Rate 88 BPM [facility] Atrial Rate 88 BPM [facility] P-R Interval 140 ms [facility] QRS Duration ms 76 ms [facility] Q-T Interval ms 362 ms [facility] QTC Calculation (Bezet) 438 ms [facility] Calculated P [place] 69 degrees [facility] Calculated R [place] 30 degrees [facility] Calculated T [place] 61 degrees [facility] Interpretation EKG Normal sinus rhythm Cannot rule out Anterior infarct , age undetermined Abnormal ECG No previous ECGs available Confirmed by GUZMAN INFANTE MD ([id number]) on 08/16/2019 3:51:29 PM [facility] 08/16/2019 10:5 8 AM CDT 08/16/2019 3:51 PM CDT Ivette Pinedo DO ECG ORDERABLES [facility] * CULTURE MSSA/MRSA (08/16/2019 10:47 AM CDT) Culture Negative for Staphylococcus aureus (MRSA/MSSA) AL 08/17/2019 2:27 PM CDT [facility] Microbiology SPECIMEN FROM NASAL FOSSAE / Unknown Collection / Unknown 08/16/2019 10:47 AM CDT 08/16/2019 11:04 AM CDT Emily Nieto RIGHT OF WAY [employer] STITCHER LAB - MICROBI OLOGY ORDERABLES [facility] [address] [place], [place] [facility], [facility] [phone]
--- OUTSIDE RECORDS SUMMARY | 2024-11-09 04:36 | XMS_ITS | Clinical Summary ---
Author Organization Address [address] [place] [address] Care Team Providers Care Apprentice Painter Neckties Name Role Phone Unavailable Primary Care Provider [...]
== END 2024-11-03 14:55 | disposition home or self-care (01) ==
PROVIDERS: PCP Family Medicine; Visit Provider Surgery
PROC: (CPT 38525; principal; 2024-11-03 11:00)
DX: C50.911 Malignant neoplasm of unspecified site of right female breast (principal); E78.5 Hyperlipidemia, unspecified; I10 Essential (primary) hypertension; F17.210 Nicotine dependence, cigarettes, uncomplicated; Z79.891 Long term (current) use of opiate analgesic; Z98.890 Other specified postprocedural states; Z80.1 Family history of malignant neoplasm of trachea, bronchus and lung; Z82.49 Family history of ischemic heart disease and other diseases of the circulatory system
CPT/HCPCS: 38525; 38792; 88305; 88307; 88342; A9270; A9520; J0690; J1100; J1885; J2003; J2004; J2250; J2405; J2704; J3010; J7120

== ENCOUNTER 2024-11-29 09:51 | Outpatient (CLI) | payer BC, SELFPAY ==
--- NOTE | ~2024-11-29 | DEXA_ITS ---
Bone Density Report Name: SHERRY MANCIA Age: 64 Sex: Female Ethnicity: White Date of : 1960 Indication: postmenopausal; screening for osteoporosis; height loss; cancer; Referring Provider: LUIS MIGUEL HOLM Study: Bone densitometry was performed. Exam Date: November 29, 2024 Accession number: [id number] Bone Density: Region BMD T-score Z-score Classification AP Spine(L1-L4) 1.295 2.3 3.9 Normal Femoral Neck (Left) 0.694 -1.4 0.0 Osteopenia Total Hip (Left) 0.808 -1.1 0.0 Osteopenia Femoral Neck (Right) 0.692 -1.4 0.0 Osteopenia Total Hip (Right) 0.798 -1.2 -0.1 Osteopenia Femoral Neck Mean 0.693 -1.4 0.0 Osteopenia Total Hip Mean 0.803 -1.1 0.0 Osteopenia World Health Organization criteria for BMD impression classify patients as: Normal (T-score at or above -1.0), Osteopenia (T-score between -1.0 and -2.5), or Osteoporosis (T-score at or below -2.5). Clinical Information Provided by Patient: Smokes Has the following medical conditions: Cancer Patient maximum height was 62 Menopause Age: 41 No regular weight bearing exercise Drinks caffeinated beverages Onset of menses at age 13 Number of children 1 Impression: The patient has low bone mass, based on the Left Femoral Neck T-score. The patient has risk factors, including: smoking. Discussion: BONE DENSITY IS LOW AT ONE OR MORE SKELETAL SITES. This patient's lowest T-score is low at one or more skeletal sites. It meets the World Health Organization's (WHO) criteria for ?low bone mass? (T-score between -1.0 and -2.5). The patient's 10-year risk of fracture as calculated by FRAX is less than the threshold where pharmacological therapy is recommended by the National Osteoporosis Foundation (NOF). However, all treatment decisions require clinical judgment and consideration of individual patient factors, including patient preferences, comorbidities, previous drug use, risk factors not captured in the FRAX model (e.g., frailty, falls, vitamin D deficiency, increased bone turnover, interval significant decline in bone density) and possible under or overestimation of fracture risk by FRAX. The patient should follow a healthful lifestyle (good nutrition with adequate calcium and vitamin D, and appropriate weight-bearing exercise). Follow-Up: Consider repeating this study in 2 to 3 years to reassess this patient's status, or sooner if there is some new clinical indication. Reported by: KEVIN on 11/29/2024 10:18:00 AM. Reviewed, dictated and finalized at location A.
== END 2024-11-29 09:52 | disposition home or self-care (01) ==
PROVIDERS: PCP Family Medicine; Visit Provider Internal Medicine Hematology & Oncology
DX: Z78.0 Asymptomatic menopausal state (principal); M85.89 Other specified disorders of bone density and structure, multiple sites
CPT/HCPCS: 77080

== ENCOUNTER 2025-04-10 13:02 | Outpatient (CLI) | payer BC, SELFPAY ==
[2025-04-10 13:26] LABS: Basophils Absolute Auto 0.1 K/mm3 (0.0-0.1); Basophils Percent Auto 0.6 % (0.2-1.2); Eosinophils Absolute Auto 0.1 K/mm3 (0-0.3); Eosinophils Percent Auto 1.5 % (0-4.4); Hematocrit 45.1 % (37.0-47.0); Hemoglobin 15.3 g/dL (12.0-15.0); Immature Granulocyte Absolute 0.06 K/mm3 (0.00-0.031); Immature Granulocyte Percent A 0.6 % (0-0.5); Lymphocytes Percent Auto 21.5 % (18.3-44.2); Mean Corpuscular HGB Conc 33.9 g/dl (32-36); Mean Corpuscular Hemoglobin 33.2 pg (26-34); Mean Corpuscular Volume 97.8 fl (80-100); Mean Platelet Volume 9.1 fl (7.4-10.4); Monocytes Absolute Auto 0.7 K/mm3 (0.1-0.6); Monocytes Percent Auto 7.1 % (2.6-8.5); Neutrophils Absolute Auto 6.4 K/mm3 (1.3-6.7); Neutrophils Percent Auto 68.7 % (45.5-73.1); Platelet Count Result 255 k/mm3 (150-375); Red Blood Count 4.61 M/mm3 (4.2-5.4); Red Cell Distribution Width 12.1 % (11.5-14.5); White Blood Count 9.3 K/mm3 (4.5-10.0)
[2025-04-10 16:34] LABS: Alanine Aminotransferase 27 U/L (6-35); Albumin Level 4.2 g/dL (3.5-5.1); Alkaline Phosphatase 73 U/L (38-126); Anion Gap 8 mmol/L (4-12); Aspartate Amino Transferase 52 U/L (14-36); Bilirubin,Total 0.5 mg/dL (0.2-1.3); Blood Urea Nitrogen 19 mg/dL (7-17); Carbon Dioxide 26 mmol/L (22-30); Chloride 105 mmol/L (98-107); Estimated Glomerular Filt Rate > 60; Glucose 95 mg/dL (65-110); Potassium 4.1 mmol/L (3.4-5.0); Sodium 139 mmol/L (137-145); Total Protein 6.9 g/dL (6.3-8.2)
[2025-04-13 06:24] LABS: CA 15-3. 18 U/mL (<32)
== END 2025-04-10 13:03 | disposition home or self-care (01) ==
PROVIDERS: PCP Family Medicine; Visit Provider Internal Medicine Hematology & Oncology
DX: C50.919 Malignant neoplasm of unspecified site of unspecified female breast (principal)
CPT/HCPCS: 36415; 80053; 85025; 86300

== ENCOUNTER 2025-07-16 08:42 | Outpatient (CLI) | payer BC, SELFPAY ==
--- NOTE | ~2025-07-16 | MMUS_ITS ---
EXAMINATION: US breast LT limited, MM diagnostic kimberly BI w joanne HISTORY: History of right-sided breast cancer status post lumpectomy and radiation treatment. TECHNIQUE: Both bilateral mammogram was performed using full field digital mammography. 3-D tomosynthesis were also obtained and synthetic 2-D images were generated. CAD analysis was submitted and interpreted. High-resolution left breast ultrasound was performed.] ] COMPARISON: Mammograms from 08/09/2024, 07/27/2024, 07/12/2024 and 08/01/2021 BREAST PARENCHYMAL COMPOSITION: The breasts are heterogeneously dense, which may obscure small masses. FINDINGS: MAMMOGRAPHIC FINDINGS: Post lumpectomy/treatment change in the right breast. Focal asymmetry in the upper-outer quadrant of the left breast, middle depth. ]] ULTRASOUND: There is a 6 x 6 x 4 mm wider than tall hypoechoic mass in the left resident 1:00 position, 2 cm from nipple, middle depth. No internal color flow. No posterior acoustic shadowing. The finding corresponds with the mammographic focal asymmetry. The finding is suspicious. IMPRESSION/RECOMMENDATION: 1. There is a 6 mm mass in the left breast at the 1:00 position 2 cm from the nipple. The finding is suspicious. An ultrasound-guided breast biopsy is recommended. 2. Posttreatment/surgical change in the right breast. The findings are probably benign. A diagnostic right breast mammogram in 6 months is recommended. BI-RADS 4-Suspicious finding. Protocol insures that results of the study are called and/or faxed to the referring clinician's office and documented in the patient's chart per critical findings protocol. Reviewed, dictated and finalized at location Q. IMPRESSION/RECOMMENDATION: 1. There is a 6 mm mass in the left breast at the 1:00 position 2 cm from the n ipple. The finding is suspicious. An ultrasound-guided breast biopsy is recomme nded. 2. Posttreatment/surgical change in the right breast. The findings are probably benign. A diagnostic right breast mammogram in 6 months is recommended. BI-RADS 4-Suspicious finding. Protocol insures that results of the study are called and/or faxed to the refer ring clinician's office and documented in the patient's chart per critical find ings protocol. IMPRESSION/RECOMMENDATION: 1. There is a 6 mm mass in the left breast at the 1:00 position 2 cm from the n ipple. The finding is suspicious. An ultrasound-guided breast biopsy is recomme nded. 2. Posttreatment/surgical change in the right breast. The findings are probably benign. A diagnostic right breast mammogram in 6 months is recommended. BI-RADS 4-Suspicious finding. Protocol insures that results of the study are called and/or faxed to the refer ring clinician's office and documented in the patient's chart per critical find ings protocol.
--- OUTSIDE RECORDS SUMMARY | 2025-07-16 08:55 | XMS_ITS | Clinical Summary ---
Author Organization [facility] Address [address] [place] [address] Care Team Providers Care Support Services Specialist Name Role Phone Unavailable Primary Care [...] Cervical Cancer Screening (CCS) 1991 HPV/Cotest 1991 Cologuard 2006 Colonoscopy 2006 Colorectal Cancer Screening 2006 Immunochemical Fecal Occult Blood 2006 Zoster Immunization (1 of 2) 2011 Pneumococcal Immunization (5 0+ years) (3 of 3 - PCV20 or PCV21) 08/24/2024 08/24/2019, 03/30/2012 Influenza Immunization (#1) 2025 SARS-COV-2 Immunization ( - 2024- season) 2025 08/22/2021, 11/11/2020, 10/15/2020 Respiratory Syncytial Virus (RSV) Immunization (Adult) (1 - 1-dose 75+ series) 2036 DTaP/Tdap/Td Immunization Discontinued 03/30/2012 TdaP Immunization Completed 03/30/2012 Pneumococcal Immunization Combined Discontinued 08/24/2019, 03/30/2012 Hepatitis B Immunization Aged Out No longer eligible based on patient's age to complete this topic Human Papillomavirus (HPV) Immunization Aged Out No longer eligible based on patient's age to complete this topic Meningococcal Immunization (ACWY) Aged Out No longer eligible based on patient's age to complete this topic Rotavirus Immunization Aged Out No lo nger eligible based on patient's age to complete this topic
--- OUTSIDE RECORDS SUMMARY | 2025-07-16 08:55 | XMS_ITS | Clinical Summary ---
Author Organization [facility] Address [address] [place] [address] Care Team Providers Care Sales And Marketing Professional Name Role Phone Unavailable Primary Care Provider Unavailabl e Source Comments [facility],non-owned Affiliates and Associated Physician Practices is amultiple site organization consisting of ambulatory clinics and hospital sitesin [place], [place], [place] and [place]. This disclosure is being madepursuant to the Care Everywhere program and may not contain all information available regarding this patient. Last updated 18.[facility] Allergies Active Allergy Reactions Criticality Noted Date Comments Penicillins Itching Low 07/07/2019 Sulfa Drugs Itching Low 07/07/2019 Medications * Be aware that medications may not be up to date on this document. Alwaysverify current medications with the patient. atorvastatin (LIPITOR) 80 MG tablet Take 80 mg by mouth once daily 06/22/20 19 Active losartan - hydroCHLOROthiazide (HYZAAR) 50-12.5 MG tablet Take 1 tablet by mouth once daily 06/22/20 19 Active meloxicam (MOBIC) 15 MG tablet Take 15 mg by mouth once daily 06/22/20 19 Active Multiple Vitamins-Minerals (ONE-A-DAY WOMENS 50+ ADVANTAGE PO) Take by mouth once daily Active hydrOXYzine hcl (ATARAX) 25 MG tablet Take 25 mg by mouth every 8 hours as needed 09/19/20 Active metroNIDAZOLE (FLAGYL) 500 MG tablet 09/13/20 19 Active Active Problems Problem Noted Date Diagnosed [...] of Binge Drinking Not on file 06/19 Comments No Sex and Gender Information Value Date Recorded Sex Assigned at Not on file Legal Sex Female 6:24 AM DEBT MANAGEMENT COUNSELOR Gender Identity Not on file Sexual Orientation Not on file Last Filed Vital Signs Vital Sign Reading Time Taken Comments Blood Pressure 139/78 09/15/2019 12:00 PM DEBT MANAGEMENT COUNSELOR Pulse 76 09/15/2019 12:00 PM DEBT MANAGEMENT COUNSELOR Temperature 36.6 C (97.8 F) 09/15/2019 12:00 PM DEBT MANAGEMENT COUNSELOR Respiratory Rate 16 09/15/2019 12:00 PM DEBT MANAGEMENT COUNSELOR Oxygen Saturation 100% 09/15/2019 12:00 PM DEBT MANAGEMENT COUNSELOR Inhaled Oxygen Concentration - - Weight 74.8 kg (165 lb) 09/15/2019 12:00 PM DEBT MANAGEMENT COUNSELOR Height 157.5 cm (5' 2) 09/15/2019 12:00 PM DEBT MANAGEMENT COUNSELOR Body Mass Index 30.18 09/15/2019 12:00 PM DEBT MANAGEMENT COUNSELOR Plan of Treatment Health Maintenance Due Date Last Done Comments COLOGUARD (AGES 45-75) - COL ON CA SCREENING 1960 COLON MONITORING 1960 COLONOSCOPY - COLON CA SCREENING 1961 CT COLONOGRAPHY - COLON CA SCREENING 1960 Colorectal Cancer Screening 1960 FIT - COLON CA SCREENING 1961 FLEX SIG - COLON CA SCREENING 1960 MAMMOGRAM 1961 HIV SCREENING 1976 HEPATITIS C SCREENING 09/03/1979 DTAP/TDAP/TD VACCINES (1 - Tdap) 1980 PNEUMOCOCCAL VACCINE 50+ (1 of 2 - PCV) 1980 ZOSTER VACCINE (1 of 2) 2011 SCREENING FOR DIABETES 09/15/2022 9, 08/16/2019 DEPRESSION SCREENING 10/18/2024 COVID-19 VACCINE (1 - 2023-2 5 season) 2025 INFLUENZA VACCINE (#1) 2025 Respiratory Syncytial Virus (RSV) Vaccine Pt: or [...] complete this topic MENINGOCOCCAL (Group B) VACCINE SHARED DECISION-MAKING Aged Out No longer eligible based on patient's age to complete this topic MENINGOCOCCAL GROUPS A/C/Y/W VACCINE Aged Out No longer eligible b ased on patient's age to complete this topic Medical Devices Implanted Type Area Elevator Conductor Device Identifier Shelf Expiration Date Model / Serial / Lot Cmnt Bone Djo Srg Cblt 40gm Hvisc Strl Implanted:Qty: 1 on 09/06/2019 by Edward Haines MD at [facility] Right: Knee [employer] 12/08/2020 600-15-000 / / [id number] Cmpnt Fem Kn Rt Cr Cmnt Prm Vngrd Intlk Implanted:Qty: 1 on 09/06/2019 by Edward Haines MD at [facility] Right: Knee [employer] 06/22/2029 [id number] / / [id number] Tray Tib 63mm Kn Cocr I Beam Implanted:Qty: 1 on 09/06/2019 by Edward Haines MD at [facility] Right: Knee [employer] 12/16/2028 [id number] / / [id number] Cmpnt Ptlr 28mm 1 Pg Wire Ascnt Arcm Kn Implanted:Qty: 1 on 09/06/2019 by Edward Haines MD at [facility] Right: Knee [employer] 07/24/2024 [id number] / / [id number] Vngrd Arcm Kn Ant Stab Implanted:Qty: 1 on 09/06/2019 by Edward Haines MD at [facility] Right: Knee [employer] 04/19/2023 [id number] / / [id number] Procedures Procedure Name Priority Date/Time Associated Diagnosis Comments COMPREHENSIVE METABOLIC PANEL STAT 09/15/2019 12:45 PM DEBT MANAGEMENT COUNSELOR from Last 3 Months or Most Recently Relevant to Health Maintenance Results * (ABNORMAL) COMPREHENSIVE METABOLIC PANEL (09/15/2019 12:45 PM DEBT MANAGEMENT COUNSELOR) Glucose 103 70 - 105 mg/dL 09/15/2019 1:07 PM DEBT MANAGEMENT COUNSELOR [facility] Sodium 133(L) 136 - 145 mmol/L 09/15/2019 1:07 PM DEBT MANAGEMENT COUNSELOR [facility] Potassium 4.2 3.5 - 4.7 mmol/L 09/15/2019 1:07 PM DEBT MANAGEMENT COUNSELOR [facility] Chloride 99 98 - 107 mmol/L 09/15/2019 1:07 PM DEBT MANAGEMENT COUNSELOR [facility] CO2 24 23 - 31 mmol/L 09/15/2019 1:07 PM DEBT MANAGEMENT COUNSELOR [facility] Calcium 10.4 8.4 - 10.4 mg/dL 09/15/2019 1:07 PM DEBT MANAGEMENT COUNSELOR [facility] Anion Gap 10 8 - 16 mmol/L 09/15/2019 1:07 PM DEBT MANAGEMENT COUNSELOR [facility] BUN 11 9.8 - 20.1 mg/dL 09/15/2019 1:07 PM DEBT MANAGEMENT COUNSELOR [facility] Creatinine 0.66 0.57 - 1.11 mg/dL 09/15/2019 1:07 PM DEBT MANAGEMENT COUNSELOR [facility] Alkaline Phosphatase 134 40 - 150 U/L 09/15/2019 1:07 PM DEBT MANAGEMENT COUNSELOR [facility] ALT 40 0 - 61 U/L 09/15/2019 1:07 PM DEBT MANAGEMENT COUNSELOR [facility] AST 29 5 - 34 U/L 09/15/2019 1:07 PM [facility] Protein Total 7.3 6.4 - 8.3 gm/dL 09/15/2019 1:07 PM DEBT MANAGEMENT COUNSELOR [facility] Albumin 3.9 3.5 - 5.2 gm/dL 09/15/2019 1:07 PM DEBT MANAGEMENT COUNSELOR [facility] Bilirubin Total 0.7 0.2 - 1.0 mg/dL 09/15/2019 1:07 PM DEBT MANAGEMENT COUNSELOR [facility] eGFR by MDRD >60 >60 mL/min/1.7 3m2 09/15/2019 1:07 PM DEBT MANAGEMENT COUNSELOR [facility] eGFR by MDRD >60 >60 mL/min/1.7 3m2 09/15/2019 1:07 PM DEBT MANAGEMENT COUNSELOR [facility] Blood BLOOD SPECIMEN / Unknown Venipuncture / Unknown 09/15/2019 12:45 PM DEBT MANAGEMENT COUNSELOR 09/15/2019 12:49 PM DEBT MANAGEMENT COUNSELOR Hunter Lopez SOLID WASTE COLLECTION WORKER-NEWSPAPER PUBLISHER LAB - CHEMISTRY ORDERABLE S Final Result [facility] [address] [place] [address] from Last 3 Months or Most Recently Relevant to Health Maintenance Insurance [facility] Advance Directives * Full Code (Latest Code Status on File) Date Activated Date Inactivated Comments 09/06/2019 10:42 AM 09/08/2019 1:31 PM
--- OUTSIDE RECORDS SUMMARY | 2025-07-16 08:55 | XMS_ITS | Clinical Summary ---
Author Organization [facility] Address [address] [place] [address] Phone Care Team Providers Care Shotweld Operator Name Role Phone Pastor Pelaez DO Primary Care Provider [phone] Allergies Active Allergy Reactions Criticality Noted Date Comments Penicillins Unknown 09/15/2019 Sulfa (Sulfonamide Antibiotics) Unknown 08/19 Medications atorvastatin (LIPITOR) 80 mg tablet Take 80 mg by mouth daily with supper. Active hydrOXYzine HCl (ATARAX) 25 mg tablet Take 1 Tablet by mouth every 8 hours as needed for Anxiety. 10 Tablet 09/19/2019 11:54 AM CLAIMS CONSULTANT 09/19/2019 Active tamoxifen (NOLVADEX) 20 mg tablet Take 1 Tablet (20 mg) by mouth daily. 90 Tablet 3 12/14/2024 Active losartan (COZAAR) 50 mg tablet Take 50 mg by mouth daily. 12/10/2024 Active venlafaxine (Effexor XR) 75 mg Extended Release 24 hour capsule Take 1 Capsule (75 mg) by mouth daily. 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 Encounters Date Type Department Care Team Description 05/22/2025 External Device Data STL ABSTRACTION Provider, Abstract 04/18/2025 2:00 PM CDT Office Visit [facility] Oncology and H[facility]ology - [place] [address] [place] [address] Luis Enrique Walker MD Malignant neoplasm of female breast, unspecified estrogen receptor status, unspecified laterality, unspecified site of breast (CMS/HCC) (Primary Dx) from Last 3 Months Family History Medical [...] Date Smoking Tobacco: Every Day Cigarettes 1.5 45.7 Started: 11/07/1979 Tobacco Cessation:Ready to Q uit: Not Asked; Counseling Given: Not Answered Alcohol Use Standard Drinks/Week Comments Not Currently 0 (1 standard drink = 0.6 oz pur e alcohol) Comments Unknown Sex and Gender Information Value Date Recorded Sex Assigned at Not on file Legal Sex Female 7:11 PM CLAIMS CONSULTANT Gender Identity Not on file Sexual Orientation Not on file Last Filed Vital Signs Vital Sign Reading Time Taken Comments Blood Pressure 122/84 04/18/2025 1:40 PM CDT Pulse 105 04/18/2025 1:40 PM CDT Temperature 36.6 C (97.8 F) 04/18/2025 1:40 PM CDT Respiratory Rate 15 04/18/2025 1:40 PM CDT Oxygen Saturation 96% 04/18/2025 1:40 PM CDT Inhaled Oxygen Concentration - - Weight 68.6 kg (151 lb 3.2 oz) 04/18/2025 1:40 P M CDT Height 154.9 cm (5' 1) 11/07/2024 2:27 PM CLAIMS CONSULTANT Body Mass Index 28.57 11/07/2024 2:27 PM CLAIMS CONSULTANT Plan of Treatment Upcoming Encounters Date Type Department Care Team (Late st Contact Info) Description 08/02/2025 2:15 PM CDT Office Visit [facility] Oncology and Hematology - [place] [address] [facility] [address] [place] [address] Luis Enrique Walker MD [address] [facility] [address] [place] [address] Health Maintenance Due Date Last Done Comments Pre-Diabetes and Diabetes Screening 1960 DTAP/TDAP/TD VACCINES (1 - Tdap) 1980 BREAST CANCER SCREENING 2001 COLORECTAL SCREENING 2006 Colorectal Cancer Screening 2006 FIT-DNA Q 3 years 2006 FIT/FOBT Q 1 year 2006 Flex Sig/CT Colonography Q 5 years 2006 Lung Cancer Screening 2011 ZOSTER VACCINE (1 of 2) 2011 INFLUENZA VACCINE (#1) 2025 COVID-19 Vaccine (2 - 2024- season) 06/18/202502/2021 RSV VACCINE (60+ or ) (1 - 1-dose 75+ series) 2036 Insurance RX [employer] BLUE ACCESS/TRUE BLUE PPO Advance Directives For more information, please contact: [phone] * Full Code (Latest Code Status on File) Date Activated Date Inactivated Comments 09/17/2019 11:07 AM 09/19/2019 4:15 PM * Full Code Date Activated Date Inactivated Comments 09/15/2019 10:37 PM 09/17/2019 11:07 AM Care Teams Shotweld Operator Relationship Specialty Start Date End Date Pastor Pelaez DO [address] [place] [address] PCP - General Family Practice 11/07/24
== END 2025-07-16 08:43 | disposition home or self-care (01) ==
LOC: CHSIMG 08:43
PROVIDERS: PCP Family Medicine; Visit Provider Surgery
DX: Z85.3 Personal history of malignant neoplasm of breast (principal); R92.8 Other abnormal and inconclusive findings on diagnostic imaging of breast
CPT/HCPCS: 76642; 77062; 77066; G0279

== ENCOUNTER 2025-07-25 11:33 | Outpatient (CLI) | payer BC, SELFPAY ==
[2025-07-25 11:53] LABS: Hematocrit 48.5 % (37.0-47.0); Hemoglobin 16.2 g/dL (12.0-15.0); Immature Granulocyte Percent A 0.7 % (0-0.5); Lymphocytes Absolute Auto 1.25 K/mm3 (0.9-3.2); Mean Corpuscular HGB Conc 33.4 g/dl (32-36); Mean Corpuscular Hemoglobin 32.7 pg (26-34); Mean Corpuscular Volume 97.8 fl (80-100); Nucleated Red Blood Cells Absolute Auto 0.000 K/mm3 (0.0-0.012); Nucleated Red Blood Cells Perc 0.0 % (0.0-0.2); Platelet Count Result 202 k/mm3 (150-375); Red Blood Count 4.96 M/mm3 (4.2-5.4); White Blood Count 5.8 K/mm3 (4.5-10.0)
[2025-07-25 13:19] LABS: Alanine Aminotransferase 50 U/L (6-35); Albumin Level 4.3 g/dL (3.5-5.1); Alkaline Phosphatase 74 U/L (38-126); Anion Gap 9 mmol/L (4-12); Aspartate Amino Transferase 76 U/L (14-36); Bilirubin,Total 0.6 mg/dL (0.2-1.3); Blood Urea Nitrogen 15 mg/dL (7-17); Calcium 9.6 mg/dL (8.4-10.2); Carbon Dioxide 25 mmol/L (22-30); Chloride 101 mmol/L (98-107); Estimated Glomerular Filt Rate > 60; Glucose 87 mg/dL (65-110); Potassium 4.4 mmol/L (3.4-5.0); Sodium 135 mmol/L (137-145); Total Protein 6.9 g/dL (6.3-8.2)
== END 2025-07-25 11:34 | disposition home or self-care (01) ==
LOC: ANHLAB 11:36
PROVIDERS: PCP Family Medicine; Visit Provider Internal Medicine Hematology & Oncology
DX: C50.919 Malignant neoplasm of unspecified site of unspecified female breast (principal)
CPT/HCPCS: 36415; 80053; 85025; 86300

== ENCOUNTER 2025-07-27 07:20 | Outpatient (CLI) | payer BC, SELFPAY ==
--- NOTE | ~2025-07-27 | MMUS_ITS ---
EXAMINATION: MM post biopsy diagnostic LT, US breast biopsy LT w image. INDICATION: 71-year old female; BI-RADS 0, callback to evaluate Bilateral focal asymmetry. COMPARISON: 06/21/2025 TECHNIQUE: Digital breast tomosynthesis True lateral and spot compression views of BILATERAL breast were obtained with computer-aided detection to assist in interpretation of the study. FINDINGS: The breasts are heterogeneously dense, which may obscure small masses. The focal asymmetry of concern in the upper right breast effaces on spot compression views compatible with superimposition of fibroglandular tissue. An asymmetry partially persists in the inferior at middle depth within the right breast. Ultrasound was performed for further evaluation. The focal asymmetry of concern in the upper outer left breast partially persists. Ultrasound was performed for further evaluation. BILATERAL BREAST ULTRASOUND FINDINGS: Targeted evaluation of the areas of concern was completed. Right breast: No suspicious solid or cystic masses seen in the inferior right breast. Left breast: There is a 0.3 x 0.4 x 0.2 cm circumscribed hypoechoic mass at 12:00 location near the nipple. This finding is compatible with a complicated cyst. At 12:00, near the nipple there is a 0.5 x 0.6 x 0.3 cm anechoic mass compatible with a simple cyst. At 12:00 near the nipple there is a bilobed hypoechoic mass with posterior enhancement that measure 0.6 x 0.5 x 0.3 cm. This is probably benign. At 6:00 location near the nipple, there is a 0.2 x 0.2 x 0.2 cm hypoechoic circumscribed mass. This is probably benign finding. IMPRESSION: 1. Probable Benign LEFT breast masses. Short-term follow-up recommended. 2. The focal asymmetry of concern in both breasts compatible with superimposition of fibroglandular tissue. RECOMMENDATION: 6 month follow-up diagnostic LEFT mammogram and LEFT breast ultrasound. BI-RADS 3, PROBABLY BENIGN Reviewed, dictated and finalized at location B. IMPRESSION: 1. Probable Benign LEFT breast masses. Short-term follow-up recommended. 2. The focal asymmetry of concern in both breasts compatible with superimpositi on of fibroglandular tissue. RECOMMENDATION: 6 month follow-up diagnostic LEFT mammogram and LEFT breast ultrasound. BI-RADS 3, PROBABLY BENIGN
--- OUTSIDE RECORDS SUMMARY | 2025-07-27 07:25 | XMS_ITS | Clinical Summary ---
Author Organization [facility] Address [address] [place] [address] Care Team Providers Care Managed Care Liaison Name Role Phone Unavailable Primary Care Provider [...]
--- OUTSIDE RECORDS SUMMARY | 2025-07-27 07:25 | XMS_ITS | Clinical Summary ---
Author Organization [facility] Address [address] [facility] [place] [address] Care Team Providers Care Supervisor Mold Yard Name Role Phone Unavailable Primary Care Provider Unavailabl e Source Comments [facility],non-owned Affiliates and Associated Physician Practices is amultiple site organization consisting of ambulatory clinics and hospital sitesin [place], [place], [place] and [place]. This disclosure is being madepursuant to the Care Everywhere program and may not contain all information available regarding this patient. Last updated 18.[facility] Allergies Active Allergy Reactions Criticality Noted [...] on file Legal Sex Female 6:24 AM LOAN FUNDER Gender Identity Not on file Sexual Orientation Not on file Last Filed Vital Signs Vital Sign Reading Time Taken Comments Blood Pressure 139/78 09/15/2019 12:00 PM LOAN FUNDER Pulse 76 09/15/2019 12:00 PM LOAN FUNDER Temperature 36.6 C (97.8 F) 09/15/2019 12:00 PM LOAN FUNDER Respiratory Rate 16 09/15/2019 12:00 PM LOAN FUNDER Oxygen Saturation 100% 09/15/2019 12:00 PM LOAN FUNDER Inhaled Oxygen Concentration - - Weight 74.8 kg (165 lb) 09/15/2019 12:00 PM LOAN FUNDER Height 157.5 cm (5' 2) 09/15/2019 12:00 PM LOAN FUNDER Body Mass Index 30.18 09/15/2019 12:00 PM LOAN FUNDER Plan of Treatment Health Maintenance Due Date [...] this topic Medical Devices Implanted Type Area Nutritionalist Device Identifier Shelf Expiration Date Model / Serial / Lot Cmnt Bone Djo Srg Cblt 40gm Hvisc Strl Implanted:Qty: 1 on 09/06/2019 by Edward Haines MD at [facility] Right: Knee [employer] 12/08/2020 600-15-000 / / [id number] Cmpnt Fem Kn Rt Cr Cmnt Prm Vngrd Intlk Implanted:Qty: 1 on 09/06/2019 by Edward Haines MD at [facility] Right: Knee [employer] 06/22/2029 [id number] / / [id number] Tray Tib 63mm Kn Cocr I Beam Implanted:Qty: 1 on 09/06/2019 by Edward Haines MD at [facility] Right: Knee [employer] 12/16/2028 [id number] / / [id number] Cmpnt Ptlr 28mm 1 Pg Wire Ascnt Arcm Kn Implanted:Qty: 1 on 09/06/2019 by Edward Haines MD at [facility] Right: Knee [employer] 07/24/2024 [id number] / / [id number] Brng [id number] Vngrd Arcm Kn Ant Stab Implanted:Qty: 1 on 09/06/2019 by Edward Haines MD at [facility] Right: Knee [employer] 04/19/2023 [id number] / / [id number] Procedures Procedure Name Priority Date/Time Associated Diagnosis Comments COMPREHENSIVE METABOLIC PANEL STAT 09/15/2019 12:45 PM LOAN FUNDER from Last 3 Months or Most Recently Relevant to Health Maintenance Results * (ABNORMAL) COMPREHENSIVE METABOLIC PANEL (09/15/2019 12:45 PM LOAN FUNDER) Glucose 103 70 - 105 mg/dL 09/15/2019 1:07 PM LOAN FUNDER [facility] Sodium 133(L) 136 - 145 mmol/L 09/15/2019 1:07 PM LOAN FUNDER [facility] Potassium 4.2 3.5 - 4.7 mmol/L 09/15/2019 1:07 PM LOAN FUNDER [facility] Chloride 99 98 - 107 mmol/L 09/15/2019 1:07 PM LOAN FUNDER [facility] CO2 24 23 - 31 mmol/L 09/15/2019 1:07 PM LOAN FUNDER [facility] Calcium 10.4 8.4 - 10.4 mg/dL 09/15/2019 1:07 PM LOAN FUNDER [facility] Anion Gap 10 8 - 16 mmol/L 09/15/2019 1:07 PM LOAN FUNDER [facility] BUN 11 9.8 - 20.1 mg/dL 09/15/2019 1:07 PM LOAN FUNDER [facility] Creatinine 0.66 0.57 - 1.11 mg/dL 09/15/2019 1:07 PM LOAN FUNDER [facility] Alkaline Phosphatase 134 40 - 150 U/L 09/15/2019 1:07 PM LOAN FUNDER [facility] ALT 40 0 - 61 U/L 09/15/2019 1:07 PM LOAN FUNDER [facility] AST 29 5 - 34 U/L 09/15/2019 1:07 PM LOAN FUNDER [facility] Protein Total 7.3 6.4 - 8.3 gm/dL 09/15/2019 1:07 PM LOAN FUNDER [facility] Albumin 3.9 3.5 - 5.2 gm/dL 09/15/2019 1:07 PM LOAN FUNDER [facility] Bilirubin Total 0.7 0.2 - 1.0 mg/dL 09/15/2019 1:07 PM LOAN FUNDER [facility] eGFR by MDRD >60 >60 mL/min/1.7 3m2 09/15/2019 1:07 PM LOAN FUNDER [facility] eGFR by MDRD >60 >60 mL/min/1.7 3m2 09/15/2019 1:07 PM LOAN FUNDER [facility] Blood BLOOD SPECIMEN / Unknown Venipuncture / Unknown 09/15/2019 12:45 PM LOAN FUNDER 09/15/2019 12:49 PM LOAN FUNDER Hunter Lopez EXPERIMENTAL [employer]CRAFT MECHANIC-HEAD GREENSKEEPER LAB - CHEMISTRY ORDERABLE S Final Result [facility] [address] [place] [address] from Last 3 Months or Most Recently Relevant to Health Maintenance Insurance [facility] Advance Directives * Full Code (Latest Code Status on File) Date Activated Date Inactivated Comments 09/06/2019 10:42 AM 09/08/2019 1:31 PM
--- NOTE | 2025-07-27 08:42 | S_PTH ---
PATIENT: Teresa Espinosa LOC: [facility] U#:[id number] AGE/SX: 64/F ROOM: RE07/27/[address]: Isiah Smallwood MD : 1960 BED: DIS: 07/27/2025 SPEC #: [id number] RECD: 07/27/25 11:27 STATUS: NIYA REQ #: [id number] CHARU: 07/27/25 08:[address]: Isiah Smallwood DEPT: [facility] Surgical RECD BY: Callie Sommer ENTERED: 07/27/25 11:27 SP TYPE: Surgical OTHR DR: Pastor Pelaez DO Tissues: A - Breast Biopsy Procedures: P63 Diaz Keratin Hematoxylin and Eosin Stain E-Cadherin Gross and Microscopic Level 4 ER-60 NJ-60 MIB-60 HER 2-60 CK 5
== END 2025-07-27 07:21 | disposition home or self-care (01) ==
PROVIDERS: PCP Family Medicine; Visit Provider Surgery
DX: R92.8 Other abnormal and inconclusive findings on diagnostic imaging of breast (principal)
CPT/HCPCS: 19083; 77065; 88305; 88342; 88360; A4648

== ENCOUNTER 2025-10-15 13:24 | Outpatient (CLI) | payer BC, SELFPAY ==
--- NOTE | 2025-10-15 13:28 | ECG_ITS ---
Test Date: 2025-10-15 13:36:29 Measurements Intervals [place] Rate: 118 P: 0 MN: 0 QRS: 71 QRSD: 85 T: 74 QT: 314 QTc: 441 Interpretive Statements SINUS TACHYCARDIA MINIMAL Q WAVES- INFERIOR LEADS ABNORMAL ECG No previous ECG available for comparison Electronically Signed On 10-15-2025 20:46:34 MILKING MACHINE MECHANIC by Frantz Kingsley D.O.
--- OUTSIDE RECORDS SUMMARY | 2025-10-15 13:42 | XMS_ITS | Clinical Summary ---
Author Organization [facility] Address [address] [place] [address] Care Team Providers Care Cloud Systems Architect Name Role Phone Unavailable Primary Care Provider [...] complete this topic Human Papillomavirus (HPV) Immunization (No Doses Required) Completed Meningococcal Immunization (ACWY) Aged Out No longer eligible based on patient's age to complete this topic Rotavirus Immunization Aged Out No lo nger eligible based on patient's age to complete this topic
--- OUTSIDE RECORDS SUMMARY | 2025-10-15 13:42 | XMS_ITS | Clinical Summary ---
Author Organization [facility] Address [address] [place] [address] Phone Care Team Providers Care Hamper Maker Machine Name Role Phone Pastor Pelaez DO Primary Care Provider [phone] Allergies Active Allergy Reactions Criticality Noted Date Comments Penicillins Unknown 09/15/2019 Sulfa (Sulfonamide Antibiotics) Unknown 08/19 Medications atorvastatin (LIPITOR) 80 mg tablet Take 80 mg by mouth daily with supper. Active hydrOXYzine HCl (ATARAX) 25 mg tablet Take 1 Tablet by mouth every 8 hours as needed for Anxiety. 10 Tablet 09/19/2019 11:54 AM HAT CONE INSPECTOR 09/19/2019 Active tamoxifen (NOLVADEX) 20 mg tablet Take 1 Tablet (20 mg) by mouth daily. 90 Tablet 3 12/14/2024 Active losartan (COZAAR) 50 mg tablet Take 50 mg by mouth daily. 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 Encounters Date Type Department Care Team Description 10/09/2025 External Device Data STL ABSTRACTION Provider, Abstract 10/09/2025 External Device Data STL ABSTRACTION Provider, Abstract 09/04/2025 External Device Data STL ABSTRACTION Provider, Abstract 08/31/2025 Telephone [facility] - [place] [address] [place] [address] Luis Enrique Walker MD billing issues for past 3 visits 08/28/2025 External Device Data STL ABSTRACTION Provider, Abstract 08/28/2025 External Device Data STL ABSTRACTION Provider, Abstract 08/28/2025 External Device Data STL ABSTRACTION Provider, Abstract 08/15/2025 External Device Data STL ABSTRACTION Provider, Abstract 08/15/2025 External Device Data STL ABSTRACTION Provider, Abstract 08/02/2025 2:15 PM CDT Office Visit [facility] H[facility] [address] [place] [address] Luis Enrique Walker MD Malignant neoplasm of female breast, unspecified estrogen receptor status, unspecified laterality, unspecified site of breast (CMS/HCC) (Primary Dx) 07/30/2025 Orders Only [facility] [address] [place] [address] Luis Enrique Walker MD Malignant neoplasm of [...] Date Smoking Tobacco: Every Day Cigarettes 1.5 45.9 Started: 11/07/1979 Tobacco Cessation:Ready to Q uit: Not Asked; Counseling Given: Not Answered Alcohol Use Standard Drinks/Week Comments Not Currently 0 (1 standard drink = 0.6 oz pur e alcohol) Comments Unknown Sex and Gender Information Value Date Recorded Sex Assigned at Not on file Legal Sex Female 7:11 PM HAT CONE INSPECTOR Gender Identity Not on file Sexual Orientation Not on file Last Filed Vital Signs Vital Sign Reading Time Taken Comments Blood Pressure 128/89 08/02/2025 1:44 PM CDT Pulse 101 08/02/2025 1:44 PM CDT Temperature 36.3 C (97.4 F) 08/02/2025 1:44 PM CDT Respiratory Rate 16 08/02/2025 1:44 PM CDT Oxygen Saturation 96% 08/02/2025 1:44 PM CDT Inhaled Oxygen Concentration - - Weight 67.4 kg (148 lb 9.6 oz) 08/02/2025 1:44 P M CDT Height 154.9 cm (5' 1) 11/07/2024 2:27 PM HAT CONE INSPECTOR Body Mass Index 28.08 11/07/2024 2:27 PM HAT CONE INSPECTOR Plan of Treatment Upcoming Encounters Date Type Department Care Team (Late st Contact Info) Description 11/08/2025 2:30 PM HAT CONE INSPECTOR Office Visit [facility] - [place] [address] [facility] [address] [place] [address] Luis Enrique Walker MD [address] [facility] [address] [place] [address] Health Maintenance Due Date Last [...] VACCINE (#1) 2025 COVID-19 Vaccine (2 - season) 06/18/202502/2021 RSV VACCINE (60+ or ) (1 - 1-dose 75+ series) 2036 Insurance RX [employer] Express [facility] PPO [facility] PPO Advance Directives For more information, please contact: [phone] * Full Code (Latest Code Status on File) Date Activated Date Inactivated Comments 09/17/2019 11:07 AM 09/19/2019 4:15 PM * Full Code Date Activated Date Inactivated Comments 09/15/2019 10:37 PM 09/17/2019 11:07 AM Care Teams Hamper Maker Machine Relationship Specialty Start Date End Date Pastor Pelaez DO [address] [place] [address] PCP - General Family Practice 11/07/24
== END 2025-10-15 13:25 | disposition home or self-care (01) ==
PROVIDERS: PCP Family Medicine; Visit Provider Nurse Practitioner Family
DX: R00.0 Tachycardia, unspecified (principal); R94.31 Abnormal electrocardiogram [ECG] [EKG]
CPT/HCPCS: 93005

== ENCOUNTER 2025-10-15 15:34 | Emergency (ER) | payer BC, SELFPAY ==
--- NOTE | ~2025-10-15 | CT_ITS ---
CTA chest PE protocol HISTORY:racing heart palps, hx breast ca . COMPARISON: None. TECHNIQUE: Following the noncontrasted plastic tool maker, axial images of the thorax were obtained following infusion of 100 cc of Isovue 370. Post-processing on an independent workstation was performed to reconstruct MIP images for evaluation of the thoracic vasculature. FINDINGS: There is no pulmonary embolism, aortic dissection, thoracic aneurysm or pericardial fluid. The lung parenchyma is clear. No pleural effusion or pneumothorax is noted. There is no axillary, mediastinal or hilar adenopathy. Limited evaluation of the upper abdomen demonstrates no gross abnormalities. Review of bone windows demonstrates no osteoblastic or lytic lesions. IMPRESSION: There is no pulmonary embolism, aortic dissection, pericardial fluid or thoracic aneurysm. No acute lung findings. All CT scans at this facility are performed using low dose modulation techniques as appropriate to perform exam including the following: automated exposure control; use of iterative reconstruction technique; adjustment of the mA and/or kV according to patient size (this includes techniques or standardized protocols for targeted exams where dose is matched to indication/reason for exam). Reviewed, dictated and finalized at location S. OR JAVA WEB DEVELOPER IMPRESSION: There is no pulmonary embolism, aortic dissection, pericardial fluid or thoraci c aneurysm. No acute lung findings. All CT scans at this facility are performed using low dose modulation techniqu es as appropriate to perform exam including the following: automated exposure c ontrol; use of iterative reconstruction technique; adjustment of the mA and/or kV according to patient size (this includes techniques or standardized protocol s for targeted exams where dose is matched to indication/reason for exam).
--- OUTSIDE RECORDS SUMMARY | 2025-10-15 15:37 | XMS_ITS | Clinical Summary ---
Author Organization [facility] Address [address] [place] [address] Phone Care Team Providers Care Dyeing Machine Feeder Name Role Phone Pastor Pelaez DO Primary Care Provider [phone] Allergies Active Allergy Reactions Criticality Noted Date Comments Penicillins Unknown 09/15/2019 Sulfa (Sulfonamide Antibiotics) Unknown 08/19 Medications atorvastatin (LIPITOR) 80 mg tablet Take 80 mg by mouth daily with supper. Active hydrOXYzine HCl (ATARAX) 25 mg tablet Take 1 Tablet by mouth every 8 hours as needed for Anxiety. 10 Tablet 09/19/2019 11:54 AM BRAZER PRODUCTION LINE 09/19/2019 Active tamoxifen (NOLVADEX) 20 mg tablet [...] Data STL ABSTRACTION Provider, Abstract 08/31/2025 Telephone [facility] Oncology and Hematology - [place] [address] [place] [address] Luis Enrique Walker MD billing issues for past 3 visits 08/28/2025 External Device Data STL ABSTRACTION Provider, Abstract 08/28/2025 External Device Data STL ABSTRACTION Provider, Abstract 08/28/2025 External Device Data STL ABSTRACTION Provider, Abstract 08/15/2025 External Device Data STL ABSTRACTION Provider, Abstract 08/15/2025 External Device Data STL ABSTRACTION Provider, Abstract 08/02/2025 2:15 PM CDT Office Visit [facility] Oncology and Hematology [facility] [address] [place] [address] Luis Enrique Walker MD Malignant neoplasm of female breast, unspecified estrogen receptor status, unspecified laterality, unspecified site of breast (CMS/HCC) (Primary Dx) 07/30/2025 Orders Only [facility] Oncology and Hematology [facility] [address] [place] [address] Luis Enrique Walker MD Malignant neoplasm of [...] on file Legal Sex Female 7:11 PM BRAZER PRODUCTION LINE Gender Identity Not on file Sexual Orientation [...] 154.9 cm (5' 1) 11/07/2024 2:27 PM BRAZER PRODUCTION LINE Body Mass Index 28.08 11/07/2024 2:27 PM BRAZER PRODUCTION LINE Plan of Treatment Upcoming Encounters Date Type Department Care Team (Late st Contact Info) Description 11/08/2025 2:30 PM BRAZER PRODUCTION LINE Office Visit [facility] Oncology and Hematology - [place] [address] [facility] [address] [place] [address] Luis Enrique Walker MD [address] [facility] [address] [place] [address] Health Maintenance Due Date Last [...] series) [address] [employer] Express [facility] PPO [facility] PPO Advance Directives For more information, please contact: [phone] * Full Code (Latest Code Status on File) Date Activated Date Inactivated Comments 09/17/2019 11:07 AM 09/19/2019 4:15 PM * Full Code Date Activated Date Inactivated Comments 09/15/2019 10:37 PM 09/17/2019 11:07 AM Care Teams Dyeing Machine Feeder Relationship Specialty Start Date End Date Pastor Pelaez DO [address] [place] [address] PCP - General Family Practice 11/07/24
--- OUTSIDE RECORDS SUMMARY | 2025-10-15 15:37 | XMS_ITS | Clinical Summary ---
Author Organization [facility] Address [address] [place] [address] Care Team Providers Care Entry Engineer Name Role Phone Unavailable Primary Care Provider [...]
--- OUTSIDE RECORDS SUMMARY | 2025-10-15 15:37 | XMS_ITS | Clinical Summary ---
Author Organization [facility] Address [address] [place] [address] Care Team Providers Care Post Closer Name Role Phone Unavailable Primary Care Provider Unavailabl e Source Comments [facility],non-owned Affiliates and Associated Physician Practices is amultiple site organization consisting of ambulatory clinics and hospital sitesin [place], [place], [place] and [place]. This disclosure is being madepursuant to the Care Everywhere program and may not contain all information available regarding this patient. Last updated 18.[facility] Allergies Active Allergy Reactions Criticality [...] on file Legal Sex Female 6:24 AM SEASONER Gender Identity Not on file Sexual Orientation Not on file Last Filed Vital Signs Vital Sign Reading Time Taken Comments Blood Pressure 139/78 09/15/2019 12:00 PM SEASONER Pulse 76 09/15/2019 12:00 PM SEASONER Temperature 36.6 C (97.8 F) 09/15/2019 12:00 PM SEASONER Respiratory Rate 16 09/15/2019 12:00 PM SEASONER Oxygen Saturation 100% 09/15/2019 12:00 PM SEASONER Inhaled Oxygen Concentration - - Weight 74.8 kg (165 lb) 09/15/2019 12:00 PM SEASONER Height 157.5 cm (5' 2) 09/15/2019 12:00 PM SEASONER Body Mass Index 30.18 09/15/2019 12:00 PM SEASONER Plan of Treatment Health Maintenance Due Date [...] DEPRESSION SCREENING 10/18/2024 COVID-19 VACCINE (1 - 2024-2 6 season) 2025 INFLUENZA VACCINE (#1) 2025 Respiratory [...] this topic Medical Devices Implanted Type Area Instructor Traffic Safety Device Identifier Shelf Expiration Date Model / Serial / Lot Cmnt Bone Djo Srg Cblt 40gm Hvisc Strl Implanted:Qty: 1 on 09/06/2019 by Edward Haines MD at [facility] Right: Knee [employer] 12/08/2020 [id number] / / [id number] Cmpnt Fem Kn Rt Cr Cmnt Prm Vngrd Intlk Implanted:Qty: 1 on 09/06/2019 by Edward Haines MD at [facility] Right: Knee [employer] 06/22/2029 [id number] / / [id number] Tray Tib 63mm Kn Cocr I Beam Implanted:Qty: 1 on 09/06/2019 by Edward Haines MD at [facility] Right: Knee [employer] 12/16/2028 [id number] / / [id number] Cmpnt Ptlr 28mm 1 Pg Wire Ascnt Arcm Kn Implanted:Qty: 1 on 09/06/2019 by Edward Haines MD at [facility] Right: Knee [employer] 07/24/2024 [id number] / / [id number] Brng 21mdh90qm Vngrd Arcm Kn Ant Stab Implanted:Qty: 1 on 09/06/2019 by Edward Haines MD at [facility] Right: Knee [employer] 04/19/2023 [id number] / / [id number] Procedures Procedure Name Priority Date/Time Associated Diagnosis Comments COMPREHENSIVE METABOLIC PANEL STAT 09/15/2019 12:45 PM SEASONER from Last 3 Months or Most Recently Relevant to Health Maintenance Results * (ABNORMAL) COMPREHENSIVE METABOLIC PANEL (09/15/2019 12:45 PM SEASONER) Glucose 103 70 - 105 mg/dL 09/15/2019 1:07 PM [facility] Sodium 133(L) 136 - 145 mmol/L 09/15/2019 1:07 PM SE[facility] Potassium 4.2 3.5 - 4.7 mmol/L 09/15/2019 1:07 PM SE[facility]ON[facility] Chloride 99 98 - 107 mmol/L 09/15/2019 1:07 PM SEASONER [facility] CO2 24 23 - 31 mmol/L 09/15/2019 1:07 PM SE[facility] Calcium 10.4 8.4 - 10.4 mg/dL 09/15/2019 1:07 PM SE[facility] Anion Gap 10 8 - 16 mmol/L 09/15/2019 1:07 PM SEAS[facility] BUN 11 9.8 - 20.1 mg/dL 09/15/2019 1:07 PM SEASONER [facility] Creatinine 0.66 0.57 - 1.11 mg/dL 09/15/2019 1:07 PM SE[facility] Alkaline Phosphatase 134 40 - 150 U/L 09/15/2019 1:07 PM SE[facility] ALT 40 0 - 61 U/L 09/15/2019 1:07 PM SEASONER [facility] AST 29 5 - 34 U/L 09/15/2019 1:07 PM [facility] Protein Total 7.3 6.4 - 8.3 gm/dL 09/15/2019 1:07 PM SEAS[facility]ER [facility] Albumin 3.9 3.5 - 5.2 gm/dL 09/15/2019 1:07 PM SE[facility] Bilirubin Total 0.7 0.2 - 1.0 mg/dL 09/15/2019 1:07 PM [facility] eGFR by MDRD >60 >60 mL/min/1.7 3m2 09/15/2019 1:07 PM [facility] eGFR by MDRD >60 >60 mL/min/1.7 3m2 09/15/2019 1:07 PM SEASONER [facility] Blood BLOOD SPECIMEN / Unknown Venipuncture / Unknown 09/15/2019 12:45 PM SEASONER 09/15/2019 12:49 PM SEASONER Hunter Lopez COLLEGE ATHLETE-MECHANICAL UNIT REPAIRER LAB - CHEMISTRY ORDERABLE S Final Result [facility] [address] [place] [address] from Last 3 Months or Most Recently Relevant to Health Maintenance Insurance [facility]/COUNTS INCLUDE 234 BEDS AT THE [facility] SELF PAY NO INSURANCE Member Subscriber Plan / Payer (Ef fective for All Dates) Name:Sherry Espinosa Member ID:Not on file Relation to Subscriber:Not on file Name:SHERRY ESPINOSA Subscriber ID:Not on file (Home) Address: [address] [place] [address] Payer ID:Not on file Group ID:Not on file Type:Self Pay Address: [facility] Advance Directives * Full Code (Latest Code Status on File) Date Activated Date Inactivated Comments 09/06/2019 10:42 AM 09/08/2019 1:31 PM
--- NOTE | 2025-10-15 15:42 | ECG_ITS ---
Test Date: 2025-10-15 16:12:31 Measurements Intervals [place] Rate: 107 P: 75 NV: 138 QRS: 47 QRSD: 78 T: 71 QT: 331 QTc: 443 Interpretive Statements SINUS TACHYCARDIA WITH OCCASIONAL SUPRAVENTRICULAR PREMATURE COMPLEXES LEFT ATRIAL ENLARGEMENT MINIMAL Q WAVES- INFERIOR LEADS CONSIDER ANTERIOR INFARCT, AGE INDETERMINATE BASELINE ARTIFACT- I, III, AVR, AVL, V4 ABNORMAL ECG Compared to ECG 10/15/2025 13:36:29 HEART RATE HAS DECREASED Electronically Signed On 10-15-2025 22:27:38 PEN AND PENCIL REPAIRER by Frantz Kingsley D.O.
[2025-10-15 15:59] VITALS: BP 128/79; PULSE 113; RESP 16; TEMP 36.4; O2SAT 99
--- NOTE | 2025-10-15 16:09 | ED.GENADULT ---
HPI - General Adult General Chief complaint: Recheck/Abnormal Lab/Rx <Deana Yao PA-C - Last Filed: 10/15/25 16:13> Stated complaint: abnormal EKG <TAHMINA Azul Last Filed: 10/15/25 16:13> Time Seen by Provider: 10/15/25 16:00 <TAHMINA Azul Last Filed: 10/15/25 16:13> Focused HPI: Patient is a 65-year-old female who presents the ED with report of abnormal EKG. Patient reports she saw her primary care doctor last week for a sinus infection and was noted to have an elevated heart rate at that time. She was sent to have an outpatient EKG, which she had performed today which showed atrial flutter with RVR. Referred to the ED for further evaluation. Primary care doctor was also concerned about a possible pulmonary embolism as patient is on tamoxifen for history of breast cancer. Patient denies previous history of AFib or flutter. Is not on any anticoagulation. Denies significant shortness of breath. Denies chest pain. She is feeling improved from sinus infection after finishing antibiotics. GENERAL: Well-appearing, well-nourished, and in no acute distress. HEAD: Normocephalic, atraumatic. CHEST: Clear to auscultation. ?No respiratory distress. HEART: Tachycardic with regular rhythm.? NEURO: ?Alert and oriented x3. Patient screened in triage and initial orders placed.? ?Additional care and disposition to be based upon?diagnostic testing and treatment. <TAHMINA Azul Last Filed: 10/15/25 16:13> Source: patient <TAHMINA Azul Last Filed: 10/15/25 16:13> Mode of arrival: ambulatory <TAHMINA Azul Last Filed: 10/15/25 16:13> Limitations: no limitations <TAHMINA Azul Last Filed: 10/15/25 16:13> Related Data Home medications: Home Medications ?Medication ?Instructions ?Recorded ?Confirmed ?Last Taken ?Type multivitamin 1 tablet PO DAILY 10/09/24 10/15/25 11/07/24 History tamoxifen 10 mg tablet 10 mg PO BID 03/14/25 10/15/25 Unknown History vitamin E (dl, acetate) 45 mg (100 45 mg PO DAILY 03/14/25 10/15/25 Unknown History unit) capsule aspirin 81 mg tablet 81 mg PO DAILY 08/08/25 10/15/25 Unknown History <TAHMINA Azul Last Filed: 10/15/25 16:13> Allergies/adverse reactions: Allergies Allergy/AdvReac Type Severity Reaction Status Date / Time Penicillins Allergy Severe Itching Verified 10/15/25 15:36 Sulfa (Sulfonamide Allergy Severe Itching Verified 10/15/25 15:36 Antibiotics) <TAHMINA Azul Last Filed: 10/15/25 16:13> Review of Systems Review of Systems: All systems reviewed & are unremarkable except as noted in HPI and below <TAHMINA Dong Last Filed: 10/15/25 18:28> [facility] Past Medical History Medical History: Medical History History of right breast cancer Hypertension Hyperlipidemia <TAHMINA Azul Last Filed: 10/15/25 16:13> Surgical History Surgical History: Surgical History H/O breast biopsy 10/20/24 Image guided wire localized excisional right breast biopsy Dr. Smallwood History of colonoscopy History of hysterectomy History of right knee joint replacement <TAHMINA Azul Last Filed: 10/15/25 16:13> Family History Family History: Family History Father , age 66 Lung cancer Mother , age 83 Diabetes mellitus Heart disease <TAHMINA Azul Last Filed: 10/15/25 16:13> Social History Social History: Social History Smoking packs per day: 1 Smoking cigarettes per day: 20.0 Years smoked: 45 Smoking pack-years: 45.00 Smoking status: Current every day smoker Tobacco type: cigarettes Second hand tobacco smoke exposure: No Alcohol intake: current Alcohol use details: Has a few drinks daily after work. 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 HEAD: Normocephalic, atraumatic. EYES: EOMI. ENT: Nares clear, no rhinorrhea or epistaxis. Mucous membranes moist. Oropharynx without tonsillar hypertrophy exudate or other lesions. CHEST: Clear to auscultation. No respiratory distress. No wheezes rales or rhonchi HEART: Regular rate and rhythm. No murmur heard. Normal peripheral pulses. EXTREMITIES: Normal range of motion. No edema. SKIN: Warm, dry, no rash. NEURO: No focal deficits. Alert and oriented x3. PSYCH: Normal mood and affect <TAHMINA Dong Last Filed: 10/15/25 18:28> Course Vital Signs Vital signs: Vital Signs Temperature 97.6 F 10/15/25 15:59 Pulse Rate 113 H 10/15/25 15:59 Respiratory Rate 16 10/15/25 15:59 Blood Pressure 128/79 10/15/25 15:59 Pulse Oximetry 99 10/15/25 15:59 Oxygen Delivery Room Air 10/15/25 15:59 Temperature 97.6 F 10/15/25 15:59 Pulse Rate 113 H 10/15/25 15:59 Respiratory Rate 16 10/15/25 15:59 Blood Pressure 128/79 10/15/25 15:59 Pulse Oximetry 99 10/15/25 15:59 Oxygen Delivery Room Air 10/15/25 15:59 <CAMILO AzulC - Last Filed: 10/15/25 16:13> Vital Signs Temperature 97.6 F 10/15/25 15:59 Pulse Rate 113 H 10/15/25 15:59 Respiratory Rate 16 10/15/25 15:59 Blood Pressure 128/79 10/15/25 15:59 Pulse Oximetry 99 10/15/25 15:59 Oxygen Delivery Room Air 10/15/25 15:59 Temperature 97.6 F 10/15/25 15:59 Pulse Rate 113 H 10/15/25 15:59 Respiratory Rate 16 10/15/25 15:59 Blood Pressure 128/79 10/15/25 15:59 Pulse Oximetry 99 10/15/25 15:59 Oxygen Delivery Room Air 10/15/25 15:59 <TAHMINA Dong Last Filed: 10/15/25 18:28> [facility] Narrative Medical decision making narrative: MSE by KRISH in triage <TAHMINA Azul Last Filed: 10/15/25 16:13> MSE by KRISH in triage Patient presents the emergency department for abnormal EKG. PCP believed it to be atrial flutter. It does appear patient was in sinus tachycardia. Her P wave is notched likely contributing to the EKG being mistaken for atrial flutter. Mildly tachycardic upon arrival, this normalized without intervention. CBC does show leukocytosis to 14. Also mild hemoconcentration. Metabolic panel also with some evidence of dehydration. I did order IV fluids, patient declines at this time she feels well. She is currently drinking water. Once again EKG showing sinus tachycardia, baseline troponin is negative. CTA chest PE without acute findings. Patient updated on her workup and agrees with plan of care. Given warnings to return to the ER <TAHMINA Dong Last Filed: 10/15/25 18:28> Differential Diagnosis Differential Diagnosis: sinus tachycardia, atrial flutter, atrial fibrillation <TAHMINA oDng Last Filed: 10/15/25 18:28> Lab Data [facility] Lab Attestation statement: I personally reviewed the patient's lab results. <TAHMINA Dong Last Filed: 10/15/25 18:28> Result diagrams: 10/15/25 17:13 10/15/25 17:13 <Deana Yao PA-C - Last Filed: 10/15/25 16:13> Labs: Lab Results 10/15/25 Range/Units 17:13 WBC 14.0 H (4.5-10.0) K/mm3 RBC 5.11 (4.2-5.4) M/mm3 Hgb 16.4 H (12.0-15.0) g/dL Hct 49.1 H (37.0-47.0) % MCV 96.1 (80-100) fl MCH 32.1 (26-34) pg MCHC 33.4 (32-36) g/dl RDW 12.5 (11.5-14.5) % Plt Count 307 D (150-375) k/mm3 MPV 9.2 (7.4-10.4) fl Immature Gran % (Auto) 0.5 (0-0.5) % Neut % (Auto) 73.4 H (45.5-73.1) % Lymph % (Auto) 19.9 (18.3-44.2) % [place] % (Auto) 5.4 (2.6-8.5) % Eos % (Auto) 0.3 (0-4.4) % Baso % (Auto) 0.5 (0.2-1.2) % Lymph # (Auto) 2.78 (0.9-3.2) K/mm3 [place] # (Auto) 0.8 H (0.1-0.6) K/mm3 Eos # (Auto) 0.0 (0-0.3) K/mm3 Baso # (Auto) 0.1 (0.0-0.1) K/mm3 Abs Immat Gran (auto) 0.07 H (0.00-0.031) K/mm3 Absolute Neuts (auto) 10.2 H (1.3-6.7) K/mm3 Absolute Nucleated RBC 0.000 (0.0-0.012) K/mm3 Nucleated RBC % 0.0 (0.0-0.2) % PT 12.6 (11.1-14.7) Seconds INR 0.9 APTT 27.6 (22.3-36.8) Seconds Sodium 133 L (137-145) mmol/L Potassium 4.2 (3.4-5.0) mmol/L Chloride 107 (98-107) mmol/L Carbon Dioxide 20 L (22-30) mmol/L Anion Gap 6 (4-12) mmol/L BUN 19 H (7-17) mg/dL Creatinine 0.63 L (0.7-1.0) mg/dL Estim Creat Clear Calc 69 ml/min Estimated GFR > 60 (59 - ) Glucose 106 (65-110) mg/dL Calcium 9.7 (8.4-10.2) mg/dL Magnesium 1.7 (1.6-2.3) mg/dL Total Bilirubin 0.7 (0.2-1.3) mg/dL AST 45 H (14-36) U/L ALT 33 (6-35) U/L Alkaline Phosphatase 92 (38-126) U/L Troponin I < 0.012 (0.000-0.034) ng/mL Total Protein 6.7 (6.3-8.2) g/dL Albumin 4.2 (3.5-5.1) g/dL <Deana Yao PA-C - Last Filed: 10/15/25 16:13> Lab Results 10/15/25 Range/Units 17:13 WBC 14.0 H (4.5-10.0) K/mm3 RBC 5.11 (4.2-5.4) M/mm3 Hgb 16.4 H (12.0-15.0) g/dL Hct 49.1 H (37.0-47.0) % MCV 96.1 (80-100) fl MCH 32.1 (26-34) pg MCHC 33.4 (32-36) g/dl RDW 12.5 (11.5-14.5) % Plt Count 307 D (150-375) k/mm3 MPV 9.2 (7.4-10.4) fl Immature Gran % (Auto) 0.5 (0-0.5) % Neut % (Auto) 73.4 H (45.5-73.1) % Lymph % (Auto) 19.9 (18.3-44.2) % [place] % (Auto) 5.4 (2.6-8.5) % Eos % (Auto) 0.3 (0-4.4) % Baso % (Auto) 0.5 (0.2-1.2) % Lymph # (Auto) 2.78 (0.9-3.2) K/mm3 [place] # (Auto) 0.8 H (0.1-0.6) K/mm3 Eos # (Auto) 0.0 (0-0.3) K/mm3 Baso # (Auto) 0.1 (0.0-0.1) K/mm3 Abs Immat Gran (auto) 0.07 H (0.00-0.031) K/mm3 Absolute Neuts (auto) 10.2 H (1.3-6.7) K/mm3 Absolute Nucleated RBC 0.000 (0.0-0.012) K/mm3 Nucleated RBC % 0.0 (0.0-0.2) % PT 12.6 (11.1-14.7) Seconds INR 0.9 APTT 27.6 (22.3-36.8) Seconds Sodium 133 L (137-145) mmol/L Potassium 4.2 (3.4-5.0) mmol/L Chloride 107 (98-107) mmol/L Carbon Dioxide 20 L (22-30) mmol/L Anion Gap 6 (4-12) mmol/L BUN 19 H (7-17) mg/dL Creatinine 0.63 L (0.7-1.0) mg/dL Estim Creat Clear Calc 69 ml/min Estimated GFR > 60 (59 - ) Glucose 106 (65-110) mg/dL Calcium 9.7 (8.4-10.2) mg/dL Magnesium 1.7 (1.6-2.3) mg/dL Total Bilirubin 0.7 (0.2-1.3) mg/dL AST 45 H (14-36) U/L ALT 33 (6-35) U/L Alkaline Phosphatase 92 (38-126) U/L Troponin I < 0.012 (0.000-0.034) ng/mL Total Protein 6.7 (6.3-8.2) g/dL Albumin 4.2 (3.5-5.1) g/dL <Xochilt Brandt PA-C - Last Filed: 10/15/25 18:28> Imaging Data Radiologist's impression: ITS Impressions Chest CTA 10/15/25 17:37 IMPRESSION: There is no pulmonary embolism, aortic dissection, pericardial fluid or thoracic aneurysm. No acute lung findings. All CT scans at this facility are performed using low dose modulation techniques as appropriate to perform exam including the following: automated exposure control; use of iterative reconstruction technique; adjustment of the mA and/or kV according to patient size (this includes techniques or standardized protocols for targeted exams where dose is matched to indication/reason for exam). <Deana Yao PA-C - Last Filed: 10/15/25 16:13> ITS Impressions Chest CTA 10/15/25 17:37 IMPRESSION: There is no pulmonary embolism, aortic dissection, pericardial fluid or thoracic aneurysm. No acute lung findings. All CT scans at this facility are performed using low dose modulation techniques as appropriate to perform exam including the following: automated exposure control; use of iterative reconstruction technique; adjustment of the mA and/or kV according to patient size (this includes techniques or standardized protocols for targeted exams where dose is matched to indication/reason for exam). <Xochilt rBandt PA-C - Last Filed: 10/15/25 18:28> Critical Care Time Critical Care Time Critical Care Time: No <Xochilt Brandt PA-C - Last Filed: 10/15/25 18:28> Discharge Plan Discharge Clinical Impression: Sinus tachycardia <TAHMINA Azul Last Filed: 10/15/25 16:13> Patient Disposition: Home <TAHMINA Azul Last Filed: 10/15/25 16:13> Condition: Stable <TAHMINA Azul Last Filed: 10/15/25 16:13> Additional Instructions: Return to the emergency department if you experience fever, chest pain, shortness of breath, swelling in your legs, or any other symptoms that are concerning to you. Your CT scan of your heart and lungs did not show any concerning findings. You did look a little dehydrated on your blood work, drink plenty of water. Your EKG shows you are in a normal sinus rhythm, not atrial flutter Follow up with your primary care doctor and cardiology if needed <Deana Yao PA-C - Last Filed: 10/15/25 16:13> Patient Language: Indonesian <Deana Yao PA-C - Last Filed: 10/15/25 16:13> Prescriptions: No Action tamoxifen 10 mg tablet 10 mg PO BID vitamin E (dl, acetate) 45 mg (100 unit) capsule 45 mg PO DAILY aspirin 81 mg tablet 81 mg PO DAILY doxycycline monohydrate 100 mg tablet 100 mg PO Q12H 10 Days Qty: 20 0RF multivitamin Tablet 1 tablet PO DAILY losartan 50 mg tablet See Rx Instructions .ROUTE .COMPLEX Qty: 90 2RF Dose Instruction: TAKE ONE TABLET BY MOUTH DAILY Rx Instructions: TAKE ONE TABLET BY MOUTH DAILY atorvastatin 20 mg tablet See Rx Instructions .ROUTE .COMPLEX Qty: 90 2RF Dose Instruction: TAKE ONE TABLET BY MOUTH DAILY Rx Instructions: TAKE ONE TABLET BY MOUTH DAILY meloxicam 15 mg tablet See Rx Instructions .ROUTE .COMPLEX Qty: 30 3RF Dose Instruction: TAKE ONE TABLET BY MOUTH DAILY Rx Instructions: TAKE ONE TABLET BY MOUTH DAILY hydrochlorothiazide 12.5 mg tablet See Rx Instructions .ROUTE .COMPLEX Qty: 90 1RF Dose Instruction: TAKE ONE TABLET BY MOUTH DAILY Rx Instructions: TAKE ONE TABLET BY MOUTH DAILY <Deana Yao PA-C - Last Filed: 10/15/25 16:13> Follow-up/Referrals: Kalpesh Sherstha MD [Physician, Cardiology] Marybel Borges APRN [Primary Care Provider, Family Practice] <Deana Yao PA-C - Last Filed: 10/15/25 16:13>
[2025-10-15 17:23] LABS: Hematocrit 49.1 % (37.0-47.0); Hemoglobin 16.4 g/dL (12.0-15.0); Immature Granulocyte Percent A 0.5 % (0-0.5); Lymphocytes Absolute Auto 2.78 K/mm3 (0.9-3.2); Mean Corpuscular HGB Conc 33.4 g/dl (32-36); Mean Corpuscular Hemoglobin 32.1 pg (26-34); Mean Corpuscular Volume 96.1 fl (80-100); Nucleated Red Blood Cells Absolute Auto 0.000 K/mm3 (0.0-0.012); Nucleated Red Blood Cells Perc 0.0 % (0.0-0.2); Platelet Count Result 307 k/mm3 (150-375); Red Blood Count 5.11 M/mm3 (4.2-5.4); White Blood Count 14.0 K/mm3 (4.5-10.0)
[2025-10-15 17:33] LABS: Alanine Aminotransferase 33 U/L (6-35); Albumin Level 4.2 g/dL (3.5-5.1); Alkaline Phosphatase 92 U/L (38-126); Anion Gap 6 mmol/L (4-12); Aspartate Amino Transferase 45 U/L (14-36); Bilirubin,Total 0.7 mg/dL (0.2-1.3); Blood Urea Nitrogen 19 mg/dL (7-17); Calcium 9.7 mg/dL (8.4-10.2); Carbon Dioxide 20 mmol/L (22-30); Chloride 107 mmol/L (98-107); Estimated CRCL calculation 69 ml/min; Estimated Glomerular Filt Rate > 60; Glucose 106 mg/dL (65-110); Magnesium 1.7 mg/dL (1.6-2.3); Potassium 4.2 mmol/L (3.4-5.0); Sodium 133 mmol/L (137-145); Total Protein 6.7 g/dL (6.3-8.2)
[2025-10-15 17:35] LABS: INR 0.9; Prothrombin Time 12.6 Seconds (11.1-14.7)
[2025-10-15 17:36] LABS: Partial Thromboplastin Time 27.6 Seconds (22.3-36.8)
[2025-10-15 17:45] LABS: Troponin I < 0.012 ng/mL (0.000-0.034)
[2025-10-15 18:45] VITALS: BP 142/83; PULSE 100; RESP 15; TEMP 36.6; O2SAT 98
[2025-10-22 08:37] LABS: Estimated CRCL calculation 72 ml/min; Estimated Glomerular Filt Rate > 60
== END 2025-10-15 18:48 | disposition home or self-care (01) ==
PROVIDERS: Physician Assistant; Emergency Provider Physician Assistant; PCP Nurse Practitioner Family
DX: R00.0 Tachycardia, unspecified (principal); F17.210 Nicotine dependence, cigarettes, uncomplicated; Z85.3 Personal history of malignant neoplasm of breast; Z96.651 Presence of right artificial knee joint; Z90.710 Acquired absence of both cervix and uterus; Z79.810 Long term (current) use of selective estrogen receptor modulators (SERMs); I49.1 Atrial premature depolarization; R94.31 Abnormal electrocardiogram [ECG] [EKG]
CPT/HCPCS: 36415; 71275; 80053; 82565; 83735; 84484; 85025; 85610; 85730; 93005; 96360; 99284; Q9967